=== PATIENT | female | born 1940 | race Two or more races ===

== ENCOUNTER 2017-01-27 20:11 | Inpatient (IN) | payer MEDICARE, MEDICAID ==
[~2017-01-27] VITALS: Ht 165.1 cm; Wt 66.7 kg
[2017-01-27 22:20] VITALS: BP 101/59
[2017-01-28] VITALS (15 sets, daily range): BP systolic 92–148; BP diastolic 41–82
[2017-01-28 05:59] LABS: APPEARANCE,URINE CLEAR; KETONES,URINE NEGATIVE (NEGATIVE); LEUKOCYTE ESTERASE ,URINE 3+ (NEGATIVE); NITRITE,URINE NEGATIVE (NEGATIVE); PH,URINE 5 (4.5-8.0); PROTEIN,URINE 2+ (NEGATIVE); UROBILINOGEN,URINE NORMAL MG/DL (0.0-1.0)
[2017-01-28] MEDS: NovoLOG Insulin Flexpen SUBQ SCH ×4 (06:05→21:48)
[2017-01-28 06:10] LABS: BACTERIA,URINE FEW /HPF; RBC,URINE 15-20 /HPF (0 - 2); SQUAMOUS EPITHELIAL CELL,UR FEW /LPF (NONE/OCC); WBC,URINE 60-80 /HPF (0 - 2)
[2017-01-28 06:11] LABS: HYALINE CASTS, URINE 0-2 /LPF
[2017-01-28 07:09] LABS: PROTHROMBIN TIME 10.5 SEC (9.30-11.50)
[2017-01-28 07:16] LABS: BASOPHILS % (AUTO) 0.7 % (0.0-2.0); EOSINOPHILS % (AUTO) 3.5 % (0.0-3.0); LYMPHOCYTES % (AUTO) 12.9 % (20.0-45.0); MEAN CORPUSCULAR HEMOGLOBIN 24.6 PG (27.0-31.0); MEAN CORPUSCULAR HGB CONC 31.3 G/DL (32.0-36.0); MEAN CORPUSCULAR VOLUME 79 FL (80-99); MONOCYTES % (AUTO) 7.9 % (1.0-10.0); PLATELET COUNT 277 K/UL (150-450); RED BLOOD COUNT 3.68 M/UL (4.20-5.40); RED CELL DISTRIBUTION WIDTH 15.9 % (11.6-14.8); WHITE BLOOD COUNT 11.8 K/UL (4.8-10.8)
[2017-01-28 07:21] LABS: ALANINE AMINOTRANSFERASE 8 U/L (3-33); ALBUMIN/GLOBULIN RATIO 0.9 (1.0-2.7); ANION GAP 13 (5-15); ASPARTATE AMINO TRANSFERASE 13 U/L (5-40); CALCIUM 8.9 mg/dL (8.6-10.2); CARBON DIOXIDE 24 mEQ/L (20-30); CHLORIDE 98 mEQ/L (98-107); CREATININE 1.3 mg/dL (0.5-0.9); HEMOLYSIS 0; MAGNESIUM 1.6 mg/dL (1.7-2.5); PHOSPHORUS 2.3 mg/dL (2.5-4.8); POTASSIUM 4.1 mEQ/L (3.4-4.9); SODIUM 135 mEQ/L (135-145); TOTAL PROTEIN 7.4 g/dL (6.6-8.7)
[2017-01-28 07:42] LABS: TROPONIN I < 0.30 ng/mL (<=0.30)
[2017-01-28] MEDS: Morphine Sulfate 4mg/ml Inj IVP PRN (07:55)
[2017-01-28] MEDS: Heparin 5000 units/ml inj SUBQ SCH ×2 (09:00→21:00)
--- NOTE | 2017-01-28 11:04 | Cardiology Report ---
APPROVED REPORT EXAM: Two-dimensional and M-mode echocardiogram with Doppler and color Doppler. INDICATION Dementia M-Mode DIMENSIONS Left Atrium (MM)4.4 (1.6-4.0cm) Aortic Root2.9 (2.0-3.7cm) Aortic Cusp Exc.1.6 (1.5-2.0cm) Other Information Technically limited study due to poor acoustic windows M-mode measurements of left ventricle not obtainable due to cardiac position (angle) Technically difficult study due to poor acoustical windows. Normal left ventricular chamber size. Hyperdynamic LV function. Left ventricular ejection fraction estimated to be 65-70 %. No evidence of left ventricular hypertrophy. Anterior Echo-free space, may be due to pericardial fat or effusion. All other cardiac chamber sizes are within normal limits. Mild focal aortic valve sclerosis with adequate cusp excursion. Mildly thickened mitral valve leaflets with normal excursion. Mild mitral annulus and aortic root calcification. Pulmonic valve not well visualized. Normal tricuspid valve structure. IVC at normal size with physiological collapse. A color flow and spectral doppler study was performed and revealed: No aortic insufficiency. Peak pressure gradient for LVOT is slightly elevated due to hyperdynamic systolic function. Trace mitral regurgitation. Mitral diastolic velocities suggest reduced left ventricular relaxation c/w impaired relaxation grade one diastolic dysfunction. Mild tricuspid regurgitation. Tricuspid systolic velocities suggests peak right ventricular systolic pressure of 60 mmHg, consistent with severe pulmonary hypertension. No pulmonic regurgitation present.
[2017-01-28] MEDS: Norco 5mg/325mg tab ORAL PRN (12:07)
--- NOTE | 2017-01-28 14:28 | Cardiac Electrophysiology PN ---
Subjective Subjective [id number]. OK to proceed with Hip surgery. NL EF, NL ECG. No history of CAD or CHF Objective Last 24 Hour Vital Signs Date Time Temp Pulse Resp B/P (MAP) Pulse Ox O2 Delivery O2 Flow Rate FiO2 01/28/17 11:28 97.0 111 20 148/79 93 Room Air 01/28/17 08:47 98.2 109 19 135/82 Room Air 01/28/17 04:00 98.2 110 20 138/73 94 Room Air 01/27/17 22:20 97.7 98 18 101/59 96 Room Air Intake and Output 01/28/17 01/29/17 19:00 07:00 Intake Total 75 ml Balance 75 ml Intake IV Total 75 ml Laboratory Tests Test 01/28/17 04:10 01/28/17 06:30 Urine Color Pale yellow Urine Appearance Clear Urine pH 5 (4.5-8.0) Urine Specific [place] 1.015 (1.005-1.035) Urine Protein 2+ (NEGATIVE) H Urine Glucose (UA) 3+ (NEGATIVE) H Urine Ketones Negative (NEGATIVE) Urine Occult Blood 3+ (NEGATIVE) H Urine Nitrite Negative (NEGATIVE) Urine Bilirubin Negative (NEGATIVE) Urine Urobilinogen Normal MG/DL (0.0-1.0) Urine Leukocyte Esterase 3+ (NEGATIVE) H Urine RBC 15-20 /HPF (0 - 2) H Urine WBC 60-80 /HPF (0 - 2) H Urine Squamous Epithelial Cells Few /LPF (NONE/OCC) Urine Bacteria Few /HPF (NONE) Urine Hyaline Casts 0-2 /LPF (NONE) H White Blood Count 11.8 K/UL (4.8-10.8) H Red Blood Count 3.68 M/UL (4.20-5.40) L Hemoglobin 9.1 G/DL (12.0-16.0) L Hematocrit 28.9 % (37.0-47.0) L Mean Corpuscular Volume 79 FL (80-99) L Mean Corpuscular Hemoglobin 24.6 PG (27.0-31.0) L Mean Corpuscular Hemoglobin Concent 31.3 G/DL (32.0-36.0) L Red Cell Distribution Width 15.9 % (11.6-14.8) H Platelet Count 277 K/UL (150-450) Mean Platelet Volume 7.0 FL (6.5-10.1) Neutrophils (%) (Auto) 75.0 % (45.0-75.0) Lymphocytes (%) (Auto) 12.9 % (20.0-45.0) L Monocytes (%) (Auto) 7.9 % (1.0-10.0) Eosinophils (%) (Auto) 3.5 % (0.0-3.0) H Basophils (%) (Auto) 0.7 % (0.0-2.0) Prothrombin Time 10.5 SEC (9.30-11.50) Prothromb Time International Ratio 1.0 (0.9-1.1) Sodium Level 135 mEQ/L (135-145) Potassium Level 4.1 mEQ/L (3.4-4.9) Chloride Level 98 mEQ/L (98-107) Carbon Dioxide Level 24 mEQ/L (20-30) Anion Gap 13 (5-15) Blood Urea Nitrogen 17 mg/dL (7-23) Creatinine 1.3 mg/dL (0.5-0.9) H Estimat Glomerular Filtration Rate mL/min (>60) Glucose Level 223 mg/dL (74-106) H Calcium Level 8.9 mg/dL (8.6-10.2) Phosphorus Level 2.3 mg/dL (2.5-4.8) L Magnesium Level 1.6 mg/dL (1.7-2.5) L Total Bilirubin 0.4 mg/dL (0.0-1.2) Aspartate Amino Transf (AST/SGOT) 13 U/L (5-40) Alanine Aminotransferase (ALT/SGPT) 8 U/L (3-33) Alkaline Phosphatase 104 U/L (35-104) Troponin I < 0.30 ng/mL (<=0.30) Total Protein 7.4 g/dL (6.6-8.7) Albumin 3.6 g/dL (3.5-5.2) Globulin 3.8 g/dL Albumin/Globulin Ratio 0.9 (1.0-2.7) DEV COOK Jan 28, 2017 14:28
--- NOTE | 2017-01-28 14:34 | Consultation ---
History of Present Illness General Date patient seen: Jan 28, 2017 Time patient seen: 13:30 Chief Complaint: s/p fall Referring physician: dr Griffin Reason for Consultation: inpatient management Present Illness HPI 77 y/old female initially was brought to [facility] for evaluation after she sustained mechanical fall while trying to get out of the bed denied blackout, loss of consciousness, head injury Workup in [place] confirmed fracture Left humerus and Left femur X ray L hip revealed left femoral mildly impacted fracture X ray L shoulder revealed displaced comminuted fracture Left humerus CT head revealed no acute intracranial pathology patient was transferred for further management to [facility] significant for multiple CVA, dementia, DM daughter at the bedside patient denies chest pain, SOB, dizziness, palpitations patient reports intermittent pain Allergies: Coded Allergies: No Known Allergies (Unverified , 01/27/17) Patient History Healthcare decision maker Harman Membreno(spouse, [phone]) Resuscitation status Full Code Advanced Directive on File Past Medical/Surgical History Past Medical/Surgical History: (1) Diabetes (2) History of CVA (cerebrovascular accident) (3) Dementia Review of Systems Constitutional: Reports: weakness Eye: Reports: no symptoms ENT: Reports: no symptoms Respiratory: Reports: no symptoms Cardiovascular: Reports: no symptoms Gastrointestinal: Reports: constipation Musculoskeletal: Reports: see HPI Skin: Reports: no symptoms Psychiatric: Reports: other - demenetia Neurological: Reports: other - hx of multiple CVA Endocrine: Reports: other - diabetes Hematologic/Lymphatic: Reports: no symptoms Physical Exam General Appearance: no apparent distress, alert - bedridden, Lines, tubes and drains: peripheral HEENT: normocephalic, atraumatic, anicteric, mucous membranes moist Respiratory/Chest: chest wall non-tender, lungs clear - with moderate air exchange , no respiratory distress, no accessory muscle use Cardiovascular/Chest: normal rate, regular rhythm, no JVD Abdomen: normal bowel sounds, non tender, soft Extremities: no edema Skin Exam: warm/dry Neurologic: alert, responsive Musculoskeletal: atrophy - BLE, other - Left shoudler + 2 edema, TTT, Left hip TTT, in external rotation Last 24 Hour Vital Signs Date Time Temp Pulse Resp B/P (MAP) Pulse Ox O2 Delivery O2 Flow Rate FiO2 01/28/17 11:28 97.0 111 20 148/79 93 Room Air 01/28/17 08:47 98.2 109 19 135/82 Room Air 01/28/17 04:00 98.2 110 20 138/73 94 Room Air 01/27/17 22:20 97.7 98 18 101/59 96 Room Air Intake and Output 01/28/17 01/29/17 19:00 07:00 Intake Total 75 ml Balance 75 ml Intake IV Total 75 ml Laboratory Tests Test 01/28/17 04:10 01/28/17 06:30 Urine Color Pale yellow Urine Appearance Clear Urine pH 5 (4.5-8.0) Urine Specific [place] 1.015 (1.005-1.035) Urine Protein 2+ (NEGATIVE) H Urine Glucose (UA) 3+ (NEGATIVE) H Urine Ketones Negative (NEGATIVE) Urine Occult Blood 3+ (NEGATIVE) H Urine Nitrite Negative (NEGATIVE) Urine Bilirubin Negative (NEGATIVE) Urine Urobilinogen Normal MG/DL (0.0-1.0) Urine Leukocyte Esterase 3+ (NEGATIVE) H Urine RBC 15-20 /HPF (0 - 2) H Urine WBC 60-80 /HPF (0 - 2) H Urine Squamous Epithelial Cells Few /LPF (NONE/OCC) Urine Bacteria Few /HPF (NONE) Urine Hyaline Casts 0-2 /LPF (NONE) H White Blood Count 11.8 K/UL (4.8-10.8) H Red Blood Count 3.68 M/UL (4.20-5.40) L Hemoglobin 9.1 G/DL (12.0-16.0) L Hematocrit 28.9 % (37.0-47.0) L Mean Corpuscular Volume 79 FL (80-99) L Mean Corpuscular Hemoglobin 24.6 PG (27.0-31.0) L Mean Corpuscular Hemoglobin Concent 31.3 G/DL (32.0-36.0) L Red Cell Distribution Width 15.9 % (11.6-14.8) H Platelet Count 277 K/UL (150-450) Mean Platelet Volume 7.0 FL (6.5-10.1) Neutrophils (%) (Auto) 75.0 % (45.0-75.0) Lymphocytes (%) (Auto) 12.9 % (20.0-45.0) L Monocytes (%) (Auto) 7.9 % (1.0-10.0) Eosinophils (%) (Auto) 3.5 % (0.0-3.0) H Basophils (%) (Auto) 0.7 % (0.0-2.0) Prothrombin Time 10.5 SEC (9.30-11.50) Prothromb Time International Ratio 1.0 (0.9-1.1) Sodium Level 135 mEQ/L (135-145) Potassium Level 4.1 mEQ/L (3.4-4.9) Chloride Level 98 mEQ/L (98-107) Carbon Dioxide Level 24 mEQ/L (20-30) Anion Gap 13 (5-15) Blood Urea Nitrogen 17 mg/dL (7-23) Creatinine 1.3 mg/dL (0.5-0.9) H Estimat Glomerular Filtration Rate mL/min (>60) Glucose Level 223 mg/dL (74-106) H Calcium Level 8.9 mg/dL (8.6-10.2) Phosphorus Level 2.3 mg/dL (2.5-4.8) L Magnesium Level 1.6 mg/dL (1.7-2.5) L Total Bilirubin 0.4 mg/dL (0.0-1.2) Aspartate Amino Transf (AST/SGOT) 13 U/L (5-40) Alanine Aminotransferase (ALT/SGPT) 8 U/L (3-33) Alkaline Phosphatase 104 U/L (35-104) Troponin I < 0.30 ng/mL (<=0.30) Total Protein 7.4 g/dL (6.6-8.7) Albumin 3.6 g/dL (3.5-5.2) Globulin 3.8 g/dL Albumin/Globulin Ratio 0.9 (1.0-2.7) L Height (Feet): 5 Height (Inches): 5.00 Weight (Pounds): 147 Medications Current Medications Medications (Trade) Dose Ordered Sig/Jayme Route PRN Reason Start Time Stop Time Status Last Admin Dose Admin Acetaminophen (Tylenol) 650 mg Q6H PRN ORAL Mild Pain/Temp > 100.5 01/28/17 00:45 02/27/17 00:44 Acetaminophen/ Hydrocodone Bitart ([place] 5/325) 1 tab Q6H PRN ORAL For Pain 01/28/17 00:45 02/04/17 00:44 01/28/17 12:07 Dextrose (Dextrose 50%) STAT PRN IV Hypoglycemia 01/28/17 00:45 02/27/17 00:44 Heparin Sodium (Porcine) (Heparin 5000 units/ml) 5,000 units EVERY 12 HOURS SUBQ 01/28/17 09:00 02/27/17 08:59 Insulin Aspart (NovoLOG) BEFORE MEALS AND HS SUBQ 01/28/17 06:30 02/27/17 06:29 01/28/17 06:05 Morphine Sulfate (Morphine Sulfate) 4 mg Q4H PRN IVP Severe Pain (Pain Scale 7-10) 01/28/17 00:45 02/04/17 00:44 01/28/17 07:55 Ondansetron HCl (Zofran) 4 mg Q4H PRN IVP Nausea & Vomiting 01/28/17 00:45 02/27/17 00:44 Sodium Chloride 1,000 ml @ 75 mls/hr [id number] IV 01/28/17 02:00 02/27/17 01:59 01/28/17 02:08 Assessment/Plan Assessment/Plan ASSESSMENT s/p mechanical fall L femoral neck mildly impacted fracture displaced comminuted fracture Left humerus pain L hip pain L shoulder dementia hx of CVA Diabetes hypo Mg moderate pulmonary HTN PLAN OF CARE MS floor pain management IVF ortho eval cardio clearance prior to surgery ECHO with EF 70-75% and RVSP of 60 c/w moderate pulmonary HTN replace Mg BS management with SS f insulin surgery pending DVT prophylaxis and resume after surgery when ok with surgeon will likely need extensive rehab given 2 fractures and prior hx of multiple CVA case discussed and evaluated by supervising physician Michael Vergaralisa)Fernanda NP Jan 28, 2017 14:34
--- NOTE | 2017-01-28 15:43 | History & Physical ---
History and Physical History & Physicial job # [id number] Abdirahman Griffin MD Jan 28, 2017 15:43
--- NOTE | 2017-01-28 16:20 | Pre-Procedure Note/Attestation ---
Pre-Procedure Note/Attestation Complete Prior to Procedure Planned Procedure: left Procedure Narrative: hip hemiarthroplasty Indications for Procedure Pre-Operative Diagnosis: left femoral neck fracture Attestation I attest that I discussed the nature of the procedure; its benefits; risks and complications; and alternatives (and the risks and benefits of such alternatives ), prior to the procedure, with the patient (or the patient's legal customer retention representative). I attest that, if there was a reasonable possibility of needing a blood transfusion, the patient (or the patient's legal customer retention representative) was given the [facility] standardized written summary, pursuant to the Florentin Carter Blood Safety Act ([place] Health and Safety Code # 1645, as amended). I attest that I re-evaluated the patient just prior to the surgery and that there has been no change in the patient's H&P, except as documented below: SWATHI TARIQ Jan 28, 2017 16:20
--- NOTE | 2017-01-28 16:20 | Operative Note - PDOC ---
Operative Note Operative Note Pre-op Diagnosis: left femoral neck fracture Procedure: left hip hemiarthroplasty Post-op Diagnosis: same as pre-op Operative Findings: consistent w/pre-op dx studies Anesthesia: regional Specimen: none Complications: none Condition: stable Estimated Blood Loss: none Implant(s) used?: Yes SWATHI TARIQ Jan 28, 2017 16:20
[2017-01-28] MEDS: cefTRIAXone 1 GM in D5W 55 ML IVPB SCH (16:58)
[2017-01-28] MEDS: D5 1/2NS w/KCl 20mEq 1,000 ML IV SCH ×2 (17:30→23:09)
[2017-01-28] MEDS ORDERED: Ketorolac 30mg Inj ONE (17:42)
[2017-01-28] MEDS ORDERED: Morphine Sulfate PF 10 ML ONE (17:42)
[2017-01-28] MEDS ORDERED: Bacitracin 50000 Units Vial ONE (17:42)
[2017-01-28] MEDS ORDERED: Bupivacaine w/Epi 0.5% 30ml Vial INJ ONE (17:42)
[2017-01-28] MEDS ORDERED: NeoSporin Gu Irrig 1ml Amp IRRIG ONE (17:42)
[2017-01-28] MEDS ORDERED: cloNIDine 1000mcg/10ml inj ONE (17:44)
[2017-01-28] MEDS ORDERED: Bupivacaine 0.5% Inj 30 ml vial INJ ONE (17:45)
[2017-01-28] MEDS ORDERED: Midazolam 2mg/2ml Inj ONE (18:00)
[2017-01-28] MEDS ORDERED: NS Irrig 2000ml IRRIG ONE (18:00)
[2017-01-28] MEDS ORDERED: Lidocaine 1% MPF 10mg/ml 5ml ONE (18:00)
[2017-01-28] MEDS ORDERED: LR 1000ml ONE (18:00)
[2017-01-28] MEDS ORDERED: Alfentanil 2ml Inj ONE (18:00)
[2017-01-28] MEDS ORDERED: NS Irrig 1000ml ONE (18:00)
[2017-01-28] MEDS ORDERED: Kenalog-40 1ml Vial ONE (18:08)
[2017-01-28] MEDS ORDERED: LR 1000ml 1,000 ML IVLG SCH (18:41)
[2017-01-28] MEDS ORDERED: LORazepam Inj 2mg/ml 1ml IV PRN (18:45)
[2017-01-28] MEDS ORDERED: Hydromorphone 0.5mg/0.5ml inj IVP PRN (18:45)
[2017-01-28] MEDS ORDERED: DiphenhydrAMINE 50mg/ml Inj IVP PRN (18:45)
[2017-01-28] MEDS ORDERED: Tranexamic Acid 1,000 MG in NS 65 ML IV ONE (18:45)
[2017-01-28] MEDS ORDERED: Meperidine 25mg/0.5ml Inj (FOR RIGORS ONLY) IV PRN (18:45)
[2017-01-28] MEDS ORDERED: oxyCODONE HCL/Acetaminophen 5/325mg ORAL PRN (18:45)
[2017-01-28] MEDS ORDERED: Metoclopramide 10mg/2ml Inj IVP PRN (18:45)
[2017-01-28] MEDS ORDERED: fentaNYL 100 mcg/2 mL IV PRN (18:45)
[2017-01-28] MEDS ORDERED: Norco 5mg/325mg tab ORAL PRN (18:45)
[2017-01-28] MEDS ORDERED: Midazolam 2mg/2ml Inj IVP PRN (18:45)
[2017-01-28] MEDS ORDERED: Atropine Inj 1mg/10ml Syr IV PRN (18:45)
[2017-01-28] MEDS ORDERED: Norco 7.5mg/325mg tab ORAL PRN (18:45)
--- NOTE | 2017-01-28 19:00 | Anethesia Preoperative Eval ---
Anesthesia Pre-op PMH/ROS General Date of Evaluation: Jan 28, 2017 Time of Evaluation: 18:01 Anesthesiologist: Theresa ASA Score: ASA 4 - Emergency Mallampati Score Class I : Soft palate, uvula, fauces, pillars visible Class II: Soft palate, uvula, fauces visible Class III: Soft palate, base of uvula visible Class IV: Only hard plate visible Mallampati Classification: Class III Surgeon: Michael Diagnosis: L Hip Fx Surgical Procedure: L Hip Hemiarthroplasty Anesthesia History: none Family History: no anesthesia problems Allergies: Coded Allergies: No Known Allergies (Unverified , 01/27/17) Medications: see eMAR Past Medical History Cardiovascular: Reports: HTN Neurologic/Psychiatric: Reports: dementia, CVA Endocrine: Reports: DM Musculoskeletal/Integumentary: Reports: other - L Shoulder FX Other: obesity - BMI 33 Anesthesia Pre-op Phys. Exam Physician Exam Last Vital Signs Date Time Temp Pulse Resp B/P (MAP) Pulse Ox O2 Delivery O2 Flow Rate FiO2 01/28/17 16:00 98.1 107 19 130/74 89 Room Air Constitutional: NAD Neurologic: CN 2-12 intact Cardiovascular: RRR Respiratory: CTA Gastrointestinal: S/NT/ND Airway Exam Mallampati Score: Class III MO: limited ROM: limited Teeth: missing, intact Anesthesia Pre-op A/P Labs Hematology Test 01/28/17 06:30 White Blood Count 11.8 K/UL (4.8-10.8) H Red Blood Count 3.68 M/UL (4.20-5.40) L Hemoglobin 9.1 G/DL (12.0-16.0) L Hematocrit 28.9 % (37.0-47.0) L Mean Corpuscular Volume 79 FL (80-99) L Mean Corpuscular Hemoglobin 24.6 PG (27.0-31.0) L Mean Corpuscular Hemoglobin Concent 31.3 G/DL (32.0-36.0) L Red Cell Distribution Width 15.9 % (11.6-14.8) H Platelet Count 277 K/UL (150-450) Mean Platelet Volume 7.0 FL (6.5-10.1) Neutrophils (%) (Auto) 75.0 % (45.0-75.0) Lymphocytes (%) (Auto) 12.9 % (20.0-45.0) L Monocytes (%) (Auto) 7.9 % (1.0-10.0) Eosinophils (%) (Auto) 3.5 % (0.0-3.0) H Basophils (%) (Auto) 0.7 % (0.0-2.0) Coagulation Test 01/28/17 06:30 Prothrombin Time 10.5 SEC (9.30-11.50) Prothromb Time International Ratio 1.0 (0.9-1.1) Chemistry Test 01/28/17 06:30 Sodium Level 135 mEQ/L (135-145) Potassium Level 4.1 mEQ/L (3.4-4.9) Chloride Level 98 mEQ/L (98-107) Carbon Dioxide Level 24 mEQ/L (20-30) Anion Gap 13 (5-15) Blood Urea Nitrogen 17 mg/dL (7-23) Creatinine 1.3 mg/dL (0.5-0.9) H Estimat Glomerular Filtration Rate mL/min (>60) Glucose Level 223 mg/dL (74-106) H Calcium Level 8.9 mg/dL (8.6-10.2) Phosphorus Level 2.3 mg/dL (2.5-4.8) L Magnesium Level 1.6 mg/dL (1.7-2.5) L Total Bilirubin 0.4 mg/dL (0.0-1.2) Aspartate Amino Transf (AST/SGOT) 13 U/L (5-40) Alanine Aminotransferase (ALT/SGPT) 8 U/L (3-33) Alkaline Phosphatase 104 U/L (35-104) Troponin I < 0.30 ng/mL (<=0.30) Total Protein 7.4 g/dL (6.6-8.7) Albumin 3.6 g/dL (3.5-5.2) Globulin 3.8 g/dL Albumin/Globulin Ratio 0.9 (1.0-2.7) L Risk Assessment & Plan Assessment: ASA 4E Plan: GA, Spinal, BIS Status Change Before Surgery: No Pre-Antibiotics Drug: Ceftriaxone 1 Gram IV Given Within 1 Hr of Incision: Yes Time Given: 18:01 Luis Cardenas MD Jan 28, 2017 19:00
--- NOTE | 2017-01-28 19:01 | Immediate Post-Op Evaluation ---
Immediate Post-Op Evalulation Immediate Post-Op Evalulation Procedure: L Hip Hemiarthroplasty Date of Evaluation: Jan 28, 2017 Time of Evaluation: 19:49 IV Fluids: 300 NS Blood Products: 0 Estimated Blood Loss: 50 Urinary Output: 100 Blood Pressure Systolic: 110 Blood Pressure Diastolic: 57 Pulse Rate: 104 Respiratory Rate: 16 O2 Sat by Pulse Oximetry: 96 Temperature (Fahrenheit): 97.6 Pain Score (1-10): 1 Nausea: No Vomiting: No Complications 0 Patient Status: awake, reacts, patent, none Hydration Status: adequate Dru Gram Ceftriaxone IV Given Within 1 Hr of Incision: Yes Time Given: 18:01 Luis Cardenas MD Jan 28, 2017 19:01
--- NOTE | 2017-01-28 19:02 | 48 Hour Post Anesthesia Eval ---
Post Anesthesia Evaluation Procedure: L Hip Hemiarthroplasty Date of Evaluation: Jan 28, 2017 Time of Evaluation: 21:56 Blood Pressure Systolic: 107 0: 61 Pulse Rate: 102 Respiratory Rate: 16 Temperature (Fahrenheit): 98.9 O2 Sat by Pulse Oximetry: 99 Airway: patent Nausea: No Vomiting: No Pain Intensity: 1 Hydration Status: adequate Cardiopulmonary Status: Stable Mental Status/LOC: patient returned to baseline Follow-up Care/Observations: 0 Post-Anesthesia Complications: 0 Follow-up care needed: N/A Luis Cardenas MD Jan 28, 2017 19:02
[2017-01-28] MEDS ORDERED: Duramorph PF 10mg/10ml amp EPIDUR ONE (19:09)
[2017-01-29] MEDS ORDERED: DONEPEZIL HCL5 M2 ORAL
[2017-01-29 00:04] VITALS: BP 102/59
[2017-01-29] MEDS ORDERED: ASPIRIN-LOW81 MG ORAL (00:06)
[2017-01-29] MEDS ORDERED: OMEPRAZOLE40 M1 ORAL (00:07)
[2017-01-29] MEDS ORDERED: GLIPIZIDE10 MG PO (00:08)
[2017-01-29] MEDS ORDERED: SERTRALINE HCL50 MG ORAL (00:09)
[2017-01-29 04:05] VITALS: BP 126/65
[2017-01-29] MEDS: NovoLOG Insulin Flexpen SUBQ SCH ×4 (06:09→20:30)
[2017-01-29] MEDS: GlipiZIDE 5mg tab ORAL SCH ×2 (06:30→16:47)
[2017-01-29 07:21] LABS: MEAN CORPUSCULAR HGB CONC 31.1 G/DL (32.0-36.0); MEAN CORPUSCULAR VOLUME 80 FL (80-99); MEAN PLATELET VOLUME 7.9 FL (6.5-10.1); PLATELET COUNT 254 K/UL (150-450); RED BLOOD COUNT 3.41 M/UL (4.20-5.40); RED CELL DISTRIBUTION WIDTH 16.6 % (11.6-14.8); WHITE BLOOD COUNT 15.9 K/UL (4.8-10.8)
[2017-01-29 07:32] LABS: ALANINE AMINOTRANSFERASE 10 U/L (3-33); ANION GAP 13 (5-15); ASPARTATE AMINO TRANSFERASE 20 U/L (5-40); CALCIUM 8.3 mg/dL (8.6-10.2); CARBON DIOXIDE 22 mEQ/L (20-30); CHLORIDE 98 mEQ/L (98-107); CREATININE 1.1 mg/dL (0.5-0.9); HEMOLYSIS 0; MAGNESIUM 1.9 mg/dL (1.7-2.5); PHOSPHORUS 2.9 mg/dL (2.5-4.8); POTASSIUM 5.2 mEQ/L (3.4-4.9); SODIUM 133 mEQ/L (135-145)
[2017-01-29 08:00] VITALS: BP 130/72
[2017-01-29 09:06] LABS: BAND NEUTROPHILS % (MANUAL) 4 % (0-8); LYMPHOCYTES % (MANUAL) 6 % (20-45); NEUTROPHILS % (MANUAL) 86 % (45-75); PLATELET MORPHOLOGY NORMAL; TOTAL CELLS COUNTED 100
[2017-01-29 09:07] LABS: ANISOCYTOSIS 1+; BASOPHILS % (MANUAL) 0 % (0-2); EOSINOPHILS % (MANUAL) 0 % (0-3); HYPOCHROMASIA 1+; PLATELET ESTIMATE ADEQUATE
[2017-01-29] MEDS: Sertraline 50mg tab ORAL SCH (09:23)
[2017-01-29] MEDS: Donepezil 5mg Tab ORAL SCH (09:23)
[2017-01-29] MEDS: Norco 5mg/325mg tab ORAL PRN (09:23)
[2017-01-29] MEDS: Heparin 5000 units/ml inj SUBQ SCH ×2 (09:24→20:29)
--- NOTE | 2017-01-29 09:45 | Diagnostic Imaging Report ---
Indication: Pelvic pain Technique: XRAY PELVIS 1 VIEW Comparison: None Findings: There is a left hip hemiarthroplasty with satisfactory alignment. No acute fracture is identified. There is mild degenerative spurring of the right acetabulum. Atherosclerotic changes are noted. There is osteopenia. Impression: Status post left hip hemiarthroplasty.
[2017-01-29] MEDS ORDERED: Tubing IV Secondary IV ONE (10:39)
--- NOTE | 2017-01-29 10:54 | Pulmonology Progress Note ---
Assessment/Plan Assessment/Plan ASSESSMENT s/p mechanical fall L femoral neck mildly impacted fracture 01/28 s/p left hip hemiarthroplasty displaced comminuted fracture Left humerus possible UTI leukocytosis ( 1 st postop day vs due to UTi) pain L hip pain L shoulder dementia hx of CVA Diabetes hypo Mg moderate pulmonary HTN anemia PLAN OF CARE MS floor pain management IVF cardio cleared for surgery ECHO with EF 70-75% and RVSP of 60 c/w moderate pulmonary HTN s/p surgery 01/28 ortho follows empiric abx urine cx GNR, colony count only 60-70 but will continue due to leucocytosis, however leukocytosis may likely be after surgery encourage IS at the bedside CXR today PT/OT DVT prophylaxis BS management with SS of insulin check HgA1c monitor HH, transfuse prn will likely need extensive rehab given 2 fractures and prior hx of multiple CVA case discussed and evaluated by supervising physician Subjective Allergies: Coded Allergies: No Known Allergies (Unverified , 01/27/17) Subjective s/p surgery 01/28 leukocytosis today, afebrile pain intermittently controlled nauseous Objective Last 24 Hour Vital Signs Date Time Temp Pulse Resp B/P (MAP) Pulse Ox O2 Delivery O2 Flow Rate FiO2 01/29/17 08:00 97.5 107 15 130/72 97 Room Air 01/29/17 04:05 97.7 107 18 126/65 93 Nasal Cannula 3.0 01/29/17 00:04 97.3 111 18 102/59 96 Nasal Cannula 3.0 01/28/17 21:00 96.8 107 20 104/59 96 Nasal Cannula 2.0 01/28/17 20:52 98.1 107 15 112/56 98 Nasal Cannula 3.0 01/28/17 20:45 107 14 102/60 100 Nasal Cannula 3.0 01/28/17 20:40 106 15 106/53 99 Nasal Cannula 3.0 01/28/17 20:30 104 13 95/55 99 Nasal Cannula 3.0 01/28/17 20:20 105 12 97/41 100 Nasal Cannula 3.0 01/28/17 20:15 103 14 95/47 100 Nasal Cannula 3.0 01/28/17 20:00 103 13 92/46 100 Simple Mask 6.0 01/28/17 19:50 102 15 116/58 100 Simple Mask 6.0 01/28/17 19:45 102 17 93/45 100 Simple Mask 6.0 01/28/17 19:39 102 16 99 01/28/17 19:38 98.7 103 13 110/52 100 Simple Mask 6.0 01/28/17 19:37 104 16 96 01/28/17 16:00 98.1 107 19 130/74 89 Room Air 01/28/17 11:28 97.0 111 20 148/79 93 Room Air Intake and Output 01/29/17 01/30/17 19:00 07:00 Intake Total 75 ml Balance 75 ml Intake IV Total 75 ml Objective General Appearance: no apparent distress, alert , responsive, bedridden, Lines, tubes and drains: peripheral HEENT: normocephalic, atraumatic, anicteric, mucous membranes moist Respiratory/Chest: chest wall non-tender, lungs clear - with moderate air exchange , no respiratory distress, no accessory muscle use Cardiovascular/Chest: normal rate, regular rhythm, no JVD Abdomen: normal bowel sounds, non tender, soft Extremities: left shoulder sling , NV intact Skin Exam: warm/dry Neurologic: alert, responsive Musculoskeletal: atrophy BLE, L shoulder with sling, + 1 edema, TTT, Left hip with dressing C/D/I Microbiology Date/Time Source Procedure Growth Status 01/28/17 04:10 Urine,Clean Catch Urine Culture - Preliminary Gram Negative Carlos Resulted Laboratory Tests 01/29/17 05:55: White Blood Count 15.9H, Red Blood Count 3.41L, Hemoglobin 8.5L, Hematocrit 27.4L, Mean Corpuscular Volume 80, Mean Corpuscular Hemoglobin 25.0L, Mean Corpuscular Hemoglobin Concent 31.1L, Red Cell Distribution Width 16.6H, Platelet Count 254, Mean Platelet Volume 7.9, Neutrophils (%) (Auto) , Lymphocytes (%) (Auto) , Monocytes (%) (Auto) , Eosinophils (%) (Auto) , Basophils (%) (Auto) , Differential Total Cells Counted 100, Neutrophils % ( Manual) 86H, Lymphocytes % (Manual) 6L, Monocytes % (Manual) 4, Eosinophils % ( Manual) 0, Basophils % (Manual) 0, Band Neutrophils 4, Platelet Estimate Adequate, Platelet Morphology Normal, Hypochromasia 1+, Anisocytosis 1+, Tear Drop Cells , Sodium Level 133L, Potassium Level 5.2H, Chloride Level 98, Carbon Dioxide Level 22, Anion Gap 13, Blood Urea Nitrogen 20, Creatinine 1.1H, Estimat Glomerular Filtration Rate , Glucose Level 428#H, Calcium Level 8.3L, Phosphorus Level 2.9, Magnesium Level 1.9, Total Bilirubin 0.4, Aspartate Amino Transf (AST/SGOT) 20, Alanine Aminotransferase (ALT/SGPT) 10, Alkaline Phosphatase 100, Total Protein 7.0, Albumin 3.5, Globulin 3.5, Albumin/Globulin Ratio 1.0 Current Medications Medications (Trade) Dose Ordered Sig/Jayme Route PRN Reason Start Time Stop Time Status Last Admin Dose Admin Acetaminophen (Tylenol) 650 mg Q6H PRN ORAL Mild Pain/Temp > 100.5 01/28/17 00:45 02/27/17 00:44 Acetaminophen/ Hydrocodone Bitart ([place] 5/325) 1 tab Q6H PRN ORAL For Pain 01/28/17 00:45 02/04/17 00:44 01/29/17 09:23 Artificial Tears ([place]-Tears) 2 drop Q2H PRN BOTH EYES Dry Eyes 01/29/17 10:30 02/28/17 10:29 UNV Ceftriaxone Sodium 1 gm/ Dextrose 55 ml @ 110 mls/hr Q24H IVPB 01/28/17 17:00 02/04/17 16:59 01/28/17 16:58 Dextrose (Dextrose 50%) STAT PRN IV Hypoglycemia 01/28/17 00:45 02/27/17 00:44 Donepezil HCl (Aricept) 5 mg DAILY ORAL 01/29/17 09:00 02/28/17 08:59 01/29/17 09:23 Glipizide (Glucotrol) 5 mg BIAC ORAL 01/29/17 06:30 02/28/17 06:29 Heparin Sodium (Porcine) (Heparin 5000 units/ml) 5,000 units EVERY 12 HOURS SUBQ 01/28/17 09:00 02/27/17 08:59 01/29/17 09:24 Insulin Aspart (NovoLOG) BEFORE MEALS AND HS SUBQ 01/28/17 06:30 02/27/17 06:29 01/29/17 06:09 Morphine Sulfate (Morphine Sulfate) 4 mg Q4H PRN IVP Severe Pain (Pain Scale 7-10) 01/28/17 00:45 02/04/17 00:44 01/28/17 07:55 Ondansetron HCl (Zofran) 4 mg Q4H PRN IVP Nausea & Vomiting 01/28/17 00:45 02/27/17 00:44 01/29/17 07:35 Pantoprazole (Protonix) 40 mg ACBREAKFAST ORAL 01/29/17 09:00 02/28/17 08:59 01/29/17 09:23 Sertraline HCl (Zoloft) 50 mg DAILY ORAL 01/29/17 09:00 02/28/17 08:59 01/29/17 09:23 Sodium Chloride 1,000 ml @ 75 mls/hr [id number] IV 01/28/17 02:00 02/27/17 01:59 01/28/17 02:08 [facility]Fernanda NP Jan 29, 2017 10:54
[2017-01-29] MEDS ORDERED: Artificial Tears 1.4% Op Soln BOTH EYES PRN (11:30)
[2017-01-29 12:00] VITALS: BP 121/64
--- NOTE | 2017-01-29 13:37 | Cardiac Electrophysiology PN ---
Assessment/Plan Assessment/Plan 1.L femoral neck mildly impacted fracture. s/p left hip hemiarthroplasty 01/28. . Tolerated well. No chest pain or SOB 2. Displaced comminuted fracture Left humerus 3 . NIDDM On Glipizide. Subjective Subjective Tolerated Hip surgery well. No chest pain or SOB.. NL EF, NL ECG. No history of CAD or CHF Objective Last 24 Hour Vital Signs Date Time Temp Pulse Resp B/P (MAP) Pulse Ox O2 Delivery O2 Flow Rate FiO2 01/29/17 08:00 97.5 107 15 130/72 97 Room Air 01/29/17 04:05 97.7 107 18 126/65 93 Nasal Cannula 3.0 01/29/17 00:04 97.3 111 18 102/59 96 Nasal Cannula 3.0 01/28/17 21:00 96.8 107 20 104/59 96 Nasal Cannula 2.0 01/28/17 20:52 98.1 107 15 112/56 98 Nasal Cannula 3.0 01/28/17 20:45 107 14 102/60 100 Nasal Cannula 3.0 01/28/17 20:40 106 15 106/53 99 Nasal Cannula 3.0 01/28/17 20:30 104 13 95/55 99 Nasal Cannula 3.0 01/28/17 20:20 105 12 97/41 100 Nasal Cannula 3.0 01/28/17 20:15 103 14 95/47 100 Nasal Cannula 3.0 01/28/17 20:00 103 13 92/46 100 Simple Mask 6.0 01/28/17 19:50 102 15 116/58 100 Simple Mask 6.0 01/28/17 19:45 102 17 93/45 100 Simple Mask 6.0 01/28/17 19:39 102 16 99 01/28/17 19:38 98.7 103 13 110/52 100 Simple Mask 6.0 01/28/17 19:37 104 16 96 01/28/17 16:00 98.1 107 19 130/74 89 Room Air Intake and Output 01/29/17 01/30/17 19:00 07:00 Intake Total 75 ml Balance 75 ml Intake IV Total 75 ml Laboratory Tests Test 01/29/17 05:55 White Blood Count 15.9 K/UL (4.8-10.8) H Red Blood Count 3.41 M/UL (4.20-5.40) L Hemoglobin 8.5 G/DL (12.0-16.0) L Hematocrit 27.4 % (37.0-47.0) L Mean Corpuscular Volume 80 FL (80-99) Mean Corpuscular Hemoglobin 25.0 PG (27.0-31.0) L Mean Corpuscular Hemoglobin Concent 31.1 G/DL (32.0-36.0) L Red Cell Distribution Width 16.6 % (11.6-14.8) H Platelet Count 254 K/UL (150-450) Mean Platelet Volume 7.9 FL (6.5-10.1) Neutrophils (%) (Auto) % (45.0-75.0) Lymphocytes (%) (Auto) % (20.0-45.0) Monocytes (%) (Auto) % (1.0-10.0) Eosinophils (%) (Auto) % (0.0-3.0) Basophils (%) (Auto) % (0.0-2.0) Differential Total Cells Counted 100 Neutrophils % (Manual) 86 % (45-75) H Lymphocytes % (Manual) 6 % (20-45) L Monocytes % (Manual) 4 % (1-10) Eosinophils % (Manual) 0 % (0-3) Basophils % (Manual) 0 % (0-2) Band Neutrophils 4 % (0-8) Platelet Estimate Adequate Platelet Morphology Normal Hypochromasia 1+ Anisocytosis 1+ Tear Drop Cells Sodium Level 133 mEQ/L (135-145) L Potassium Level 5.2 mEQ/L (3.4-4.9) H Chloride Level 98 mEQ/L (98-107) Carbon Dioxide Level 22 mEQ/L (20-30) Anion Gap 13 (5-15) Blood Urea Nitrogen 20 mg/dL (7-23) Creatinine 1.1 mg/dL (0.5-0.9) H Estimat Glomerular Filtration Rate mL/min (>60) Glucose Level 428 mg/dL (74-106) #H Calcium Level 8.3 mg/dL (8.6-10.2) L Phosphorus Level 2.9 mg/dL (2.5-4.8) Magnesium Level 1.9 mg/dL (1.7-2.5) Total Bilirubin 0.4 mg/dL (0.0-1.2) Aspartate Amino Transf (AST/SGOT) 20 U/L (5-40) Alanine Aminotransferase (ALT/SGPT) 10 U/L (3-33) Alkaline Phosphatase 100 U/L (35-104) Total Protein 7.0 g/dL (6.6-8.7) Albumin 3.5 g/dL (3.5-5.2) Globulin 3.5 g/dL Albumin/Globulin Ratio 1.0 (1.0-2.7) Microbiology Date/Time Source Procedure Growth Status 01/28/17 04:10 Urine,Clean Catch Urine Culture - Preliminary Gram Negative Carlos Resulted Objective HEENT: No JVD LUNGS: CLEAR CVS: RRR NO G/R/M ABDOMEN: SOFT EXT: S/P DEV QUEVEDO Jan 29, 2017 13:37
--- NOTE | 2017-01-29 15:16 | Internal Med Progress Note ---
Subjective Date of Service: Jan 29, 2017 Physician Name Albino Chaudhry Attending Physician Abdirahman Griffin MD Current Medications Medications (Trade) Dose Ordered Sig/Jayme Route PRN Reason Start Time Stop Time Status Last Admin Dose Admin Acetaminophen (Tylenol) 650 mg Q6H PRN ORAL Mild Pain/Temp > 100.5 01/28/17 00:45 02/27/17 00:44 Acetaminophen/ Hydrocodone Bitart ([place] 5/325) 1 tab Q6H PRN ORAL For Pain 01/28/17 00:45 02/04/17 00:44 01/29/17 09:23 Artificial Tears (Akwa-Tears) 2 drop Q2H PRN BOTH EYES Dry Eyes 01/29/17 11:30 02/28/17 11:29 Ceftriaxone Sodium 1 gm/ Dextrose 55 ml @ 110 mls/hr Q24H IVPB 01/28/17 17:00 02/04/17 16:59 01/28/17 16:58 Dextrose (Dextrose 50%) STAT PRN IV Hypoglycemia 01/28/17 00:45 02/27/17 00:44 Donepezil HCl (Aricept) 5 mg DAILY ORAL 01/29/17 09:00 02/28/17 08:59 01/29/17 09:23 Glipizide (Glucotrol) 5 mg BIAC ORAL 01/29/17 06:30 02/28/17 06:29 Heparin Sodium (Porcine) (Heparin 5000 units/ml) 5,000 units EVERY 12 HOURS SUBQ 01/28/17 09:00 02/27/17 08:59 01/29/17 09:24 Insulin Aspart (NovoLOG) BEFORE MEALS AND HS SUBQ 01/28/17 06:30 02/27/17 06:29 01/29/17 11:51 Morphine Sulfate (Morphine Sulfate) 4 mg Q4H PRN IVP Severe Pain (Pain Scale 7-10) 01/28/17 00:45 02/04/17 00:44 01/28/17 07:55 Ondansetron HCl (Zofran) 4 mg Q4H PRN IVP Nausea & Vomiting 01/28/17 00:45 02/27/17 00:44 01/29/17 07:35 Pantoprazole (Protonix) 40 mg ACBREAKFAST ORAL 01/29/17 09:00 02/28/17 08:59 01/29/17 09:23 Sertraline HCl (Zoloft) 50 mg DAILY ORAL 01/29/17 09:00 02/28/17 08:59 01/29/17 09:23 Sodium Chloride 1,000 ml @ 60 mls/hr [id number] IV 01/29/17 12:00 02/28/17 11:59 01/29/17 11:50 Allergies: Coded Allergies: No Known Allergies (Unverified , 01/27/17) ROS Limited/Unobtainable: No Constitutional: Reports: no symptoms HEENT: Reports: no symptoms Cardiovascular: Reports: no symptoms Respiratory: Reports: no symptoms Gastrointestinal/Abdominal: Reports: no symptoms Genitourinary: Reports: no symptoms Neurologic/Psychiatric: Reports: no symptoms Subjective 77 YO F admitted with left hip pain. Now fracture of Left femoral neck and Left humerus fracture. Cover for Int Román-Dr Griffin. S/P left hemiarthroplasty on 01/28/17. Objective Last Vital Signs Date Time Temp Pulse Resp B/P (MAP) Pulse Ox O2 Delivery O2 Flow Rate FiO2 01/29/17 12:00 96.1 110 15 121/64 89 Room Air 01/29/17 04:05 3.0 General Appearance: WD/WN, no apparent distress, alert, mild distress EENT: PERRL/EOMI, normal ENT inspection, TMs normal Neck: non-tender, normal alignment, supple, normal inspection Cardiovascular: normal peripheral pulses, normal rate, regular rhythm, no gallop/murmur, no JVD Respiratory/Chest: chest wall non-tender, lungs clear, normal breath sounds, no respiratory distress, no accessory muscle use Abdomen: normal bowel sounds, non tender, soft, no organomegaly, no mass Extremities: other - Left hip dressing clean and dry 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, no motor/sensory deficits Skin: normal pigmentation, warm/dry Laboratory Tests Test 01/29/17 05:55 White Blood Count 15.9 K/UL (4.8-10.8) H Red Blood Count 3.41 M/UL (4.20-5.40) L Hemoglobin 8.5 G/DL (12.0-16.0) L Hematocrit 27.4 % (37.0-47.0) L Mean Corpuscular Volume 80 FL (80-99) Mean Corpuscular Hemoglobin 25.0 PG (27.0-31.0) L Mean Corpuscular Hemoglobin Concent 31.1 G/DL (32.0-36.0) L Red Cell Distribution Width 16.6 % (11.6-14.8) H Platelet Count 254 K/UL (150-450) Mean Platelet Volume 7.9 FL (6.5-10.1) Neutrophils (%) (Auto) % (45.0-75.0) Lymphocytes (%) (Auto) % (20.0-45.0) Monocytes (%) (Auto) % (1.0-10.0) Eosinophils (%) (Auto) % (0.0-3.0) Basophils (%) (Auto) % (0.0-2.0) Differential Total Cells Counted 100 Neutrophils % (Manual) 86 % (45-75) H Lymphocytes % (Manual) 6 % (20-45) L Monocytes % (Manual) 4 % (1-10) Eosinophils % (Manual) 0 % (0-3) Basophils % (Manual) 0 % (0-2) Band Neutrophils 4 % (0-8) Platelet Estimate Adequate Platelet Morphology Normal Hypochromasia 1+ Anisocytosis 1+ Tear Drop Cells Sodium Level 133 mEQ/L (135-145) L Potassium Level 5.2 mEQ/L (3.4-4.9) H Chloride Level 98 mEQ/L (98-107) Carbon Dioxide Level 22 mEQ/L (20-30) Anion Gap 13 (5-15) Blood Urea Nitrogen 20 mg/dL (7-23) Creatinine 1.1 mg/dL (0.5-0.9) H Estimat Glomerular Filtration Rate mL/min (>60) Glucose Level 428 mg/dL (74-106) #H Calcium Level 8.3 mg/dL (8.6-10.2) L Phosphorus Level 2.9 mg/dL (2.5-4.8) Magnesium Level 1.9 mg/dL (1.7-2.5) Total Bilirubin 0.4 mg/dL (0.0-1.2) Aspartate Amino Transf (AST/SGOT) 20 U/L (5-40) Alanine Aminotransferase (ALT/SGPT) 10 U/L (3-33) Alkaline Phosphatase 100 U/L (35-104) Total Protein 7.0 g/dL (6.6-8.7) Albumin 3.5 g/dL (3.5-5.2) Globulin 3.5 g/dL Albumin/Globulin Ratio 1.0 (1.0-2.7) Microbiology Date/Time Source Procedure Growth Status 01/28/17 04:10 Urine,Clean Catch Urine Culture - Preliminary Gram Negative Carlos Resulted Intake and Output 01/29/17 01/30/17 19:00 07:00 Intake Total 75 ml Balance 75 ml Intake IV Total 75 ml Assessment/Plan Problem List: (1) Left hip pain (2) Fracture of femoral neck, left Assessment & Plan: S/P left hip hemiarthroplasty on 01/28/17. See Ortho note. (3) Fracture of humerus, left, closed Assessment & Plan: see ortho note. non surgical (4) Diabetes mellitus, type II Assessment & Plan: Continue novolog sliding scale. (5) Cerebral vascular disease (6) Alzheimer's dementia Status: not improved ALBINO CHAUDHRY Jan 29, 2017 15:16
[2017-01-29 16:00] VITALS: BP 117/61
[2017-01-29] MEDS: Excedrin Migraine tab ORAL PRN (16:02)
[2017-01-29] MEDS: cefTRIAXone 1 GM in D5W 55 ML IVPB SCH (16:47)
[2017-01-29 20:00] VITALS: BP 120/62
[2017-01-30] VITALS: BP 125/67
[2017-01-30] MEDS: Morphine Sulfate 4mg/ml Inj IVP PRN (01:24)
[2017-01-30 04:00] VITALS: BP 124/59
[2017-01-30] MEDS: Norco 5mg/325mg tab ORAL PRN ×3 (05:36→15:28)
[2017-01-30] MEDS: GlipiZIDE 5mg tab ORAL SCH ×2 (06:08→17:08)
[2017-01-30] MEDS: NovoLOG Insulin Flexpen SUBQ SCH ×4 (06:10→20:32)
[2017-01-30 06:52] LABS: MEAN CORPUSCULAR HEMOGLOBIN 25.1 PG (27.0-31.0); MEAN CORPUSCULAR HGB CONC 31.6 G/DL (32.0-36.0); MEAN CORPUSCULAR VOLUME 79 FL (80-99); MEAN PLATELET VOLUME 7.5 FL (6.5-10.1); PLATELET COUNT 222 K/UL (150-450); RED BLOOD COUNT 2.87 M/UL (4.20-5.40); RED CELL DISTRIBUTION WIDTH 16.6 % (11.6-14.8); WHITE BLOOD COUNT 12.2 K/UL (4.8-10.8)
[2017-01-30 07:04] LABS: ANION GAP 13 (5-15); CALCIUM 8.1 mg/dL (8.6-10.2); CARBON DIOXIDE 21 mEQ/L (20-30); CHLORIDE 99 mEQ/L (98-107); CREATININE 1.1 mg/dL (0.5-0.9); HEMOLYSIS 0; SODIUM 133 mEQ/L (135-145)
[2017-01-30 08:00] VITALS: BP 125/54
[2017-01-30] MEDS: Sertraline 50mg tab ORAL SCH (08:27)
[2017-01-30] MEDS: Donepezil 5mg Tab ORAL SCH (08:28)
[2017-01-30] MEDS: Heparin 5000 units/ml inj SUBQ SCH (08:29)
[2017-01-30 08:34] LABS: ANISOCYTOSIS 1+; BAND NEUTROPHILS % (MANUAL) 0 % (0-8); BASOPHILS % (MANUAL) 0 % (0-2); EOSINOPHILS % (MANUAL) 0 % (0-3); HYPOCHROMASIA 1+; LYMPHOCYTES % (MANUAL) 8 % (20-45); MICROCYTES 1+; NEUTROPHILS % (MANUAL) 86 % (45-75); PLATELET ESTIMATE ADEQUATE; PLATELET MORPHOLOGY NORMAL; TOTAL CELLS COUNTED 100
[2017-01-30] MEDS: Cephalexin 500mg cap ORAL SCH ×3 (09:07→17:13)
--- NOTE | 2017-01-30 09:20 | Diagnostic Imaging Report ---
Indication: Chest pain Technique: XRAY CHEST 1 V Comparison: None Findings: There is poor inspiration with bronchovascular crowding. Cardiomediastinal silhouette is grossly within normal limits. Atherosclerotic changes are seen. There is interstitial prominence. There is mild atelectasis of the left mid and bilateral lower lung de guzman. Degenerative changes of the spine are seen. Impression: Poor inspiration with bronchovascular crowding. Mild interstitial prominence and mild edema cannot be excluded. Atelectasis of the left mid and bilateral lower lung de guzman. Followup recommended.
[2017-01-30] MEDS ORDERED: Tubing IV Secondary IV ONE (09:40)
[2017-01-30] MEDS: Excedrin Migraine tab ORAL PRN (10:04)
[2017-01-30 12:00] VITALS: BP 127/64
--- NOTE | 2017-01-30 13:05 | Pulmonology Progress Note ---
Assessment/Plan Assessment/Plan ASSESSMENT s/p mechanical fall L femoral neck mildly impacted fracture 01/28 s/p left hip hemiarthroplasty displaced comminuted fracture Left humerus possible UTI leukocytosis pain L hip pain L shoulder dementia hx of CVA Diabetes hypo Mg moderate pulmonary HTN anemia PLAN OF CARE MS floor pain management IVF cardio cleared for surgery ECHO with EF 70-75% and RVSP of 60 c/w moderate pulmonary HTN s/p surgery 01/28 ortho follows empiric abx urine cx E coli , colony count only 60-70 abx continue due to leucocytosis, trending down encourage IS at the bedside CXR on 01/29 Poor inspiration with bronchovascular crowding. Mild interstitial prominence and mild edema cannot be excluded. Atelectasis of the left mid and bilateral lower lung de guzman fup with CXR in am PT/OT DVT prophylaxis BS management with SS of insulin check HgA1c HH with trend down, family declined insertion of IV line anemia w/up, stool OB, check CBC in am hold Heparin and ASA with caffeine for now will likely need extensive rehab given 2 fractures and prior hx of multiple CVA case discussed and evaluated by supervising physician Subjective Allergies: Coded Allergies: No Known Allergies (Unverified , 01/27/17) Subjective s/p surgery 01/28 leukocytosis trending won, , afebrile pain intermittently controlled HH down to 7.2/22.8 Objective Last 24 Hour Vital Signs Date Time Temp Pulse Resp B/P (MAP) Pulse Ox O2 Delivery O2 Flow Rate FiO2 01/30/17 12:08 97.9 01/30/17 11:03 97.9 01/30/17 08:00 97.9 105 15 125/54 92 Room Air 01/30/17 04:00 99.3 88 21 124/59 94 Room Air 01/30/17 00:00 98.2 88 19 125/67 96 Room Air 01/29/17 20:00 98.4 97 19 120/62 95 Room Air 01/29/17 16:00 98.1 100 16 117/61 100 Room Air Objective General Appearance: no apparent distress, alert , responsive, bedridden, Lines, tubes and drains: peripheral HEENT: normocephalic, atraumatic, anicteric, mucous membranes moist Respiratory/Chest: chest wall non-tender, lungs clear - with moderate air exchange , no respiratory distress, no accessory muscle use Cardiovascular/Chest: normal rate, regular rhythm, no JVD Abdomen: normal bowel sounds, non tender, soft Extremities: left shoulder sling , NV intact Skin Exam: warm/dry Neurologic: alert, responsive Musculoskeletal: atrophy BLE, L shoulder with sling, + 1 edema, TTT, Left hip with dressing C/D/I Microbiology Date/Time Source Procedure Growth Status 01/28/17 04:10 Urine,Clean Catch Urine Culture - Final Escherichia Coli Complete Laboratory Tests 01/30/17 04:35: White Blood Count 12.2H, Red Blood Count 2.87L, Hemoglobin 7.2L, Hematocrit 22.8L, Mean Corpuscular Volume 79L, Mean Corpuscular Hemoglobin 25.1L, Mean Corpuscular Hemoglobin Concent 31.6L, Red Cell Distribution Width 16.6H, Platelet Count 222, Mean Platelet Volume 7.5, Neutrophils (%) (Auto) , Lymphocytes (%) (Auto) , Monocytes (%) (Auto) , Eosinophils (%) (Auto) , Basophils (%) (Auto) , Differential Total Cells Counted 100, Neutrophils % ( Manual) 86H, Lymphocytes % (Manual) 8L, Monocytes % (Manual) 6, Eosinophils % ( Manual) 0, Basophils % (Manual) 0, Band Neutrophils 0, Platelet Estimate Adequate, Platelet Morphology Normal, Hypochromasia 1+, Anisocytosis 1+, Microcytosis 1+, Sodium Level 133L, Potassium Level 5.0H, Chloride Level 99, Carbon Dioxide Level 21, Anion Gap 13, Blood Urea Nitrogen 25H, Creatinine 1.1H , Estimat Glomerular Filtration Rate , Glucose Level 360H, Calcium Level 8.1L Current Medications Medications (Trade) Dose Ordered Sig/Jayme Route PRN Reason Start Time Stop Time Status Last Admin Dose Admin Acetaminophen (Tylenol) 650 mg Q6H PRN ORAL Mild Pain/Temp > 100.5 01/28/17 00:45 02/27/17 00:44 Acetaminophen/ Aspirin/Caffeine (Excedrin Migraine) 1 ea Q6H PRN ORAL headache 01/29/17 15:30 02/28/17 15:29 01/30/17 10:04 Acetaminophen/ Hydrocodone Bitart ([place] 10/325) 1 ea Q4H PRN ORAL Severe Pain (Pain Scale 7-10) 01/30/17 08:45 02/06/17 08:44 Acetaminophen/ Hydrocodone Bitart ([place] 5/325) 1 tab Q6H PRN ORAL For Pain 01/28/17 00:45 02/04/17 00:44 01/30/17 11:09 Artificial Tears (Akwa-Tears) 2 drop Q2H PRN BOTH EYES Dry Eyes 01/29/17 11:30 02/28/17 11:29 Cephalexin (Keflex) 500 mg TID ORAL 01/30/17 09:00 02/03/17 19:00 01/30/17 12:39 Dextrose (Dextrose 50%) STAT PRN IV Hypoglycemia 01/28/17 00:45 02/27/17 00:44 Diphenhydramine HCl (Benadryl) 25 mg Q4H PRN ORAL Itching 01/29/17 16:00 02/28/17 15:59 Donepezil HCl (Aricept) 5 mg DAILY ORAL 01/29/17 09:00 02/28/17 08:59 01/30/17 08:28 Glipizide (Glucotrol) 5 mg BIAC ORAL 01/29/17 06:30 02/28/17 06:29 01/30/17 06:08 Heparin Sodium (Porcine) (Heparin 5000 units/ml) 5,000 units EVERY 12 HOURS SUBQ 01/28/17 09:00 02/27/17 08:59 01/30/17 08:29 Insulin Aspart (NovoLOG) BEFORE MEALS AND HS SUBQ 01/28/17 06:30 02/27/17 06:29 01/30/17 12:05 Metformin HCl (Glucophage) 1,000 mg BIAC ORAL 01/30/17 16:30 03/01/17 16:29 Ondansetron HCl (Zofran) 4 mg Q4H PRN IVP Nausea & Vomiting 01/28/17 00:45 02/27/17 00:44 01/29/17 07:35 Pantoprazole (Protonix) 40 mg ACBREAKFAST ORAL 01/29/17 09:00 02/28/17 08:59 01/30/17 06:08 Sertraline HCl (Zoloft) 50 mg DAILY ORAL 01/29/17 09:00 02/28/17 08:59 01/30/17 08:27 Sodium Chloride 1,000 ml @ 60 mls/hr [id number] IV 01/29/17 12:00 02/28/17 11:59 01/30/17 05:32 Michael ([facility])Fernanda NP Jan 30, 2017 13:05
--- NOTE | 2017-01-30 14:43 | Cardiology Report ---
APPROVED REPORT EKG Measurement Heart [id number] Sinus tachycardia Otherwise normal ECG
--- NOTE | 2017-01-30 15:02 | Internal Med Progress Note ---
Subjective Date of Service: Jan 30, 2017 Physician Name Albino More Attending Physician Abdirahman Griffin MD Current Medications Medications (Trade) Dose Ordered Sig/Jayme Route PRN Reason Start Time Stop Time Status Last Admin Dose Admin Acetaminophen (Tylenol) 650 mg Q6H PRN ORAL Mild Pain/Temp > 100.5 01/28/17 00:45 02/27/17 00:44 Acetaminophen/ Hydrocodone Bitart ([place] 10/325) 1 ea Q4H PRN ORAL Severe Pain (Pain Scale 7-10) 01/30/17 08:45 02/06/17 08:44 Acetaminophen/ Hydrocodone Bitart ([place] 5/325) 1 tab Q6H PRN ORAL For Pain 01/28/17 00:45 02/04/17 00:44 01/30/17 11:09 Artificial Tears (Akwa-Tears) 2 drop Q2H PRN BOTH EYES Dry Eyes 01/29/17 11:30 02/28/17 11:29 Cephalexin (Keflex) 500 mg TID ORAL 01/30/17 09:00 02/03/17 19:00 01/30/17 12:39 Dextrose (Dextrose 50%) STAT PRN IV Hypoglycemia 01/28/17 00:45 02/27/17 00:44 Diphenhydramine HCl (Benadryl) 25 mg Q4H PRN ORAL Itching 01/29/17 16:00 02/28/17 15:59 Donepezil HCl (Aricept) 5 mg DAILY ORAL 01/29/17 09:00 02/28/17 08:59 01/30/17 08:28 Glipizide (Glucotrol) 5 mg BIAC ORAL 01/29/17 06:30 02/28/17 06:29 01/30/17 06:08 Insulin Aspart (NovoLOG) BEFORE MEALS AND HS SUBQ 01/28/17 06:30 02/27/17 06:29 01/30/17 12:05 Metformin HCl (Glucophage) 1,000 mg BIAC ORAL 01/30/17 16:30 03/01/17 16:29 Ondansetron HCl (Zofran) 4 mg Q4H PRN IVP Nausea & Vomiting 01/28/17 00:45 02/27/17 00:44 01/29/17 07:35 Pantoprazole (Protonix) 40 mg ACBREAKFAST ORAL 01/29/17 09:00 02/28/17 08:59 01/30/17 06:08 Sertraline HCl (Zoloft) 50 mg DAILY ORAL 01/29/17 09:00 02/28/17 08:59 01/30/17 08:27 Sodium Chloride 1,000 ml @ 60 mls/hr [id number] IV 01/29/17 12:00 02/28/17 11:59 01/30/17 05:32 Allergies: Coded Allergies: No Known Allergies (Unverified , 01/27/17) ROS Limited/Unobtainable: No Constitutional: Reports: no symptoms HEENT: Reports: no symptoms Cardiovascular: Reports: no symptoms Respiratory: Reports: no symptoms Gastrointestinal/Abdominal: Reports: no symptoms Genitourinary: Reports: no symptoms Neurologic/Psychiatric: Reports: no symptoms Subjective 77 YO F admitted with left hip pain. Now fracture of Left femoral neck and Left humerus fracture. Cover for Int Med-Dr Griffin. S/P left hemiarthroplasty on 01/28/17. Objective Last Vital Signs Date Time Temp Pulse Resp B/P (MAP) Pulse Ox O2 Delivery O2 Flow Rate FiO2 01/30/17 12:08 97.9 01/30/17 08:00 105 15 125/54 92 Room Air 01/29/17 04:05 3.0 Laboratory Tests Test 01/30/17 04:35 White Blood Count 12.2 K/UL (4.8-10.8) H Red Blood Count 2.87 M/UL (4.20-5.40) L Hemoglobin 7.2 G/DL (12.0-16.0) L Hematocrit 22.8 % (37.0-47.0) L Mean Corpuscular Volume 79 FL (80-99) L Mean Corpuscular Hemoglobin 25.1 PG (27.0-31.0) L Mean Corpuscular Hemoglobin Concent 31.6 G/DL (32.0-36.0) L Red Cell Distribution Width 16.6 % (11.6-14.8) H Platelet Count 222 K/UL (150-450) Mean Platelet Volume 7.5 FL (6.5-10.1) Neutrophils (%) (Auto) % (45.0-75.0) Lymphocytes (%) (Auto) % (20.0-45.0) Monocytes (%) (Auto) % (1.0-10.0) Eosinophils (%) (Auto) % (0.0-3.0) Basophils (%) (Auto) % (0.0-2.0) Differential Total Cells Counted 100 Neutrophils % (Manual) 86 % (45-75) H Lymphocytes % (Manual) 8 % (20-45) L Monocytes % (Manual) 6 % (1-10) Eosinophils % (Manual) 0 % (0-3) Basophils % (Manual) 0 % (0-2) Band Neutrophils 0 % (0-8) Platelet Estimate Adequate Platelet Morphology Normal Hypochromasia 1+ Anisocytosis 1+ Microcytosis 1+ Sodium Level 133 mEQ/L (135-145) L Potassium Level 5.0 mEQ/L (3.4-4.9) H Chloride Level 99 mEQ/L (98-107) Carbon Dioxide Level 21 mEQ/L (20-30) Anion Gap 13 (5-15) Blood Urea Nitrogen 25 mg/dL (7-23) H Creatinine 1.1 mg/dL (0.5-0.9) H Estimat Glomerular Filtration Rate mL/min (>60) Glucose Level 360 mg/dL (74-106) H Calcium Level 8.1 mg/dL (8.6-10.2) L Microbiology Date/Time Source Procedure Growth Status 01/28/17 04:10 Urine,Clean Catch Urine Culture - Final Escherichia Coli Complete Objective General Appearance: WD/WN, no apparent distress, alert, mild distress EENT: PERRL/EOMI, normal ENT inspection, TMs normal Neck: non-tender, normal alignment, supple, normal inspection Cardiovascular: normal peripheral pulses, normal rate, regular rhythm, no gallop/murmur, no JVD Respiratory/Chest: chest wall non-tender, lungs clear, normal breath sounds, no respiratory distress, no accessory muscle use Abdomen: normal bowel sounds, non tender, soft, no organomegaly, no mass Extremities: other - Left hip dressing clean and dry 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 See Ortho note. (3) Fracture of humerus, left, closed Assessment & Plan: see ortho note. non surgical (4) Diabetes mellitus, type II Assessment & Plan: Continue novolog sliding scale. (5) Cerebral vascular disease (6) Alzheimer's dementia Assessment/Plan Discharge planning: [facility] [place] ALBINO MORE Jan 30, 2017 15:02
[2017-01-30 16:00] VITALS: BP 134/66
[2017-01-30] MEDS: metFORMIN 500mg tab ORAL SCH (17:08)
[2017-01-30 20:00] VITALS: BP 142/74
[2017-01-31] VITALS (7 sets, daily range): BP systolic 123–152; BP diastolic 53–78
[2017-01-31] MEDS: Norco 5mg/325mg tab ORAL PRN ×2 (06:11→11:32)
[2017-01-31] MEDS: GlipiZIDE 5mg tab ORAL SCH ×2 (06:12→15:57)
[2017-01-31] MEDS: metFORMIN 500mg tab ORAL SCH ×2 (06:12→15:58)
[2017-01-31] MEDS: NovoLOG Insulin Flexpen SUBQ SCH ×4 (06:15→20:42)
[2017-01-31 07:38] LABS: MEAN CORPUSCULAR HEMOGLOBIN 24.5 PG (27.0-31.0); MEAN CORPUSCULAR HGB CONC 30.3 G/DL (32.0-36.0); MEAN CORPUSCULAR VOLUME 81 FL (80-99); MEAN PLATELET VOLUME 7.4 FL (6.5-10.1); PLATELET COUNT 290 K/UL (150-450); RED CELL DISTRIBUTION WIDTH 17.3 % (11.6-14.8); WHITE BLOOD COUNT 11.3 K/UL (4.8-10.8)
[2017-01-31 07:48] LABS: ANION GAP 12 (5-15); CALCIUM 8.4 mg/dL (8.6-10.2); CARBON DIOXIDE 22 mEQ/L (20-30); CHLORIDE 98 mEQ/L (98-107); CREATININE 1.1 mg/dL (0.5-0.9); POTASSIUM 4.9 mEQ/L (3.4-4.9); SODIUM 132 mEQ/L (135-145)
[2017-01-31 07:58] LABS: FERRITIN 39 ng/mL (13-150)
[2017-01-31 08:04] LABS: HEMOLYSIS 0; IRON 22 ug/dL (37-145); TOTAL IRON BINDING CAPACITY 290 ug/dL (250-400)
[2017-01-31 08:22] LABS: BAND NEUTROPHILS % (MANUAL) 0 % (0-8); BASOPHILS % (MANUAL) 0 % (0-2); EOSINOPHILS % (MANUAL) 0 % (0-3); HYPOCHROMASIA 2+; LYMPHOCYTES % (MANUAL) 12 % (20-45); NEUTROPHILS % (MANUAL) 83 % (45-75); PLATELET ESTIMATE ADEQUATE; PLATELET MORPHOLOGY NORMAL; TOTAL CELLS COUNTED 100
[2017-01-31 08:23] LABS: ANISOCYTOSIS 2+
--- NOTE | 2017-01-31 09:45 | Consultation ---
DATE OF CONSULTATION: 01/27/2017 CONSULTING PHYSICIAN: Juvencio Rodriguez M.D. CHIEF COMPLAINT: Left shoulder and left hip pain. History Of Present Illness: The patient is a 77-year-old female with a ground-level mechanical fall. She was seen at [facility] where she was diagnosed with a left humerus fracture and left hip fracture. She was subsequently transferred here. An orthopedic consultation was obtained for further care and recommendation. PAST MEDICAL HISTORY: Reviewed from the intake chart. PAST SURGICAL HISTORY: Reviewed from the intake chart. MEDICATIONS: Reviewed from the intake chart PHYSICAL EXAMINATION: General: The patient is alert and oriented. She is resting comfortably in exam bed. VITAL SIGNS: She is afebrile. Stable vital signs. shoulder examination shows pain with motion. left shoulder and ecchymosis, left arm. Radial and ulnar pulses +2. Left hip examination shows pain to internal and external rotation. Neurovascular exam is normal. Dorsalis pedis +2. Diagnostic Data: Imaging studies show a left 2-part proximal humerus fracture. Two views left hip showed a displaced femoral neck fracture. Discussion: At this point, what I recommend is to proceed with left hip hemiarthroplasty. Risks, limitations, expectations, and complications of the procedure were discussed in detail with her daughter. In terms of her left shoulder, if she is able to maintain nonweightbearing that is being an issue, then we can treat her conservatively. If not, then she may have to convert the surgery in a staged fashion of her shoulder on Tuesday. The patient will be made NPO in anticipation of surgery tomorrow pending medical clearance. Juvencio Rodriguez M.D. DR: Jessie JOB#: [id number] CC: [id number]
--- NOTE | 2017-01-31 09:45 | Consultation ---
DATE OF CONSULTATION: 01/28/2017 CARDIOLOGY CONSULTATION CONSULTING PHYSICIAN: Luis Laguna M.D. REFERRING PHYSICIAN: Abdirahman Griffin M.D. Reason For Consultation: Preoperative clearance prior to hip surgery. History Of Present Illness: The patient is a 77-year-old lady, who reportedly had a fall resulted in left hip fracture. The patient was taken to [facility] and then subsequently was transferred to [facility]. She was evaluated by Dr. Pankaj Rodriguez and scheduled for left open hip arthroplasty. Cardiology consultation was obtained for further evaluation and management. At the time of my evaluation, the patient denies any chest pain, palpitation, or shortness of breath PAST MEDICAL HISTORY: 1. Degenerative joint disease. 2. Obesity. MEDICATIONS: Per reconciliation. SOCIAL HISTORY: She lives at home. Does not smoke or drink alcohol. FAMILY HISTORY: Noncontributory. Review Of Systems: Review of systems was performed through a power lineman and was negative other than what was mentioned in the history of present illness. PHYSICAL EXAMINATION: Vital Signs: Blood pressure of 135/82, pulse 100, respirations 18, and she is afebrile. HEAD AND NECK: No JVD. LUNGS: Clear. CARDIOVASCULAR: Regular S1 and S2 with no gallop or murmur. ABDOMEN: Soft. EXTREMITIES: No pitting edema, though the left hip has tenderness. Diagnostic Data: Echocardiogram showed ejection fraction of 70% to 75%. EKG showed sinus tachycardia, otherwise, normal echocardiogram. Laboratory Data: Labs show white count 11.8, hemoglobin 9.1, hematocrit 28.9, and platelet count is 277,000. Sodium 135, potassium 4.1, BUN of 17, creatinine 1.2, and glucose is 230. Troponin is negative. ASSESSMENT AND PLAN: 1. Left hip fracture. The patient will have left hip hemiarthroplasty. The patient does not have any history of hypertension or coronary artery disease or prior myocardial infarction or coronary artery disease. Her ejection fraction is normal by echocardiogram. Her EKG also is normal except for mild sinus tachycardia, which 02:17 due to the pain. The patient does not need any further cardiac evaluation and it is okay to proceed with left hip arthroplasty. I will be glad to follow the patient perioperatively. 2. Anemia with hemoglobin 9.1, could be due to hip fracture and bleeding at the site. Thank you very much, Dr. Griffin, for allowing me to participate in the care of this patient. Please do not hesitate to contact me for any questions regarding my evaluation. The case was discussed with the patient's nurse at the bedside. Luis Iyer M.D. DR: ABDIEL JOB#: [id number] CC:
--- NOTE | 2017-01-31 09:45 | History and Physical Report ---
DATE OF ADMISSION: 01/27/2017 CHIEF COMPLAINT: Mechanical fall with left-sided injury. History Of Present Illness: This is a 77-year-old very delightful female with past medical history significant for diabetes type 2 and history of dementia, who was presented to the hospital initially to [facility] after sustained a mechanical fall and attempt to get out of the bed stated having left arm and left shoulder pain, 5/10 in intensity with limited range of motion of the left arm and left hip. The patient was brought to the emergency room. Shortly after initial evaluation in the emergency room was confirmed that she has fracture of the shoulder as well as the hip and subsequently the patient was transferred to the [facility] for possible surgical intervention. Past Medical and Past Surgical History: As above, history of diabetes type 2 and dementia. History of . Medications: It is not clear the medication at home because the patient's family has not brought inpatient and not known exactly what medications she takes at home. ALLERGIES: No known drug allergies. SOCIAL HISTORY: No smoking, alcohol, or drugs. FAMILY HISTORY: Noncontributory. Review Of Systems: Mostly as above. Denies any dysuria, frequency, hematuria, or hematochezia. Denies any hemoptysis or hematochezia. Denies any suicidal or homicidal ideation. Complained about the fall. Denies any loss of consciousness. Denies any bowel or urinary incontinence. PHYSICAL EXAMINATION: Vital Signs: Upon arrival to [place], temperature 97.7, pulse of 98, respirations 18, and blood pressure 101/59, repeat was 138/73. GENERAL: The patient is awake, responsive, in no acute distress. Head And Neck: Pupils are equal and reactive to light. Extraocular movements are intact. Neck was supple. No JVD. Lungs: Good air entry. No wheezes or rales. Decreased air in the bases. HEART: S1 and S2. Distant heart sounds. No murmurs or gallops. ABDOMEN: Soft, nondistended, nontender. Morbidly obese. Extremities: No cyanosis, clubbing, or edema. Left lower extremity has a shortened and right one external rotated and the left upper extremity is tender to touch with limited range of motion. Ecchymosis over the shoulder area was compressed. RECTAL: Refused and deferred. GENITOURINARY: Refused and deferred. Laboratory And Diagnostic Data: On admission, WBC of 11.8, hemoglobin 9.1, hematocrit 28, and platelet is 277,000. Sodium 135, potassium 4.1, chloride 98, bicarbonate 24, BUN 17, creatinine 1.3, and glucose is 223. Phosphorus is 2.3. Magnesium is 1.6. First troponin is less than 0.30. PT of 10. INR 1.0. UA, +2 protein, +3 glucose, negative ketones, +3 occult blood, +3 leukocytes, 15 to 20 RBCs, and 60 to 80 WBCs. The patient had x-ray of the left shoulder indicated that there is a mildly displaced comminuted fractures through the left humerus neck and the left glenohumeral joint is preserved and degenerative changes are noted in the 03:54 joint and glenohumeral joint. CT of the head without contrast at the [facility], hypodensity in the right harris radiata, right basal ganglia, and the right subinsular cortex consistent with age-indeterminate infarction, likely chronic. X-ray of the pelvic was done, left hip showed that mild to moderate degenerative changes are noted, bilateral hip joint the alignment otherwise unremarkable. There is a mildly impacted fracture of the left humerus neck. The left femoral head remain well seated within the acetabulum. ASSESSMENT: 1. Status post mechanical fall with left hip as well as left shoulder fracture. 2. Anemia. 3. Diabetes type 2. 4. Hypomagnesemia. 5. Acute renal failure with prerenal azotemia with dehydration. 6. Possible urinary tract infection. Plan: Admit the patient to Med/Surg. We will follow up with Dr. Iyer recommendation from Cardiology for cardiac clearance. Echocardiogram was ordered and preliminary result showed ejection fraction of 70% to 75% and no evidence of the left ventricular hypertrophy. EKG showed sinus tachycardia with ventricular rate of 107, no ST elevation was identified. At this time, the patient is medically cleared for the procedure. Dr. Rodriguez will be consulted for the orthopedic who is seeing the patient as well as family members. Daughter at bedside, scheduled for the ORIF tonight. Code Status, Full Code. DVT prophylaxis. Heparin subcutaneously. Abdirahman Griffin M.D. DR: MECHE JOB#: [id number] CC:
[2017-01-31] MEDS: Donepezil 5mg Tab ORAL SCH (10:06)
[2017-01-31] MEDS: Cephalexin 500mg cap ORAL SCH ×3 (10:06→18:20)
[2017-01-31] MEDS: Sertraline 50mg tab ORAL SCH (10:06)
--- NOTE | 2017-01-31 10:15 | Operative Note - Dictated ---
DATE OF OPERATION: 01/27/2017 PREOPERATIVE DIAGNOSIS: Left femoral neck fracture. POSTOPERATIVE DIAGNOSIS: Left femoral neck fracture. PROCEDURES: Left hip hemiarthroplasty. SURGEON: Juvencio Rodriguez M.D. ANESTHESIA: Spinal. Indication for procedure: The patient is a pleasant 77-year-old female who sustained a mechanical fall. She was diagnosed with left femoral neck fractures indicative of operative fixation with left hip hemiarthroplasty. Risks, limitations, expectations, and complications of the procedure were discussed in detail. All questions were addressed. Of note, she also had a proximal humerus fracture. We discussed that we would see how the shoulder limits her ability to ambulate postoperatively. If it is a significant issue, then we will consider operative intervention. However, she is to be nonweightbearing on the left arm. Description Of Procedure: An informed consent was obtained. The patient was brought to the operating room and placed under spinal anesthesia. The patient was then carefully placed in the beach-chair position. Left hip was prepped and draped in a sterile manner. Time-out was performed. The posterolateral skin incision was then made. Fascia artis was incised. The piriformis, short external rotators were teed. Capsule was teed and tagged with #2 FiberWire suture. Neck cut below the fracture site was made. Femoral head was removed and measured 42 mm. Sequential broaching up to size 9 was performed. A 9-0 head neck combo was selected with a size 10 stem in 0 combination. Hip was reduced. It seemed like the leg was long by about 1 cm. Therefore, the 10 was removed. The #9 broach was seated a little bit further. Calcar planer was used to further plane the calcar and a -5 neck was selected. Hip was again reduced, taken through range of motion, stable at 110 degrees flexion, 90 degrees flexion, internal rotation 60, and external rotation stable. The leg lengths appeared to be clinically equal. At this point, the final implants were packed into place. The capsule was reapproximated through the greater trochanter. The skin was closed with #1 Vicryl suture, 2-0 Vicryl suture, 3-0 Monocryl suture, and Dermabond. The patient was awoken and taken to recovery room with stable vital signs. ESTIMATED BLOOD LOSS: 50 mL. COMPLICATIONS: None. SPECIMENS: Femoral head. Implants: Consensus size #9 femoral stem with a -5 head and neck combo with a 42 bipolar head. Juvencio Rodriguez M.D. DR: FREDERICK JOB#: [id number] CC: RAMEZ
--- NOTE | 2017-01-31 10:50 | Diagnostic Imaging Report ---
Indication: SOB Technique: One view of the chest Comparison: 01/30/2017 Findings: Allowing for technical differences, probably unchanged mild interstitial prominence. Inspiration remains suboptimal. Heart size is normal. Pleural spaces are clear. No focal airspace consolidation. Equivocal irregularity to the left humeral head neck junction, humeral fracture not excludable Impression: Mild interstitial prominence, acuity indeterminate, unchanged over one day Left femoral neck fracture. Discussion with patient nurse indicates that referring physician is aware of this
--- NOTE | 2017-01-31 11:17 | Internal Med Progress Note ---
Subjective Date of Service: Jan 31, 2017 Physician Name ArgenisAlbino Attending Physician Abdirahman Griffin MD Current Medications Medications (Trade) Dose Ordered Sig/Jayme Route PRN Reason Start Time Stop Time Status Last Admin Dose Admin Acetaminophen (Tylenol) 650 mg Q6H PRN ORAL Mild Pain/Temp > 100.5 01/28/17 00:45 02/27/17 00:44 Acetaminophen/ Hydrocodone Bitart ([place] 10/325) 1 ea Q4H PRN ORAL Severe Pain (Pain Scale 7-10) 01/30/17 08:45 02/06/17 08:44 Acetaminophen/ Hydrocodone Bitart ([place] 5/325) 1 tab Q4H PRN ORAL Moderate Pain (Pain Scale 4-6) 01/30/17 15:30 02/06/17 15:29 01/31/17 06:11 Artificial Tears (Akwa-Tears) 2 drop Q2H PRN BOTH EYES Dry Eyes 01/29/17 11:30 02/28/17 11:29 Cephalexin (Keflex) 500 mg TID ORAL 01/30/17 09:00 02/03/17 19:00 01/31/17 10:06 Dextrose (Dextrose 50%) STAT PRN IV Hypoglycemia 01/28/17 00:45 02/27/17 00:44 Diphenhydramine HCl (Benadryl) 25 mg Q4H PRN ORAL Itching 01/29/17 16:00 02/28/17 15:59 01/30/17 17:08 Donepezil HCl (Aricept) 5 mg DAILY ORAL 01/29/17 09:00 02/28/17 08:59 01/31/17 10:06 Glipizide (Glucotrol) 5 mg BIAC ORAL 01/29/17 06:30 02/28/17 06:29 01/31/17 06:12 Insulin Aspart (NovoLOG) BEFORE MEALS AND HS SUBQ 01/28/17 06:30 02/27/17 06:29 01/31/17 06:15 Metformin HCl (Glucophage) 1,000 mg BIAC ORAL 01/30/17 16:30 03/01/17 16:29 01/31/17 06:12 Ondansetron HCl (Zofran) 4 mg Q4H PRN IVP Nausea & Vomiting 01/28/17 00:45 02/27/17 00:44 01/29/17 07:35 Pantoprazole (Protonix) 40 mg ACBREAKFAST ORAL 01/29/17 09:00 02/28/17 08:59 01/31/17 06:12 Risperidone (RisperDAL) 0.25 mg Q6H PRN ORAL Agitation 01/30/17 21:30 03/01/17 21:29 01/30/17 21:39 Sertraline HCl (Zoloft) 50 mg DAILY ORAL 01/29/17 09:00 02/28/17 08:59 01/31/17 10:06 Allergies: Coded Allergies: No Known Allergies (Unverified , 01/27/17) ROS Limited/Unobtainable: No Constitutional: Reports: no symptoms HEENT: Reports: no symptoms Cardiovascular: Reports: no symptoms Respiratory: Reports: no symptoms Gastrointestinal/Abdominal: Reports: no symptoms Genitourinary: Reports: no symptoms Neurologic/Psychiatric: Reports: no symptoms Subjective 77 YO F admitted with left hip pain. Now fracture of Left femoral neck and Left humerus fracture. Cover for Int Med-Dr Griffin. S/P left hemiarthroplasty on 01/28/17. C/O left hip pain. Headache improved. Objective Last Vital Signs Date Time Temp Pulse Resp B/P (MAP) Pulse Ox O2 Delivery O2 Flow Rate FiO2 01/31/17 08:23 97.5 96 21 128/59 95 Room Air 01/29/17 04:05 3.0 Laboratory Tests Test 01/31/17 06:57 White Blood Count 11.3 K/UL (4.8-10.8) H Red Blood Count 3.10 M/UL (4.20-5.40) L Hemoglobin 7.6 G/DL (12.0-16.0) L Hematocrit 25.1 % (37.0-47.0) L Mean Corpuscular Volume 81 FL (80-99) Mean Corpuscular Hemoglobin 24.5 PG (27.0-31.0) L Mean Corpuscular Hemoglobin Concent 30.3 G/DL (32.0-36.0) L Red Cell Distribution Width 17.3 % (11.6-14.8) H Platelet Count 290 K/UL (150-450) Mean Platelet Volume 7.4 FL (6.5-10.1) Neutrophils (%) (Auto) % (45.0-75.0) Lymphocytes (%) (Auto) % (20.0-45.0) Monocytes (%) (Auto) % (1.0-10.0) Eosinophils (%) (Auto) % (0.0-3.0) Basophils (%) (Auto) % (0.0-2.0) Differential Total Cells Counted 100 Neutrophils % (Manual) 83 % (45-75) H Lymphocytes % (Manual) 12 % (20-45) L Monocytes % (Manual) 5 % (1-10) Eosinophils % (Manual) 0 % (0-3) Basophils % (Manual) 0 % (0-2) Band Neutrophils 0 % (0-8) Platelet Estimate Adequate Platelet Morphology Normal Hypochromasia 2+ Anisocytosis 2+ Sodium Level 132 mEQ/L (135-145) L Potassium Level 4.9 mEQ/L (3.4-4.9) Chloride Level 98 mEQ/L (98-107) Carbon Dioxide Level 22 mEQ/L (20-30) Anion Gap 12 (5-15) Blood Urea Nitrogen 28 mg/dL (7-23) H Creatinine 1.1 mg/dL (0.5-0.9) H Estimat Glomerular Filtration Rate mL/min (>60) Glucose Level 330 mg/dL (74-106) H Hemoglobin A1c 9.7 % (< 6.0) H Calcium Level 8.4 mg/dL (8.6-10.2) L Iron Level 22 ug/dL (37-145) L Total Iron Binding Capacity 290 ug/dL (250-400) Percent Iron Saturation 8 % (15-50) L Unsaturated Iron Binding 268 ug/dL (112-346) Ferritin 39 ng/mL (13-150) Carcinoembryonic Antigen 6.1 ng/mL H Objective General Appearance: WD/WN, no apparent distress, alert, mild distress EENT: PERRL/EOMI, normal ENT inspection, TMs normal Neck: non-tender, normal alignment, supple, normal inspection Cardiovascular: normal peripheral pulses, normal rate, regular rhythm, no gallop/murmur, no JVD Respiratory/Chest: chest wall non-tender, lungs clear, normal breath sounds, no respiratory distress, no accessory muscle use Abdomen: normal bowel sounds, non tender, soft, no organomegaly, no mass Extremities: other - Left hip dressing clean and dry Neurologic: endless 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 See Ortho note. (3) Fracture of humerus, left, closed Assessment & Plan: see ortho note. non surgical (4) Diabetes mellitus, type II Assessment & Plan: Continue novolog sliding scale. (5) Cerebral vascular disease (6) Alzheimer's dementia Assessment/Plan Discharge planning: Acute rehab-[facility] [place] or SNF ALBINO CHAUDHRY Jan 31, 2017 11:17
--- NOTE | 2017-01-31 14:51 | Cardiac Electrophysiology PN ---
Assessment/Plan Assessment/Plan 1.L femoral neck mildly impacted fracture. s/p left hip hemiarthroplasty 01/28. Tolerated well. No chest pain or SOB 2. Displaced comminuted fracture Left humerus 3 . NIDDM On Glipizide. 4. Anemia, getting PRBC DW RN Subjective Subjective No chest pain or SOB.Getting blood transfusion. NL EF, NL ECG. No history of CAD or CHF Objective Last 24 Hour Vital Signs Date Time Temp Pulse Resp B/P (MAP) Pulse Ox O2 Delivery O2 Flow Rate FiO2 01/31/17 14:00 97.7 85 20 132/58 96 Room Air 01/31/17 12:31 97.6 01/31/17 11:35 97.6 85 20 152/78 95 Room Air 01/31/17 08:23 97.5 96 21 128/59 95 Room Air 01/31/17 04:00 98.5 71 19 141/67 96 Room Air 01/31/17 00:00 98.2 82 20 131/64 96 Room Air 01/30/17 20:00 98.3 86 20 142/74 95 Room Air 01/30/17 16:00 98.1 88 14 134/66 95 Room Air Laboratory Tests Test 01/31/17 06:57 White Blood Count 11.3 K/UL (4.8-10.8) H Red Blood Count 3.10 M/UL (4.20-5.40) L Hemoglobin 7.6 G/DL (12.0-16.0) L Hematocrit 25.1 % (37.0-47.0) L Mean Corpuscular Volume 81 FL (80-99) Mean Corpuscular Hemoglobin 24.5 PG (27.0-31.0) L Mean Corpuscular Hemoglobin Concent 30.3 G/DL (32.0-36.0) L Red Cell Distribution Width 17.3 % (11.6-14.8) H Platelet Count 290 K/UL (150-450) Mean Platelet Volume 7.4 FL (6.5-10.1) Neutrophils (%) (Auto) % (45.0-75.0) Lymphocytes (%) (Auto) % (20.0-45.0) Monocytes (%) (Auto) % (1.0-10.0) Eosinophils (%) (Auto) % (0.0-3.0) Basophils (%) (Auto) % (0.0-2.0) Differential Total Cells Counted 100 Neutrophils % (Manual) 83 % (45-75) H Lymphocytes % (Manual) 12 % (20-45) L Monocytes % (Manual) 5 % (1-10) Eosinophils % (Manual) 0 % (0-3) Basophils % (Manual) 0 % (0-2) Band Neutrophils 0 % (0-8) Platelet Estimate Adequate Platelet Morphology Normal Hypochromasia 2+ Anisocytosis 2+ Sodium Level 132 mEQ/L (135-145) L Potassium Level 4.9 mEQ/L (3.4-4.9) Chloride Level 98 mEQ/L (98-107) Carbon Dioxide Level 22 mEQ/L (20-30) Anion Gap 12 (5-15) Blood Urea Nitrogen 28 mg/dL (7-23) H Creatinine 1.1 mg/dL (0.5-0.9) H Estimat Glomerular Filtration Rate mL/min (>60) Glucose Level 330 mg/dL (74-106) H Hemoglobin A1c 9.7 % (< 6.0) H Calcium Level 8.4 mg/dL (8.6-10.2) L Iron Level 22 ug/dL (37-145) L Total Iron Binding Capacity 290 ug/dL (250-400) Percent Iron Saturation 8 % (15-50) L Unsaturated Iron Binding 268 ug/dL (112-346) Ferritin 39 ng/mL (13-150) Carcinoembryonic Antigen 6.1 ng/mL H Objective HEENT: No JVD LUNGS: CLEAR CVS: RRR NO G/R/M ABDOMEN: SOFT EXT: S/P DEV QUEVEDO Jan 31, 2017 14:51
--- NOTE | 2017-01-31 15:27 | Pulmonology Progress Note ---
Assessment/Plan Problems: (1) Fracture of femoral neck, left (2) Severe anemia (3) Diabetes mellitus, type II (4) Alzheimer's dementia Assessment/Plan anemia w/u check h/h prbc prn pain contorl pt/ot dc planning Subjective ROS Limited/Unobtainable: No Interval Events: tolerated surgery very well Constitutional: Reports: no symptoms Allergies: Coded Allergies: No Known Allergies (Unverified , 01/27/17) Objective Last 24 Hour Vital Signs Date Time Temp Pulse Resp B/P (MAP) Pulse Ox O2 Delivery O2 Flow Rate FiO2 01/31/17 14:00 97.7 85 20 132/58 96 Room Air 01/31/17 12:31 97.6 01/31/17 11:35 97.6 85 20 152/78 95 Room Air 01/31/17 08:23 97.5 96 21 128/59 95 Room Air 01/31/17 04:00 98.5 71 19 141/67 96 Room Air 01/31/17 00:00 98.2 82 20 131/64 96 Room Air 01/30/17 20:00 98.3 86 20 142/74 95 Room Air 01/30/17 16:00 98.1 88 14 134/66 95 Room Air General Appearance: WD/WN HEENT: normocephalic, atraumatic Respiratory/Chest: no respiratory distress Breasts: no masses Cardiovascular: normal peripheral pulses Abdomen: normal bowel sounds, soft, non tender Extremities: no cyanosis Neurologic/Psychiatric: hide curer II-XII grossly normal, abnormal gait Lymphatic: no groin adenopathy Musculoskeletal: normal muscle bulk Laboratory Tests 01/31/17 06:57: White Blood Count 11.3H, Red Blood Count 3.10L, Hemoglobin 7.6L, Hematocrit 25.1L, Mean Corpuscular Volume 81, Mean Corpuscular Hemoglobin 24.5L, Mean Corpuscular Hemoglobin Concent 30.3L, Red Cell Distribution Width 17.3H, Platelet Count 290, Mean Platelet Volume 7.4, Neutrophils (%) (Auto) , Lymphocytes (%) (Auto) , Monocytes (%) (Auto) , Eosinophils (%) (Auto) , Basophils (%) (Auto) , Differential Total Cells Counted 100, Neutrophils % ( Manual) 83H, Lymphocytes % (Manual) 12L, Monocytes % (Manual) 5, Eosinophils % ( Manual) 0, Basophils % (Manual) 0, Band Neutrophils 0, Platelet Estimate Adequate, Platelet Morphology Normal, Hypochromasia 2+, Anisocytosis 2+, Sodium Level 132L, Potassium Level 4.9, Chloride Level 98, Carbon Dioxide Level 22, Anion Gap 12, Blood Urea Nitrogen 28H, Creatinine 1.1H, Estimat Glomerular Filtration Rate , Glucose Level 330H, Hemoglobin A1c 9.7H, Calcium Level 8.4L, Iron Level 22L, Total Iron Binding Capacity 290, Percent Iron Saturation 8L, Unsaturated Iron Binding 268, Ferritin 39, Carcinoembryonic Antigen 6.1H Current Medications Medications (Trade) Dose Ordered Sig/Jayme Route PRN Reason Start Time Stop Time Status Last Admin Dose Admin Acetaminophen (Tylenol) 650 mg Q6H PRN ORAL Mild Pain/Temp > 100.5 01/28/17 00:45 02/27/17 00:44 Acetaminophen/ Hydrocodone Bitart ([place] 10/325) 1 ea Q4H PRN ORAL Severe Pain (Pain Scale 7-10) 01/30/17 08:45 02/06/17 08:44 Acetaminophen/ Hydrocodone Bitart ([place] 5/325) 1 tab Q4H PRN ORAL Moderate Pain (Pain Scale 4-6) 01/30/17 15:30 02/06/17 15:29 01/31/17 11:32 Artificial Tears ([place]wa-Tears) 2 drop Q2H PRN BOTH EYES Dry Eyes 01/29/17 11:30 02/28/17 11:29 Cephalexin (Keflex) 500 mg TID ORAL 01/30/17 09:00 02/03/17 19:00 01/31/17 13:03 Dextrose (Dextrose 50%) STAT PRN IV Hypoglycemia 01/28/17 00:45 02/27/17 00:44 Diphenhydramine HCl (Benadryl) 25 mg Q4H PRN ORAL Itching 01/29/17 16:00 02/28/17 15:59 01/30/17 17:08 Donepezil HCl (Aricept) 5 mg DAILY ORAL 01/29/17 09:00 02/28/17 08:59 01/31/17 10:06 Glipizide (Glucotrol) 5 mg BIAC ORAL 01/29/17 06:30 02/28/17 06:29 01/31/17 06:12 Insulin Aspart (NovoLOG) BEFORE MEALS AND HS SUBQ 01/28/17 06:30 02/27/17 06:29 01/31/17 12:08 Metformin HCl (Glucophage) 1,000 mg BIAC ORAL 01/30/17 16:30 03/01/17 16:29 01/31/17 06:12 Ondansetron HCl (Zofran) 4 mg Q4H PRN IVP Nausea & Vomiting 01/28/17 00:45 02/27/17 00:44 01/29/17 07:35 Pantoprazole (Protonix) 40 mg ACBREAKFAST ORAL 01/29/17 09:00 02/28/17 08:59 01/31/17 06:12 Risperidone (RisperDAL) 0.25 mg Q6H PRN ORAL Agitation 01/30/17 21:30 03/01/17 21:29 01/30/17 21:39 Sertraline HCl (Zoloft) 50 mg DAILY ORAL 01/29/17 09:00 02/28/17 08:59 01/31/17 10:06 LUCERO ASHBY Jan 31, 2017 15:27
[2017-01-31] MEDS: Norco 10mg/325mg tab ORAL PRN (15:58)
[2017-02-01] VITALS: BP 127/61
--- NOTE | 2017-02-01 01:00 | Progress Note ---
DATE: 01/31/2017 Subjective: Postop day #2, status post left hip hemiarthroplasty. She is doing relatively well. She had some episodes of confusion last night. Physical Examination: Examination shows swelling in the left arm and ecchymosis. Left hip examination is clean, dry, and intact. Posterior calf is soft. Dorsalis pedis +2. Imaging studies showed implant in good position. ASSESSMENT: 1. Status post left hip hemiarthroplasty. 2. Left proximal humerus fracture. Discussion: At this point, in terms of hip, she can begin weightbearing as tolerated. We will get her up to a chair yesterday. She had somewhat of unsteady gait before the fracture, therefore, she needs to be up with assistance only. In terms of left shoulder, we are going to treat it nonoperatively with the sling immobilization. As healing of the fracture, she will again begin active range of motion, weightbearing in about three to six weeks. We are going to work on discharging her to SNF given that she lives only with her , I do not think she can be cared for just by him. Juvencio Rodriguez M.D. DR: RICKY JOB#: [id number] CC: RAMEZ
[2017-02-01 04:02] VITALS: BP 145/88
[2017-02-01] MEDS: GlipiZIDE 5mg tab ORAL SCH ×2 (06:50→16:44)
[2017-02-01] MEDS: metFORMIN 500mg tab ORAL SCH ×2 (06:50→16:44)
[2017-02-01] MEDS: NovoLOG Insulin Flexpen SUBQ SCH ×3 (06:53→16:45)
[2017-02-01 06:56] LABS: BASOPHILS % (AUTO) 2.6 % (0.0-2.0); EOSINOPHILS % (AUTO) 0.5 % (0.0-3.0); MEAN CORPUSCULAR HEMOGLOBIN 25.4 PG (27.0-31.0); MEAN CORPUSCULAR VOLUME 82 FL (80-99); MONOCYTES % (AUTO) 7.6 % (1.0-10.0); NEUTROPHILS % (AUTO) 70.3 % (45.0-75.0); PLATELET COUNT 273 K/UL (150-450); RED BLOOD COUNT 3.53 M/UL (4.20-5.40); RED CELL DISTRIBUTION WIDTH 17.7 % (11.6-14.8)
[2017-02-01 07:01] LABS: ANION GAP 11 (5-15); CALCIUM 8.6 mg/dL (8.6-10.2); CARBON DIOXIDE 25 mEQ/L (20-30); CHLORIDE 102 mEQ/L (98-107); HEMOLYSIS 0; POTASSIUM 5.2 mEQ/L (3.4-4.9); SODIUM 138 mEQ/L (135-145)
[2017-02-01 07:07] LABS: INR 0.9 (0.9-1.1); PROTHROMBIN TIME 9.6 SEC (9.30-11.50)
[2017-02-01 07:12] LABS: LACTATE DEHYDROGENASE 210 U/L (135-230)
[2017-02-01 07:45] LABS: HEMOLYSIS 1; IRON 30 ug/dL (37-145); TOTAL IRON BINDING CAPACITY 277 ug/dL (250-400)
[2017-02-01 08:15] VITALS: BP 141/70
[2017-02-01 08:35] LABS: ERYTHROCYTE SEDIMENTATION RATE 66 MM/HR (0-30)
[2017-02-01] MEDS: Sertraline 50mg tab ORAL SCH (09:21)
[2017-02-01] MEDS: Donepezil 5mg Tab ORAL SCH (09:21)
[2017-02-01] MEDS: Norco 10mg/325mg tab ORAL PRN ×2 (09:21→14:37)
[2017-02-01] MEDS: Cephalexin 500mg cap ORAL SCH ×3 (09:22→17:28)
[2017-02-01 09:56] LABS: RETICULOCYTE COUNT 2.4 % (0.0-2.0)
[2017-02-01 10:24] LABS: BAND NEUTROPHILS % (MANUAL) 1 % (0-8); BASOPHILS % (MANUAL) 1 % (0-2); EOSINOPHILS % (MANUAL) 1 % (0-3); LYMPHOCYTES % (MANUAL) 19 % (20-45); NEUTROPHILS % (MANUAL) 66 % (45-75); PLATELET ESTIMATE ADEQUATE; PLATELET MORPHOLOGY NORMAL; TOTAL CELLS COUNTED 100
[2017-02-01 10:25] LABS: ANISOCYTOSIS 1+; HYPOCHROMASIA 1+
[2017-02-01 10:39] LABS: PATH BLOOD SMEAR/OMC SENT TO PATHOLOGIST
[2017-02-01] MEDS ORDERED: Sodium Polystyrene Sulfonate 15gm Powder ORAL ONE (11:00)
[2017-02-01 12:15] VITALS: BP 128/77
[2017-02-01] MEDS ORDERED: ACETAMINOPHEN325 M1 ORAL (15:56)
[2017-02-01] MEDS ORDERED: CEPHALEXIN500 MG ORAL (15:59)
[2017-02-01] MEDS ORDERED: ARTIFICIAL TEAR15 ML BOTH EYES (15:59)
[2017-02-01] MEDS ORDERED: ARICEPT5 MG ORAL (15:59)
[2017-02-01] MEDS ORDERED: BENADRYL25 MG ORAL (15:59)
[2017-02-01 16:00] VITALS: BP 144/71
[2017-02-01] MEDS ORDERED: NORCO 5-325 TA1 EACH ORAL (16:00)
[2017-02-01] MEDS ORDERED: NORCO 10-325 T1 EACH ORAL (16:00)
[2017-02-01] MEDS ORDERED: NOVOLOG100 UNIT/4 SQ (16:00)
[2017-02-01] MEDS ORDERED: GLIPIZIDE5 MG ORAL (16:00)
[2017-02-01] MEDS ORDERED: ZOFRAN 4 MG4 MG/2 ML IV (16:01)
[2017-02-01] MEDS ORDERED: RISPERDAL0.25 MG ORAL (16:02)
[2017-02-01] MEDS ORDERED: PROTONIX40 MG ORAL (16:02)
[2017-02-01] MEDS ORDERED: METFORMIN HCL500 M1 ORAL (16:02)
--- NOTE | 2017-02-01 16:24 | Internal Med Progress Note ---
Subjective Date of Service: Feb 01, 2017 Physician Name ArgenisAlbino Attending Physician Abdirahman Griffin MD Current Medications Medications (Trade) Dose Ordered Sig/Jayme Route PRN Reason Start Time Stop Time Status Last Admin Dose Admin Acetaminophen (Tylenol) 650 mg Q6H PRN ORAL Mild Pain/Temp > 100.5 01/28/17 00:45 02/27/17 00:44 02/01/17 07:01 Acetaminophen/ Hydrocodone Bitart ([place] 10/325) 1 ea Q4H PRN ORAL Severe Pain (Pain Scale 7-10) 01/30/17 08:45 02/06/17 08:44 02/01/17 14:37 Acetaminophen/ Hydrocodone Bitart ([place] 5/325) 1 tab Q4H PRN ORAL Moderate Pain (Pain Scale 4-6) 01/30/17 15:30 02/06/17 15:29 01/31/17 11:32 Artificial Tears ([place]-Tears) 2 drop Q2H PRN BOTH EYES Dry Eyes 01/29/17 11:30 02/28/17 11:29 Cephalexin (Keflex) 500 mg TID ORAL 01/30/17 09:00 02/03/17 19:00 02/01/17 12:07 Dextrose (Dextrose 50%) STAT PRN IV Hypoglycemia 01/28/17 00:45 02/27/17 00:44 Diphenhydramine HCl (Benadryl) 25 mg Q4H PRN ORAL Itching 01/29/17 16:00 02/28/17 15:59 01/30/17 17:08 Donepezil HCl (Aricept) 5 mg DAILY ORAL 01/29/17 09:00 02/28/17 08:59 02/01/17 09:21 Glipizide (Glucotrol) 5 mg BIAC ORAL 01/29/17 06:30 02/28/17 06:29 02/01/17 06:50 Insulin Aspart (NovoLOG) BEFORE MEALS AND HS SUBQ 01/28/17 06:30 02/27/17 06:29 02/01/17 12:06 Metformin HCl (Glucophage) 1,000 mg BIAC ORAL 01/30/17 16:30 03/01/17 16:29 02/01/17 06:50 Ondansetron HCl (Zofran) 4 mg Q4H PRN IVP Nausea & Vomiting 01/28/17 00:45 02/27/17 00:44 01/29/17 07:35 Pantoprazole (Protonix) 40 mg ACBREAKFAST ORAL 01/29/17 09:00 02/28/17 08:59 02/01/17 06:50 Risperidone (RisperDAL) 0.25 mg Q6H PRN ORAL Agitation 01/30/17 21:30 03/01/17 21:29 01/31/17 22:01 Sertraline HCl (Zoloft) 50 mg DAILY ORAL 01/29/17 09:00 02/28/17 08:59 02/01/17 09:21 Allergies: Coded Allergies: No Known Allergies (Unverified , 01/27/17) ROS Limited/Unobtainable: No Constitutional: Reports: no symptoms HEENT: Reports: no symptoms Cardiovascular: Reports: no symptoms Respiratory: Reports: no symptoms Gastrointestinal/Abdominal: Reports: no symptoms Genitourinary: Reports: no symptoms Neurologic/Psychiatric: Reports: no symptoms Subjective 77 YO F admitted with left hip pain. Now fracture of Left femoral neck and Left humerus fracture. Cover for Int Med-Dr Griffin. S/P left hemiarthroplasty on 01/28/17. Await transfer to [facility]hab [facility] today Objective Last Vital Signs Date Time Temp Pulse Resp B/P (MAP) Pulse Ox O2 Delivery O2 Flow Rate FiO2 02/01/17 16:00 98.1 86 20 144/71 94 Room Air 01/29/17 04:05 3.0 Laboratory Tests Test 02/01/17 06:05 White Blood Count 12.0 K/UL (4.8-10.8) H Red Blood Count 3.53 M/UL (4.20-5.40) L Hemoglobin 9.0 G/DL (12.0-16.0) L Hematocrit 29.0 % (37.0-47.0) L Mean Corpuscular Volume 82 FL (80-99) Mean Corpuscular Hemoglobin 25.4 PG (27.0-31.0) L Mean Corpuscular Hemoglobin Concent 31.0 G/DL (32.0-36.0) L Red Cell Distribution Width 17.7 % (11.6-14.8) H Platelet Count 273 K/UL (150-450) Mean Platelet Volume 7.0 FL (6.5-10.1) Neutrophils (%) (Auto) 70.3 % (45.0-75.0) Lymphocytes (%) (Auto) 19.0 % (20.0-45.0) L Monocytes (%) (Auto) 7.6 % (1.0-10.0) Eosinophils (%) (Auto) 0.5 % (0.0-3.0) Basophils (%) (Auto) 2.6 % (0.0-2.0) H Differential Total Cells Counted 100 Neutrophils % (Manual) 66 % (45-75) Lymphocytes % (Manual) 19 % (20-45) L Monocytes % (Manual) 12 % (1-10) H Eosinophils % (Manual) 1 % (0-3) Basophils % (Manual) 1 % (0-2) Band Neutrophils 1 % (0-8) Platelet Estimate Adequate Platelet Morphology Normal Hypochromasia 1+ Anisocytosis 1+ Erythrocyte Sedimentation Rate 66 MM/HR (0-30) H Reticulocyte Count 2.4 % (0.0-2.0) H Prothrombin Time 9.6 SEC (9.30-11.50) Prothromb Time International Ratio 0.9 (0.9-1.1) Activated Partial Thromboplast Time 20 SEC (23-33) L Sodium Level 138 mEQ/L (135-145) Potassium Level 5.2 mEQ/L (3.4-4.9) H Chloride Level 102 mEQ/L (98-107) Carbon Dioxide Level 25 mEQ/L (20-30) Anion Gap 11 (5-15) Blood Urea Nitrogen 25 mg/dL (7-23) H Creatinine 1.0 mg/dL (0.5-0.9) H Estimat Glomerular Filtration Rate mL/min (>60) Glucose Level 225 mg/dL (74-106) #H Calcium Level 8.6 mg/dL (8.6-10.2) Iron Level 30 ug/dL (37-145) L Total Iron Binding Capacity 277 ug/dL (250-400) Percent Iron Saturation 11 % (15-50) L Unsaturated Iron Binding 247 ug/dL (112-346) Lactate Dehydrogenase 210 U/L (135-230) Carcinoembryonic Antigen 6.3 ng/mL H Vitamin B12 Level 683 pg/mL (211-946) Folate Pending Intake and Output 02/01/17 02/02/17 19:00 07:00 Intake Total 240 ml Balance 240 ml Intake Oral 240 ml Objective General Appearance: WD/WN, no apparent distress, alert, mild distress EENT: PERRL/EOMI, normal ENT inspection, TMs normal Neck: non-tender, normal alignment, supple, normal inspection Cardiovascular: normal peripheral pulses, normal rate, regular rhythm, no gallop/murmur, no JVD Respiratory/Chest: chest wall non-tender, lungs clear, normal breath sounds, no respiratory distress, no accessory muscle use Abdomen: normal bowel sounds, non tender, soft, no organomegaly, no mass Extremities: other - Left hip dressing clean and dry Neurologic: director of strategic alliances II-XII grossly normal, no motor/sensory deficits Skin: normal pigmentation, warm/dry Assessment/Plan Problem List: (1) Left hip pain (2) Fracture of femoral neck, left Assessment & Plan: S/P left hip hemiarthroplasty on 01/28/17. See Ortho note. (3) Fracture of humerus, left, closed Assessment & Plan: see ortho note. non surgical (4) Diabetes mellitus, type II Assessment & Plan: Continue novolog sliding scale. (5) Cerebral vascular disease (6) Alzheimer's dementia Assessment/Plan Discharge today to Rehab of [facility] ALBINO CHAUDHRY Feb 01, 2017 16:24
--- NOTE | 2017-02-01 16:41 | Cardiac Electrophysiology PN ---
Assessment/Plan Assessment/Plan 1. L femoral neck mildly impacted fracture. s/p left hip hemiarthroplasty 01/28. Tolerated well. No chest pain or SOB Going to Rehab today 2. Displaced comminuted fracture Left humerus 3 . NIDDM On Glipizide. 4. Anemia, S/P PRBC DW RN Subjective [facility] No chest pain or SOB. Objective Last 24 Hour Vital Signs Date Time Temp Pulse Resp B/P (MAP) Pulse Ox O2 Delivery O2 Flow Rate FiO2 02/01/17 16:00 98.1 86 20 144/71 94 Room Air 02/01/17 12:15 97.6 83 21 128/77 97 Room Air 02/01/17 08:15 97.7 90 21 141/70 96 Room Air 02/01/17 04:02 98.1 81 19 145/88 98 Room Air 02/01/17 00:00 98.1 76 19 127/61 95 Room Air 01/31/17 20:00 98.1 85 19 123/69 95 Room Air 01/31/17 16:57 97.5 Intake and Output 02/01/17 02/02/17 19:00 07:00 Intake Total 240 ml Balance 240 ml Intake Oral 240 ml Laboratory Tests Test 02/01/17 06:05 White Blood Count 12.0 K/UL (4.8-10.8) H Red Blood Count 3.53 M/UL (4.20-5.40) L Hemoglobin 9.0 G/DL (12.0-16.0) L Hematocrit 29.0 % (37.0-47.0) L Mean Corpuscular Volume 82 FL (80-99) Mean Corpuscular Hemoglobin 25.4 PG (27.0-31.0) L Mean Corpuscular Hemoglobin Concent 31.0 G/DL (32.0-36.0) L Red Cell Distribution Width 17.7 % (11.6-14.8) H Platelet Count 273 K/UL (150-450) Mean Platelet Volume 7.0 FL (6.5-10.1) Neutrophils (%) (Auto) 70.3 % (45.0-75.0) Lymphocytes (%) (Auto) 19.0 % (20.0-45.0) L Monocytes (%) (Auto) 7.6 % (1.0-10.0) Eosinophils (%) (Auto) 0.5 % (0.0-3.0) Basophils (%) (Auto) 2.6 % (0.0-2.0) H Differential Total Cells Counted 100 Neutrophils % (Manual) 66 % (45-75) Lymphocytes % (Manual) 19 % (20-45) L Monocytes % (Manual) 12 % (1-10) H Eosinophils % (Manual) 1 % (0-3) Basophils % (Manual) 1 % (0-2) Band Neutrophils 1 % (0-8) Platelet Estimate Adequate Platelet Morphology Normal Hypochromasia 1+ Anisocytosis 1+ Erythrocyte Sedimentation Rate 66 MM/HR (0-30) H Reticulocyte Count 2.4 % (0.0-2.0) H Prothrombin Time 9.6 SEC (9.30-11.50) Prothromb Time International Ratio 0.9 (0.9-1.1) Activated Partial Thromboplast Time 20 SEC (23-33) L Sodium Level 138 mEQ/L (135-145) Potassium Level 5.2 mEQ/L (3.4-4.9) H Chloride Level 102 mEQ/L (98-107) Carbon Dioxide Level 25 mEQ/L (20-30) Anion Gap 11 (5-15) Blood Urea Nitrogen 25 mg/dL (7-23) H Creatinine 1.0 mg/dL (0.5-0.9) H Estimat Glomerular Filtration Rate mL/min (>60) Glucose Level 225 mg/dL (74-106) #H Calcium Level 8.6 mg/dL (8.6-10.2) Iron Level 30 ug/dL (37-145) L Total Iron Binding Capacity 277 ug/dL (250-400) Percent Iron Saturation 11 % (15-50) L Unsaturated Iron Binding 247 ug/dL (112-346) Lactate Dehydrogenase 210 U/L (135-230) Carcinoembryonic Antigen 6.3 ng/mL H Vitamin B12 Level 683 pg/mL (211-946) Folate Pending Objective HEENT: No JVD LUNGS: CLEAR CVS: RRR NO G/R/M ABDOMEN: SOFT EXT: S/P Left hip ORIF. Legs have mild edema. Left shoulder in immobilizer DEV HANEY Feb 01, 2017 16:41
[2017-02-01] MEDS: Norco 5mg/325mg tab ORAL PRN (17:28)
[2017-02-01] MEDS ORDERED: Tubing Blood Filter IV ONE (18:24)
[2017-02-01] MEDS ORDERED: NS 275ml ONE (18:24)
--- NOTE | 2017-02-03 11:00 | Discharge Summary ---
Discharge Summary Hospital Course Date of Admission Jan 27, 2017 at 22:05 Date of Discharge Feb 01, 2017 at 18:25 Admitting Diagnosis HPI Mery Membreno is a 77 year old female who was admitted on Jan 27, 2017 at 22 :05 for Hip Injury Hospital Course [id number] Discharge Discharge Disposition Patient was discharged to SNF/Subacute Facility(03) Discharge Diagnoses: Aurora Ortiz NP Feb 03, 2017 11:00
--- NOTE | 2017-02-04 01:45 | Discharge Summary 2 SIG ---
DATE OF ADMISSION: 01/27/2017 DATE OF DISCHARGE: 02/01/2017 CONSULTANTS: 1. Juvencio Rodriguez M.D. 2. Luis Iyer M.D. 3. Genesis Hayes M.D. Brief Hospital Course: The patient is a 77-year-old female with medical history of diabetes type 2 and dementia, initially presented to [facility] after a sustained mechanical fall and attempt to get out of bed. She complained of pain on the left arm and left hip and on evaluation at [facility] was diagnosed to have fracture of the shoulder as well as the hip. She was subsequently transferred to [facility] for surgical intervention. Cardiac clearance was obtained. Echocardiogram showed ejection fraction of 65% to 70% with normal left ventricular size, hyperdynamic LV function, grade 1 diastolic dysfunction, and severe pulmonary hypertension. EKG showed no ST elevation. She underwent left hip hemiarthroplasty on 01/28/[address] Rodriguez. Postoperatively, she was given pain management. Left shoulder fracture was treated non-operatively with sling immobilization. Once the fracture heals, she would be able to begin active range of motion with weightbearing in approximately three to six weeks. Urinalysis also showed possible infection with urine culture showing gram-negative rods, however, with low colony count. She was given initially ceftriaxone. After surgery, there was a drop in hemoglobin and hematocrit. She received one unit packed RBC blood transfusion. She received physical therapy and occupational therapy. She was eventually discharged to SNF. FINAL DIAGNOSES: 1. Fracture of left femoral neck, status post left hip arthroplasty on 01/28/2017. 2. Fracture of humerus, left, closed. 3. Diabetes mellitus type 2. 4. Cerebrovascular disease. 5. Alzheimer's dementia. 6. Postop anemia status post blood transfusion. 7. Possible urinary tract infection. 8. Moderate pulmonary hypertension. 9. Hypomagnesemia. Disposition: The patient was discharged to [facility]. DISCHARGE MEDICATIONS: Refer to medication list. Activity: The patient to weightbearing as tolerated. Left shoulder, continue with sling immobilization. When fracture heals in approximately three to six weeks, she will begin active range of motion and weightbearing on the left shoulder. Continue therapy at [facility]. Abdirahman Griffin M.D. I have been assigned to dictate discharge summary on this account and I was not involved in the patient's management. Aurora Ortiz N.P. DR: FRANK JOB#: [id number] CC: RAMEZ
== END 2017-02-01 18:25 | DRG 470 ==
LOC: 4E 22:05
PROC: 0SRS0JA Replacement of Left Hip Joint, Femoral Surface with Synthetic Substitute, Uncemented, Open Approach (ICD-10-PCS; principal; 2017-01-27)
PROC: 30233N1 Transfusion of Nonautologous Red Blood Cells into Peripheral Vein, Percutaneous Approach (ICD-10-PCS; 2017-01-31)
DX: S72.002A Fracture of unspecified part of neck of left femur, initial encounter for closed fracture (principal); N17.9 Acute kidney failure, unspecified; I27.2 Other secondary pulmonary hypertension; N39.0 Urinary tract infection, site not specified; E83.42 Hypomagnesemia; S42.202A Unspecified fracture of upper end of left humerus, initial encounter for closed fracture; W06.XXXA Fall from bed, initial encounter; Z86.73 Personal history of transient ischemic attack (TIA), and cerebral infarction without residual deficits; E11.9 Type 2 diabetes mellitus without complications; G30.9 Alzheimer's disease, unspecified; F02.80 Dementia in other diseases classified elsewhere, unspecified severity, without behavioral disturbance, psychotic disturbance, mood disturbance, and anxiety; I67.9 Cerebrovascular disease, unspecified; D64.89 Other specified anemias
CPT/HCPCS: 36415; 71010; 72170; 80048; 80053; 81001; 82378; 82607; 82728; 82746; 82962; 83036; 83540; 83550; 83615; 83735; 84100; 84484; 85007; 85025; 85044; 85060; 85610; 85651; 85730; 86850; 86900; 86901; 86920; 87086; 87181; 93005; 93306; 94003; 94150; J1815; J2250; J2405; J3490

== ENCOUNTER 2017-03-16 16:19 | Inpatient (IN) | payer MEDICARE, MEDICAID ==
[~2017-03-16] VITALS: Ht 162.6 cm; Wt 75.9 kg
[~2017-03-16 16:19] MED LIST: ACETAMINOPHEN325 M1 ORAL; ARICEPT5 MG ORAL; ARTIFICIAL TEAR15 ML BOTH EYES; ASPIRIN-LOW81 MG ORAL; BENADRYL25 MG ORAL; CEPHALEXIN500 MG ORAL; DONEPEZIL HCL5 M2 ORAL; GLIPIZIDE10 MG PO; GLIPIZIDE5 MG ORAL; METFORMIN HCL500 M1 ORAL; NORCO 10-325 T1 EACH ORAL; NORCO 5-325 TA1 EACH ORAL; NOVOLOG100 UNIT/4 SQ; OMEPRAZOLE40 M1 ORAL; PROTONIX40 MG ORAL; RISPERDAL0.25 MG ORAL; SERTRALINE HCL50 MG ORAL; ZOFRAN 4 MG4 MG/2 ML IV
[2017-03-16 17:27] LABS: BASOPHILS % (AUTO) 1.4 % (0.0-2.0); EOSINOPHILS % (AUTO) 2.3 % (0.0-3.0); LYMPHOCYTES % (AUTO) 20.3 % (20.0-45.0); MEAN CORPUSCULAR HEMOGLOBIN 25.9 PG (27.0-31.0); MEAN CORPUSCULAR VOLUME 86 FL (80-99); MEAN PLATELET VOLUME 7.3 FL (6.5-10.1); MONOCYTES % (AUTO) 9.3 % (1.0-10.0); NEUTROPHILS % (AUTO) 66.7 % (45.0-75.0); PLATELET COUNT 202 K/UL (150-450); RED CELL DISTRIBUTION WIDTH 16.9 % (11.6-14.8); WHITE BLOOD COUNT 12.6 K/UL (4.8-10.8)
[2017-03-16 17:36] LABS: ALANINE AMINOTRANSFERASE 15 U/L (12-78); ALBUMIN/GLOBULIN RATIO 0.6 (1.0-2.7); ANION GAP 11 mmol/L (5-15); ASPARTATE AMINO TRANSFERASE 21 U/L (15-37); CALCIUM 9.1 MG/DL (8.5-10.1); CARBON DIOXIDE 24 MMOL/L (21-32); CHLORIDE 97 MMOL/L (98-107); CREATININE 1.4 MG/DL (0.55-1.30); POTASSIUM 4.2 MMOL/L (3.5-5.1); SODIUM 132 MMOL/L (136-145)
[2017-03-16] MEDS ORDERED: Enoxaparin 80mg Inj SUBQ ONE (18:15)
[2017-03-16] MEDS ORDERED: Heparin 5000 units/ml inj IV ONE (18:15)
[2017-03-16] MEDS ORDERED: Heparin 25,000u/D5W 500ml 500 ML IV SCH ×2 (18:15→21:00)
[2017-03-16 18:31] LABS: ERYTHROCYTE SEDIMENTATION RATE 58 MM/HR (0-30)
[2017-03-16 19:05] VITALS: BP 112/55
[2017-03-16] MEDS ORDERED: ZOFRAN4 M3 ORAL (19:39)
[2017-03-16] MEDS ORDERED: LANTUS5 UNITS SUBQ (20:00)
[2017-03-16] MEDS ORDERED: HEPARIN SO5000 UNIT2 SUBQ (20:00)
[2017-03-16] MEDS ORDERED: Heparin 2000 units/Ns 1000ml IV ONE (20:00)
[2017-03-16] MEDS ORDERED: CALMOSEPTINE OI71 GM TP (20:00)
[2017-03-16] MEDS ORDERED: ASPIRIN EC81 MG ORAL (20:00)
--- NOTE | 2017-03-16 20:00 | Emergency Room Report ---
History of Present Illness General Chief Complaint: Lower Extremity Injury Source: Patient, Family Member, EMS Present Illness HPI Patient is a 77-year-old female brought in by EMS after increased left-sided leg swelling. Patient recent repair of a fracture to her left hip. The patient was noted to have increased discomfort and swelling to the left lower extremity. The patient not been vomiting. She denied any current chest pain or shortness of breath. Allergies: Coded Allergies: No Known Allergies (Unverified , 01/27/17) Patient History Last Menstrual Period: na Reviewed Nursing Documentation: PMH: Agreed, PSxH: Agreed Nursing Documentation-PMH Past Medical History: No History, Except For Hx Cardiac Problems: No Hx Diabetes: Yes Hx Cancer: No Hx Gastrointestinal Problems: No - recent hip surgery Hx Neurological Problems: Yes Hx Dementia: Yes Review of Systems All Other Systems: negative except mentioned in HPI Physical Exam Vital Signs Date Time Temp Pulse Resp B/P (MAP) Pulse Ox O2 Delivery O2 Flow Rate FiO2 03/16/17 16:17 98.4 96 18 92/58 98 Room Air Sp02 EP Interpretation: reviewed, normal General Appearance: normal inspection, well appearing, no apparent distress, alert Head: atraumatic ENT: normal ENT inspection, hearing grossly normal, normal voice Neck: normal inspection, full range of motion, supple, no bony tend Respiratory: normal inspection, lungs clear, normal breath sounds, no respiratory distress, no retraction, no wheezing Cardiovascular #1: regular rate, rhythm, no edema Gastrointestinal: normal inspection, normal bowel sounds, non tender, soft, no guarding, no hernia Genitourinary: no CVA tenderness Musculoskeletal: normal inspection, back normal, normal range of motion Neurologic: normal inspection, alert, oriented x3, responsive, machine set up technician III-XII nml as tested, speech normal Psychiatric: normal inspection, judgement/insight normal, mood/affect normal Skin: normal inspection, normal color, other - generalized excoriated rash Medical Decision Making Diagnostic Impression: Primary Impression: DVT (deep venous thrombosis) ER Course Patient presented for left leg swelling. Differential diagnosis included but was not limited to DVT, abscess, cellulitis among others. Because of complexity of patient's case laboratory testing and imaging studies were ordered.A duplex ultrasound of the left lower extremity showed a deep venous thrombosis of the common femoral vein. Patient was started on IV Heparin. Dr. Abdirahman Griffin was contacted for inpatient management EKG Diagnostic Results Rate: normal Rhythm: NSR ST Segments: no acute changes Last Vital Signs Date Time Temp Pulse Resp B/P (MAP) Pulse Ox O2 Delivery O2 Flow Rate FiO2 03/16/17 16:17 98.4 96 18 92/58 98 Room Air Status: unchanged Disposition: ADMITTED INPATIENT Condition: Serious Referrals: NON PHYSICIAN (PCP) Otto Ramirez Mar 16, 2017 20:00
[2017-03-16] MEDS ORDERED: DESITIN57 G1 TP (20:01)
[2017-03-16 20:15] VITALS: BP 119/59
[2017-03-16] MEDS ORDERED: Norco 5mg/325mg tab ORAL PRN (22:45)
[2017-03-16] MEDS ORDERED: Norco 10mg/325mg tab ORAL PRN (22:45)
[2017-03-17] VITALS (7 sets, daily range): BP systolic 108–130; BP diastolic 60–81
[2017-03-17] MEDS ORDERED: Heparin 25,000u/D5W 500ml 500 ML IV SCH (03:00)
[2017-03-17] MEDS: NovoLOG Insulin Flexpen SUBQ SCH ×4 (06:31→21:04)
[2017-03-17] MEDS: Donepezil 5mg Tab ORAL SCH (08:06)
[2017-03-17] MEDS: Sertraline 50mg tab ORAL SCH (08:06)
[2017-03-17] MEDS: Levemir Flexpen SUBQ SCH ×2 (08:09→17:03)
[2017-03-17 08:37] LABS: BASOPHILS % (AUTO) 1.6 % (0.0-2.0); EOSINOPHILS % (AUTO) 4.6 % (0.0-3.0); LYMPHOCYTES % (AUTO) 21.3 % (20.0-45.0); MEAN CORPUSCULAR HEMOGLOBIN 25.5 PG (27.0-31.0); MEAN CORPUSCULAR HGB CONC 28.9 G/DL (32.0-36.0); MEAN CORPUSCULAR VOLUME 88 FL (80-99); MEAN PLATELET VOLUME 7.7 FL (6.5-10.1); MONOCYTES % (AUTO) 9.4 % (1.0-10.0); PLATELET COUNT 193 K/UL (150-450); RED BLOOD COUNT 4.21 M/UL (4.20-5.40); RED CELL DISTRIBUTION WIDTH 17.2 % (11.6-14.8); WHITE BLOOD COUNT 11.5 K/UL (4.8-10.8)
[2017-03-17] MEDS ORDERED: GlipiZIDE 10mg tab ORAL SCH (09:00)
[2017-03-17 10:02] LABS: HEMOGLOBIN A1C 11.5 % (4.3-6.0)
[2017-03-17] MEDS: Heparin 25,000u/D5W 500ml 500 ML IV SCH ×2 (10:12→17:04)
--- NOTE | 2017-03-17 10:35 | Wound Care Consultation ---
Wound Assessment Wound Assessment #1: Wound Number: 1 Wound Present on Admission: Yes New Wound: No Status Change of Wound: No Wound Location Body Site Modif: left Wound Location Body Site: buttocks Wound Type: pressure ulcer Dayna Test: Does not Dayna Pressure Ulcer Stage: II Wound Thickness: Partial Thickness Wound Length: 1.5 Wound Width: 1.5 Wound Depth: 0.1 Percent of Wound [place]/Red: 100 Wound Drainage Description: Serosanguineous Wound Drainage Amount: Moderate Wound Drainage Odor: None/Absent Tissue Surrounding Wound: Macerated Wound General Appearance: Reddened, Draining Wound Assessment #2: Wound Number: 2 Wound Present on Admission: Yes New Wound: No Status Change of Wound: No Wound Location Body Site Modif: mid Wound Location Body Site: other - sacrococcygeal Wound Type: pressure ulcer Dayna Test: Does not Dayna Pressure Ulcer Stage: Deep Tissue Injury Wound Thickness: Full Thickness Wound Length: 3.5 Wound Width: 2.0 Wound Depth: utd Percent of Wound Purple/Maroon: 100 Wound Drainage Amount: None Wound Drainage Odor: None/Absent Tissue Surrounding Wound: Erythemic Wound General Appearance: Reddened - purple Wound Assessment #3: Wound Number: 3 Wound Present on Admission: Yes New Wound: No Status Change of Wound: No Wound Location Body Site: perineal area Wound Type: chemical burn Dayna Test: Does not Dayna Percent of Wound [place]/Red: 100 Wound Drainage Amount: None Wound Drainage Odor: None/Absent Tissue Surrounding Wound: Erythemic Wound General Appearance: Reddened Wound Assessment #4: Wound Number: 4 Wound Present on Admission: Yes New Wound: No Status Change of Wound: No Wound Location Body Site Modif: left Wound Type: rash Dayna Test: Does not Dayna Wound Length: 6.5 Wound Width: 5.5 Percent of Wound [place]/Red: 100 Wound Drainage Amount: None Wound Drainage Odor: None/Absent Tissue Surrounding Wound: Erythemic Wound General Appearance: Reddened Wound Assessment #5: Wound Number: 5 Wound Present on Admission: Yes New Wound: No Status Change of Wound: No Wound Location Body Site Modif: left, right Wound Location Body Site: breast fold Wound Type: rash Dayna Test: Does not Dayna Percent of Wound [place]/Red: 100 Wound Drainage Amount: None Wound Drainage Odor: None/Absent Tissue Surrounding Wound: Erythemic Wound General Appearance: Reddened Wound Assessment #6: Percent of Wound [place]/Red: 100 Wound Comment #1 Left buttock stage II pressure ulcer #2 Sacrococcygeal DTI pressure ulcer #3 Chemical burn on perineal area #4 Rash on Left arm #5 Rashes on left and right breast folds #6 Surgical incision on Left trochanter area Recommendation -Local wound care per protocol -Turn and reposition -Keep clean and dry -Optimize nutrition -Low air loss SPR mattress -Offload both heels -Heel protector on both heels -Assess and f/u accordingly for any changes ANTONIETA AMAYA RN Mar 17, 2017 10:35
[2017-03-17 10:50] LABS: ANION GAP 12 mmol/L (5-15); CALCIUM 8.6 MG/DL (8.5-10.1); CARBON DIOXIDE 24 MMOL/L (21-32); CHLORIDE 99 MMOL/L (98-107); CREATININE 1.2 MG/DL (0.55-1.30); MAGNESIUM 1.9 MG/DL (1.8-2.4); PHOSPHORUS 3.7 MG/DL (2.5-4.9); POTASSIUM 3.8 MMOL/L (3.5-5.1); SODIUM 135 MMOL/L (136-145)
--- NOTE | 2017-03-17 15:24 | Consultation ---
History of Present Illness General Date patient seen: Mar 17, 2017 Chief Complaint: Lower Extremity Injury Reason for Consultation: inpatient management Present Illness HPI 77-year-old female with recent hx of hip fracture, s/p a few weeks of rehab, was just discharged home brought in by EMS after increased left-sided leg swelling with increased discomfort and swelling to the left lower extremity. she was diagnosed to have acute DVT and admitted to telemetry for further treatment. Allergies: Coded Allergies: No Known Allergies (Unverified , 01/27/17) Medication History Scheduled Donepezil Hcl* (Aricept*), 5 MG ORAL DAILY, (Reported) Glipizide (Glipizide), 10 MG PO BID, (Reported) Heparin Sod (Porcine) (Heparin Sodium*), 5,000 UNITS SUBQ EVERY 8 HOURS, ( Reported) Insulin Aspart (Novolog), 0 SQ AC+HS, (Reported) Insulin Glargine (Lantus), 20 UNITS SUBQ BID, (Reported) Pantoprazole* (Protonix*), 40 MG ORAL AC, (Reported) Sertraline Hcl* (Zoloft*), 50 MG ORAL DAILY, (Reported) Scheduled PRN Acetaminophen* (Acetaminophen 325MG Tablet*), 325 MG ORAL Q4H PRN for Fever/ Headache/Mild Pain, (Reported) Dextran 70/Hypromellose (Artificial Tears Eye Drops*), 2 DROP BOTH EYES Q2 PRN for EYE DRYNESS, (Reported) Hydrocodone Bit/Acetaminophen 10-325* ([place] 10-325*), 1 TAB ORAL Q4H PRN for For Pain, (Reported) Hydrocodone Bit/Acetaminophen 5-325* ([place] 5-325*), 1 TAB ORAL Q4H PRN for For Pain, (Reported) Ondansetron* (Zofran*), 4 MG ORAL Q4HR PRN for Nausea & Vomiting, (Reported) Miscellaneous Medications Menthol/Zinc Oxide (Calmoseptine Ointment), 71 GM TP, (Reported) Zinc Oxide (Desitin), 57 GM TP, (Reported) Discontinued Medications Cephalexin* (Keflex*), 500 MG ORAL TID, (Reported) Discontinued Reason: Pt stopped taking med Diphenhydramine Hcl* (Benadryl*), 25 MG ORAL Q4HR PRN for Itching, (Reported) Discontinued Reason: Pt stopped taking med Metformin Hcl* (Metformin Hcl*), 500 MG ORAL BIDAC, (Reported) Discontinued Reason: Pt stopped taking med Ondansetron* (Zofran*), 4 MG IV Q4HR PRN for Nausea & Vomiting, (Reported) Discontinued Reason: Prescription changed Risperidone* (Risperdal*), 0.25 MG ORAL Q6HR PRN for For Anxiety, (Reported) Discontinued Reason: Pt stopped taking med Patient History Healthcare decision maker Resuscitation status Full Code Advanced Directive on File Past Medical/Surgical History Past Medical/Surgical History: (1) Alzheimer's dementia (2) Fracture of femoral neck, left (3) Diabetes mellitus, type II Review of Systems Constitutional: Reports: no symptoms Respiratory: Reports: no symptoms Gastrointestinal: Reports: no symptoms Physical Exam General Appearance: WD/WN, no apparent distress Lines, tubes and drains: peripheral HEENT: normocephalic Neck: non-tender, normal alignment, muscle spasm Respiratory/Chest: chest wall non-tender, lungs clear, accessory muscle use Cardiovascular/Chest: normal peripheral pulses, normal rate Abdomen: non tender Genitourinary/Rectal: normal genital exam Extremities: non-tender Skin Exam: normal pigmentation Last 24 Hour Vital Signs Date Time Temp Pulse Resp B/P (MAP) Pulse Ox O2 Delivery O2 Flow Rate FiO2 03/17/17 12:00 83 03/17/17 08:52 96.5 96 19 108/60 Room Air 03/17/17 08:00 90 03/17/17 04:44 97.7 90 18 130/72 96 Room Air 03/17/17 04:00 92 03/17/17 00:34 98.2 88 18 127/81 100 Room Air 03/17/17 00:00 95 03/16/17 20:30 99.5 97 22 119/59 98 Room Air 03/16/17 20:15 97 22 119/59 98 Room Air 03/16/17 19:05 99.5 100 12 112/55 97 Room Air 03/16/17 16:17 98.4 96 18 92/58 98 Room Air Intake and Output 03/17/17 03/18/17 19:00 07:00 Intake Total 20.32 ml Balance 20.32 ml IV Total 20.32 ml Laboratory Tests Test 03/16/17 16:50 03/17/17 00:50 03/17/17 07:35 03/17/17 08:45 White Blood Count 12.6 K/UL (4.8-10.8) H 11.5 K/UL (4.8-10.8) H Red Blood Count 4.50 M/UL (4.20-5.40) 4.21 M/UL (4.20-5.40) Hemoglobin 11.6 G/DL (12.0-16.0) L 10.7 G/DL (12.0-16.0) L Hematocrit 38.9 % (37.0-47.0) 37.1 % (37.0-47.0) Mean Corpuscular Volume 86 FL (80-99) 88 FL (80-99) Mean Corpuscular Hemoglobin 25.9 PG (27.0-31.0) L 25.5 PG (27.0-31.0) L Mean Corpuscular Hemoglobin Concent 30.0 G/DL (32.0-36.0) L 28.9 G/DL (32.0-36.0) L Red Cell Distribution Width 16.9 % (11.6-14.8) H 17.2 % (11.6-14.8) H Platelet Count 202 K/UL (150-450) 193 K/UL (150-450) Mean Platelet Volume 7.3 FL (6.5-10.1) 7.7 FL (6.5-10.1) Neutrophils (%) (Auto) 66.7 % (45.0-75.0) 63.0 % (45.0-75.0) Lymphocytes (%) (Auto) 20.3 % (20.0-45.0) 21.3 % (20.0-45.0) Monocytes (%) (Auto) 9.3 % (1.0-10.0) 9.4 % (1.0-10.0) Eosinophils (%) (Auto) 2.3 % (0.0-3.0) 4.6 % (0.0-3.0) H Basophils (%) (Auto) 1.4 % (0.0-2.0) 1.6 % (0.0-2.0) Erythrocyte Sedimentation Rate 58 MM/HR (0-30) H Prothrombin Time 10.0 SEC (9.30-11.50) Prothromb Time International Ratio 1.0 (0.9-1.1) Activated Partial Thromboplast Time 28 SEC (23-33) 170 SEC (23-33) *H 102 SEC (23-33) H Sodium Level 132 MMOL/L (136-145) L 135 MMOL/L (136-145) L Potassium Level 4.2 MMOL/L (3.5-5.1) 3.8 MMOL/L (3.5-5.1) Chloride Level 97 MMOL/L (98-107) L 99 MMOL/L (98-107) Carbon Dioxide Level 24 MMOL/L (21-32) 24 MMOL/L (21-32) Anion Gap 11 mmol/L (5-15) 12 mmol/L (5-15) Blood Urea Nitrogen 18 mg/dL (7-18) 19 mg/dL (7-18) H Creatinine 1.4 MG/DL (0.55-1.30) H 1.2 MG/DL (0.55-1.30) Estimat Glomerular Filtration Rate mL/min (>60) mL/min (>60) Glucose Level 216 MG/DL (74-106) H 263 MG/DL (74-106) H Calcium Level 9.1 MG/DL (8.5-10.1) 8.6 MG/DL (8.5-10.1) Total Bilirubin 0.3 MG/DL (0.2-1.0) Aspartate Amino Transf (AST/SGOT) 21 U/L (15-37) Alanine Aminotransferase (ALT/SGPT) 15 U/L (12-78) Alkaline Phosphatase 146 U/L (46-116) H Troponin I 0.018 ng/mL (0.000-0.056) 0.011 ng/mL (0.000-0.056) Pro-B-Type Natriuretic Peptide 238 pg/mL (0-125) H Total Protein 8.0 G/DL (6.4-8.2) Albumin 3.1 G/DL (3.4-5.0) L Globulin 4.9 g/dL Albumin/Globulin Ratio 0.6 (1.0-2.7) L Hemoglobin A1c 11.5 % (4.3-6.0) H Phosphorus Level 3.7 MG/DL (2.5-4.9) Magnesium Level 1.9 MG/DL (1.8-2.4) Height (Feet): 5 Height (Inches): 4.00 Weight (Pounds): 156 Medications Current Medications Medications (Trade) Dose Ordered Sig/Jayme Route PRN Reason Start Time Stop Time Status Last Admin Dose Admin Acetaminophen (Tylenol) 325 mg Q4H PRN ORAL Fever/Headache/Mild Pain 03/16/17 22:45 04/15/17 22:44 03/17/17 13:34 Acetaminophen/ Hydrocodone Bitart ([place] 10/325) 1 ea Q4H PRN ORAL Severe Pain (Pain Scale 7-10) 03/16/17 22:45 03/23/17 22:44 Acetaminophen/ Hydrocodone Bitart ([place] 5/325) 1 tab Q4H PRN ORAL Moderate Pain (Pain Scale 4-6) 03/16/17 22:45 03/23/17 22:44 Clotrimazole (Lotrimin) 1 applic EVERY 12 HOURS TOPIC 03/17/17 21:00 04/16/17 20:59 Dextrose (Dextrose 50%) STAT PRN IV Hypoglycemia 03/16/17 22:45 04/15/17 22:44 Donepezil HCl (Aricept) 5 mg DAILY ORAL 03/17/17 09:00 04/16/17 08:59 03/17/17 08:06 Glipizide (Glucotrol) 10 mg BID ORAL 03/17/17 09:00 04/16/17 08:59 03/17/17 08:06 Heparin Sodium/ Dextrose 500 ml @ 17.418 mls/ hr adjust per protocol IV 03/17/17 10:00 04/16/17 09:59 03/17/17 10:12 Insulin Aspart (NovoLOG) BEFORE MEALS AND HS SUBQ 03/17/17 06:30 04/16/17 06:29 03/17/17 11:51 Insulin Detemir (Levemir) 20 units BID SUBQ 03/17/17 09:00 04/16/17 08:59 03/17/17 08:09 Ondansetron HCl (Zofran) 4 mg Q4HR PRN ORAL Nausea & Vomiting 03/16/17 22:45 12/8/17 22:44 Pantoprazole (Protonix) 40 mg BEFORE BREAKFAST ORAL 03/17/17 06:30 04/16/17 06:29 03/17/17 06:30 Sertraline HCl (Zoloft) 50 mg DAILY ORAL 03/17/17 09:00 04/16/17 08:59 03/17/17 08:06 Assessment/Plan Problem List: (1) DVT (deep venous thrombosis) ICD Codes: I82.409 - Acute embolism and thrombosis of unspecified deep veins of unspecified lower extremity SNOMED: 864423814 (2) Diabetes mellitus, type II ICD Codes: E11.9 - Type 2 diabetes mellitus without complications SNOMED: 53336600 (3) History of CVA (cerebrovascular accident) ICD Codes: Z86.73 - Personal history of transient ischemic attack (TIA), and cerebral infarction without residual deficits SNOMED: 267082296 (4) Alzheimer's dementia ICD Codes: G30.9 - Alzheimer's disease, unspecified SNOMED: 01775141 Assessment/Plan IV heparin check h/h sliding scale diabetic diet keep in teli symptomatic treatment.; LUCERO ASHBY Mar 17, 2017 15:24
[2017-03-17] MEDS ORDERED: Heparin 5000 units/ml inj IV ONE (16:45)
--- NOTE | 2017-03-17 18:57 | History & Physical ---
History and Physical History & Physicial Dictated for Int Med-Dr Griffin no. [id number]. ALBINO CHAUDHRY Mar 17, 2017 18:57
--- NOTE | 2017-03-17 23:30 | History and Physical Report ---
DATE OF ADMISSION: 03/16/2017 CHIEF COMPLAINT: The patient is a 77-year-old female, who presents with chief complaint of left leg pain and swelling. HISTORY OF PRESENT ILLNESS: Most of the history and physical is obtained from the patient's chart. The patient herself is unclear on the history of present illness. The patient presented to [facility] emergency room complaining of a three-day history of left leg pain and swelling. An initial venous duplex Doppler in emergency room revealed acute deep venous thrombosis. The patient admitted for left lower extremity pain and swelling and acute deep venous thrombosis. PAST MEDICAL HISTORY: Significant for: 1. Type 2 diabetes. 2. History of fall injury in January 2017 for which the patient was admitted to [facility]. PAST SURGICAL HISTORY: Significant for section. CURRENT MEDICATIONS: 1. Tylenol 650 mg one tablet p.o. q.4 h. p.r.n.. 2. Aricept 5 mg one tablet p.o. daily. 3. Glipizide 10 mg one tablet p.o. twice daily. 4. [place] 10/325 mg p.o. q.4 h. p.r.n. 5. Protonix 40 mg one tablet p.o. daily. 6. Zoloft 50 mg one tablet p.o. daily. ALLERGIES: No known drug allergies. SOCIAL HISTORY: The patient is and lives with her . The patient denies tobacco or alcohol use. REVIEW OF SYSTEMS: CONSTITUTIONAL: The patient denies weight loss or weight gain. The patient denies fevers or chills. HEENT: The patient denies ear or throat pain. The patient denies headache. CARDIOVASCULAR: The patient denies palpitations or chest pain. CHEST: The patient denies wheeze or shortness of breath. ABDOMINAL: The patient denies nausea, vomiting, diarrhea, or constipation. GENITOURINARY: The patient denies dysuria or increased frequency of urination. NEUROMUSCULAR: The patient denies seizures or generalized weakness. The patient complains of left lower extremity swelling as above. PHYSICAL EXAMINATION: VITAL SIGNS: Temperature 97.7, respirations 18, pulse 90, blood pressure 130/72. GENERAL: The patient is a well-developed and well-nourished female, in no apparent distress. HEENT: Eyes, pupils equal and responsive to light and accommodation. Extraocular movements are intact. NECK: Supple without lymphadenopathy. CHEST: Lungs are clear to auscultation bilaterally without wheezes or rales. CARDIOVASCULAR: Regular rate. S1 and S2 are normal without murmurs, rubs, or gallops. ABDOMEN: Soft, nontender, nondistended. Positive bowel sounds. No evidence of hepatosplenomegaly. Currently, no rebound or guarding noted. RECTAL: Refused. GENITAL: Refused. EXTREMITIES: Left leg is swollen compared to the right. There is 2+ edema in the ankle. Otherwise, extremities without clubbing, cyanosis, or edema. NEUROLOGIC: Cranial nerves II to XII are grossly intact without focal deficits. Motor strength is 5/5 bilaterally intact. Deep tendon reflexes are 2+ plantar. LABORATORY STUDIES: WBC 12.6, hemoglobin 11.6, hematocrit 38.9, and platelets 202,000. Sodium 132, potassium 4.2, chloride 97, CO2 24, BUN 18, creatinine 1.4, and glucose 216. Venous duplex Doppler of the left lower extremity revealed acute deep venous thrombosis extending from the common femoral vein to the popliteal vein. ASSESSMENT: This is a 77-year-old female with: 1. Left leg pain. 2. Left leg swelling. 3. Acute deep venous thrombosis of left leg. 4. Diabetes type 2. 5. Alzheimer's dementia. TREATMENT: 1. Left leg pain/swelling/acute deep venous thrombosis. The patient has been started empirically on heparin drip. The patient switched to Xarelto or Coumadin when the patient has stabilized. 2. Diabetes type 2. The patient has been placed on a NovoLog sliding scale. The patient has also been placed on Levemir twice daily. 3. Alzheimer's dementia. Continue Aricept as above. Magan More M.D. DR: Sandee JOB#: [id number] CC:
[2017-03-18] VITALS: BP 120/72
[2017-03-18 04:00] VITALS: BP 106/66
[2017-03-18] MEDS: NovoLOG Insulin Flexpen SUBQ SCH ×4 (06:36→21:24)
[2017-03-18 08:00] VITALS: BP 123/65
[2017-03-18 08:39] LABS: BASOPHILS % (AUTO) 1.3 % (0.0-2.0); LYMPHOCYTES % (AUTO) 23.3 % (20.0-45.0); MEAN CORPUSCULAR HEMOGLOBIN 25.5 PG (27.0-31.0); MEAN CORPUSCULAR HGB CONC 29.1 G/DL (32.0-36.0); MEAN CORPUSCULAR VOLUME 87 FL (80-99); MEAN PLATELET VOLUME 7.6 FL (6.5-10.1); MONOCYTES % (AUTO) 8.9 % (1.0-10.0); NEUTROPHILS % (AUTO) 62.4 % (45.0-75.0); PLATELET COUNT 203 K/UL (150-450); RED BLOOD COUNT 3.88 M/UL (4.20-5.40); WHITE BLOOD COUNT 12.1 K/UL (4.8-10.8)
[2017-03-18 08:48] LABS: ALANINE AMINOTRANSFERASE 10 U/L (12-78); ALBUMIN/GLOBULIN RATIO 0.6 (1.0-2.7); ANION GAP 8 mmol/L (5-15); ASPARTATE AMINO TRANSFERASE 9 U/L (15-37); CALCIUM 8.8 MG/DL (8.5-10.1); CARBON DIOXIDE 26 MMOL/L (21-32); CHLORIDE 100 MMOL/L (98-107); CREATININE 1.2 MG/DL (0.55-1.30); MAGNESIUM 1.7 MG/DL (1.8-2.4); PHOSPHORUS 3.3 MG/DL (2.5-4.9); POTASSIUM 3.9 MMOL/L (3.5-5.1); SODIUM 134 MMOL/L (136-145); TOTAL PROTEIN 6.9 G/DL (6.4-8.2)
[2017-03-18] MEDS: Sertraline 50mg tab ORAL SCH (09:15)
[2017-03-18] MEDS: Donepezil 5mg Tab ORAL SCH (09:15)
[2017-03-18] MEDS: Levemir Flexpen SUBQ SCH ×2 (09:16→18:03)
[2017-03-18] MEDS ORDERED: Heparin 5000 units/ml inj IV ONE (10:46)
[2017-03-18] MEDS ORDERED: Heparin 25,000u/D5W 500ml 500 ML IV SCH (11:00)
[2017-03-18 12:00] VITALS: BP 126/62
--- NOTE | 2017-03-18 14:00 | Pulmonology Progress Note ---
Assessment/Plan Problems: (1) DVT (deep venous thrombosis) (2) Diabetes mellitus, type II (3) History of CVA (cerebrovascular accident) (4) Alzheimer's dementia Assessment/Plan no new complains BS remains high, change diet to diabetic start Coumadin symptomatic treatment Subjective ROS Limited/Unobtainable: No Constitutional: Reports: no symptoms HEENT: Repors: no symptoms Respiratory: Reports: no symptoms Allergies: Coded Allergies: No Known Allergies (Unverified , 01/27/17) Objective Last 24 Hour Vital Signs Date Time Temp Pulse Resp B/P (MAP) Pulse Ox O2 Delivery O2 Flow Rate FiO2 03/18/17 08:00 77 03/18/17 08:00 97.1 92 123/65 95 Room Air 03/18/17 04:00 100 03/18/17 04:00 97.3 72 20 106/66 96 Room Air 03/18/17 00:00 81 03/18/17 00:00 98.1 80 20 120/72 98 Room Air 03/17/17 20:00 91 03/17/17 20:00 97.7 78 20 112/64 95 Room Air 03/17/17 16:00 97.5 75 18 115/68 03/17/17 16:00 82 Intake and Output 03/18/17 03/19/17 19:00 07:00 Intake Total 303.443 ml Balance 303.443 ml Intake Oral 200 ml IV Total 103.443 ml General Appearance: WD/WN HEENT: normocephalic, atraumatic Respiratory/Chest: chest wall non-tender, lungs clear, normal breath sounds Cardiovascular: normal peripheral pulses, normal rate Abdomen: normal bowel sounds, soft, non tender Genitourinary: normal external genitalia Extremities: no clubbing Skin: no rash Laboratory Tests 03/17/17 15:55: Activated Partial Thromboplast Time 55H 03/17/17 23:00: Activated Partial Thromboplast Time 78H 03/18/17 07:20: Activated Partial Thromboplast Time 44H, White Blood Count 12.1H, Red Blood Count 3.88L, Hemoglobin 9.9L, Hematocrit 33.9L, Mean Corpuscular Volume 87, Mean Corpuscular Hemoglobin 25.5L, Mean Corpuscular Hemoglobin Concent 29.1L, Red Cell Distribution Width 17.0H, Platelet Count 203, Mean Platelet Volume 7.6 , Neutrophils (%) (Auto) 62.4, Lymphocytes (%) (Auto) 23.3, Monocytes (%) (Auto ) 8.9, Eosinophils (%) (Auto) 4.0H, Basophils (%) (Auto) 1.3, Prothrombin Time 10.0, Prothromb Time International Ratio 1.0, Sodium Level 134L, Potassium Level 3.9, Chloride Level 100, Carbon Dioxide Level 26, Anion Gap 8, Blood Urea Nitrogen 18, Creatinine 1.2, Estimat Glomerular Filtration Rate , Glucose Level 205H, Calcium Level 8.8, Phosphorus Level 3.3, Magnesium Level 1.7L, Total Bilirubin 0.3, Aspartate Amino Transf (AST/SGOT) 9L, Alanine Aminotransferase ( ALT/SGPT) 10L, Alkaline Phosphatase 130H, Total Protein 6.9, Albumin 2.6L, Globulin 4.3, Albumin/Globulin Ratio 0.6L Current Medications Medications (Trade) Dose Ordered Sig/Jayme Route PRN Reason Start Time Stop Time Status Last Admin Dose Admin Acetaminophen (Tylenol) 325 mg Q4H PRN ORAL Fever/Headache/Mild Pain 03/16/17 22:45 04/15/17 22:44 03/17/17 13:34 Acetaminophen/ Hydrocodone Bitart ([place] 10/325) 1 ea Q4H PRN ORAL Severe Pain (Pain Scale 7-10) 03/16/17 22:45 03/23/17 22:44 Acetaminophen/ Hydrocodone Bitart ([place] 5/325) 1 tab Q4H PRN ORAL Moderate Pain (Pain Scale 4-6) 03/16/17 22:45 03/23/17 22:44 Clotrimazole (Lotrimin) 1 applic EVERY 12 HOURS TOPIC 03/17/17 21:00 04/16/17 20:59 03/18/17 09:15 Dextrose (Dextrose 50%) STAT PRN IV Hypoglycemia 03/18/17 14:00 04/17/17 13:59 UNV Dextrose (Dextrose 50%) STAT PRN IV Hypoglycemia 03/16/17 22:45 04/15/17 22:44 Donepezil HCl (Aricept) 5 mg DAILY ORAL 03/17/17 09:00 04/16/17 08:59 03/18/17 09:15 Heparin Sodium/ Dextrose 500 ml @ 26.127 mls/ hr adjust per protocol IV 03/18/17 11:00 04/17/17 10:59 03/18/17 10:59 Insulin Aspart (NovoLOG) BEFORE MEALS AND HS SUBQ 03/18/17 16:30 04/17/17 16:29 UNV Insulin Aspart (NovoLOG) BEFORE MEALS AND HS SUBQ 03/17/17 06:30 04/16/17 06:29 03/18/17 11:06 Insulin Detemir (Levemir) 20 units BID SUBQ 03/17/17 09:00 04/16/17 08:59 03/18/17 09:16 Ondansetron HCl (Zofran) 4 mg Q4HR PRN ORAL Nausea & Vomiting 03/16/17 22:45 04/15/17 22:44 Pantoprazole (Protonix) 40 mg BEFORE BREAKFAST ORAL 03/17/17 06:30 04/16/17 06:29 03/18/17 06:34 Sertraline HCl (Zoloft) 50 mg DAILY ORAL 03/17/17 09:00 04/16/17 08:59 03/18/17 09:15 LUCERO ASHBY Mar 18, 2017 14:00
--- NOTE | 2017-03-18 14:10 | Diagnostic Imaging Report ---
APPROVED REPORT CPT Code: 48260 Present Symptoms Lower Extremity Pain: Left Lower Extremity Edema: Left Comments: Recent left hip replacement. LEFT LEG: Venous imaging reveals acute thrombus in the common superficial femoral, popliteal, proximal calf and mid calf veins. The greater saphenous vein is also thrombosed to the level of the mid-thigh. Dr. Ramirez was informed of abnormal results at 18:02 hrs.
--- NOTE | 2017-03-18 15:06 | Internal Med Progress Note ---
Subjective Physician Name Abdirahman Griffin Attending Physician Abdirahman Griffin MD Current Medications Medications (Trade) Dose Ordered Sig/Jayme Route PRN Reason Start Time Stop Time Status Last Admin Dose Admin Acetaminophen (Tylenol) 325 mg Q4H PRN ORAL Fever/Headache/Mild Pain 03/16/17 22:45 04/15/17 22:44 03/17/17 13:34 Acetaminophen/ Hydrocodone Bitart ([place] 10/325) 1 ea Q4H PRN ORAL Severe Pain (Pain Scale 7-10) 03/16/17 22:45 03/23/17 22:44 Acetaminophen/ Hydrocodone Bitart ([place] 5/325) 1 tab Q4H PRN ORAL Moderate Pain (Pain Scale 4-6) 03/16/17 22:45 03/23/17 22:44 Clotrimazole (Lotrimin) 1 applic EVERY 12 HOURS TOPIC 03/17/17 21:00 04/16/17 20:59 03/18/17 09:15 Dextrose (Dextrose 50%) STAT PRN IV Hypoglycemia 03/16/17 22:45 04/15/17 22:44 Donepezil HCl (Aricept) 5 mg DAILY ORAL 03/17/17 09:00 04/16/17 08:59 03/18/17 09:15 Heparin Sodium/ Dextrose 500 ml @ 26.127 mls/ hr adjust per protocol IV 03/18/17 11:00 04/17/17 10:59 03/18/17 10:59 Insulin Aspart (NovoLOG) BEFORE MEALS AND HS SUBQ 03/17/17 06:30 04/16/17 06:29 03/18/17 11:06 Insulin Detemir (Levemir) 20 units BID SUBQ 03/17/17 09:00 04/16/17 08:59 03/18/17 09:16 Ondansetron HCl (Zofran) 4 mg Q4HR PRN ORAL Nausea & Vomiting 03/16/17 22:45 04/15/17 22:44 Pantoprazole (Protonix) 40 mg BEFORE BREAKFAST ORAL 03/17/17 06:30 04/16/17 06:29 03/18/17 06:34 Sertraline HCl (Zoloft) 50 mg DAILY ORAL 03/17/17 09:00 04/16/17 08:59 03/18/17 09:15 Warfarin Sodium (Coumadin per pharmacy) 1 ea DAILY PRN MISC Per rx protocol 03/18/17 14:00 04/17/17 13:59 Warfarin Sodium (Coumadin) 5 mg ONCE ONCE ORAL 03/18/17 17:00 03/18/17 17:01 Allergies: Coded Allergies: No Known Allergies (Unverified , 01/27/17) Subjective awake, responsive, NAD, No CP or SOB, Grand daughter at bedside, Hgb 9.9, WBC 12.1 Objective Last Vital Signs Date Time Temp Pulse Resp B/P (MAP) Pulse Ox O2 Delivery O2 Flow Rate FiO2 03/18/17 08:00 77 03/18/17 08:00 97.1 123/65 95 Room Air 03/18/17 04:00 20 Laboratory Tests Test 03/17/17 15:55 03/17/17 23:00 03/18/17 07:20 Activated Partial Thromboplast Time 55 SEC (23-33) H 78 SEC (23-33) H 44 SEC (23-33) H White Blood Count 12.1 K/UL (4.8-10.8) H Red Blood Count 3.88 M/UL (4.20-5.40) L Hemoglobin 9.9 G/DL (12.0-16.0) L Hematocrit 33.9 % (37.0-47.0) L Mean Corpuscular Volume 87 FL (80-99) Mean Corpuscular Hemoglobin 25.5 PG (27.0-31.0) L Mean Corpuscular Hemoglobin Concent 29.1 G/DL (32.0-36.0) L Red Cell Distribution Width 17.0 % (11.6-14.8) H Platelet Count 203 K/UL (150-450) Mean Platelet Volume 7.6 FL (6.5-10.1) Neutrophils (%) (Auto) 62.4 % (45.0-75.0) Lymphocytes (%) (Auto) 23.3 % (20.0-45.0) Monocytes (%) (Auto) 8.9 % (1.0-10.0) Eosinophils (%) (Auto) 4.0 % (0.0-3.0) H Basophils (%) (Auto) 1.3 % (0.0-2.0) Prothrombin Time 10.0 SEC (9.30-11.50) Prothromb Time International Ratio 1.0 (0.9-1.1) Sodium Level 134 MMOL/L (136-145) L Potassium Level 3.9 MMOL/L (3.5-5.1) Chloride Level 100 MMOL/L (98-107) Carbon Dioxide Level 26 MMOL/L (21-32) Anion Gap 8 mmol/L (5-15) Blood Urea Nitrogen 18 mg/dL (7-18) Creatinine 1.2 MG/DL (0.55-1.30) Estimat Glomerular Filtration Rate mL/min (>60) Glucose Level 205 MG/DL (74-106) H Calcium Level 8.8 MG/DL (8.5-10.1) Phosphorus Level 3.3 MG/DL (2.5-4.9) Magnesium Level 1.7 MG/DL (1.8-2.4) L Total Bilirubin 0.3 MG/DL (0.2-1.0) Aspartate Amino Transf (AST/SGOT) 9 U/L (15-37) L Alanine Aminotransferase (ALT/SGPT) 10 U/L (12-78) L Alkaline Phosphatase 130 U/L (46-116) H Total Protein 6.9 G/DL (6.4-8.2) Albumin 2.6 G/DL (3.4-5.0) L Globulin 4.3 g/dL Albumin/Globulin Ratio 0.6 (1.0-2.7) L Intake and Output 03/18/17 03/19/17 19:00 07:00 Intake Total 303.443 ml Balance 303.443 ml Intake Oral 200 ml IV Total 103.443 ml Objective General: No acute distress, awake and alert HEENT: NCAT, sclera anicteric, PERRL, EOMI. Neck: Supple, no significant jugular venous distention, Lungs: fair inspiratory effort, clear to auscultation bilaterally, no Wheeze or Rales. Heart: Regular rate and rhythm, normal S1/S2, no murmur Abdomen: soft, nontender, nondistended. Normoactive bowel sounds. obesity Extremities: No Cyanosis , clubbing, +2 Left LE edema. Neuro: A&O x 3, Able to move all extremities Skin: warm, no rashes or lesions Assessment/Plan Assessment/Plan 1. Acute deep venous thrombosis of left leg. 2. Anemia 3. bedbound 4. Diabetes type 2. 5. Alzheimer's dementia. Plan: discuss with grad daughter with regard DC planning, wants to go home with HH. Refused SNF. switch Heparin Drip to Xarelto PO Monitor Labs PT Mobility DC planning in 1 or 2 days Abdirahman Griffin MD Mar 18, 2017 15:06
[2017-03-18 16:00] VITALS: BP 120/71
[2017-03-18] MEDS ORDERED: NovoLOG Insulin Flexpen SUBQ SCH (16:30)
[2017-03-18] MEDS: Xarelto 10mg tab ORAL SCH (16:48)
[2017-03-18] MEDS ORDERED: Warfarin Sodium 5mg ORAL ONE (17:00)
[2017-03-18 20:00] VITALS: BP 116/59
[2017-03-19] VITALS: BP 121/62
[2017-03-19 04:00] VITALS: BP 110/61
[2017-03-19] MEDS: NovoLOG Insulin Flexpen SUBQ SCH ×4 (06:30→21:30)
[2017-03-19 08:00] VITALS: BP 116/59
--- NOTE | 2017-03-19 08:01 | Pulmonology Progress Note ---
Assessment/Plan Problems: (1) DVT (deep venous thrombosis) (2) Diabetes mellitus, type II (3) History of CVA (cerebrovascular accident) (4) Alzheimer's dementia Assessment/Plan no new complains BS remains high, change diet to diabetic ON Xarelto symptomatic treatment Sliding scale med/surg Subjective ROS Limited/Unobtainable: No Constitutional: Reports: no symptoms HEENT: Repors: no symptoms Allergies: Coded Allergies: No Known Allergies (Unverified , 01/27/17) Objective Last 24 Hour Vital Signs Date Time Temp Pulse Resp B/P (MAP) Pulse Ox O2 Delivery O2 Flow Rate FiO2 03/19/17 04:00 98.0 73 18 110/61 96 Room Air 03/19/17 00:00 75 03/19/17 00:00 98.0 74 20 121/62 96 Room Air 03/18/17 20:00 97.0 78 20 116/59 97 Room Air 03/18/17 20:00 80 03/18/17 16:00 98.1 72 120/71 97 Room Air 03/18/17 16:00 75 03/18/17 12:00 80 03/18/17 12:00 97.7 90 126/62 95 Room Air 03/18/17 08:00 77 03/18/17 08:00 97.1 92 123/65 95 Room Air General Appearance: WD/WN HEENT: normocephalic, atraumatic Respiratory/Chest: lungs clear Breasts: no masses Cardiovascular: normal peripheral pulses, normal rate Abdomen: normal bowel sounds, soft, non tender Genitourinary: normal external genitalia Extremities: no cyanosis Microbiology Date/Time Source Procedure Growth Status 03/17/17 07:35 Blood Blood Culture - Preliminary NO GROWTH AFTER 24 HOURS Resulted 03/17/17 07:20 Blood Blood Culture - Preliminary NO GROWTH AFTER 24 HOURS Resulted 03/17/17 02:00 Nasal Nares Left MRSA Culture - Final NO METHICILLIN RESISTANT STAPH AUREUS... Complete 03/17/17 02:00 Rectum VRE Culture - Final Enterococcus Faecium - Vre Complete Current Medications Medications (Trade) Dose Ordered Sig/Jayme Route PRN Reason Start Time Stop Time Status Last Admin Dose Admin Acetaminophen (Tylenol) 325 mg Q4H PRN ORAL Fever/Headache/Mild Pain 03/16/17 22:45 04/15/17 22:44 03/17/17 13:34 Acetaminophen/ Hydrocodone Bitart ([place] 10/325) 1 ea Q4H PRN ORAL Severe Pain (Pain Scale 7-10) 03/16/17 22:45 03/23/17 22:44 Acetaminophen/ Hydrocodone Bitart ([place] 5/325) 1 tab Q4H PRN ORAL Moderate Pain (Pain Scale 4-6) 03/16/17 22:45 03/23/17 22:44 Clotrimazole (Lotrimin) 1 applic EVERY 12 HOURS TOPIC 03/17/17 21:00 04/16/17 20:59 03/18/17 21:22 Dextrose (Dextrose 50%) STAT PRN IV Hypoglycemia 03/16/17 22:45 04/15/17 22:44 Donepezil HCl (Aricept) 5 mg DAILY ORAL 03/17/17 09:00 04/16/17 08:59 03/18/17 09:15 Insulin Aspart (NovoLOG) BEFORE MEALS AND HS SUBQ 03/17/17 06:30 04/16/17 06:29 03/18/17 21:24 Insulin Detemir (Levemir) 20 units BID SUBQ 03/17/17 09:00 04/16/17 08:59 03/18/17 18:03 Ondansetron HCl (Zofran) 4 mg Q4HR PRN ORAL Nausea & Vomiting 03/16/17 22:45 04/15/17 22:44 Pantoprazole (Protonix) 40 mg BEFORE BREAKFAST ORAL 03/17/17 06:30 04/16/17 06:29 03/19/17 06:53 Rivaroxaban (Xarelto) 15 mg BID ORAL 03/18/17 16:30 04/08/17 23:59 03/18/17 16:48 Rivaroxaban (Xarelto) 20 mg DAILY ORAL 04/09/17 09:00 09/14/17 08:59 Sertraline HCl (Zoloft) 50 mg DAILY ORAL 03/17/17 09:00 04/16/17 08:59 03/18/17 09:15 LUCERO ASHBY Mar 19, 2017 08:01
[2017-03-19] MEDS: Sertraline 50mg tab ORAL SCH (08:34)
[2017-03-19] MEDS: Xarelto 10mg tab ORAL SCH (08:34)
[2017-03-19] MEDS: Donepezil 5mg Tab ORAL SCH (08:35)
[2017-03-19] MEDS: Levemir Flexpen SUBQ SCH ×2 (08:37→18:42)
--- NOTE | 2017-03-19 10:34 | Consultation ---
History of Present Illness General Date patient seen: Mar 19, 2017 Time patient seen: 10:52 Chief Complaint: Lower Extremity Injury Reason for Consultation: inpatient management Present Illness HPI 77 y/o F with hx of DM2, GERD, recent hip surgery (repair of fracture after fall injury 01/2017), dementia presents to ED on 03/16 with 3 day onset of left leg pain and swelling. Found to have acute DVT of L leg Denies SOB,CP, n/v/d, f/c. ID is consulted because of mild leukocytosios ~11-12. Patient has been afebrile. Noted in her admission in jan WBC was never normal; flucuated 11-15. BCx NTD, off abx. Allergies: Coded Allergies: No Known Allergies (Unverified , 01/27/17) Medication History Scheduled Donepezil Hcl* (Aricept*), 5 MG ORAL DAILY, (Reported) Glipizide (Glipizide), 10 MG PO BID, (Reported) Heparin Sod (Porcine) (Heparin Sodium*), 5,000 UNITS SUBQ EVERY 8 HOURS, ( Reported) Insulin Aspart (Novolog), 0 SQ AC+HS, (Reported) Insulin Glargine (Lantus), 20 UNITS SUBQ BID, (Reported) Pantoprazole* (Protonix*), 40 MG ORAL AC, (Reported) Sertraline Hcl* (Zoloft*), 50 MG ORAL DAILY, (Reported) Scheduled PRN Acetaminophen* (Acetaminophen 325MG Tablet*), 325 MG ORAL Q4H PRN for Fever/ Headache/Mild Pain, (Reported) Dextran 70/Hypromellose (Artificial Tears Eye Drops*), 2 DROP BOTH EYES Q2 PRN for EYE DRYNESS, (Reported) Hydrocodone Bit/Acetaminophen 10-325* ([place] 10-325*), 1 TAB ORAL Q4H PRN for For Pain, (Reported) Hydrocodone Bit/Acetaminophen 5-325* ([place] 5-325*), 1 TAB ORAL Q4H PRN for For Pain, (Reported) Ondansetron* (Zofran*), 4 MG ORAL Q4HR PRN for Nausea & Vomiting, (Reported) Miscellaneous Medications Menthol/Zinc Oxide (Calmoseptine Ointment), 71 GM TP, (Reported) Zinc Oxide (Desitin), 57 GM TP, (Reported) Discontinued Medications Cephalexin* (Keflex*), 500 MG ORAL TID, (Reported) Discontinued Reason: Pt stopped taking med Diphenhydramine Hcl* (Benadryl*), 25 MG ORAL Q4HR PRN for Itching, (Reported) Discontinued Reason: Pt stopped taking med Metformin Hcl* (Metformin Hcl*), 500 MG ORAL BIDAC, (Reported) Discontinued Reason: Pt stopped taking med Ondansetron* (Zofran*), 4 MG IV Q4HR PRN for Nausea & Vomiting, (Reported) Discontinued Reason: Prescription changed Risperidone* (Risperdal*), 0.25 MG ORAL Q6HR PRN for For Anxiety, (Reported) Discontinued Reason: Pt stopped taking med Patient History Healthcare decision maker Resuscitation status Full Code Advanced Directive on File Patient History Narrative PMhx: as above Shx: The patient is and lives with her . The patient denies tobacco or alcohol use. Fhx non contributory Review of Systems ROS Narrative as per HPI, otherwise negative Physical Exam Physical Exam Narrative PHYSICAL EXAMINATION: GENERAL: The patient is a well-developed and well-nourished female, in no apparent distress. HEENT: Eyes, pupils equal and responsive to light and accommodation. Extraocular movements are intact. NECK: Supple without lymphadenopathy. CHEST: Lungs are clear to auscultation bilaterally without wheezes or rales. CARDIOVASCULAR: Regular rate. S1 and S2 are normal without murmurs, rubs, or gallops. ABDOMEN: Soft, nontender, nondistended. Positive bowel sounds. No evidence of hepatosplenomegaly. Currently, no rebound or guarding noted. EXTREMITIES: Left leg is swollen compared to the right. There is 2+ edema in the ankle. Otherwise, extremities without clubbing, cyanosis, or edema. Last 24 Hour Vital Signs Date Time Temp Pulse Resp B/P (MAP) Pulse Ox O2 Delivery O2 Flow Rate FiO2 03/19/17 08:00 97.9 70 18 116/59 98 Room Air 03/19/17 04:00 98.0 73 18 110/61 96 Room Air 03/19/17 00:00 75 03/19/17 00:00 98.0 74 20 121/62 96 Room Air 03/18/17 20:00 97.0 78 20 116/59 97 Room Air 03/18/17 20:00 80 03/18/17 16:00 98.1 72 120/71 97 Room Air 03/18/17 16:00 75 03/18/17 12:00 80 03/18/17 12:00 97.7 90 126/62 95 Room Air Intake and Output 03/19/17 03/20/17 19:00 07:00 Intake Total 240 ml Balance 240 ml Intake Oral 240 ml # Voids 1 Height (Feet): 5 Height (Inches): 4.00 Weight (Pounds): 162 Medications Current Medications Medications (Trade) Dose Ordered Sig/Jayme Route PRN Reason Start Time Stop Time Status Last Admin Dose Admin Acetaminophen (Tylenol) 325 mg Q4H PRN ORAL Fever/Headache/Mild Pain 03/16/17 22:45 04/15/17 22:44 03/17/17 13:34 Acetaminophen/ Hydrocodone Bitart ([place] 10/325) 1 ea Q4H PRN ORAL Severe Pain (Pain Scale 7-10) 03/16/17 22:45 03/23/17 22:44 Acetaminophen/ Hydrocodone Bitart ([place] 5/325) 1 tab Q4H PRN ORAL Moderate Pain (Pain Scale 4-6) 03/16/17 22:45 03/23/17 22:44 Clotrimazole (Lotrimin) 1 applic EVERY 12 HOURS TOPIC 03/17/17 21:00 04/16/17 20:59 03/19/17 08:33 Dextrose (Dextrose 50%) STAT PRN IV Hypoglycemia 03/16/17 22:45 04/15/17 22:44 Donepezil HCl (Aricept) 5 mg DAILY ORAL 03/17/17 09:00 04/16/17 08:59 03/19/17 08:35 Insulin Aspart (NovoLOG) BEFORE MEALS AND HS SUBQ 03/17/17 06:30 04/16/17 06:29 03/18/17 21:24 Insulin Detemir (Levemir) 20 units BID SUBQ 03/17/17 09:00 04/16/17 08:59 03/19/17 08:37 Ondansetron HCl (Zofran) 4 mg Q4HR PRN ORAL Nausea & Vomiting 03/16/17 22:45 04/15/17 22:44 Pantoprazole (Protonix) 40 mg BEFORE BREAKFAST ORAL 03/17/17 06:30 04/16/17 06:29 03/19/17 06:53 Rivaroxaban (Xarelto) 15 mg BID ORAL 03/18/17 16:30 04/08/17 23:59 03/19/17 08:34 Rivaroxaban (Xarelto) 20 mg DAILY ORAL 04/09/17 09:00 09/14/17 08:59 Sertraline HCl (Zoloft) 50 mg DAILY ORAL 03/17/17 09:00 04/16/17 08:59 03/19/17 08:34 Assessment/Plan Assessment/Plan Abx: None Assesment: Leukocyotis, mild, persistent- ?chronic as back in 01/2017 WBC flucatute 11-15 vs 2ry to extensive DVT. R/o PNA , SSI -bcx NTD Afebrile Extensive acute L leg DVT V.duplex: Venous imaging reveals acute thrombus in the common superficial femoral, popliteal, proximal calf and mid calf veins. The greater saphenous vein is also thrombosed to the level of the mid-thigh. Left femoral neck fx s/p L hip hemiarthroplasty 01/27/17 DM2 GERD dementia Plan: -Continue to monitor off abx unless febrile, HD unstable -Obtain CXR, xray L hip -f/u cx -Monitor CBC/BMP, temperatures Thank you for this consultation. Will continue to follow along with you. Discussed with Princess Harris M.D. Mar 19, 2017 10:34
--- NOTE | 2017-03-19 12:25 | Internal Med Progress Note ---
Subjective Date of Service: Mar 19, 2017 Physician Name Chaudhry,Albino Attending Physician Abdirahman Griffin MD Current Medications Medications (Trade) Dose Ordered Sig/Jayme Route PRN Reason Start Time Stop Time Status Last Admin Dose Admin Acetaminophen (Tylenol) 325 mg Q4H PRN ORAL Fever/Headache/Mild Pain 03/16/17 22:45 04/15/17 22:44 03/19/17 10:46 Acetaminophen/ Hydrocodone Bitart ([place] 10/325) 1 ea Q4H PRN ORAL Severe Pain (Pain Scale 7-10) 03/16/17 22:45 03/23/17 22:44 Acetaminophen/ Hydrocodone Bitart ([place] 5/325) 1 tab Q4H PRN ORAL Moderate Pain (Pain Scale 4-6) 03/16/17 22:45 03/23/17 22:44 Clotrimazole (Lotrimin) 1 applic EVERY 12 HOURS TOPIC 03/17/17 21:00 04/16/17 20:59 03/19/17 08:33 Dextrose (Dextrose 50%) STAT PRN IV Hypoglycemia 03/16/17 22:45 04/15/17 22:44 Donepezil HCl (Aricept) 5 mg DAILY ORAL 03/17/17 09:00 04/16/17 08:59 03/19/17 08:35 Insulin Aspart (NovoLOG) BEFORE MEALS AND HS SUBQ 03/17/17 06:30 04/16/17 06:29 03/19/17 11:42 Insulin Detemir (Levemir) 20 units BID SUBQ 03/17/17 09:00 04/16/17 08:59 03/19/17 08:37 Ondansetron HCl (Zofran) 4 mg Q4HR PRN ORAL Nausea & Vomiting 03/16/17 22:45 04/15/17 22:44 Pantoprazole (Protonix) 40 mg BEFORE BREAKFAST ORAL 03/17/17 06:30 04/16/17 06:29 03/19/17 06:53 Rivaroxaban (Xarelto) 15 mg BID ORAL 03/18/17 16:30 04/08/17 23:59 03/19/17 08:34 Rivaroxaban (Xarelto) 20 mg DAILY ORAL 04/09/17 09:00 09/14/17 08:59 Sertraline HCl (Zoloft) 50 mg DAILY ORAL 03/17/17 09:00 04/16/17 08:59 03/19/17 08:34 Allergies: Coded Allergies: No Known Allergies (Unverified , 01/27/17) ROS Limited/Unobtainable: No Constitutional: Reports: no symptoms HEENT: Reports: no symptoms Cardiovascular: Reports: no symptoms Respiratory: Reports: no symptoms Gastrointestinal/Abdominal: Reports: no symptoms Genitourinary: Reports: no symptoms Neurologic/Psychiatric: Reports: no symptoms Subjective 77 YO F admitted with left leg pain/swelling. Now deep venous thrombosis left leg. Cover for Int Med-Dr Griffin Objective Last Vital Signs Date Time Temp Pulse Resp B/P (MAP) Pulse Ox O2 Delivery O2 Flow Rate FiO2 03/19/17 11:45 97.9 03/19/17 08:00 70 18 116/59 98 Room Air Microbiology Date/Time Source Procedure Growth Status 03/17/17 07:35 Blood Blood Culture - Preliminary NO GROWTH AFTER 24 HOURS Resulted 03/17/17 07:20 Blood Blood Culture - Preliminary NO GROWTH AFTER 24 HOURS Resulted 03/17/17 02:00 Nasal Nares Left MRSA Culture - Final NO METHICILLIN RESISTANT STAPH AUREUS... Complete 03/17/17 02:00 Rectum VRE Culture - Final Enterococcus Faecium - Vre Complete Intake and Output 03/19/17 03/20/17 19:00 07:00 Intake Total 240 ml Balance 240 ml Intake Oral 240 ml # Voids 1 Objective Objective General: No acute distress, awake and alert HEENT: NCAT, sclera anicteric, PERRL, EOMI. Neck: Supple, no significant jugular venous distention, Lungs: fair inspiratory effort, clear to auscultation bilaterally, no Wheeze or Rales. Heart: Regular rate and rhythm, normal S1/S2, no murmur Abdomen: soft, nontender, nondistended. Normoactive bowel sounds. obesity Extremities: No Cyanosis , clubbing, +2 Left LE edema. Neuro: A&O x 3, Able to move all extremities Skin: warm, no rashes or lesions Assessment/Plan Problem List: (1) Leg pain, left Assessment & Plan: Due to DVT (2) Left leg swelling Assessment & Plan: Due to DVT (3) DVT (deep venous thrombosis) Assessment & Plan: Left leg. D/C heparin; continue xarelto (4) Alzheimer's dementia (5) Diabetes mellitus, type II Assessment & Plan: Continue levemir and novolog sliding scale insulin Status: progressing ALBINO CHAUDHRY Mar 19, 2017 12:25
[2017-03-19 15:56] VITALS: BP 124/61
[2017-03-19] MEDS ORDERED: Xarelto 15mg tab ORAL SCH (18:00)
[2017-03-19] MEDS ORDERED: Norco 5mg/325mg tab ORAL PRN (18:00)
[2017-03-19] MEDS ORDERED: Norco 10mg/325mg tab ORAL PRN (18:00)
[2017-03-19] MEDS: Xarelto 15mg tab ORAL SCH (18:41)
[2017-03-19 20:00] VITALS: BP 110/56
[2017-03-20] VITALS: BP 112/68
[2017-03-20 04:00] VITALS: BP 121/66
[2017-03-20] MEDS: NovoLOG Insulin Flexpen SUBQ SCH ×4 (06:07→21:14)
[2017-03-20 07:44] VITALS: BP 119/69
[2017-03-20 08:06] LABS: BASOPHILS % (AUTO) 1.2 % (0.0-2.0); EOSINOPHILS % (AUTO) 4.7 % (0.0-3.0); LYMPHOCYTES % (AUTO) 23.7 % (20.0-45.0); MEAN CORPUSCULAR HEMOGLOBIN 26.8 PG (27.0-31.0); MEAN CORPUSCULAR HGB CONC 30.9 G/DL (32.0-36.0); MEAN CORPUSCULAR VOLUME 87 FL (80-99); MEAN PLATELET VOLUME 7.5 FL (6.5-10.1); MONOCYTES % (AUTO) 8.8 % (1.0-10.0); NEUTROPHILS % (AUTO) 61.6 % (45.0-75.0); PLATELET COUNT 279 K/UL (150-450); RED BLOOD COUNT 3.86 M/UL (4.20-5.40); RED CELL DISTRIBUTION WIDTH 16.7 % (11.6-14.8); WHITE BLOOD COUNT 9.2 K/UL (4.8-10.8)
[2017-03-20] MEDS: Xarelto 15mg tab ORAL SCH ×2 (08:13→17:55)
[2017-03-20] MEDS: Donepezil 5mg Tab ORAL SCH (08:13)
[2017-03-20] MEDS: Sertraline 50mg tab ORAL SCH (08:14)
[2017-03-20] MEDS: Levemir Flexpen SUBQ SCH ×2 (08:15→17:56)
[2017-03-20 08:24] LABS: INR 1.1 (0.9-1.1); PROTHROMBIN TIME 11.4 SEC (9.30-11.50)
[2017-03-20 08:41] LABS: ALANINE AMINOTRANSFERASE 9 U/L (12-78); ALBUMIN/GLOBULIN RATIO 0.6 (1.0-2.7); ANION GAP 7 mmol/L (5-15); ASPARTATE AMINO TRANSFERASE 12 U/L (15-37); CALCIUM 9.1 MG/DL (8.5-10.1); CARBON DIOXIDE 28 MMOL/L (21-32); CHLORIDE 102 MMOL/L (98-107); MAGNESIUM 1.8 MG/DL (1.8-2.4); PHOSPHORUS 4.1 MG/DL (2.5-4.9); POTASSIUM 4.4 MMOL/L (3.5-5.1); SODIUM 137 MMOL/L (136-145); TOTAL PROTEIN 7.1 G/DL (6.4-8.2)
--- NOTE | 2017-03-20 10:26 | Diagnostic Imaging Report ---
Indication: Cough, chest pain Comparison: 01/31/2017 Findings Single view the chest is obtained. Exam is suboptimal secondary to decreased inspiration. Cardiac size is normal. Again noted is bilateral diffuse interstitial prominence which is unchanged from the prior examination pleural spaces are clear. No focal airspace consolidation. Again noted is irregularity of the left humeral head and neck junction for which fracture cannot be excluded. Impression: No significant change from prior exam 01/31/2013. Mild bilateral interstitial prominence, unchanged from prior exam. This may be acute or chronic. Correlate clinically. Stable irregularity to proximal left humerus. Fracture cannot be excluded.
--- NOTE | 2017-03-20 10:27 | Diagnostic Imaging Report ---
Indication: Pain Comparison: 01/28/2017 pelvis one view Findings: 2 views of the left hip are obtained. A left hip prosthesis is noted. No hardware loosening or dislocation is seen. Alignment appears intact. Bony mineralization is decreased. No bony destructive lesion seen. No fracture. Impression: Patient with left hip prosthesis as described above. No fracture or dislocation seen.
[2017-03-20 11:43] VITALS: BP 122/67
--- NOTE | 2017-03-20 14:07 | Internal Med Progress Note ---
Subjective Date of Service: Mar 20, 2017 Physician Name ArgenisAlbino Attending Physician Abdirahman Griffin MD Current Medications Medications (Trade) Dose Ordered Sig/Jayme Route PRN Reason Start Time Stop Time Status Last Admin Dose Admin Acetaminophen (Tylenol) 325 mg Q4H PRN ORAL Fever/Headache/Mild Pain 03/19/17 18:00 04/15/17 17:59 Acetaminophen/ Hydrocodone Bitart ([place] 10/325) 1 ea Q4H PRN ORAL Severe Pain (Pain Scale 7-10) 03/19/17 18:00 03/23/17 17:59 Acetaminophen/ Hydrocodone Bitart ([place] 5/325) 1 tab Q4H PRN ORAL Moderate Pain (Pain Scale 4-6) 03/19/17 18:00 03/23/17 17:59 Clotrimazole (Lotrimin) 1 applic EVERY 12 HOURS TOPIC 03/19/17 21:00 04/16/17 20:59 03/20/17 09:00 Dextrose (Dextrose 50%) STAT PRN IV Hypoglycemia 03/19/17 18:00 04/15/17 17:59 Donepezil HCl (Aricept) 5 mg DAILY ORAL 03/20/17 09:00 04/16/17 08:59 03/20/17 08:13 Insulin Aspart (NovoLOG) BEFORE MEALS AND HS SUBQ 03/19/17 21:00 04/16/17 06:29 03/20/17 11:41 Insulin Detemir (Levemir) 20 units BID SUBQ 03/19/17 18:00 04/16/17 08:59 03/20/17 08:15 Ondansetron HCl (Zofran) 4 mg Q4H PRN ORAL Nausea & Vomiting 03/19/17 18:00 04/18/17 17:59 Pantoprazole (Protonix) 40 mg BEFORE BREAKFAST ORAL 03/20/17 06:30 04/16/17 06:29 03/20/17 06:19 Rivaroxaban (Xarelto) 15 mg BID ORAL 03/19/17 18:00 04/08/17 23:59 03/20/17 08:13 Rivaroxaban (Xarelto) 20 mg QPM ORAL 04/09/17 16:30 05/09/17 16:29 Sertraline HCl (Zoloft) 50 mg DAILY ORAL 03/20/17 09:00 04/16/17 08:59 03/20/17 08:14 Allergies: Coded Allergies: No Known Allergies (Unverified , 01/27/17) ROS Limited/Unobtainable: No Constitutional: Reports: no symptoms HEENT: Reports: no symptoms Cardiovascular: Reports: no symptoms Respiratory: Reports: no symptoms Gastrointestinal/Abdominal: Reports: no symptoms Genitourinary: Reports: no symptoms Neurologic/Psychiatric: Reports: no symptoms Subjective 77 YO F admitted with left leg pain/swelling. Now deep venous thrombosis left leg. Cover for Int Román-Dr Griffin Objective Last Vital Signs Date Time Temp Pulse Resp B/P (MAP) Pulse Ox O2 Delivery O2 Flow Rate FiO2 03/20/17 11:43 98.7 71 18 122/67 95 Room Air Laboratory Tests Test 03/20/17 07:16 White Blood Count 9.2 K/UL (4.8-10.8) Red Blood Count 3.86 M/UL (4.20-5.40) L Hemoglobin 10.3 G/DL (12.0-16.0) L Hematocrit 33.4 % (37.0-47.0) L Mean Corpuscular Volume 87 FL (80-99) Mean Corpuscular Hemoglobin 26.8 PG (27.0-31.0) L Mean Corpuscular Hemoglobin Concent 30.9 G/DL (32.0-36.0) L Red Cell Distribution Width 16.7 % (11.6-14.8) H Platelet Count 279 K/UL (150-450) Mean Platelet Volume 7.5 FL (6.5-10.1) Neutrophils (%) (Auto) 61.6 % (45.0-75.0) Lymphocytes (%) (Auto) 23.7 % (20.0-45.0) Monocytes (%) (Auto) 8.8 % (1.0-10.0) Eosinophils (%) (Auto) 4.7 % (0.0-3.0) H Basophils (%) (Auto) 1.2 % (0.0-2.0) Prothrombin Time 11.4 SEC (9.30-11.50) Prothromb Time International Ratio 1.1 (0.9-1.1) Activated Partial Thromboplast Time 34 SEC (23-33) H Sodium Level 137 MMOL/L (136-145) Potassium Level 4.4 MMOL/L (3.5-5.1) Chloride Level 102 MMOL/L (98-107) Carbon Dioxide Level 28 MMOL/L (21-32) Anion Gap 7 mmol/L (5-15) Blood Urea Nitrogen 11 mg/dL (7-18) Creatinine 1.0 MG/DL (0.55-1.30) Estimat Glomerular Filtration Rate mL/min (>60) Glucose Level 126 MG/DL (74-106) H Calcium Level 9.1 MG/DL (8.5-10.1) Phosphorus Level 4.1 MG/DL (2.5-4.9) Magnesium Level 1.8 MG/DL (1.8-2.4) Total Bilirubin 0.2 MG/DL (0.2-1.0) Aspartate Amino Transf (AST/SGOT) 12 U/L (15-37) L Alanine Aminotransferase (ALT/SGPT) 9 U/L (12-78) L Alkaline Phosphatase 118 U/L (46-116) H Total Protein 7.1 G/DL (6.4-8.2) Albumin 2.6 G/DL (3.4-5.0) L Globulin 4.5 g/dL Albumin/Globulin Ratio 0.6 (1.0-2.7) L Intake and Output 03/20/17 03/21/17 18:59 06:59 Intake Total 240 ml Balance 240 ml Intake Oral 240 ml # Voids 2 Objective Objective General: No acute distress, awake and alert HEENT: NCAT, sclera anicteric, PERRL, EOMI. Neck: Supple, no significant jugular venous distention, Lungs: fair inspiratory effort, clear to auscultation bilaterally, no Wheeze or Rales. Heart: Regular rate and rhythm, normal S1/S2, no murmur Abdomen: soft, nontender, nondistended. Normoactive bowel sounds. obesity Extremities: No Cyanosis , clubbing, +2 Left LE edema. Neuro: A&O x 3, Able to move all extremities Skin: warm, no rashes or lesions Assessment/Plan Problem List: (1) Leg pain, left Assessment & Plan: Due to DVT (2) Left leg swelling Assessment & Plan: Due to DVT (3) DVT (deep venous thrombosis) Assessment & Plan: Left leg. D/C heparin; continue xarelto (4) Alzheimer's dementia (5) Diabetes mellitus, type II Assessment & Plan: Continue levemir and novolog sliding scale insulin Status: progressing ALBINO CHAUDHRY Mar 20, 2017 14:07
--- NOTE | 2017-03-20 14:49 | Infectious Diseases Prog Note ---
Assessment/Plan Assessment/Plan A: Leukocytosis resolved DVT of left leg Alzheimer dementia DM type 2 P; Observe off antibiotic Subjective ROS Limited/Unobtainable: Yes Constitutional: Reports: no symptoms Neurologic: Reports: other - more responsive today Allergies: Coded Allergies: No Known Allergies (Unverified , 01/27/17) Objective Vital Signs Last 24 Hour Vital Signs Date Time Temp Pulse Resp B/P (MAP) Pulse Ox O2 Delivery O2 Flow Rate FiO2 03/20/17 11:43 98.7 71 18 122/67 95 Room Air 03/20/17 07:44 97.9 60 18 119/69 98 Room Air 03/20/17 04:00 97.7 71 16 121/66 95 Room Air 03/20/17 00:00 97.7 63 20 112/68 98 Room Air 03/19/17 20:00 97.7 76 19 110/56 97 Room Air 03/19/17 15:56 98.4 72 20 124/61 97 Room Air Height (Feet): 5 Height (Inches): 4.00 Weight (Pounds): 161 General Appearance: no acute distress HEENT: mucous membranes moist Respiratory/Chest: lungs clear Cardiovascular: normal rate Abdomen: soft, non tender Extremities: other - edema of left leg Neurologic/Psychiatric: alert, responsive Laboratory Tests Test 03/20/17 07:16 White Blood Count 9.2 K/UL (4.8-10.8) Red Blood Count 3.86 M/UL (4.20-5.40) L Hemoglobin 10.3 G/DL (12.0-16.0) L Hematocrit 33.4 % (37.0-47.0) L Mean Corpuscular Volume 87 FL (80-99) Mean Corpuscular Hemoglobin 26.8 PG (27.0-31.0) L Mean Corpuscular Hemoglobin Concent 30.9 G/DL (32.0-36.0) L Red Cell Distribution Width 16.7 % (11.6-14.8) H Platelet Count 279 K/UL (150-450) Mean Platelet Volume 7.5 FL (6.5-10.1) Neutrophils (%) (Auto) 61.6 % (45.0-75.0) Lymphocytes (%) (Auto) 23.7 % (20.0-45.0) Monocytes (%) (Auto) 8.8 % (1.0-10.0) Eosinophils (%) (Auto) 4.7 % (0.0-3.0) H Basophils (%) (Auto) 1.2 % (0.0-2.0) Prothrombin Time 11.4 SEC (9.30-11.50) Prothromb Time International Ratio 1.1 (0.9-1.1) Activated Partial Thromboplast Time 34 SEC (23-33) H Sodium Level 137 MMOL/L (136-145) Potassium Level 4.4 MMOL/L (3.5-5.1) Chloride Level 102 MMOL/L (98-107) Carbon Dioxide Level 28 MMOL/L (21-32) Anion Gap 7 mmol/L (5-15) Blood Urea Nitrogen 11 mg/dL (7-18) Creatinine 1.0 MG/DL (0.55-1.30) Estimat Glomerular Filtration Rate mL/min (>60) Glucose Level 126 MG/DL (74-106) H Calcium Level 9.1 MG/DL (8.5-10.1) Phosphorus Level 4.1 MG/DL (2.5-4.9) Magnesium Level 1.8 MG/DL (1.8-2.4) Total Bilirubin 0.2 MG/DL (0.2-1.0) Aspartate Amino Transf (AST/SGOT) 12 U/L (15-37) L Alanine Aminotransferase (ALT/SGPT) 9 U/L (12-78) L Alkaline Phosphatase 118 U/L (46-116) H Total Protein 7.1 G/DL (6.4-8.2) Albumin 2.6 G/DL (3.4-5.0) L Globulin 4.5 g/dL Albumin/Globulin Ratio 0.6 (1.0-2.7) L Current Medications Medications (Trade) Dose Ordered Sig/Jayme Route PRN Reason Start Time Stop Time Status Last Admin Dose Admin Acetaminophen (Tylenol) 325 mg Q4H PRN ORAL Fever/Headache/Mild Pain 03/19/17 18:00 04/15/17 17:59 Acetaminophen/ Hydrocodone Bitart ([place] 10/325) 1 ea Q4H PRN ORAL Severe Pain (Pain Scale 7-10) 03/19/17 18:00 03/23/17 17:59 Acetaminophen/ Hydrocodone Bitart ([place] 5/325) 1 tab Q4H PRN ORAL Moderate Pain (Pain Scale 4-6) 03/19/17 18:00 03/23/17 17:59 Clotrimazole (Lotrimin) 1 applic EVERY 12 HOURS TOPIC 03/19/17 21:00 04/16/17 20:59 03/20/17 09:00 Dextrose (Dextrose 50%) STAT PRN IV Hypoglycemia 03/19/17 18:00 04/15/17 17:59 Donepezil HCl (Aricept) 5 mg DAILY ORAL 03/20/17 09:00 04/16/17 08:59 03/20/17 08:13 Insulin Aspart (NovoLOG) BEFORE MEALS AND HS SUBQ 03/19/17 21:00 04/16/17 06:29 03/20/17 11:41 Insulin Detemir (Levemir) 20 units BID SUBQ 03/19/17 18:00 04/16/17 08:59 03/20/17 08:15 Ondansetron HCl (Zofran) 4 mg Q4H PRN ORAL Nausea & Vomiting 03/19/17 18:00 04/18/17 17:59 Pantoprazole (Protonix) 40 mg BEFORE BREAKFAST ORAL 03/20/17 06:30 04/16/17 06:29 03/20/17 06:19 Rivaroxaban (Xarelto) 15 mg BID ORAL 03/19/17 18:00 04/08/17 23:59 03/20/17 08:13 Rivaroxaban (Xarelto) 20 mg QPM ORAL 04/09/17 16:30 05/09/17 16:29 Sertraline HCl (Zoloft) 50 mg DAILY ORAL 03/20/17 09:00 04/16/17 08:59 03/20/17 08:14 MARY HILLMAN Mar 20, 2017 14:49
[2017-03-20 16:08] VITALS: BP 111/62
[2017-03-20 20:00] VITALS: BP 116/59
[2017-03-21] VITALS: BP 112/72
[2017-03-21 04:00] VITALS: BP 130/73
[2017-03-21] MEDS: NovoLOG Insulin Flexpen SUBQ SCH ×3 (05:50→16:43)
[2017-03-21 07:08] LABS: BASOPHILS % (AUTO) 1.2 % (0.0-2.0); LYMPHOCYTES % (AUTO) 30.3 % (20.0-45.0); MEAN CORPUSCULAR HEMOGLOBIN 26.8 PG (27.0-31.0); MEAN CORPUSCULAR HGB CONC 31.1 G/DL (32.0-36.0); MEAN CORPUSCULAR VOLUME 86 FL (80-99); MEAN PLATELET VOLUME 7.1 FL (6.5-10.1); MONOCYTES % (AUTO) 8.1 % (1.0-10.0); NEUTROPHILS % (AUTO) 55.4 % (45.0-75.0); PLATELET COUNT 329 K/UL (150-450); RED BLOOD COUNT 3.97 M/UL (4.20-5.40); RED CELL DISTRIBUTION WIDTH 17.1 % (11.6-14.8); WHITE BLOOD COUNT 10.2 K/UL (4.8-10.8)
[2017-03-21 07:31] LABS: ANION GAP 8 mmol/L (5-15); CALCIUM 9.1 MG/DL (8.5-10.1); CARBON DIOXIDE 27 MMOL/L (21-32); CHLORIDE 100 MMOL/L (98-107); CREATININE 1.1 MG/DL (0.55-1.30); POTASSIUM 4.3 MMOL/L (3.5-5.1); SODIUM 135 MMOL/L (136-145)
[2017-03-21 07:51] VITALS: BP 148/68
[2017-03-21] MEDS: Xarelto 15mg tab ORAL SCH ×2 (08:03→17:15)
[2017-03-21] MEDS: Sertraline 50mg tab ORAL SCH (08:04)
[2017-03-21] MEDS: Donepezil 5mg Tab ORAL SCH (08:04)
[2017-03-21] MEDS: Levemir Flexpen SUBQ SCH ×2 (08:05→17:14)
--- NOTE | 2017-03-21 10:50 | Infectious Diseases Prog Note ---
Assessment/Plan Assessment/Plan Assesment: Leukocyotis,, SP -bcx NTD Afebrile Extensive acute L leg DVT V.duplex: Venous imaging reveals acute thrombus in the common superficial femoral, popliteal, proximal calf and mid calf veins. The greater saphenous vein is also thrombosed to the level of the mid-thigh. VRE Colonizer Left femoral neck fx s/p L hip hemiarthroplasty 01/27/17 DM2 GERD Dementia Plan: -Continue to monitor off abx unless febrile, HD unstable - monitor CXR, xray L hip -f/u cx -Monitor CBC/BMP, temperatures Subjective Constitutional: Denies: no symptoms, fever, chills, fatigue, anorexia, drenching sweats, other Allergies: Coded Allergies: No Known Allergies (Unverified , 01/27/17) Objective Vital Signs Last 24 Hour Vital Signs Date Time Temp Pulse Resp B/P (MAP) Pulse Ox O2 Delivery O2 Flow Rate FiO2 03/21/17 07:51 97.7 78 18 148/68 98 Room Air 03/21/17 04:00 98.6 74 20 130/73 97 Room Air 03/21/17 00:00 97.9 92 18 112/72 95 Room Air 03/20/17 20:00 97.9 76 20 116/59 97 Room Air 03/20/17 16:08 97.5 72 19 111/62 96 Room Air 03/20/17 11:43 98.7 71 18 122/67 95 Room Air Height (Feet): 5 Height (Inches): 4.00 Weight (Pounds): 167 HEENT: atraumatic Respiratory/Chest: no respiratory distress Cardiovascular: no gallop/murmur Abdomen: no organomegaly Laboratory Tests Test 03/21/17 05:05 White Blood Count 10.2 K/UL (4.8-10.8) Red Blood Count 3.97 M/UL (4.20-5.40) L Hemoglobin 10.6 G/DL (12.0-16.0) L Hematocrit 34.2 % (37.0-47.0) L Mean Corpuscular Volume 86 FL (80-99) Mean Corpuscular Hemoglobin 26.8 PG (27.0-31.0) L Mean Corpuscular Hemoglobin Concent 31.1 G/DL (32.0-36.0) L Red Cell Distribution Width 17.1 % (11.6-14.8) H Platelet Count 329 K/UL (150-450) Mean Platelet Volume 7.1 FL (6.5-10.1) Neutrophils (%) (Auto) 55.4 % (45.0-75.0) Lymphocytes (%) (Auto) 30.3 % (20.0-45.0) Monocytes (%) (Auto) 8.1 % (1.0-10.0) Eosinophils (%) (Auto) 5.0 % (0.0-3.0) H Basophils (%) (Auto) 1.2 % (0.0-2.0) Sodium Level 135 MMOL/L (136-145) L Potassium Level 4.3 MMOL/L (3.5-5.1) Chloride Level 100 MMOL/L (98-107) Carbon Dioxide Level 27 MMOL/L (21-32) Anion Gap 8 mmol/L (5-15) Blood Urea Nitrogen 15 mg/dL (7-18) Creatinine 1.1 MG/DL (0.55-1.30) Estimat Glomerular Filtration Rate mL/min (>60) Glucose Level 145 MG/DL (74-106) H Calcium Level 9.1 MG/DL (8.5-10.1) Current Medications Medications (Trade) Dose Ordered Sig/Jayme Route PRN Reason Start Time Stop Time Status Last Admin Dose Admin Acetaminophen (Tylenol) 325 mg Q4H PRN ORAL Fever/Headache/Mild Pain 03/19/17 18:00 04/15/17 17:59 Acetaminophen/ Hydrocodone Bitart ([place] 10/325) 1 ea Q4H PRN ORAL Severe Pain (Pain Scale 7-10) 03/19/17 18:00 03/23/17 17:59 Acetaminophen/ Hydrocodone Bitart ([place] 5/325) 1 tab Q4H PRN ORAL Moderate Pain (Pain Scale 4-6) 03/19/17 18:00 03/23/17 17:59 Clotrimazole (Lotrimin) 1 applic EVERY 12 HOURS TOPIC 03/19/17 21:00 04/16/17 20:59 03/21/17 08:06 Dextrose (Dextrose 50%) STAT PRN IV Hypoglycemia 03/19/17 18:00 04/15/17 17:59 Diphenhydramine HCl (Benadryl) 25 mg Q8H PRN ORAL Itching 03/20/17 20:00 04/19/17 19:59 03/20/17 21:14 Donepezil HCl (Aricept) 5 mg DAILY ORAL 03/20/17 09:00 04/16/17 08:59 03/21/17 08:04 Insulin Aspart (NovoLOG) BEFORE MEALS AND HS SUBQ 03/19/17 21:00 04/16/17 06:29 03/21/17 05:50 Insulin Detemir (Levemir) 20 units BID SUBQ 03/19/17 18:00 04/16/17 08:59 03/21/17 08:05 Ondansetron HCl (Zofran) 4 mg Q4H PRN ORAL Nausea & Vomiting 03/19/17 18:00 04/18/17 17:59 Pantoprazole (Protonix) 40 mg BEFORE BREAKFAST ORAL 03/20/17 06:30 04/16/17 06:29 03/21/17 05:49 Promethazine HCl/ Codeine (Phenergan with Codeine) 5 ml Q8HR PRN ORAL For Cough 03/21/17 10:45 04/20/17 10:44 UNV Rivaroxaban (Xarelto) 15 mg BID ORAL 03/19/17 18:00 04/08/17 23:59 03/21/17 08:03 Rivaroxaban (Xarelto) 20 mg QPM ORAL 04/09/17 16:30 05/09/17 16:29 Sertraline HCl (Zoloft) 50 mg DAILY ORAL 03/20/17 09:00 04/16/17 08:59 03/21/17 08:04 LIO PENA M.D. Mar 21, 2017 10:50
[2017-03-21] MEDS: Promethazine/Codeine 5ml UD ORAL PRN ×2 (10:59→18:56)
--- NOTE | 2017-03-21 11:24 | Internal Med Progress Note ---
Subjective Date of Service: Mar 21, 2017 Physician Name ArgenisAlbino Attending Physician Abdirahman Griffin MD Current Medications Medications (Trade) Dose Ordered Sig/Jayme Route PRN Reason Start Time Stop Time Status Last Admin Dose Admin Acetaminophen (Tylenol) 325 mg Q4H PRN ORAL Fever/Headache/Mild Pain 03/19/17 18:00 04/15/17 17:59 03/21/17 10:59 Acetaminophen/ Hydrocodone Bitart ([place] 10/325) 1 ea Q4H PRN ORAL Severe Pain (Pain Scale 7-10) 03/19/17 18:00 03/23/17 17:59 Acetaminophen/ Hydrocodone Bitart ([place] 5/325) 1 tab Q4H PRN ORAL Moderate Pain (Pain Scale 4-6) 03/19/17 18:00 03/23/17 17:59 Clotrimazole (Lotrimin) 1 applic EVERY 12 HOURS TOPIC 03/19/17 21:00 04/16/17 20:59 03/21/17 08:06 Dextrose (Dextrose 50%) STAT PRN IV Hypoglycemia 03/19/17 18:00 04/15/17 17:59 Diphenhydramine HCl (Benadryl) 25 mg Q8H PRN ORAL Itching 03/20/17 20:00 04/19/17 19:59 03/20/17 21:14 Donepezil HCl (Aricept) 5 mg DAILY ORAL 03/20/17 09:00 04/16/17 08:59 03/21/17 08:04 Insulin Aspart (NovoLOG) BEFORE MEALS AND HS SUBQ 03/19/17 21:00 04/16/17 06:29 03/21/17 05:50 Insulin Detemir (Levemir) 20 units BID SUBQ 03/19/17 18:00 04/16/17 08:59 03/21/17 08:05 Ondansetron HCl (Zofran) 4 mg Q4H PRN ORAL Nausea & Vomiting 03/19/17 18:00 04/18/17 17:59 Pantoprazole (Protonix) 40 mg BEFORE BREAKFAST ORAL 03/20/17 06:30 04/16/17 06:29 03/21/17 05:49 Promethazine HCl/ Codeine (Phenergan with Codeine) 5 ml Q8H PRN ORAL For Cough 03/21/17 10:45 04/20/17 10:44 03/21/17 10:59 Rivaroxaban (Xarelto) 15 mg BID ORAL 03/19/17 18:00 04/08/17 23:59 03/21/17 08:03 Rivaroxaban (Xarelto) 20 mg QPM ORAL 04/09/17 16:30 05/09/17 16:29 Sertraline HCl (Zoloft) 50 mg DAILY ORAL 03/20/17 09:00 04/16/17 08:59 03/21/17 08:04 Allergies: Coded Allergies: No Known Allergies (Unverified , 01/27/17) ROS Limited/Unobtainable: No Constitutional: Reports: no symptoms HEENT: Reports: no symptoms Cardiovascular: Reports: no symptoms Respiratory: Reports: cough Gastrointestinal/Abdominal: Reports: no symptoms Genitourinary: Reports: no symptoms Neurologic/Psychiatric: Reports: no symptoms Subjective 77 YO F admitted with left leg pain/swelling. Now deep venous thrombosis left leg. C/O cough wants chest Xray and cough med. Cover for Int Med-Dr Griffin Objective Last Vital Signs Date Time Temp Pulse Resp B/P (MAP) Pulse Ox O2 Delivery O2 Flow Rate FiO2 03/21/17 07:51 97.7 78 18 148/68 98 Room Air Laboratory Tests Test 03/21/17 05:05 White Blood Count 10.2 K/UL (4.8-10.8) Red Blood Count 3.97 M/UL (4.20-5.40) L Hemoglobin 10.6 G/DL (12.0-16.0) L Hematocrit 34.2 % (37.0-47.0) L Mean Corpuscular Volume 86 FL (80-99) Mean Corpuscular Hemoglobin 26.8 PG (27.0-31.0) L Mean Corpuscular Hemoglobin Concent 31.1 G/DL (32.0-36.0) L Red Cell Distribution Width 17.1 % (11.6-14.8) H Platelet Count 329 K/UL (150-450) Mean Platelet Volume 7.1 FL (6.5-10.1) Neutrophils (%) (Auto) 55.4 % (45.0-75.0) Lymphocytes (%) (Auto) 30.3 % (20.0-45.0) Monocytes (%) (Auto) 8.1 % (1.0-10.0) Eosinophils (%) (Auto) 5.0 % (0.0-3.0) H Basophils (%) (Auto) 1.2 % (0.0-2.0) Sodium Level 135 MMOL/L (136-145) L Potassium Level 4.3 MMOL/L (3.5-5.1) Chloride Level 100 MMOL/L (98-107) Carbon Dioxide Level 27 MMOL/L (21-32) Anion Gap 8 mmol/L (5-15) Blood Urea Nitrogen 15 mg/dL (7-18) Creatinine 1.1 MG/DL (0.55-1.30) Estimat Glomerular Filtration Rate mL/min (>60) Glucose Level 145 MG/DL (74-106) H Calcium Level 9.1 MG/DL (8.5-10.1) Intake and Output 03/21/17 03/22/17 19:00 07:00 Intake Total 120 ml Balance 120 ml Intake Oral 120 ml # Voids 1 Objective Objective General: No acute distress, awake and alert HEENT: NCAT, sclera anicteric, PERRL, EOMI. Neck: Supple, no significant jugular venous distention, Lungs: fair inspiratory effort, clear to auscultation bilaterally, no Wheeze or Rales. Heart: Regular rate and rhythm, normal S1/S2, no murmur Abdomen: soft, nontender, nondistended. Normoactive bowel sounds. obesity Extremities: No Cyanosis , clubbing, +2 Left LE edema. Neuro: A&O x 3, Able to move all extremities Skin: warm, no rashes or lesions Assessment/Plan Problem List: (1) Leg pain, left Assessment & Plan: Due to DVT (2) Left leg swelling Assessment & Plan: Due to DVT (3) DVT (deep venous thrombosis) Assessment & Plan: Left leg. D/C heparin; continue xarelto (4) Alzheimer's dementia (5) Diabetes mellitus, type II Assessment & Plan: Continue levemir and novolog sliding scale insulin (6) Cough Assessment & Plan: Await CXR; promethazine with codeine prn. Status: progressing Assessment/Plan D/W patient daughter, Katia. Wants patient evaluated by ortho prior to discharge, due to H/O left hip surgery in Jan 2017. Wants chest x-ray to R/O pneumonia. ALBINO CHAUDHRY Mar 21, 2017 11:24
[2017-03-21] MEDS ORDERED: XARELTO15 MG ORAL (11:29)
[2017-03-21 12:03] VITALS: BP 124/72
--- NOTE | 2017-03-21 14:44 | Pulmonology Progress Note ---
Assessment/Plan Problems: (1) DVT (deep venous thrombosis) (2) Diabetes mellitus, type II (3) History of CVA (cerebrovascular accident) (4) Alzheimer's dementia Assessment/Plan all reviewed and noted no new complains BS remains high, change diet to diabetic ON Xarelto symptomatic treatment Sliding scale med/surg Subjective ROS Limited/Unobtainable: No Interval Events: late note 03/20 Constitutional: Reports: no symptoms HEENT: Repors: no symptoms Respiratory: Reports: no symptoms Allergies: Coded Allergies: No Known Allergies (Unverified , 01/27/17) Objective Last 24 Hour Vital Signs Date Time Temp Pulse Resp B/P (MAP) Pulse Ox O2 Delivery O2 Flow Rate FiO2 03/21/17 12:03 98.2 91 20 124/72 97 Room Air 03/21/17 11:58 98.2 03/21/17 07:51 97.7 78 18 148/68 98 Room Air 03/21/17 04:00 98.6 74 20 130/73 97 Room Air 03/21/17 00:00 97.9 92 18 112/72 95 Room Air 03/20/17 20:00 97.9 76 20 116/59 97 Room Air 03/20/17 16:08 97.5 72 19 111/62 96 Room Air Intake and Output 03/21/17 03/22/17 19:00 07:00 Intake Total 240 ml Balance 240 ml Intake Oral 240 ml # Voids 2 Objective General Appearance: WD/WN, no apparent distress Lines, tubes and drains: peripheral, HEENT: normocephalic, anicteric Neck: non-tender, normal alignment Respiratory/Chest: chest wall non-tender, lungs clear Cardiovascular/Chest: normal rate, regular rhythm Abdomen: non tender, soft Genitourinary/Rectal: normal genital exam, normal rectal exam Extremities: normal range of motion, non-pitting Laboratory Tests 03/21/17 05:05: White Blood Count 10.2, Red Blood Count 3.97L, Hemoglobin 10.6L, Hematocrit 34.2L, Mean Corpuscular Volume 86, Mean Corpuscular Hemoglobin 26.8L, Mean Corpuscular Hemoglobin Concent 31.1L, Red Cell Distribution Width 17.1H, Platelet Count 329, Mean Platelet Volume 7.1, Neutrophils (%) (Auto) 55.4, Lymphocytes (%) (Auto) 30.3, Monocytes (%) (Auto) 8.1, Eosinophils (%) (Auto) 5.0H, Basophils (%) (Auto) 1.2, Sodium Level 135L, Potassium Level 4.3, Chloride Level 100, Carbon Dioxide Level 27, Anion Gap 8, Blood Urea Nitrogen 15 , Creatinine 1.1, Estimat Glomerular Filtration Rate , Glucose Level 145H, Calcium Level 9.1 Current Medications Medications (Trade) Dose Ordered Sig/Jayme Route PRN Reason Start Time Stop Time Status Last Admin Dose Admin Acetaminophen (Tylenol) 325 mg Q4H PRN ORAL Fever/Headache/Mild Pain 03/19/17 18:00 04/15/17 17:59 03/21/17 10:59 Acetaminophen/ Hydrocodone Bitart ([place] 10/325) 1 ea Q4H PRN ORAL Severe Pain (Pain Scale 7-10) 03/19/17 18:00 03/23/17 17:59 Acetaminophen/ Hydrocodone Bitart ([place] 5/325) 1 tab Q4H PRN ORAL Moderate Pain (Pain Scale 4-6) 03/19/17 18:00 03/23/17 17:59 Clotrimazole (Lotrimin) 1 applic EVERY 12 HOURS TOPIC 03/19/17 21:00 04/16/17 20:59 03/21/17 08:06 Dextrose (Dextrose 50%) STAT PRN IV Hypoglycemia 03/19/17 18:00 04/15/17 17:59 Diphenhydramine HCl (Benadryl) 25 mg Q8H PRN ORAL Itching 03/20/17 20:00 04/19/17 19:59 03/20/17 21:14 Donepezil HCl (Aricept) 5 mg DAILY ORAL 03/20/17 09:00 04/16/17 08:59 03/21/17 08:04 Insulin Aspart (NovoLOG) BEFORE MEALS AND HS SUBQ 03/19/17 21:00 04/16/17 06:29 03/21/17 11:35 Insulin Detemir (Levemir) 20 units BID SUBQ 03/19/17 18:00 04/16/17 08:59 03/21/17 08:05 Ondansetron HCl (Zofran) 4 mg Q4H PRN ORAL Nausea & Vomiting 03/19/17 18:00 04/18/17 17:59 Pantoprazole (Protonix) 40 mg BEFORE BREAKFAST ORAL 03/20/17 06:30 04/16/17 06:29 03/21/17 05:49 Promethazine HCl/ Codeine (Phenergan with Codeine) 5 ml Q8H PRN ORAL For Cough 03/21/17 10:45 04/20/17 10:44 03/21/17 10:59 Rivaroxaban (Xarelto) 15 mg BID ORAL 03/19/17 18:00 04/08/17 23:59 03/21/17 08:03 Rivaroxaban (Xarelto) 20 mg QPM ORAL 04/09/17 16:30 05/09/17 16:29 Sertraline HCl (Zoloft) 50 mg DAILY ORAL 03/20/17 09:00 04/16/17 08:59 03/21/17 08:04 LUCERO ASHBY Mar 21, 2017 14:44
--- NOTE | 2017-03-21 14:46 | Pulmonology Progress Note ---
Assessment/Plan Problems: (1) DVT (deep venous thrombosis) (2) Diabetes mellitus, type II (3) History of CVA (cerebrovascular accident) (4) Alzheimer's dementia Assessment/Plan all reviewed and noted no new complains BS remains high, change diet to diabetic ON Xarelto symptomatic treatment Sliding scale med/surg Subjective ROS Limited/Unobtainable: Yes Allergies: Coded Allergies: No Known Allergies (Unverified , 01/27/17) Objective Last 24 Hour Vital Signs Date Time Temp Pulse Resp B/P (MAP) Pulse Ox O2 Delivery O2 Flow Rate FiO2 03/21/17 12:03 98.2 91 20 124/72 97 Room Air 03/21/17 11:58 98.2 03/21/17 07:51 97.7 78 18 148/68 98 Room Air 03/21/17 04:00 98.6 74 20 130/73 97 Room Air 03/21/17 00:00 97.9 92 18 112/72 95 Room Air 03/20/17 20:00 97.9 76 20 116/59 97 Room Air 03/20/17 16:08 97.5 72 19 111/62 96 Room Air Intake and Output 03/21/17 03/22/17 19:00 07:00 Intake Total 240 ml Balance 240 ml Intake Oral 240 ml # Voids 2 Objective General Appearance: WD/WN, no apparent distress Lines, tubes and drains: peripheral, HEENT: normocephalic, anicteric Neck: non-tender, normal alignment Respiratory/Chest: chest wall non-tender, lungs clear Cardiovascular/Chest: normal rate, regular rhythm Abdomen: non tender, soft Genitourinary/Rectal: normal genital exam, normal rectal exam Extremities: normal range of motion, non-pitting Laboratory Tests 03/21/17 05:05: White Blood Count 10.2, Red Blood Count 3.97L, Hemoglobin 10.6L, Hematocrit 34.2L, Mean Corpuscular Volume 86, Mean Corpuscular Hemoglobin 26.8L, Mean Corpuscular Hemoglobin Concent 31.1L, Red Cell Distribution Width 17.1H, Platelet Count 329, Mean Platelet Volume 7.1, Neutrophils (%) (Auto) 55.4, Lymphocytes (%) (Auto) 30.3, Monocytes (%) (Auto) 8.1, Eosinophils (%) (Auto) 5.0H, Basophils (%) (Auto) 1.2, Sodium Level 135L, Potassium Level 4.3, Chloride Level 100, Carbon Dioxide Level 27, Anion Gap 8, Blood Urea Nitrogen 15 , Creatinine 1.1, Estimat Glomerular Filtration Rate , Glucose Level 145H, Calcium Level 9.1 Current Medications Medications (Trade) Dose Ordered Sig/Jayme Route PRN Reason Start Time Stop Time Status Last Admin Dose Admin Acetaminophen (Tylenol) 325 mg Q4H PRN ORAL Fever/Headache/Mild Pain 03/19/17 18:00 04/15/17 17:59 03/21/17 10:59 Acetaminophen/ Hydrocodone Bitart ([place] 10/325) 1 ea Q4H PRN ORAL Severe Pain (Pain Scale 7-10) 03/19/17 18:00 03/23/17 17:59 Acetaminophen/ Hydrocodone Bitart ([place] 5/325) 1 tab Q4H PRN ORAL Moderate Pain (Pain Scale 4-6) 03/19/17 18:00 03/23/17 17:59 Clotrimazole (Lotrimin) 1 applic EVERY 12 HOURS TOPIC 03/19/17 21:00 04/16/17 20:59 03/21/17 08:06 Dextrose (Dextrose 50%) STAT PRN IV Hypoglycemia 03/19/17 18:00 04/15/17 17:59 Diphenhydramine HCl (Benadryl) 25 mg Q8H PRN ORAL Itching 03/20/17 20:00 04/19/17 19:59 03/20/17 21:14 Donepezil HCl (Aricept) 5 mg DAILY ORAL 03/20/17 09:00 04/16/17 08:59 03/21/17 08:04 Insulin Aspart (NovoLOG) BEFORE MEALS AND HS SUBQ 03/19/17 21:00 04/16/17 06:29 03/21/17 11:35 Insulin Detemir (Levemir) 20 units BID SUBQ 03/19/17 18:00 04/16/17 08:59 03/21/17 08:05 Ondansetron HCl (Zofran) 4 mg Q4H PRN ORAL Nausea & Vomiting 03/19/17 18:00 04/18/17 17:59 Pantoprazole (Protonix) 40 mg BEFORE BREAKFAST ORAL 03/20/17 06:30 12/9/17 06:29 03/21/17 05:49 Promethazine HCl/ Codeine (Phenergan with Codeine) 5 ml Q8H PRN ORAL For Cough 03/21/17 10:45 04/20/17 10:44 03/21/17 10:59 Rivaroxaban (Xarelto) 15 mg BID ORAL 03/19/17 18:00 04/08/17 23:59 03/21/17 08:03 Rivaroxaban (Xarelto) 20 mg QPM ORAL 04/09/17 16:30 05/09/17 16:29 Sertraline HCl (Zoloft) 50 mg DAILY ORAL 03/20/17 09:00 04/16/17 08:59 03/21/17 08:04 LUCERO ASHBY Mar 21, 2017 14:46
--- NOTE | 2017-03-21 15:09 | Diagnostic Imaging Report ---
Indication: COUGH Technique: One view of the chest Comparison: 03/19/2017 Findings: There is minimal generalized interstitial prominence which is stable. Lungs and pleural spaces are otherwise clear. The heart size is upper limits normal. The aorta is tortuous and calcified. There is no significant interim change. Impression: No definite acute process
[2017-03-21 15:58] VITALS: BP 112/57
[2017-03-21 20:00] VITALS: BP 129/69
--- NOTE | 2017-03-22 14:20 | Discharge Summary ---
Discharge Summary Hospital Course Date of Admission Mar 16, 2017 at 17:42 Date of Discharge Mar 21, 2017 at 20:15 Admitting Diagnosis left leg dvt HPI Mery Membreno is a 77 year old female who was admitted on Mar 16, 2017 at 17: 42 for Left Leg Deep Vein Thrombosis Hospital Course dc summary #[id number] Discharge Medications New Medications: Rivaroxaban (Xarelto) 15 Mg Tablet 15 MG ORAL BID for 18 Days, TAB Continued Medications: Acetaminophen* (Acetaminophen 325MG Tablet*) 325 Mg Tablet 325 MG ORAL Q4H PRN for Fever/Headache/Mild Pain, TAB Dextran 70/Hypromellose (Artificial Tears Eye Drops*) 15 Ml Drops 2 DROP BOTH EYES Q2 PRN for EYE DRYNESS, #15 ML 0 Refills Donepezil Hcl* (Aricept*) 5 Mg Tablet 5 MG ORAL DAILY, TAB Glipizide (Glipizide) 10 Mg Tablet 10 MG PO BID, TAB Hydrocodone Bit/Acetaminophen 10-325* ([place] 10-325*) 1 Each Tablet 1 TAB ORAL Q4H PRN for For Pain, TAB 0 Refills PRN PAIN Hydrocodone Bit/Acetaminophen 5-325* ([place] 5-325*) 1 Each Tablet 1 TAB ORAL Q4H PRN for For Pain, TAB 0 Refills Insulin Aspart (Novolog) 100 Unit/1 Ml Cartridge 0 SQ AC+HS Insulin Glargine (Lantus) 100 Unit/1 Ml Vial 20 UNITS SUBQ BID Menthol/Zinc Oxide (Calmoseptine Ointment) 71 Gm Oint...g. 71 GM TP Ondansetron* (Zofran*) 4 Mg Tablet 4 MG ORAL Q4HR PRN for Nausea & Vomiting, TAB Pantoprazole* (Protonix*) 40 Mg Tablet.dr 40 MG ORAL AC, TAB Sertraline Hcl* (Zoloft*) 50 Mg Tablet 50 MG ORAL DAILY, TAB Zinc Oxide (Desitin) 57 Gm Cream..g. 57 GM TP Discontinued Medications: Heparin Sod (Porcine) (Heparin Sodium*) 5 000/1 Ml Vial 5000 UNITS SUBQ EVERY 8 HOURS, VIAL Discharge Condition Upon Discharge: stable Discharge Disposition Patient was discharged to Homewith services Discharge Diagnoses: Discharge Instructions Discharge Instructions Special Instructions I have been assigned to complete a D/C Summary on this account. I was not involved in the patient management Fernanda Rodriguez (Vanchtein) [employer] Mar 22, 2017 14:20
--- NOTE | 2017-03-23 04:15 | Discharge Summary 2 SIG ---
DATE OF ADMISSION: 03/16/2017 DATE OF DISCHARGE: 03/21/2017 REASON FOR ADMISSION: The patient is a 77 years old female with recent history of left hip surgery, secondary to fracture, presented with left lower extremity swelling and increased discomfort. She denied chest pain or shortness of breath. No fever. No chills. Workup in the emergency room revealed mild leukocytosis, WBC 12.6. Troponin negative. EKG revealed normal sinus rhythm, no acute ischemic changes. Venous duplex revealed acute thrombus and common superficial femoral vein, popliteal vein, proximal calf and mid calf veins. The patient admitted for acute DVT, left lower extremity. The patient with history of diabetes and dementia. HOSPITAL STAY: The patient was admitted. The patient started on a heparin drip. Hemoglobin and hematocrit were closely monitored. Infectious Diseases consult was requested due to leukocytosis, however, blood culture were negative. Chest x-ray revealed no evidence of acute cardiopulmonary pathology. The patient was off antibiotics and closely followed by Infectious Disease doctor. Initial leukocytosis was likely reactive due to acute DVT and subsequently resolved. No fever. Pain management was provided. Blood sugar was managed with sliding scale of insulin and long-acting Levemir. Hemoglobin A1c- 11.5, not at goal. The patient will need further optimization of blood sugar as outpatient. Aricept was continued. Wound care provided for left buttock stage II decubitus ulcer, present on admission as per wound care nurse recommendation. Left hip x-ray revealed no fracture. No dislocation. The patient was switched to Xarelto to be continued at home. The patient was stable for discharge home with home health services. FINAL DIAGNOSES: 1. Acute deep venous thrombosis left lower extremity common superficial femoral vein, popliteal vein, proximal calf, and mid calf veins. 2. Left lower extremity pain, secondary to above. 3. Diabetes mellitus. 4. Alzheimer dementia. 5. Left buttock decubitus ulcer stage II, present on admission. DISCHARGE MEDICATIONS: See medication reconciliation list. DISCHARGE INSTRUCTIONS: The patient was discharged home with home health services. Follow up with primary medical doctor. Abdirahman Griffin M.D. I have been assigned to dictate discharge summary on this account and I was not involved in the patient's management. Fernanda Vergarahannah NJanicePJanice DR: Racquel JOB#: [id number] CC: RAMEZ
--- NOTE | 2017-03-27 16:26 | Cardiology Report ---
APPROVED REPORT EKG Measurement Heart [id number] Normal sinus rhythm Normal ECG
[2017-04-09] MEDS ORDERED: Xarelto 10mg tab ORAL SCH ×2 (09:00→16:30)
== END 2017-03-21 20:15 | disposition home health service (06) | DRG 301 ==
LOC: EDBD 16:19 → EMR 17:15 → 2E 17:42 → EDBEDREQ 18:59 → 2E 21:30 → 4E 03-19 12:15
DX: I82.4Z2 Acute embolism and thrombosis of unspecified deep veins of left distal lower extremity (principal); L89.322 Pressure ulcer of left buttock, stage 2; E11.9 Type 2 diabetes mellitus without complications; G30.9 Alzheimer's disease, unspecified; F02.80 Dementia in other diseases classified elsewhere, unspecified severity, without behavioral disturbance, psychotic disturbance, mood disturbance, and anxiety; Z86.73 Personal history of transient ischemic attack (TIA), and cerebral infarction without residual deficits; D64.9 Anemia, unspecified; I82.432 Acute embolism and thrombosis of left popliteal vein; I82.412 Acute embolism and thrombosis of left femoral vein; Z91.81 History of falling
CPT/HCPCS: 36415; 71010; 73502; 80048; 80053; 82962; 83036; 83735; 83880; 84100; 84484; 85025; 85610; 85651; 85730; 87040; 87081; 93005; 93971; 99285; J1815; S5561

== ENCOUNTER 2017-06-09 16:00 | Inpatient (IN) | payer MEDICARE, MEDICAID ==
[~2017-06-09] VITALS: Ht 162.6 cm; Wt 74.8 kg
[~2017-06-09 16:00] MED LIST changes: +ASPIRIN EC81 MG ORAL; +CALMOSEPTINE OI71 GM TP; +DESITIN57 G1 TP; +HEPARIN SO5000 UNIT2 SUBQ; +LANTUS5 UNITS SUBQ; +XARELTO15 MG ORAL; +ZOFRAN4 M3 ORAL
[2017-06-09] MEDS ORDERED: Pantoprazole 80 MG in NS 250 ML IV ONE (16:30)
[2017-06-09] MEDS ORDERED: Pantoprazole Inj IVP ONE (16:30)
[2017-06-09] MEDS ORDERED: Pantoprazole Inj ONE (17:38)
[2017-06-09] MEDS ORDERED: NS 275 ML ONE (17:38)
[2017-06-09 17:46] LABS: HEMATOCRIT 17.7 % (37.0-47.0); MEAN CORPUSCULAR VOLUME 70 FL (80-99); PLATELET COUNT 414 K/UL (150-450); RED BLOOD COUNT 2.52 M/UL (4.20-5.40); RED CELL DISTRIBUTION WIDTH 17.4 % (11.6-14.8); WHITE BLOOD COUNT 9.5 K/UL (4.8-10.8)
[2017-06-09 17:48] LABS: ANION GAP 7 mmol/L (5-15); BLOOD UREA NITROGEN 16 mg/dL (7-18); CALCIUM 8.6 MG/DL (8.5-10.1); CARBON DIOXIDE 29 MMOL/L (21-32); CHLORIDE 100 MMOL/L (98-107); CREATININE 1.1 MG/DL (0.55-1.30); SODIUM 136 MMOL/L (136-145)
[2017-06-09 17:56] LABS: HEMOGLOBIN 5.3 G/DL (12.0-16.0)
[2017-06-09 18:01] LABS: ALANINE AMINOTRANSFERASE 10 U/L (12-78); ALBUMIN 3.2 G/DL (3.4-5.0); ALBUMIN/GLOBULIN RATIO 0.7 (1.0-2.7); ALKALINE PHOSPHATASE 111 U/L (46-116); ASPARTATE AMINO TRANSFERASE 14 U/L (15-37); BILIRUBIN,TOTAL 0.1 MG/DL (0.2-1.0); CKMB 0.5 NG/ML (0.0-3.6); CREATINE KINASE 43 U/L (26-308)
[2017-06-09] MEDS ORDERED: ELIQUIS5 MG PO (18:24)
[2017-06-09] MEDS ORDERED: NEOSPORIN68 ML TP (18:26)
[2017-06-09] MEDS ORDERED: OMEPRAZOLE40 M1 ORAL (18:26)
[2017-06-09] MEDS ORDERED: NOVOLIN R100 UNIT/1 SUBQ (18:28)
[2017-06-09 19:10] VITALS: BP 122/59
[2017-06-09 19:26] VITALS: BP 112/47
[2017-06-09 19:35] LABS: APPEARANCE,URINE SLIGHTLY CLOUDY; BILIRUBIN, URINE NEGATIVE (NEGATIVE); COLOR,URINE PALE YELLOW; GLUCOSE, URINE (UA) 3+ (NEGATIVE); KETONES,URINE NEGATIVE (NEGATIVE); LEUKOCYTE ESTERASE ,URINE 3+ (NEGATIVE); NITRITE,URINE NEGATIVE (NEGATIVE); PH,URINE 6 (4.5-8.0); PROTEIN,URINE NEGATIVE (NEGATIVE); UROBILINOGEN,URINE NORMAL MG/DL (0.0-1.0)
[2017-06-09] MEDS ORDERED: Mylanta II UD 30ml ORAL PRN (20:15)
[2017-06-09] MEDS ORDERED: Nitroglycerin Subl 0.4mg tab SL PRN (20:15)
[2017-06-09] MEDS ORDERED: Miralax 17gm pkt ORAL PRN (20:15)
[2017-06-09] MEDS ORDERED: Morphine Sulfate 2mg/ml Inj IVP PRN (20:15)
[2017-06-09 20:35] VITALS: BP 115/50
[2017-06-09] MEDS ORDERED: Phytonadione 10 MG in D5W 55 ML IVPB ONE (20:45)
[2017-06-09 20:50] VITALS: BP 114/45
[2017-06-09] MEDS: D5NS 1,000 ML IV SCH (23:04)
--- NOTE | 2017-06-09 23:30 | Emergency Room Report ---
History of Present Illness General Chief Complaint: Abnormal Labs Source: Patient, Family Member, Medical Record Present Illness HPI This patient presents accompanied by her family. She presents for abnormal labs. Apparently she had a hip fracture last year. She has been here at [facility] for 3 months. She left before she was supposed to leave because her wanted her and home. She did go to a rehabilitation facility. However, for the past few weeks he has been weaker than usual and been poorly. She did see her primary care physician yesterday and underwent basic lab work. She was called by her primary care physician to come to the emergency department because of low hemoglobin. When I inquired into the color of her stool her states that it is black in color. She denies pain. She denies shortness of breath. She denies lightheadedness. She denies fever or chills. She has no other complaints. 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 Hx Dementia: Yes Hx Alzheimer's Disease: Yes Review of Systems All Other Systems: negative except mentioned in HPI Physical Exam Vital Signs Date Time Temp Pulse Resp B/P (MAP) Pulse Ox O2 Delivery O2 Flow Rate FiO2 06/09/17 16:17 98.8 85 16 110/47 97 Room Air Sp02 EP Interpretation: reviewed, normal General Appearance: no apparent distress, alert, GCS 15, non-toxic Head: normocephalic, atraumatic Eyes: bilateral eye normal inspection, bilateral eye PERRL ENT: hearing grossly normal, normal pharynx, no angioedema, normal voice Neck: full range of motion, supple/symm/no masses Respiratory: chest non-tender, lungs clear, normal breath sounds, speaking full sentences Cardiovascular #1: regular rate, rhythm, no edema Gastrointestinal: normal bowel sounds, non tender, soft, non-distended, no guarding, no rebound Rectal: deferred Musculoskeletal: back normal, normal range of motion, non-tender Neurologic: alert, responsive, speech normal, other - At baseline Psychiatric: mood/affect normal, no suicidal/homicidal ideation Skin: normal color, no rash, warm/dry, well hydrated Medical Decision Making Diagnostic Impression: Primary Impression: UGI bleed Additional Impression: Anemia ER Course This patient presents with profound anemia. I suspect that it is chronic no given her normal vital signs. She likely has an upper GI bleed. She is on salt on aspirin and this is likely a contributing factor. She was given a Protonix IV and given 2 units of packed red blood cells and admitted for further evaluation and treatment. This patient is critically ill. This patient required complex medical decision- making, aggressive intervention, extensive laboratory workup and monitoring. Critical care time: 40 minutes. Laboratory Tests Test 06/09/17 17:15 06/09/17 19:17 White Blood Count 9.5 K/UL (4.8-10.8) Red Blood Count 2.52 M/UL (4.20-5.40) L Hemoglobin 5.3 G/DL (12.0-16.0) *L Hematocrit 17.7 % (37.0-47.0) L Mean Corpuscular Volume 70 FL (80-99) L Mean Corpuscular Hemoglobin 20.9 PG (27.0-31.0) L Mean Corpuscular Hemoglobin Concent 29.7 G/DL (32.0-36.0) L Red Cell Distribution Width 17.4 % (11.6-14.8) H Platelet Count 414 K/UL (150-450) Mean Platelet Volume 6.0 FL (6.5-10.1) L Neutrophils (%) (Auto) % (45.0-75.0) Lymphocytes (%) (Auto) % (20.0-45.0) Monocytes (%) (Auto) % (1.0-10.0) Eosinophils (%) (Auto) % (0.0-3.0) Basophils (%) (Auto) % (0.0-2.0) Differential Total Cells Counted 100 Neutrophils % (Manual) 66 % (45-75) Lymphocytes % (Manual) 14 % (20-45) L Monocytes % (Manual) 12 % (1-10) H Eosinophils % (Manual) 5 % (0-3) H Basophils % (Manual) 3 % (0-2) H Band Neutrophils 0 % (0-8) Nucleated Red Blood Cells 1 /100 WBC Platelet Estimate Adequate Platelet Morphology Normal Polychromasia 1+ Hypochromasia 3+ Anisocytosis 1+ Microcytosis 3+ Prothrombin Time 10.2 SEC (9.30-11.50) Prothrombin Time INR 1.0 (0.9-1.1) PTT 25 SEC (23-33) Sodium Level 136 MMOL/L (136-145) Potassium Level 5.0 MMOL/L (3.5-5.1) Chloride Level 100 MMOL/L (98-107) Carbon Dioxide Level 29 MMOL/L (21-32) Anion Gap 7 mmol/L (5-15) Blood Urea Nitrogen 16 mg/dL (7-18) Creatinine 1.1 MG/DL (0.55-1.30) Estimate Glomerular Filtration Rate mL/min (>60) Glucose Level 220 MG/DL (74-106) H Lactic Acid Level 1.30 mmol/L (0.66-2.22) Calcium Level 8.6 MG/DL (8.5-10.1) Total Bilirubin 0.1 MG/DL (0.2-1.0) L Aspartate Amino Transferase (AST) 14 U/L (15-37) L Alanine Aminotransferase (ALT) 10 U/L (12-78) L Alkaline Phosphatase 111 U/L (46-116) Total Creatine Kinase 43 U/L (26-308) Creatine Kinase MB 0.5 NG/ML (0.0-3.6) Creatine Kinase MB Relative Index 1.1 Troponin I 0.057 ng/mL (0.000-0.056) Total Protein 7.6 G/DL (6.4-8.2) Albumin 3.2 G/DL (3.4-5.0) L Globulin 4.4 g/dL Albumin/Globulin Ratio 0.7 (1.0-2.7) L Urine Color Pale yellow Urine Appearance Slightly cloudy Urine pH 6 (4.5-8.0) Urine Specific Axis 1.010 (1.005-1.035) Urine Protein Negative (NEGATIVE) Urine Glucose (UA) 3+ (NEGATIVE) H Urine Ketones Negative (NEGATIVE) Urine Occult Blood Negative (NEGATIVE) Urine Nitrite Negative (NEGATIVE) Urine Bilirubin Negative (NEGATIVE) Urine Urobilinogen Normal MG/DL (0.0-1.0) Urine Leukocyte Esterase 3+ (NEGATIVE) H Urine RBC 0-2 /HPF (0 - 2) Urine WBC 30-40 /HPF (0 - 2) H Urine Squamous Epithelial Cells Few /LPF (NONE/OCC) Urine Bacteria Few /HPF (NONE) EKG Diagnostic Results Rate: normal Rhythm: NSR ST Segments: no acute changes Rhythm Strip Diag. Results EP Interpretation: yes Rate: 80's Rhythm: NSR, no PVC's, no ectopy Last Vital Signs Date Time Temp Pulse Resp B/P (MAP) Pulse Ox O2 Delivery O2 Flow Rate FiO2 06/09/17 20:50 98.9 80 16 114/45 100 Room Air Status: improved Disposition: ADMITTED INPATIENT Condition: Critical Referrals: NON PHYSICIAN (PCP) AMANDO RASCON D.O. Jun 09, 2017 23:30
[2017-06-09 23:35] VITALS: BP 124/62
[2017-06-10] VITALS (11 sets, daily range): BP systolic 115–162; BP diastolic 51–78
[2017-06-10] MEDS: D5NS 1,000 ML IV SCH ×2 (05:00→15:47)
[2017-06-10 06:15] LABS: EOSINOPHILS % (AUTO) 3.7 % (0.0-3.0); HEMOGLOBIN 8.7 G/DL (12.0-16.0); LYMPHOCYTES % (AUTO) 22.2 % (20.0-45.0); MEAN CORPUSCULAR VOLUME 77 FL (80-99); PLATELET COUNT 353 K/UL (150-450); RED BLOOD COUNT 3.51 M/UL (4.20-5.40); WHITE BLOOD COUNT 9.1 K/UL (4.8-10.8)
[2017-06-10 06:23] LABS: ALANINE AMINOTRANSFERASE 8 U/L (12-78); ALBUMIN/GLOBULIN RATIO 0.7 (1.0-2.7); ALKALINE PHOSPHATASE 103 U/L (46-116); AMYLASE 36 U/L (25-115); ANION GAP 9 mmol/L (5-15); ASPARTATE AMINO TRANSFERASE 12 U/L (15-37); BILIRUBIN,TOTAL 0.5 MG/DL (0.2-1.0); BLOOD UREA NITROGEN 14 mg/dL (7-18); CALCIUM 8.6 MG/DL (8.5-10.1); CARBON DIOXIDE 25 MMOL/L (21-32); CHLORIDE 102 MMOL/L (98-107); CREATININE 0.9 MG/DL (0.55-1.30); SODIUM 136 MMOL/L (136-145)
--- NOTE | 2017-06-10 09:52 | GI Initial Consult Note ---
Pamela Villelaoi N.P. 06/10/17 0952: History of Present Illness General Date patient seen: Jun 10, 2017 Time patient seen: 09:47 Reason for Hospitalization: Abnormal Labs Referring physician: DEWAYNE ROWAN Reason for Consultation: UGIB Present Illness HPI This patient presents accompanied by her family. She presents for abnormal labs. Apparently she had a hip fracture last year. She has been here at [facility] for 3 months. She left before she was supposed to leave because her wanted her and home. She did go to a rehabilitation facility. However, for the past few weeks he has been weaker than usual and been poorly. She did see her primary care physician yesterday and underwent basic lab work. She was called by her primary care physician to come to the emergency department because of low hemoglobin. When I inquired into the color of her stool her states that it is black in color. She denies pain. She denies shortness of breath. She denies lightheadedness. She denies fever or chills. She has no other complaints. GI consulted for melena. HPI noted above. Reports of melena from the . Pt seen on floor, awake A&Ox4 NAD with no active s/sx of N/V/D. No active hematemesis or coffee grounds noted at this time. Resting in bed. She presents today with generalized weakness, anemia with low Hgb requiring blood transfusion and mild troponin elevation. Unknown history of endoscopies / colonoscopies. Home Meds Reported Medications Insulin Regular, Human* (NOVOLIN R*) 100 Unit/1 Ml Vial, 0 SUBQ SLIDING SCALE, UNITS 06/09/17 Benzalkonium Chloride (NEOSPORIN) 68 Ml Foam..ml., 68 ML TP, ML 06/09/17 Omeprazole (OMEPRAZOLE) 40 Mg Capsule.dr, 40 MG ORAL DAILY, CAP 06/09/17 Apixaban (ELIQUIS) 5 Mg Tablet, 5 MG PO BID, TAB 06/09/17 Insulin Glargine (Lantus) 100 Unit/1 Ml Vial, 20 UNITS SUBQ BID 03/16/17 Donepezil Hcl* (ARICEPT*) 5 Mg Tablet, 5 MG ORAL DAILY, TAB 02/01/17 Dextran 70/Hypromellose (ARTIFICIAL TEARS EYE DROPS*) 15 Ml Drops, 2 DROP BOTH EYES Q2 Y for EYE DRYNESS, #15 ML 0 Refills 02/01/17 Sertraline Hcl* (ZOLOFT*) 50 Mg Tablet, 50 MG ORAL DAILY, TAB 01/29/17 Glipizide (GLIPIZIDE) 10 Mg Tablet, 10 MG PO BID, TAB 01/29/17 Discontinued Reported Medications Zinc Oxide (DESITIN) 57 Gm Cream..g., 57 GM TP 03/16/17 Menthol/Zinc Oxide (CALMOSEPTINE OINTMENT) 71 Gm Oint...g., 71 GM TP 03/16/17 Ondansetron* (ZOFRAN*) 4 Mg Tablet, 4 MG ORAL Q4HR Y for Nausea & Vomiting, TAB 03/16/17 Pantoprazole* (PROTONIX*) 40 Mg Tablet.dr, 40 MG ORAL AC, TAB 02/01/17 Insulin Aspart (NOVOLOG) 100 Unit/1 Ml Cartridge, 0 SQ AC+HS 02/01/17 Hydrocodone Bit/Acetaminophen 5-325* (NORCO 5-325*) 1 Each Tablet, 1 TAB ORAL Q4H Y for For Pain, TAB 0 Refills 02/01/17 Hydrocodone Bit/Acetaminophen 10-325* (NORCO 10-325*) 1 Each Tablet, 1 TAB ORAL Q4H Y for For Pain, TAB 0 Refills PRN PAIN 02/01/17 Acetaminophen* (ACETAMINOPHEN 325MG TABLET*) 325 Mg Tablet, 325 MG ORAL Q4H Y for Fever/Headache/Mild Pain, TAB 02/01/17 Discontinued Scripts Rivaroxaban (XARELTO) 15 Mg Tablet, 15 MG ORAL BID for 18 Days, TAB Prov:ALBINO CHAUDHRY 03/21/17 Med list reviewed/reconciled: Yes Allergies: Coded Allergies: No Known Allergies (Unverified , 01/27/17) Patient History History Provided By: Patient, Medical Record PMH Narrative Past Medical History: see triage record, CVA/TIA, dementia Past Surgical History: other - Hip replacement Social History: Denies: smoking, alcohol use, drug use Reviewed Nursing Documentation: PMH: Agreed, PSxH: Agreed Nursing Documentation-PMH Past Medical History: No History, Except For Hx Hypertension: Yes Hx Diabetes: Yes Hx Cancer: No Hx Gastrointestinal Problems: No History Of Psychiatric Problem: Yes - Depression Hx Neurological Problems: Yes - dementia 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 Hx Dementia: Yes Hx Alzheimer's Disease: Yes Social History: Denies: smoking, alcohol use, drug use, other Review of Systems All Other Systems: negative except mentioned in HPI Physical Exam Vital Signs Date Time Temp Pulse Resp B/P (MAP) Pulse Ox O2 Delivery O2 Flow Rate FiO2 06/09/17 16:17 98.8 85 16 110/47 97 Room Air Sp02 EP Interpretation: reviewed, normal Labs Laboratory Tests Test 06/09/17 17:15 06/09/17 19:17 06/10/17 05:30 White Blood Count 9.5 K/UL (4.8-10.8) 9.1 K/UL (4.8-10.8) Red Blood Count 2.52 M/UL (4.20-5.40) L 3.51 M/UL (4.20-5.40) L Hemoglobin 5.3 G/DL (12.0-16.0) *L 8.7 G/DL (12.0-16.0) #L Hematocrit 17.7 % (37.0-47.0) L 27.0 % (37.0-47.0) #L Mean Corpuscular Volume 70 FL (80-99) L 77 FL (80-99) #L Mean Corpuscular Hemoglobin 20.9 PG (27.0-31.0) L 24.6 PG (27.0-31.0) L Mean Corpuscular Hemoglobin Concent 29.7 G/DL (32.0-36.0) L 32.1 G/DL (32.0-36.0) Red Cell Distribution Width 17.4 % (11.6-14.8) H 19.0 % (11.6-14.8) H Platelet Count 414 K/UL (150-450) 353 K/UL (150-450) Mean Platelet Volume 6.0 FL (6.5-10.1) L 6.3 FL (6.5-10.1) L Neutrophils (%) (Auto) % (45.0-75.0) 63.0 % (45.0-75.0) Lymphocytes (%) (Auto) % (20.0-45.0) 22.2 % (20.0-45.0) Monocytes (%) (Auto) % (1.0-10.0) 10.0 % (1.0-10.0) Eosinophils (%) (Auto) % (0.0-3.0) 3.7 % (0.0-3.0) H Basophils (%) (Auto) % (0.0-2.0) 1.0 % (0.0-2.0) Differential Total Cells Counted 100 Neutrophils % (Manual) 66 % (45-75) Lymphocytes % (Manual) 14 % (20-45) L Monocytes % (Manual) 12 % (1-10) H Eosinophils % (Manual) 5 % (0-3) H Basophils % (Manual) 3 % (0-2) H Band Neutrophils 0 % (0-8) Nucleated Red Blood Cells 1 /100 WBC Other Cell Type Pathologist comment Platelet Estimate Adequate Platelet Morphology Normal Polychromasia 1+ Hypochromasia 3+ Anisocytosis 1+ Microcytosis 3+ Prothrombin Time 10.2 SEC (9.30-11.50) 10.4 SEC (9.30-11.50) Prothromb Time International Ratio 1.0 (0.9-1.1) 1.0 (0.9-1.1) Activated Partial Thromboplast Time 25 SEC (23-33) 27 SEC (23-33) Sodium Level 136 MMOL/L (136-145) 136 MMOL/L (136-145) Potassium Level 5.0 MMOL/L (3.5-5.1) 4.0 MMOL/L (3.5-5.1) Chloride Level 100 MMOL/L (98-107) 102 MMOL/L (98-107) Carbon Dioxide Level 29 MMOL/L (21-32) 25 MMOL/L (21-32) Anion Gap 7 mmol/L (5-15) 9 mmol/L (5-15) Blood Urea Nitrogen 16 mg/dL (7-18) 14 mg/dL (7-18) Creatinine 1.1 MG/DL (0.55-1.30) 0.9 MG/DL (0.55-1.30) Estimat Glomerular Filtration Rate mL/min (>60) mL/min (>60) Glucose Level 220 MG/DL (74-106) H 96 MG/DL (74-106) # Lactic Acid Level 1.30 mmol/L (0.66-2.22) Calcium Level 8.6 MG/DL (8.5-10.1) 8.6 MG/DL (8.5-10.1) Total Bilirubin 0.1 MG/DL (0.2-1.0) L 0.5 MG/DL (0.2-1.0) Aspartate Amino Transf (AST/SGOT) 14 U/L (15-37) L 12 U/L (15-37) L Alanine Aminotransferase (ALT/SGPT) 10 U/L (12-78) L 8 U/L (12-78) L Alkaline Phosphatase 111 U/L (46-116) 103 U/L (46-116) Total Creatine Kinase 43 U/L (26-308) Creatine Kinase MB 0.5 NG/ML (0.0-3.6) Creatine Kinase MB Relative Index 1.1 Troponin I 0.057 ng/mL (0.000-0.056) Total Protein 7.6 G/DL (6.4-8.2) 7.1 G/DL (6.4-8.2) Albumin 3.2 G/DL (3.4-5.0) L 3.0 G/DL (3.4-5.0) L Globulin 4.4 g/dL 4.1 g/dL Albumin/Globulin Ratio 0.7 (1.0-2.7) L 0.7 (1.0-2.7) L Urine Color Pale yellow Urine Appearance Slightly cloudy Urine pH 6 (4.5-8.0) Urine Specific [place] 1.010 (1.005-1.035) Urine Protein Negative (NEGATIVE) Urine Glucose (UA) 3+ (NEGATIVE) H Urine Ketones Negative (NEGATIVE) Urine Occult Blood Negative (NEGATIVE) Urine Nitrite Negative (NEGATIVE) Urine Bilirubin Negative (NEGATIVE) Urine Urobilinogen Normal MG/DL (0.0-1.0) Urine Leukocyte Esterase 3+ (NEGATIVE) H Urine RBC 0-2 /HPF (0 - 2) Urine WBC 30-40 /HPF (0 - 2) H Urine Squamous Epithelial Cells Few /LPF (NONE/OCC) Urine Bacteria Few /HPF (NONE) Amylase Level 36 U/L (25-115) Lipase 74 U/L (73-393) General Appearance: well appearing, no apparent distress, alert Head: normocephalic EENT: PERRL/EOMI, normal ENT inspection Neck: supple Respiratory: normal breath sounds, no respiratory distress Cardiovascular: normal rate Gastrointestinal: normal inspection, non tender, soft, normal bowel sounds, non -distended Rectal: deferred Genitourinary: no CVA tenderness Musculoskeletal: normal inspection, back normal Neurologic: normal inspection, alert, oriented x3, responsive Psychiatric: normal inspection, judgement/insight normal, memory normal Skin: normal inspection, normal color, no rash, warm/dry, palpation normal, well hydrated Lymphatic: normal inspection, no adenopathy Current Medications Current Medications Medications (Trade) Dose Ordered Sig/Jayme Route PRN Reason Start Time Stop Time Status Last Admin Dose Admin Acetaminophen (Tylenol) 650 mg Q4H PRN ORAL fever (temp>100.5F) 06/09/17 20:15 07/09/17 20:14 Al Hydroxide/Mg Hydroxide (Mylanta II) 30 ml Q6H PRN ORAL dyspepsia 06/09/17 20:15 07/09/17 20:14 Dextrose (Dextrose 50%) STAT PRN IV Hypoglycemia 06/09/17 20:15 07/09/17 20:14 Dextrose/Sodium Chloride 1,000 ml @ 100 mls/hr Q10H IV 06/09/17 20:30 07/09/17 20:29 06/10/17 05:00 Diphenhydramine HCl (Benadryl) 25 mg Q6H PRN ORAL Itching/Pruritis 06/09/17 20:15 07/09/17 20:14 Morphine Sulfate (Morphine Sulfate) 2 mg Q4H PRN IVP severe Pain (Pain Scale 7-10) 06/09/17 20:15 06/16/17 20:14 Nitroglycerin (Ntg) 0.4 mg Q5M X 3 DOSES PRN SL Prn Chest Pain 06/09/17 20:15 07/09/17 20:14 Ondansetron HCl (Zofran) 4 mg Q6H PRN IVP Nausea & Vomiting 06/09/17 20:15 07/09/17 20:14 Polyethylene Glycol (Miralax) 17 gm HSPRN PRN ORAL Constipation 06/09/17 20:15 07/09/17 20:14 Temazepam (Restoril) 15 mg HSPRN PRN ORAL Insomnia 06/09/17 20:15 06/16/17 20:14 Vitamin A/Vitamin D (A & D Oint) 1 applic EVERY 12 HOURS TOPIC 06/10/17 09:00 07/10/17 08:59 GI: Plan Problems: (1) UGI bleed (2) Anemia (3) Alzheimer's dementia (4) Diabetes mellitus, type II Plan EGD to be scheduled for patient today. - consent pending - maintain NPO + IVFs PPI BID prn transfusions addition recommendations to follow. Discussed with Dr. Kumar. Thank you for this patient referral, we will follow. GABRIELLA KUMAR 06/10/17 1109: History of Present Illness General Reason for Hospitalization: Abnormal Labs Present Illness Home Meds Reported Medications Insulin Regular, Human* (NOVOLIN R*) 100 Unit/1 Ml Vial, 0 SUBQ SLIDING SCALE, UNITS 06/09/17 Benzalkonium Chloride (NEOSPORIN) 68 Ml Foam..ml., 68 ML TP, ML 06/09/17 Omeprazole (OMEPRAZOLE) 40 Mg Capsule.dr, 40 MG ORAL DAILY, CAP 06/09/17 Apixaban (ELIQUIS) 5 Mg Tablet, 5 MG PO BID, TAB 06/09/17 Insulin Glargine (Lantus) 100 Unit/1 Ml Vial, 20 UNITS SUBQ BID 03/16/17 Donepezil Hcl* (ARICEPT*) 5 Mg Tablet, 5 MG ORAL DAILY, TAB 02/01/17 Dextran 70/Hypromellose (ARTIFICIAL TEARS EYE DROPS*) 15 Ml Drops, 2 DROP BOTH EYES Q2 Y for EYE DRYNESS, #15 ML 0 Refills 02/01/17 Sertraline Hcl* (ZOLOFT*) 50 Mg Tablet, 50 MG ORAL DAILY, TAB 01/29/17 Glipizide (GLIPIZIDE) 10 Mg Tablet, 10 MG PO BID, TAB 01/29/17 Discontinued Reported Medications Zinc Oxide (DESITIN) 57 Gm Cream..g., 57 GM TP 03/16/17 Menthol/Zinc Oxide (CALMOSEPTINE OINTMENT) 71 Gm Oint...g., 71 GM TP 03/16/17 Ondansetron* (ZOFRAN*) 4 Mg Tablet, 4 MG ORAL Q4HR Y for Nausea & Vomiting, TAB 03/16/17 Pantoprazole* (PROTONIX*) 40 Mg Tablet.dr, 40 MG ORAL AC, TAB 02/01/17 Insulin Aspart (NOVOLOG) 100 Unit/1 Ml Cartridge, 0 SQ AC+HS 02/01/17 Hydrocodone Bit/Acetaminophen 5-325* (NORCO 5-325*) 1 Each Tablet, 1 TAB ORAL Q4H Y for For Pain, TAB 0 Refills 02/01/17 Hydrocodone Bit/Acetaminophen 10-325* (NORCO 10-325*) 1 Each Tablet, 1 TAB ORAL Q4H Y for For Pain, TAB 0 Refills PRN PAIN 02/01/17 Acetaminophen* (ACETAMINOPHEN 325MG TABLET*) 325 Mg Tablet, 325 MG ORAL Q4H Y for Fever/Headache/Mild Pain, TAB 02/01/17 Discontinued Scripts Rivaroxaban (XARELTO) 15 Mg Tablet, 15 MG ORAL BID for 18 Days, TAB Prov:ISIDOROALBINO 03/21/17 Allergies: Coded Allergies: No Known Allergies (Unverified , 01/27/17) GI: Plan Plan The patient was seen and examined at bedside and all new and available data was reviewed in the patients chart. I agree with the above findings, impression and plan. (Patient seen earlier today. Signature stamp does not reflect patient encounter time.). - MD Tika Gordon Anh Tristen NIsmael Jun 10, 2017 09:52 GABRIELLA KUMAR Jun 10, 2017 11:09
--- NOTE | 2017-06-10 10:12 | Pre-Procedure Note/Attestation ---
Pre-Procedure Note/Attestation Complete Prior to Procedure Planned Procedure: not applicable Procedure Narrative: egd Indications for Procedure Pre-Operative Diagnosis: gib Attestation I attest that I discussed the nature of the procedure; its benefits; risks and complications; and alternatives (and the risks and benefits of such alternatives ), prior to the procedure, with the patient (or the patient's legal treasury representative). I attest that, if there was a reasonable possibility of needing a blood transfusion, the patient (or the patient's legal treasury representative) was given the [facility] standardized written summary, pursuant to the [employer] Blood Safety Act ([place] Health and Safety Code # 1645, as amended). I attest that I re-evaluated the patient just prior to the surgery and that there has been no change in the patient's H&P, except as documented below: GABRIELLA KUMAR Jun 10, 2017 10:11
[2017-06-10] MEDS: Vitamin A&D Oint 2oz Tube TOPIC SCH ×2 (10:35→22:37)
[2017-06-10] MEDS ORDERED: Pantoprazole Inj ONE (10:39)
[2017-06-10] MEDS ORDERED: Pantoprazole Inj IVP SCH (10:45)
[2017-06-10] MEDS ORDERED: Lidocaine 1% MPF 10mg/ml 5ml ONE ×2 (13:30→14:00)
[2017-06-10] MEDS ORDERED: D5NS 1000ml IV ONE (13:30)
[2017-06-10] MEDS ORDERED: Propofol 200mg/20ml IV ONE ×2 (13:30→14:00)
--- NOTE | 2017-06-10 13:32 | Endoscopy Procedure Note ---
Endoscopy Procedure Note Indication for Procedure: gib Procedures Performed: EGD Operative Findings/Diagnosis: gastritis Specimen: yes Pt Tolerated Procedure Well: Yes Estimated Blood Loss: none Anesthesiologist: terrance Anesthesia: MAC Implant(s) used?: No 50 yrs or older w/o bx or poly: Not Applicable 10yrs. F/U not recommended: Not Applicable GABRIELLA KUMAR Jun 10, 2017 13:32
--- NOTE | 2017-06-10 13:39 | Consultation ---
History of Present Illness General Date patient seen: Jun 10, 2017 Chief Complaint: Abnormal Labs Referring physician: DEWAYNE ROWAN Reason for Consultation: UGIB Present Illness HPI 77 year old female with hx of dementia, CVA, DM, HTN presented to ER accompanied by her family. She did see her primary care physician yesterday She was called by her primary care physician to come to the emergency department because of low hemoglobin. Reportedly her stool has been black in color. She denies pain. She denies shortness of breath. She denies lightheadedness. Her Hemoglobin was 5 and she is scheduled to receive two units of prbc. She is a poor historian and doenst talk even in mohawk. Allergies: Coded Allergies: No Known Allergies (Unverified , 01/27/17) Medication History Scheduled Apixaban (Eliquis), 5 MG PO BID, (Reported) Donepezil Hcl* (Aricept*), 5 MG ORAL DAILY, (Reported) Glipizide (Glipizide), 10 MG PO BID, (Reported) Insulin Glargine (Lantus), 20 UNITS SUBQ BID, (Reported) Insulin Regular, Human* (Novolin R*), 0 SUBQ SLIDING SCALE, (Reported) Omeprazole (Omeprazole), 40 MG ORAL DAILY, (Reported) Sertraline Hcl* (Zoloft*), 50 MG ORAL DAILY, (Reported) Scheduled PRN Dextran 70/Hypromellose (Artificial Tears Eye Drops*), 2 DROP BOTH EYES Q2 PRN for EYE DRYNESS, (Reported) Miscellaneous Medications Benzalkonium Chloride (Neosporin), 68 ML TP, (Reported) Discontinued Medications Acetaminophen* (Acetaminophen 325MG Tablet*), 325 MG ORAL Q4H PRN for Fever/ Headache/Mild Pain, (Reported) Discontinued Reason: Pt stopped taking med Hydrocodone Bit/Acetaminophen 10-325* ([place]utz 10-325*), 1 TAB ORAL Q4H PRN for For Pain, (Reported) Discontinued Reason: Pt stopped taking med Hydrocodone Bit/Acetaminophen 5-325* ([place] 5-325*), 1 TAB ORAL Q4H PRN for For Pain, (Reported) Discontinued Reason: Pt stopped taking med Insulin Aspart (Novolog), 0 SQ AC+HS, (Reported) Discontinued Reason: Pt stopped taking med Menthol/Zinc Oxide (Calmoseptine Ointment), 71 GM TP, (Reported) Discontinued Reason: Pt stopped taking med Ondansetron* (Zofran*), 4 MG ORAL Q4HR PRN for Nausea & Vomiting, (Reported) Discontinued Reason: Pt stopped taking med Pantoprazole* (Protonix*), 40 MG ORAL AC, (Reported) Discontinued Reason: Pt stopped taking med Rivaroxaban (Xarelto), 15 MG ORAL BID Discontinued Reason: Pt stopped taking med Zinc Oxide (Desitin), 57 GM TP, (Reported) Discontinued Reason: Pt stopped taking med Patient History Healthcare decision maker Resuscitation status Full Code Advanced Directive on File No Past Medical/Surgical History Past Medical/Surgical History: (1) Alzheimer's dementia (2) History of CVA (cerebrovascular accident) (3) DVT (deep venous thrombosis) (4) Diabetes Review of Systems Constitutional: Reports: malaise, weakness All Other Systems: negative except mentioned in HPI Physical Exam General Appearance: WD/WN Lines, tubes and drains: peripheral HEENT: normocephalic, atraumatic Neck: non-tender, normal alignment Breasts: no masses Cardiovascular/Chest: normal peripheral pulses Abdomen: normal bowel sounds, non tender Genitourinary/Rectal: normal genital exam, normal rectal exam Extremities: normal range of motion, non-tender Last 24 Hour Vital Signs Date Time Temp Pulse Resp B/P (MAP) Pulse Ox O2 Delivery O2 Flow Rate FiO2 06/10/17 08:00 97.9 73 18 148/78 96 Room Air 06/10/17 07:48 85 06/10/17 04:00 74 06/10/17 02:35 98.8 76 18 145/58 97 Room Air 06/10/17 02:09 98.8 76 18 145/58 97 Room Air 06/10/17 00:20 98.8 70 18 115/51 98 Room Air 06/10/17 00:20 98.8 70 18 06/10/17 00:05 98.8 77 16 06/10/17 00:05 98.8 77 21 119/55 98 Room Air 06/09/17 23:35 98.8 76 16 06/09/17 23:35 98.8 76 16 124/62 98 Room Air 06/09/17 20:50 98.9 80 16 114/45 100 Room Air 06/09/17 20:50 98.9 80 19 06/09/17 20:35 98.9 81 19 06/09/17 20:35 98.9 81 19 115/50 98 Room Air 06/09/17 19:26 98.8 87 19 112/47 98 Room Air 06/09/17 19:10 92 18 122/59 98 Room Air 06/09/17 16:17 98.8 85 16 110/47 97 Room Air Intake and Output 06/09/17 06/10/17 19:00 07:00 Intake Total 1150 ml Balance 1150 ml Intake IV Total 400 ml Blood Product 750 ml # Voids 3 Laboratory Tests Test 06/09/17 17:15 06/09/17 18:23 06/09/17 19:17 06/10/17 05:30 White Blood Count 9.5 K/UL (4.8-10.8) 9.1 K/UL (4.8-10.8) Red Blood Count 2.52 M/UL (4.20-5.40) L 3.51 M/UL (4.20-5.40) L Hemoglobin 5.3 G/DL (12.0-16.0) *L 8.7 G/DL (12.0-16.0) #L Hematocrit 17.7 % (37.0-47.0) L 27.0 % (37.0-47.0) #L Mean Corpuscular Volume 70 FL (80-99) L 77 FL (80-99) #L Mean Corpuscular Hemoglobin 20.9 PG (27.0-31.0) L 24.6 PG (27.0-31.0) L Mean Corpuscular Hemoglobin Concent 29.7 G/DL (32.0-36.0) L 32.1 G/DL (32.0-36.0) Red Cell Distribution Width 17.4 % (11.6-14.8) H 19.0 % (11.6-14.8) H Platelet Count 414 K/UL (150-450) 353 K/UL (150-450) Mean Platelet Volume 6.0 FL (6.5-10.1) L 6.3 FL (6.5-10.1) L Neutrophils (%) (Auto) % (45.0-75.0) 63.0 % (45.0-75.0) Lymphocytes (%) (Auto) % (20.0-45.0) 22.2 % (20.0-45.0) Monocytes (%) (Auto) % (1.0-10.0) 10.0 % (1.0-10.0) Eosinophils (%) (Auto) % (0.0-3.0) 3.7 % (0.0-3.0) H Basophils (%) (Auto) % (0.0-2.0) 1.0 % (0.0-2.0) Differential Total Cells Counted 100 Neutrophils % (Manual) 66 % (45-75) Lymphocytes % (Manual) 14 % (20-45) L Monocytes % (Manual) 12 % (1-10) H Eosinophils % (Manual) 5 % (0-3) H Basophils % (Manual) 3 % (0-2) H Band Neutrophils 0 % (0-8) Nucleated Red Blood Cells 1 /100 WBC Other Cell Type Pathologist comment Platelet Estimate Adequate Platelet Morphology Normal Polychromasia 1+ Hypochromasia 3+ Anisocytosis 1+ Microcytosis 3+ Prothrombin Time 10.2 SEC (9.30-11.50) 10.4 SEC (9.30-11.50) Prothromb Time International Ratio 1.0 (0.9-1.1) 1.0 (0.9-1.1) Activated Partial Thromboplast Time 25 SEC (23-33) 27 SEC (23-33) Sodium Level 136 MMOL/L (136-145) 136 MMOL/L (136-145) Potassium Level 5.0 MMOL/L (3.5-5.1) 4.0 MMOL/L (3.5-5.1) Chloride Level 100 MMOL/L (98-107) 102 MMOL/L (98-107) Carbon Dioxide Level 29 MMOL/L (21-32) 25 MMOL/L (21-32) Anion Gap 7 mmol/L (5-15) 9 mmol/L (5-15) Blood Urea Nitrogen 16 mg/dL (7-18) 14 mg/dL (7-18) Creatinine 1.1 MG/DL (0.55-1.30) 0.9 MG/DL (0.55-1.30) Estimat Glomerular Filtration Rate mL/min (>60) mL/min (>60) Glucose Level 220 MG/DL (74-106) H 96 MG/DL (74-106) # Lactic Acid Level 1.30 mmol/L (0.66-2.22) Calcium Level 8.6 MG/DL (8.5-10.1) 8.6 MG/DL (8.5-10.1) Total Bilirubin 0.1 MG/DL (0.2-1.0) L 0.5 MG/DL (0.2-1.0) Aspartate Amino Transf (AST/SGOT) 14 U/L (15-37) L 12 U/L (15-37) L Alanine Aminotransferase (ALT/SGPT) 10 U/L (12-78) L 8 U/L (12-78) L Alkaline Phosphatase 111 U/L (46-116) 103 U/L (46-116) Total Creatine Kinase 43 U/L (26-308) Creatine Kinase MB 0.5 NG/ML (0.0-3.6) Creatine Kinase MB Relative Index 1.1 Troponin I 0.057 ng/mL (0.000-0.056) Total Protein 7.6 G/DL (6.4-8.2) 7.1 G/DL (6.4-8.2) Albumin 3.2 G/DL (3.4-5.0) L 3.0 G/DL (3.4-5.0) L Globulin 4.4 g/dL 4.1 g/dL Albumin/Globulin Ratio 0.7 (1.0-2.7) L 0.7 (1.0-2.7) L Lab Scanned Report Blood Bank/Transfusion Urine Color Pale yellow Urine Appearance Slightly cloudy Urine pH 6 (4.5-8.0) Urine Specific [place] 1.010 (1.005-1.035) Urine Protein Negative (NEGATIVE) Urine Glucose (UA) 3+ (NEGATIVE) H Urine Ketones Negative (NEGATIVE) Urine Occult Blood Negative (NEGATIVE) Urine Nitrite Negative (NEGATIVE) Urine Bilirubin Negative (NEGATIVE) Urine Urobilinogen Normal MG/DL (0.0-1.0) Urine Leukocyte Esterase 3+ (NEGATIVE) H Urine RBC 0-2 /HPF (0 - 2) Urine WBC 30-40 /HPF (0 - 2) H Urine Squamous Epithelial Cells Few /LPF (NONE/OCC) Urine Bacteria Few /HPF (NONE) Amylase Level 36 U/L (25-115) Lipase 74 U/L (73-393) Microbiology Date/Time Source Procedure Growth Status 06/09/17 19:17 Urine,Clean Catch Urine Culture - Preliminary Resulted Height (Feet): 5 Height (Inches): 4.00 Weight (Pounds): 165 Medications Current Medications Medications (Trade) Dose Ordered Sig/Jayme Route PRN Reason Start Time Stop Time Status Last Admin Dose Admin Acetaminophen (Tylenol) 650 mg Q4H PRN ORAL fever (temp>100.5F) 06/09/17 20:15 07/09/17 20:14 Al Hydroxide/Mg Hydroxide (Mylanta II) 30 ml Q6H PRN ORAL dyspepsia 06/09/17 20:15 07/09/17 20:14 Dextrose (Dextrose 50%) STAT PRN IV Hypoglycemia 06/09/17 20:15 07/09/17 20:14 Dextrose/Sodium Chloride 1,000 ml @ 100 mls/hr Q10H IV 06/09/17 20:30 07/09/17 20:29 06/10/17 05:00 Diphenhydramine HCl (Benadryl) 25 mg Q6H PRN ORAL Itching/Pruritis 06/09/17 20:15 07/09/17 20:14 Morphine Sulfate (Morphine Sulfate) 2 mg Q4H PRN IVP severe Pain (Pain Scale 7-10) 06/09/17 20:15 06/16/17 20:14 Nitroglycerin (Ntg) 0.4 mg Q5M X 3 DOSES PRN SL Prn Chest Pain 06/09/17 20:15 07/09/17 20:14 Ondansetron HCl (Zofran) 4 mg Q6H PRN IVP Nausea & Vomiting 06/09/17 20:15 07/09/17 20:14 Pantoprazole (Protonix) 40 mg EVERY 12 HOURS IVP 06/10/17 10:45 07/10/17 10:44 06/10/17 10:42 Polyethylene Glycol (Miralax) 17 gm HSPRN PRN ORAL Constipation 06/09/17 20:15 07/09/17 20:14 Temazepam (Restoril) 15 mg HSPRN PRN ORAL Insomnia 06/09/17 20:15 06/16/17 20:14 Vitamin A/Vitamin D (A & D Oint) 1 applic EVERY 12 HOURS TOPIC 06/10/17 09:00 07/10/17 08:59 06/10/17 10:35 Assessment/Plan Problem List: (1) History of CVA (cerebrovascular accident) ICD Codes: Z86.73 - Personal history of transient ischemic attack (TIA), and cerebral infarction without residual deficits SNOMED: 618342105 (2) DVT (deep venous thrombosis) ICD Codes: I82.409 - Acute embolism and thrombosis of unspecified deep veins of unspecified lower extremity SNOMED: 502953808 (3) Diabetes ICD Codes: E11.9 - Type 2 diabetes mellitus without complications SNOMED: 59175254 (4) Alzheimer's dementia ICD Codes: G30.9 - Alzheimer's disease, unspecified SNOMED: 92214183 (5) UGI bleed ICD Codes: K92.2 - Gastrointestinal hemorrhage, unspecified SNOMED: 52380057 (6) Anemia ICD Codes: D64.9 - Anemia, unspecified SNOMED: 254767448 Assessment/Plan npo GI evaluation iv fluids prbc prn venous doppler of legs check electrolytes LUCERO ASHBY Jun 10, 2017 13:39
[2017-06-10] MEDS ORDERED: NS 500ML IV ONE (13:40)
--- NOTE | 2017-06-10 14:04 | Anethesia Preoperative Eval ---
Anesthesia Pre-op PMH/ROS General Date of Evaluation: Jun 10, 2017 Time of Evaluation: 13:30 Anesthesiologist: silvia ASA Score: ASA 3 Mallampati Score Class I : Soft palate, uvula, fauces, pillars visible Class II: Soft palate, uvula, fauces visible Class III: Soft palate, base of uvula visible Class IV: Only hard plate visible Mallampati Classification: Class II Surgeon: sharon Diagnosis: ugib Surgical Procedure: egd Anesthesia History: none Family History: no anesthesia problems Allergies: Coded Allergies: No Known Allergies (Unverified , 01/27/17) Medications: see eMAR Past Medical History Neurologic/Psychiatric: Reports: dementia, CVA Endocrine: Reports: DM Hematology/Immune: Reports: anemia Other: obesity Anesthesia Pre-op Phys. Exam Physician Exam Last Vital Signs Date Time Temp Pulse Resp B/P (MAP) Pulse Ox O2 Delivery O2 Flow Rate FiO2 06/10/17 08:00 97.9 73 18 148/78 96 Room Air Constitutional: NAD Neurologic: CN 2-12 intact Cardiovascular: RRR Respiratory: CTA Gastrointestinal: S/NT/ND Airway Exam Mallampati Score: Class II MO: limited Neck: short TMD: 2fb ROM: limited Teeth: missing Anesthesia Pre-op A/P Labs Hematology Test 06/09/17 17:15 06/10/17 05:30 White Blood Count 9.5 K/UL (4.8-10.8) 9.1 K/UL (4.8-10.8) Red Blood Count 2.52 M/UL (4.20-5.40) L 3.51 M/UL (4.20-5.40) L Hemoglobin 5.3 G/DL (12.0-16.0) *L 8.7 G/DL (12.0-16.0) #L Hematocrit 17.7 % (37.0-47.0) L 27.0 % (37.0-47.0) #L Mean Corpuscular Volume 70 FL (80-99) L 77 FL (80-99) #L Mean Corpuscular Hemoglobin 20.9 PG (27.0-31.0) L 24.6 PG (27.0-31.0) L Mean Corpuscular Hemoglobin Concent 29.7 G/DL (32.0-36.0) L 32.1 G/DL (32.0-36.0) Red Cell Distribution Width 17.4 % (11.6-14.8) H 19.0 % (11.6-14.8) H Platelet Count 414 K/UL (150-450) 353 K/UL (150-450) Mean Platelet Volume 6.0 FL (6.5-10.1) L 6.3 FL (6.5-10.1) L Neutrophils (%) (Auto) % (45.0-75.0) 63.0 % (45.0-75.0) Lymphocytes (%) (Auto) % (20.0-45.0) 22.2 % (20.0-45.0) Monocytes (%) (Auto) % (1.0-10.0) 10.0 % (1.0-10.0) Eosinophils (%) (Auto) % (0.0-3.0) 3.7 % (0.0-3.0) H Basophils (%) (Auto) % (0.0-2.0) 1.0 % (0.0-2.0) Differential Total Cells Counted 100 Neutrophils % (Manual) 66 % (45-75) Lymphocytes % (Manual) 14 % (20-45) L Monocytes % (Manual) 12 % (1-10) H Eosinophils % (Manual) 5 % (0-3) H Basophils % (Manual) 3 % (0-2) H Band Neutrophils 0 % (0-8) Nucleated Red Blood Cells 1 /100 WBC Other Cell Type Pathologist comment Platelet Estimate Adequate Platelet Morphology Normal Polychromasia 1+ Hypochromasia 3+ Anisocytosis 1+ Microcytosis 3+ Coagulation Test 06/09/17 17:15 06/10/17 05:30 Prothrombin Time 10.2 SEC (9.30-11.50) 10.4 SEC (9.30-11.50) Prothromb Time International Ratio 1.0 (0.9-1.1) 1.0 (0.9-1.1) Activated Partial Thromboplast Time 25 SEC (23-33) 27 SEC (23-33) Chemistry Test 06/09/17 17:15 06/10/17 05:30 Sodium Level 136 MMOL/L (136-145) 136 MMOL/L (136-145) Potassium Level 5.0 MMOL/L (3.5-5.1) 4.0 MMOL/L (3.5-5.1) Chloride Level 100 MMOL/L (98-107) 102 MMOL/L (98-107) Carbon Dioxide Level 29 MMOL/L (21-32) 25 MMOL/L (21-32) Anion Gap 7 mmol/L (5-15) 9 mmol/L (5-15) Blood Urea Nitrogen 16 mg/dL (7-18) 14 mg/dL (7-18) Creatinine 1.1 MG/DL (0.55-1.30) 0.9 MG/DL (0.55-1.30) Estimat Glomerular Filtration Rate mL/min (>60) mL/min (>60) Glucose Level 220 MG/DL (74-106) H 96 MG/DL (74-106) # Lactic Acid Level 1.30 mmol/L (0.66-2.22) Calcium Level 8.6 MG/DL (8.5-10.1) 8.6 MG/DL (8.5-10.1) Total Bilirubin 0.1 MG/DL (0.2-1.0) L 0.5 MG/DL (0.2-1.0) Aspartate Amino Transf (AST/SGOT) 14 U/L (15-37) L 12 U/L (15-37) L Alanine Aminotransferase (ALT/SGPT) 10 U/L (12-78) L 8 U/L (12-78) L Alkaline Phosphatase 111 U/L (46-116) 103 U/L (46-116) Total Creatine Kinase 43 U/L (26-308) Creatine Kinase MB 0.5 NG/ML (0.0-3.6) Creatine Kinase MB Relative Index 1.1 Troponin I 0.057 ng/mL (0.000-0.056) Total Protein 7.6 G/DL (6.4-8.2) 7.1 G/DL (6.4-8.2) Albumin 3.2 G/DL (3.4-5.0) L 3.0 G/DL (3.4-5.0) L Globulin 4.4 g/dL 4.1 g/dL Albumin/Globulin Ratio 0.7 (1.0-2.7) L 0.7 (1.0-2.7) L Amylase Level 36 U/L (25-115) Lipase 74 U/L (73-393) Risk Assessment & Plan Assessment: asa3 Plan: mac Status Change Before Surgery: No Pre-Antibiotics Drug: NIDA De Oliveira Jun 10, 2017 14:04
--- NOTE | 2017-06-10 14:06 | Immediate Post-Op Evaluation ---
Immediate Post-Op Evalulation Immediate Post-Op Evalulation Procedure: egd Date of Evaluation: Jun 10, 2017 Time of Evaluation: 14:04 IV Fluids: d5/0.9ns 200ml Blood Products: none Estimated Blood Loss: negligible Blood Pressure Systolic: 162 Blood Pressure Diastolic: 66 Pulse Rate: 74 Respiratory Rate: 18 O2 Sat by Pulse Oximetry: 99 Temperature (Fahrenheit): 99.1 Pain Score (1-10): 0 Nausea: No Vomiting: No Complications none Patient Status: awake, reacts, patent Hydration Status: adequate Drug: NIDA De Oliveira Jun 10, 2017 14:06
--- NOTE | 2017-06-10 14:07 | 48 Hour Post Anesthesia Eval ---
Post Anesthesia Evaluation Procedure: egd Date of Evaluation: Jun 10, 2017 Time of Evaluation: 14:06 Blood Pressure Systolic: 148 0: 71 Pulse Rate: 72 Respiratory Rate: 18 Temperature (Fahrenheit): 99.1 O2 Sat by Pulse Oximetry: 99 Airway: patent Nausea: No Vomiting: No Pain Intensity: 0 Hydration Status: adequate Cardiopulmonary Status: stable Mental Status/LOC: patient returned to baseline Post-Anesthesia Complications: none Follow-up care needed: N/A NIDA ORTIZ Jun 10, 2017 14:07
[2017-06-10] MEDS ORDERED: fentaNYL 100 mcg/2 mL IV PRN (14:15)
[2017-06-10] MEDS ORDERED: DiphenhydrAMINE 50mg/ml Inj IVP PRN (14:15)
[2017-06-10] MEDS ORDERED: Atropine Inj 1mg/10ml Syr IV PRN (14:15)
[2017-06-10] MEDS ORDERED: Midazolam 2mg/2ml Inj IVP PRN (14:15)
--- NOTE | 2017-06-10 14:17 | Diagnostic Imaging Report ---
Indication: Dyspnea Comparison: 03/21/2017 A single view chest radiograph was obtained. Findings: Bones are osteopenic. Heart size is normal. Pulmonary vascularity is mildly prominent. No roman CHF demonstrated. IMPRESSION: Some interstitial prominence, probably chronic.
--- NOTE | 2017-06-10 18:22 | History & Physical ---
History and Physical History & Physicial Dictated for Int Med-Dr Griffin no. [id number] ALBINO CHAUDHRY Jun 10, 2017 18:22
--- NOTE | 2017-06-10 19:10 | Wound Care Consultation ---
Wound Assessment Wound Assessment #1: Wound Number: 1 Wound Present on Admission: Yes New Wound: No Status Change of Wound: No Wound Location Body Site Modif: left Wound Location Body Site: heel Wound Type: pressure ulcer Dayna Test: Does not Dayna Pressure Ulcer Stage: Deep Tissue Injury Wound Thickness: Full Thickness Wound Length: 4.0 Wound Width: 3.5 Wound Depth: utd Percent of Wound [place]/Red: 100 - deep Wound Drainage Amount: None Wound Drainage Odor: None/Absent Tissue Surrounding Wound: Erythemic Wound General Appearance: Reddened - deep Wound Assessment #2: Wound Number: 2 Wound Present on Admission: Yes New Wound: No Status Change of Wound: No Wound Location Body Site Modif: mid Wound Location Body Site: other - sacrococcygeal Wound Type: pressure ulcer Dayna Test: Does not Dayna Pressure Ulcer Stage: Deep Tissue Injury - SDTI Wound Thickness: Full Thickness Wound Length: 3.5 Wound Width: 3.0 Wound Depth: utd Percent of Wound Purple/Maroon: 100 Wound Drainage Amount: None Wound Drainage Odor: None/Absent Tissue Surrounding Wound: Intact Wound General Appearance: Reddened - purple Wound Assessment #3: Wound Number: 3 Wound Present on Admission: Yes New Wound: No Status Change of Wound: No Wound Location Body Site Modif: left, right Wound Location Body Site: leg Wound Type: scab Dayna Test: Does not Dayna Percent of Wound [place]/Red: 100 - dry Wound Drainage Amount: None Wound Drainage Odor: None/Absent Tissue Surrounding Wound: Intact Wound Comment #1 Left heel DTI pressure ulcer #2 Sacrococcygeal SDTI pressure ulcer #3 Left and right lower legs with scattered dry scabs Recommendation -Local wound care per protocol -Keep clean and dry -Optimize nutrition -Turn and reposition -Heel protector on both heels -Offload both heels -Low air loss mattress -Assess and f/u accordingly for any changes ANTONIETA AMAYA RN Jun 10, 2017 19:10
[2017-06-10] MEDS: NovoLOG Insulin Flexpen SUBQ SCH ×2 (19:33→22:38)
--- NOTE | 2017-06-10 22:00 | Consultation ---
DATE OF CONSULTATION: 06/10/2017 HISTORY OF PRESENT ILLNESS: This is a 77-year-old female with history of dementia, CVA, diabetes mellitus, hypertension who has been brought into the emergency room by her family for abnormal labs. The patient has been presenting with confusion, impairment in cognition, waxing and waning consciousness. The patient is not able to provide any history due to confusion and being disoriented, has waxing and waning consciousness. PAST PSYCHIATRIC HISTORY: The patient has a history of depression as well as dementia, has been treated with Zoloft and donepezil. PAST MEDICAL HISTORY: Significant for cerebrovascular accident, diabetes mellitus, hypertension, dementia. ALLERGIES: No known drug allergies. SUBSTANCE ABUSE HISTORY: No known history of illicit drug use or alcohol. MENTAL STATUS EXAMINATION: The patient is Beninese speaking, confused, disoriented. Mood is neutral. Affect is flat. Thought process is concrete. Thought content, no suicidal or homicidal ideation. ASSESSMENT: AXIS I: Dementia. Depression. AXIS II: Deferred AXIS III: As above AXIS IV: Low AXIS V: 20. PLAN: 1. The patient will be continued on Zoloft. 2. We will continue to follow and readjust the medications. Ilya Ramirez M.D. DR: Breanna JOB#: [id number] CC:
[2017-06-11] VITALS (8 sets, daily range): BP systolic 124–157; BP diastolic 66–90
--- NOTE | 2017-06-11 01:30 | History and Physical Report ---
DATE OF ADMISSION: 06/09/2017 CHIEF COMPLAINT: The patient is a 77-year-old female who presents with chief complaint of abnormal labs. HISTORY OF PRESENT ILLNESS: The patient was admitted to [facility] from 03/16/2017 to 03/23/2017. Please see history and physical and discharge summary dictated at that time. The patient presented to [place] emergency room on 06/09/2017. The patient apparently had seen her primary care physician and was called to return to the emergency room for low hemoglobin. Upon arrival at [place] emergency room, the patient admitted to having dark-colored stools. An initial hemoglobin was found to be 5.3. The patient was admitted for severe anemia to rule out gastrointestinal hemorrhage. REVIEW OF SYSTEMS: CONSTITUTIONAL: The patient denies weight loss or weight gain. The patient denies fevers or chills. HEENT: The patient denies ear or throat pain. The patient denies headache. CARDIOVASCULAR: The patient denies palpitations or chest pain. CHEST: The patient denies wheeze or shortness of breath. ABDOMINAL: The patient complains of dark colored stools as above. The patient denies nausea, vomiting, diarrhea, constipation. GENITOURINARY: The patient denies dysuria or increased frequency of urination. NEUROMUSCULAR: The patient denies seizures or generalized weakness. PAST MEDICAL HISTORY: Significant for: 1. Type 2 diabetes. 2. Left femoral neck fracture in January 2017. PAST SURGICAL HISTORY: Significant for: 1. One section. 2. Left hip hemiarthroplasty secondary to left femoral neck fracture in January 2017. CURRENT MEDICATIONS: 1. Eliquis 5 mg p.o. twice daily. 2. Aricept 5 mg p.o. daily. 3. Glipizide 10 mg p.o. twice daily. 4. Lantus insulin 20 units subcutaneously twice daily. 5. Regular insulin sliding scale. 6. Omeprazole 40 mg p.o. daily. 7. Zoloft 50 mg p.o. daily. ALLERGIES: No known drug allergies. SOCIAL HISTORY: The patient is and lives at home with her . The patient denies tobacco or alcohol use. PHYSICAL EXAMINATION: VITAL SIGNS: Temperature 97.8, respirations 18, pulse 72, blood pressure 139/77. GENERAL: The patient is well-developed and well-nourished female, in no apparent distress. HEENT: Eyes, pupils are equal responsive to light and accommodation. Extraocular movements are intact. NECK: Supple. No lymphadenopathy. CHEST: Lungs are clear to auscultation bilaterally without wheezes or rales. CARDIOVASCULAR: Regular rhythm and rate. S1 and S2 are normal without murmurs, rubs, or gallops. ABDOMEN: Soft, nontender, and nondistended. Positive bowel sounds. No evidence of hepatosplenomegaly. Currently, no rebound or guarding noted. EXTREMITIES: Negative for clubbing, cyanosis, or edema. RECTAL/GENITAL: Refused. NEUROLOGIC: Cranial nerves II to XII are grossly intact without focal deficits. Motor strength is 5/5 bilaterally. Deep tendon reflexes are 2+ plantar. LABORATORY STUDIES: WBC 9.5, hemoglobin 5.3, hematocrit 17.7, platelets 414,000. Sodium 136, potassium 5.0, chloride 100, CO2 29, BUN 16, creatinine 1.1, glucose 220. Troponin elevated at 0.057. ASSESSMENT: This is a 77-year-old female. 1. Gastrointestinal hemorrhage. 2. Anemia of blood loss. 3. Elevated troponin. 4. Diabetes type 2. 5. Alzheimer's dementia. TREATMENT: 1. Gastrointestinal hemorrhage/anemia. A Gastroenterology consultation obtained with Dr. Thony Zuluaga. We will follow recommendations of Gastroenterology. The patient is scheduled for endoscopy today 06/10/2017. The patient has been started empirically on intravenous Protonix. 2. Diabetes type 2. Regular insulin sliding scale has been instituted. 3. Alzheimer's dementia. Continue Aricept as above. 4. Elevated troponin. A Cardiology consultation is pending with Dr. Iyer. Magan More M.D. DR: Arley JOB#: [id number] CC:
[2017-06-11] MEDS: D5NS 1,000 ML IV SCH ×3 (02:25→18:26)
--- NOTE | 2017-06-11 04:00 | Procedure Note ---
DATE OF PROCEDURE: 06/10/2017 SURGEON: Thony Zuluaga M.D. PROCEDURE: Upper endoscopy with biopsy. ANESTHESIA: Per Dr. Sunshine. INSTRUMENT: Olympus adult flexible endoscope. INDICATION: Upper GI bleeding. REASON FOR PROCEDURE: The procedure, risks, benefits, and possible consequences, including hemorrhage, aspiration, perforation and infection, and alternative treatments, were explained to the patient/legal guardian by Dr. Thony Zuluaga and the patient/legal guardian understood and accepted these risks. DESCRIPTION OF PROCEDURE: After informed consent was obtained and the patient was adequately sedated, Olympus upper endoscope was advanced from mouth into second portion of the duodenum and retroflexion was performed in the stomach. The patient had evidence of atrophic gastritis. Random biopsy from body and antrum was obtained to rule out H. pylori infection. Under retroflexion, the patient had evidence of small hiatal hernia. No obvious evidence of any upper GI bleeding at this time. The patient tolerated the procedure well without any complication. SUMMARY OF FINDINGS: 1. Atrophic gastritis, status post biopsy. 2. Small hiatal hernia. RECOMMENDATIONS: 1. Follow biopsy results and treat accordingly. 2. Continue on PPI. We will change it to daily. 3. We will recommend colonoscopy on Tuesday. I want to thank, Dr. Abdirahman Griffin, for this kind referral. Thony Zuluaga M.D. DR: MARIELOS JOB#: [id number] CC: Abdirahman Griffin M.D.; Fax#: [phone]
[2017-06-11 05:39] LABS: BASOPHILS % (AUTO) 1.1 % (0.0-2.0); EOSINOPHILS % (AUTO) 4.7 % (0.0-3.0); HEMATOCRIT 28.6 % (37.0-47.0); HEMOGLOBIN 9.1 G/DL (12.0-16.0); LYMPHOCYTES % (AUTO) 21.7 % (20.0-45.0); MEAN CORPUSCULAR VOLUME 76 FL (80-99); MONOCYTES % (AUTO) 10.8 % (1.0-10.0); NEUTROPHILS % (AUTO) 61.8 % (45.0-75.0); PLATELET COUNT 367 K/UL (150-450); RED BLOOD COUNT 3.75 M/UL (4.20-5.40); RED CELL DISTRIBUTION WIDTH 19.3 % (11.6-14.8); WHITE BLOOD COUNT 9.5 K/UL (4.8-10.8)
[2017-06-11] MEDS: NovoLOG Insulin Flexpen SUBQ SCH ×4 (08:03→21:58)
[2017-06-11 08:17] LABS: PHOSPHORUS 3.7 MG/DL (2.5-4.9)
[2017-06-11 08:20] LABS: SODIUM 137 MMOL/L (136-145)
[2017-06-11 08:21] LABS: ALANINE AMINOTRANSFERASE 7 U/L (12-78); ALBUMIN 3.1 G/DL (3.4-5.0); ALBUMIN/GLOBULIN RATIO 0.7 (1.0-2.7); ALKALINE PHOSPHATASE 110 U/L (46-116); ANION GAP 7 mmol/L (5-15); ASPARTATE AMINO TRANSFERASE 11 U/L (15-37); BILIRUBIN,TOTAL 0.6 MG/DL (0.2-1.0); BLOOD UREA NITROGEN 13 mg/dL (7-18); CARBON DIOXIDE 26 MMOL/L (21-32); CHLORIDE 104 MMOL/L (98-107)
--- NOTE | 2017-06-11 09:34 | Pulmonology Progress Note ---
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 DTI PLAN OF CARE LIAT initially NPO and IVF Protonix gtt GI follows s/p EGD with findings of atrophic gastritis, no evidence of active bleeding started on diet as tolerated a/emetic prn PPI bid, no bleeding colonoscopy on Tuesday check stool OB Venous Duplex LE with chronic recanalized thrombus LLE BS management wt SSI, IkS2t-[id number], not at goal , add Levemir BP management wound care as per wound nurse recommendations urine cx + Strep, abx transfer to [place] case discussed and evaluated by supervising physician Subjective Allergies: Coded Allergies: No Known Allergies (Unverified , 01/27/17) Subjective HH stable after transfusion dentis abd pain , bleeding no CP, no SOB no leucocytosis, afebrile Objective Last 24 Hour Vital Signs Date Time Temp Pulse Resp B/P (MAP) Pulse Ox O2 Delivery O2 Flow Rate FiO2 06/11/17 08:00 98.5 76 20 157/90 97 Room Air 06/11/17 05:07 97.7 70 18 140/70 97 Room Air 06/11/17 04:00 97.7 70 18 140/70 97 Room Air 06/11/17 03:48 66 06/11/17 00:00 76 06/11/17 00:00 98.2 74 20 124/68 97 Room Air 06/10/17 20:00 78 06/10/17 20:00 98.6 78 22 133/63 97 Room Air 06/10/17 16:00 80 06/10/17 16:00 97.9 85 16 135/62 96 Room Air 06/10/17 14:13 74 20 158/72 100 Room Air 72 06/10/17 14:07 73 20 148/71 100 Room Air 72 06/10/17 14:07 72 18 99 06/10/17 14:06 74 18 99 06/10/17 14:02 75 20 162/66 100 Nasal Cannula 2.0 72 06/10/17 13:57 76 20 142/69 100 Nasal Cannula 2.0 72 2/2/18 12:00 77 06/10/17 12:00 97.9 72 18 139/77 97 Room Air Intake and Output 06/10/17 06/11/17 19:00 07:00 Intake Total 1620 ml 1250 ml Output Total 700 ml Balance 1620 ml 550 ml Intake Oral 320 ml 200 ml IV Total 1300 ml 1050 ml Output Urine Total 700 ml # Bowel Movements 1 1 General Appearance: no acute distress HEENT: normocephalic, atraumatic Respiratory/Chest: chest wall non-tender, no respiratory distress, no accessory muscle use Cardiovascular: normal rate, regularly irregular - SR on tele Abdomen: soft, non tender Extremities: no edema, pedal pulses normal Neurologic/Psychiatric: alert, responsive, other - DRESS DRAPER Microbiology Date/Time Source Procedure Growth Status 06/09/17 19:17 Urine,Clean Catch Urine Culture - Preliminary Resulted Laboratory Tests 06/11/17 05:00: White Blood Count 9.5, Red Blood Count 3.75L, Hemoglobin 9.1L, Hematocrit 28.6L , Mean Corpuscular Volume 76L, Mean Corpuscular Hemoglobin 24.3L, Mean Corpuscular Hemoglobin Concent 31.8L, Red Cell Distribution Width 19.3H, Platelet Count 367, Mean Platelet Volume 6.8, Neutrophils (%) (Auto) 61.8, Lymphocytes (%) (Auto) 21.7, Monocytes (%) (Auto) 10.8H, Eosinophils (%) (Auto) 4.7H, Basophils (%) (Auto) 1.1, Prothrombin Time 10.4, Prothromb Time International Ratio 1.0, Activated Partial Thromboplast Time 25, Sodium Level 137, Potassium Level 4.0, Chloride Level 104, Carbon Dioxide Level 26, Anion Gap 7, Blood Urea Nitrogen 13, Creatinine 1.0, Estimat Glomerular Filtration Rate , Glucose Level 104, Hemoglobin A1c 8.0H, Calcium Level 9.0, Phosphorus Level 3.7, Magnesium Level 2.0, Total Bilirubin 0.6, Aspartate Amino Transf (AST /SGOT) 11L, Alanine Aminotransferase (ALT/SGPT) 7L, Alkaline Phosphatase 110, Total Protein 7.4, Albumin 3.1L, Globulin 4.3, Albumin/Globulin Ratio 0.7L, Helicobacter pylori IgG Antibody [Pending] Current Medications Medications (Trade) Dose Ordered Sig/Jayme Route PRN Reason Start Time Stop Time Status Last Admin Dose Admin Acetaminophen (Tylenol) 650 mg Q4H PRN ORAL fever (temp>100.5F) 06/09/17 20:15 07/09/17 20:14 06/10/17 17:29 Acetaminophen (Tylenol) 650 mg Q4H PRN ORAL mild pain,headache 06/10/17 18:25 07/10/17 18:24 Al Hydroxide/Mg Hydroxide (Mylanta II) 30 ml Q6H PRN ORAL dyspepsia 06/09/17 20:15 07/09/17 20:14 Dextrose (Dextrose 50%) STAT PRN IV Hypoglycemia 06/09/17 20:15 07/09/17 20:14 Dextrose/Sodium Chloride 1,000 ml @ 100 mls/hr Q10H IV 06/09/17 20:30 07/09/17 20:29 06/11/17 02:25 Diphenhydramine HCl (Benadryl) 25 mg Q6H PRN ORAL Itching/Pruritis 06/09/17 20:15 07/09/17 20:14 Insulin Aspart (NovoLOG) BEFORE MEALS AND HS SUBQ 06/10/17 19:14 07/10/17 19:13 06/11/17 08:03 Morphine Sulfate (Morphine Sulfate) 2 mg Q4H PRN IVP severe Pain (Pain Scale 7-10) 06/09/17 20:15 06/16/17 20:14 Nitroglycerin (Ntg) 0.4 mg Q5M X 3 DOSES PRN SL Prn Chest Pain 06/09/17 20:15 07/09/17 20:14 Ondansetron HCl (Zofran) 4 mg Q6H PRN IVP Nausea & Vomiting 06/09/17 20:15 07/09/17 20:14 Polyethylene Glycol (Miralax) 17 gm HSPRN PRN ORAL Constipation 06/09/17 20:15 07/09/17 20:14 Temazepam (Restoril) 15 mg HSPRN PRN ORAL Insomnia 06/09/17 20:15 06/16/17 20:14 Vitamin A/Vitamin D (A & D Oint) 1 applic EVERY 12 HOURS TOPIC 06/10/17 09:00 07/10/17 08:59 06/10/17 22:37 Fernanda Rodriguez NP ([facility]) Jun 11, 2017 09:34
[2017-06-11] MEDS: Vitamin A&D Oint 2oz Tube TOPIC SCH ×2 (09:48→21:47)
--- NOTE | 2017-06-11 10:40 | General Progress Note ---
Assessment/Plan Problem List: (1) Anemia ICD Codes: D64.9 - Anemia, unspecified SNOMED: 954815550 (2) History of CVA (cerebrovascular accident) ICD Codes: Z86.73 - Personal history of transient ischemic attack (TIA), and cerebral infarction without residual deficits SNOMED: 824986616 (3) Diabetes ICD Codes: E11.9 - Type 2 diabetes mellitus without complications SNOMED: 51404967 (4) Alzheimer's dementia ICD Codes: G30.9 - Alzheimer's disease, unspecified SNOMED: 77853345 (5) Diabetes mellitus, type II ICD Codes: E11.9 - Type 2 diabetes mellitus without complications SNOMED: 61570091 Assessment/Plan s/p EGD no active upper GIB atrophic gastritis fu stool ob plan Colonoscopy on Tuesday Subjective ROS Limited/Unobtainable: Yes Allergies: Coded Allergies: No Known Allergies (Unverified , 01/27/17) Subjective no event Objective Last 24 Hour Vital Signs Date Time Temp Pulse Resp B/P (MAP) Pulse Ox O2 Delivery O2 Flow Rate FiO2 06/11/17 08:00 98.5 76 20 157/90 97 Room Air 06/11/17 08:00 68 06/11/17 05:07 97.7 70 18 140/70 97 Room Air 06/11/17 04:00 97.7 70 18 140/70 97 Room Air 06/11/17 03:48 66 06/11/17 00:00 76 06/11/17 00:00 98.2 74 20 124/68 97 Room Air 06/10/17 20:00 78 06/10/17 20:00 98.6 78 22 133/63 97 Room Air 06/10/17 16:00 80 06/10/17 16:00 97.9 85 16 135/62 96 Room Air 06/10/17 14:13 74 20 158/72 100 Room Air 72 06/10/17 14:07 73 20 148/71 100 Room Air 72 06/10/17 14:07 72 18 99 06/10/17 14:06 74 18 99 06/10/17 14:02 75 20 162/66 100 Nasal Cannula 2.0 72 06/10/17 13:57 76 20 142/69 100 Nasal Cannula 2.0 72 06/10/17 12:00 77 06/10/17 12:00 97.9 72 18 139/77 97 Room Air Intake and Output 06/10/17 06/11/17 19:00 07:00 Intake Total 1620 ml 1250 ml Output Total 700 ml Balance 1620 ml 550 ml Intake Oral 320 ml 200 ml IV Total 1300 ml 1050 ml Output Urine Total 700 ml # Bowel Movements 1 1 Laboratory Tests 06/11/17 05:00: White Blood Count 9.5, Red Blood Count 3.75L, Hemoglobin 9.1L, Hematocrit 28.6L , Mean Corpuscular Volume 76L, Mean Corpuscular Hemoglobin 24.3L, Mean Corpuscular Hemoglobin Concent 31.8L, Red Cell Distribution Width 19.3H, Platelet Count 367, Mean Platelet Volume 6.8, Neutrophils (%) (Auto) 61.8, Lymphocytes (%) (Auto) 21.7, Monocytes (%) (Auto) 10.8H, Eosinophils (%) (Auto) 4.7H, Basophils (%) (Auto) 1.1, Prothrombin Time 10.4, Prothromb Time International Ratio 1.0, Activated Partial Thromboplast Time 25, Sodium Level 137, Potassium Level 4.0, Chloride Level 104, Carbon Dioxide Level 26, Anion Gap 7, Blood Urea Nitrogen 13, Creatinine 1.0, Estimat Glomerular Filtration Rate , Glucose Level 104, Hemoglobin A1c 8.0H, Calcium Level 9.0, Phosphorus Level 3.7, Magnesium Level 2.0, Total Bilirubin 0.6, Aspartate Amino Transf (AST /SGOT) 11L, Alanine Aminotransferase (ALT/SGPT) 7L, Alkaline Phosphatase 110, Total Protein 7.4, Albumin 3.1L, Globulin 4.3, Albumin/Globulin Ratio 0.7L, Helicobacter pylori IgG Antibody [Pending] Height (Feet): 5 Height (Inches): 4.00 Weight (Pounds): 165 General Appearance: no apparent distress EENT: normal ENT inspection Neck: supple Cardiovascular: normal rate Respiratory/Chest: decreased breath sounds Abdomen: normal bowel sounds, non tender, soft Extremities: non-tender GABRIELLA KUMAR Jun 11, 2017 10:40
--- NOTE | 2017-06-11 13:56 | Internal Med Progress Note ---
Subjective Date of Service: Jun 11, 2017 Physician Name Albino More Attending Physician Abdirahman Griffin MD Current Medications Medications (Trade) Dose Ordered Sig/Jayme Route PRN Reason Start Time Stop Time Status Last Admin Dose Admin Acetaminophen (Tylenol) 650 mg Q4H PRN ORAL fever (temp>100.5F) 06/09/17 20:15 07/09/17 20:14 06/10/17 17:29 Acetaminophen (Tylenol) 650 mg Q4H PRN ORAL mild pain,headache 06/10/17 18:25 07/10/17 18:24 Al Hydroxide/Mg Hydroxide (Mylanta II) 30 ml Q6H PRN ORAL dyspepsia 06/09/17 20:15 07/09/17 20:14 Dextrose (Dextrose 50%) STAT PRN IV Hypoglycemia 06/09/17 20:15 07/09/17 20:14 Dextrose/Sodium Chloride 1,000 ml @ 100 mls/hr Q10H IV 06/09/17 20:30 07/09/17 20:29 06/11/17 12:15 Diphenhydramine HCl (Benadryl) 25 mg Q6H PRN ORAL Itching/Pruritis 06/09/17 20:15 07/09/17 20:14 Docusate Sodium (Colace) 100 mg TWICE A DAY ORAL 06/11/17 18:00 07/11/17 17:59 Insulin Aspart (NovoLOG) BEFORE MEALS AND HS SUBQ 06/10/17 19:14 07/10/17 19:13 06/11/17 11:30 Morphine Sulfate (Morphine Sulfate) 2 mg Q4H PRN IVP severe Pain (Pain Scale 7-10) 06/09/17 20:15 06/16/17 20:14 Nitroglycerin (Ntg) 0.4 mg Q5M X 3 DOSES PRN SL Prn Chest Pain 06/09/17 20:15 07/09/17 20:14 Ondansetron HCl (Zofran) 4 mg Q6H PRN IVP Nausea & Vomiting 06/09/17 20:15 07/09/17 20:14 Polyethylene Glycol (Miralax) 17 gm HSPRN PRN ORAL Constipation 06/09/17 20:15 07/09/17 20:14 Temazepam (Restoril) 15 mg HSPRN PRN ORAL Insomnia 06/09/17 20:15 06/16/17 20:14 Vitamin A/Vitamin D (A & D Oint) 1 applic EVERY 12 HOURS TOPIC 06/10/17 09:00 07/10/17 08:59 06/11/17 09:48 Allergies: Coded Allergies: No Known Allergies (Unverified , 01/27/17) ROS Limited/Unobtainable: No Constitutional: Reports: no symptoms HEENT: Reports: no symptoms Cardiovascular: Reports: no symptoms Respiratory: Reports: no symptoms Gastrointestinal/Abdominal: Reports: no symptoms Genitourinary: Reports: no symptoms Neurologic/Psychiatric: Reports: no symptoms Subjective 77 YO F admitted with GI Hemorrhage. S/P endoscopy 06/10/17. Cover for Int Med- Dr Griffin. LIAT Objective Last Vital Signs Date Time Temp Pulse Resp B/P (MAP) Pulse Ox O2 Delivery O2 Flow Rate FiO2 06/11/17 08:00 98.5 76 20 157/90 97 Room Air 06/10/17 14:02 2.0 General Appearance: WD/WN, no apparent distress, alert EENT: PERRL/EOMI, normal ENT inspection Neck: non-tender, normal alignment, supple, normal inspection Cardiovascular: normal peripheral pulses, normal rate, regular rhythm, no gallop/murmur, no JVD Respiratory/Chest: chest wall non-tender, lungs clear, normal breath sounds, no respiratory distress, no accessory muscle use Abdomen: normal bowel sounds, non tender, soft, no organomegaly, no mass Extremities: normal range of motion, non-tender Neurologic: cabin outfitter II-XII grossly normal, no motor/sensory deficits Skin: normal pigmentation, warm/dry Laboratory Tests Test 06/11/17 05:00 White Blood Count 9.5 K/UL (4.8-10.8) Red Blood Count 3.75 M/UL (4.20-5.40) L Hemoglobin 9.1 G/DL (12.0-16.0) L Hematocrit 28.6 % (37.0-47.0) L Mean Corpuscular Volume 76 FL (80-99) L Mean Corpuscular Hemoglobin 24.3 PG (27.0-31.0) L Mean Corpuscular Hemoglobin Concent 31.8 G/DL (32.0-36.0) L Red Cell Distribution Width 19.3 % (11.6-14.8) H Platelet Count 367 K/UL (150-450) Mean Platelet Volume 6.8 FL (6.5-10.1) Neutrophils (%) (Auto) 61.8 % (45.0-75.0) Lymphocytes (%) (Auto) 21.7 % (20.0-45.0) Monocytes (%) (Auto) 10.8 % (1.0-10.0) H Eosinophils (%) (Auto) 4.7 % (0.0-3.0) H Basophils (%) (Auto) 1.1 % (0.0-2.0) Prothrombin Time 10.4 SEC (9.30-11.50) Prothromb Time International Ratio 1.0 (0.9-1.1) Activated Partial Thromboplast Time 25 SEC (23-33) Sodium Level 137 MMOL/L (136-145) Potassium Level 4.0 MMOL/L (3.5-5.1) Chloride Level 104 MMOL/L (98-107) Carbon Dioxide Level 26 MMOL/L (21-32) Anion Gap 7 mmol/L (5-15) Blood Urea Nitrogen 13 mg/dL (7-18) Creatinine 1.0 MG/DL (0.55-1.30) Estimat Glomerular Filtration Rate mL/min (>60) Glucose Level 104 MG/DL (74-106) Hemoglobin A1c 8.0 % (4.3-6.0) H Calcium Level 9.0 MG/DL (8.5-10.1) Phosphorus Level 3.7 MG/DL (2.5-4.9) Magnesium Level 2.0 MG/DL (1.5-2.4) Total Bilirubin 0.6 MG/DL (0.2-1.0) Aspartate Amino Transf (AST/SGOT) 11 U/L (15-37) L Alanine Aminotransferase (ALT/SGPT) 7 U/L (12-78) L Alkaline Phosphatase 110 U/L (46-116) Total Protein 7.4 G/DL (6.4-8.2) Albumin 3.1 G/DL (3.4-5.0) L Globulin 4.3 g/dL Albumin/Globulin Ratio 0.7 (1.0-2.7) L Helicobacter pylori IgG Antibody Pending Microbiology Date/Time Source Procedure Growth Status 06/09/17 19:15 Blood Blood Culture - Preliminary NO GROWTH AFTER 24 HOURS Resulted 06/09/17 19:00 Blood Blood Culture - Preliminary NO GROWTH AFTER 24 HOURS Resulted 06/09/17 19:17 Urine,Clean Catch Urine Culture - Preliminary Staphylococcus Species Gram Negative Carlos Resulted Intake and Output 06/10/17 06/11/17 19:00 07:00 Intake Total 1620 ml 1250 ml Output Total 700 ml Balance 1620 ml 550 ml Intake Oral 320 ml 200 ml IV Total 1300 ml 1050 ml Output Urine Total 700 ml # Bowel Movements 1 1 Assessment/Plan Problem List: (1) GIH (gastrointestinal hemorrhage) Assessment & Plan: S/P endoscopy-see GI note (2) Gastritis Assessment & Plan: S/P endoscopy 06/10/17-see GI note (3) Elevated troponin (4) Diabetes mellitus, type II (5) Severe anemia Assessment & Plan: Blood loss. S/P transfusion 2 units PRBC (6) Alzheimer's dementia Status: progressing Assessment/Plan Transfer to [facility] Jun 11, 2017 13:56
[2017-06-11] MEDS ORDERED: Levemir Flexpen SUBQ SCH (16:00)
[2017-06-11] MEDS ORDERED: Nitroglycerin Subl 0.4mg tab SL PRN (16:45)
[2017-06-11] MEDS ORDERED: Miralax 17gm pkt ORAL PRN (17:24)
[2017-06-11] MEDS ORDERED: Morphine Sulfate 2mg/ml Inj IVP PRN (17:24)
[2017-06-11] MEDS ORDERED: Docusate 100mg cap ORAL SCH (18:00)
[2017-06-11] MEDS: Docusate 100mg cap ORAL SCH (18:25)
[2017-06-11] MEDS ORDERED: Mylanta II UD 30ml ORAL PRN (20:15)
[2017-06-11] MEDS ORDERED: Ciprofloxacin 500mg tab ORAL SCH (21:00)
[2017-06-11] MEDS: Ciprofloxacin 500mg tab ORAL SCH (21:47)
[2017-06-12] VITALS: BP 116/58
[2017-06-12] MEDS: D5NS 1,000 ML IV SCH ×3 (00:38→22:45)
[2017-06-12 04:00] VITALS: BP 136/74
[2017-06-12] MEDS: NovoLOG Insulin Flexpen SUBQ SCH ×4 (06:18→22:01)
[2017-06-12 08:00] VITALS: BP 149/75
[2017-06-12 08:11] LABS: BASOPHILS % (AUTO) 0.6 % (0.0-2.0); EOSINOPHILS % (AUTO) 4.6 % (0.0-3.0); HEMATOCRIT 25.9 % (37.0-47.0); HEMOGLOBIN 8.2 G/DL (12.0-16.0); LYMPHOCYTES % (AUTO) 20.3 % (20.0-45.0); MEAN CORPUSCULAR VOLUME 76 FL (80-99); MONOCYTES % (AUTO) 8.4 % (1.0-10.0); NEUTROPHILS % (AUTO) 66.2 % (45.0-75.0); PLATELET COUNT 337 K/UL (150-450); RED BLOOD COUNT 3.41 M/UL (4.20-5.40); RED CELL DISTRIBUTION WIDTH 19.9 % (11.6-14.8); WHITE BLOOD COUNT 9.2 K/UL (4.8-10.8)
--- NOTE | 2017-06-12 08:14 | General Progress Note ---
Assessment/Plan Problem List: (1) Anemia ICD Codes: D64.9 - Anemia, unspecified SNOMED: 994422818 (2) History of CVA (cerebrovascular accident) ICD Codes: Z86.73 - Personal history of transient ischemic attack (TIA), and cerebral infarction without residual deficits SNOMED: 896247482 (3) Diabetes ICD Codes: E11.9 - Type 2 diabetes mellitus without complications SNOMED: 99651850 (4) Alzheimer's dementia ICD Codes: G30.9 - Alzheimer's disease, unspecified SNOMED: 69529515 (5) Diabetes mellitus, type II ICD Codes: E11.9 - Type 2 diabetes mellitus without complications SNOMED: 54507335 Assessment/Plan s/p EGD no active upper GIB atrophic gastritis fu stool ob plan Colonoscopy on Tuesday Subjective ROS Limited/Unobtainable: Yes Allergies: Coded Allergies: No Known Allergies (Unverified , 01/27/17) Subjective no event Objective Last 24 Hour Vital Signs Date Time Temp Pulse Resp B/P (MAP) Pulse Ox O2 Delivery O2 Flow Rate FiO2 06/12/17 04:00 98.4 94 24 136/74 95 Room Air 06/12/17 00:00 98.1 91 18 116/58 94 Room Air 06/11/17 20:52 98.8 89 24 143/80 98 Room Air 06/11/17 18:34 98.2 82 20 136/66 99 06/11/17 16:00 98.6 82 23 152/78 96 Room Air 06/11/17 12:00 97.9 76 20 155/78 97 Room Air 06/11/17 12:00 77 Intake and Output 06/11/17 06/12/17 19:00 07:00 Intake Total 970 ml 1100 ml Output Total 900 ml 800 ml Balance 70 ml 300 ml Intake Oral 770 ml IV Total 200 ml 1100 ml Output Urine Total 900 ml 800 ml # Bowel Movements 1 1 Laboratory Tests 06/12/17 06:44: White Blood Count [Pending], Red Blood Count [Pending], Hemoglobin [Pending], Hematocrit [Pending], Mean Corpuscular Volume [Pending], Mean Corpuscular Hemoglobin [Pending], Mean Corpuscular Hemoglobin Concent [Pending], Red Cell Distribution Width [Pending], Platelet Count [Pending], Mean Platelet Volume [ Pending], Neutrophils (%) (Auto) [Pending], Lymphocytes (%) (Auto) [Pending], Monocytes (%) (Auto) [Pending], Eosinophils (%) (Auto) [Pending], Basophils (%) (Auto) [Pending], Sodium Level [Pending], Potassium Level [Pending], Chloride Level [Pending], Carbon Dioxide Level [Pending], Blood Urea Nitrogen [Pending], Creatinine [Pending], Estimat Glomerular Filtration Rate [Pending], Glucose Level [Pending], Calcium Level [Pending] Height (Feet): 5 Height (Inches): 4.00 Weight (Pounds): 165 General Appearance: no apparent distress EENT: normal ENT inspection Neck: supple Cardiovascular: normal rate Respiratory/Chest: decreased breath sounds Abdomen: normal bowel sounds, non tender, soft Extremities: non-tender GABRIELLA KUMAR Jun 12, 2017 08:14
[2017-06-12 08:20] LABS: ANION GAP 7 mmol/L (5-15); BLOOD UREA NITROGEN 13 mg/dL (7-18); CALCIUM 8.5 MG/DL (8.5-10.1); CARBON DIOXIDE 25 MMOL/L (21-32); CHLORIDE 103 MMOL/L (98-107); CREATININE 1.1 MG/DL (0.55-1.30); POTASSIUM 3.8 MMOL/L (3.5-5.1); SODIUM 135 MMOL/L (136-145)
[2017-06-12] MEDS ORDERED: Levemir Flexpen SUBQ SCH (09:00)
[2017-06-12] MEDS: Docusate 100mg cap ORAL SCH ×2 (09:02→17:30)
[2017-06-12] MEDS: Ciprofloxacin 500mg tab ORAL SCH ×2 (09:02→21:14)
[2017-06-12] MEDS: Vitamin A&D Oint 2oz Tube TOPIC SCH ×2 (09:04→21:14)
[2017-06-12 12:00] VITALS: BP 131/65
--- NOTE | 2017-06-12 12:44 | Pulmonology Progress Note ---
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 PLAN OF CARE [facility] floor initially NPO and IVF Protonix gtt GI follows s/p EGD with findings of atrophic gastritis, no evidence of active bleeding a/emetic prn PPI bid, no active bleeding colonoscopy on Tuesday check stool OB Venous Duplex LE with chronic recanalized thrombus LLE BS management wt SSI, [id number]-9.0, not at goal , increase Levemir BP management wound care as per wound nurse recommendations urine cx + Staph and GNR, abx case discussed and evaluated by supervising physician Subjective Allergies: Coded Allergies: No Known Allergies (Unverified , 01/27/17) Subjective HH trending down no acute bleeding no CP, no SOB no leucocytosis, afebrile BS uncontrolled still Objective Last 24 Hour Vital Signs Date Time Temp Pulse Resp B/P (MAP) Pulse Ox O2 Delivery O2 Flow Rate FiO2 06/12/17 12:00 97.9 76 20 131/65 96 06/12/17 08:00 98.1 88 20 149/75 96 06/12/17 04:00 98.4 94 24 136/74 95 Room Air 06/12/17 00:00 98.1 91 18 116/58 94 Room Air 06/11/17 20:52 98.8 89 24 143/80 98 Room Air 06/11/17 18:34 98.2 82 20 136/66 99 06/11/17 16:00 98.6 82 23 152/78 96 Room Air Intake and Output 06/11/17 06/12/17 19:00 07:00 Intake Total 970 ml 1100 ml Output Total 900 ml 800 ml Balance 70 ml 300 ml Intake Oral 770 ml IV Total 200 ml 1100 ml Output Urine Total 900 ml 800 ml # Bowel Movements 1 1 Objective General Appearance: no acute distress HEENT: normocephalic, atraumatic Respiratory/Chest: chest wall non-tender, no respiratory distress, no accessory muscle use Cardiovascular: normal rate Abdomen: soft, non tender, GT Extremities: no edema, pedal pulses normal Neurologic/Psychiatric: alert, BONBON DIPPER, responsive Microbiology Date/Time Source Procedure Growth Status 2/1/18 19:15 Blood Blood Culture - Preliminary NO GROWTH AFTER 48 HOURS Resulted 06/09/17 19:00 Blood Blood Culture - Preliminary NO GROWTH AFTER 48 HOURS Resulted 06/09/17 19:17 Urine,Clean Catch Urine Culture - Final Staphylococcus Aureus Gram Negative Carlos Complete Laboratory Tests 06/12/17 06:44: White Blood Count 9.2, Red Blood Count 3.41L, Hemoglobin 8.2L, Hematocrit 25.9L , Mean Corpuscular Volume 76L, Mean Corpuscular Hemoglobin 24.0L, Mean Corpuscular Hemoglobin Concent 31.6L, Red Cell Distribution Width 19.9H, Platelet Count 337, Mean Platelet Volume 6.3L, Neutrophils (%) (Auto) 66.2, Lymphocytes (%) (Auto) 20.3, Monocytes (%) (Auto) 8.4, Eosinophils (%) (Auto) 4.6H, Basophils (%) (Auto) 0.6, Sodium Level 135L, Potassium Level 3.8, Chloride Level 103, Carbon Dioxide Level 25, Anion Gap 7, Blood Urea Nitrogen 13 , Creatinine 1.1, Estimat Glomerular Filtration Rate , Glucose Level 287#H, Calcium Level 8.5 Current Medications Medications (Trade) Dose Ordered Sig/Jayme Route PRN Reason Start Time Stop Time Status Last Admin Dose Admin Acetaminophen (Tylenol) 650 mg Q4H PRN ORAL mild pain,headache 06/11/17 18:30 07/10/17 18:24 Acetaminophen (Tylenol) 650 mg Q4H PRN ORAL fever (temp>100.5F) 06/11/17 20:15 07/09/17 20:14 06/11/17 21:51 Al Hydroxide/Mg Hydroxide (Mylanta II) 30 ml Q6H PRN ORAL dyspepsia 06/11/17 20:15 07/09/17 20:14 Bisacodyl (Dulcolax) 10 mg ONCE ONCE ORAL 06/12/17 16:00 06/12/17 16:01 Ciprofloxacin (Cipro 500mg tab) 500 mg EVERY 12 HOURS ORAL 06/11/17 21:00 06/18/17 23:59 06/12/17 09:02 Dextrose (Dextrose 50%) STAT PRN IV Hypoglycemia 06/11/17 20:15 07/09/17 20:14 Dextrose/ Electrolytes 1,000 ml @ 75 mls/hr [id number] IV 06/12/17 16:00 07/12/17 15:59 Dextrose/Sodium Chloride 1,000 ml @ 100 mls/hr Q10H IV 06/11/17 16:45 07/09/17 20:29 06/12/17 11:55 Diphenhydramine HCl (Benadryl) 25 mg Q6H PRN ORAL Itching/Pruritis 06/11/17 17:22 07/09/17 17:21 Docusate Sodium (Colace) 100 mg TWICE A DAY ORAL 06/11/17 18:00 07/11/17 17:59 06/12/17 09:02 Insulin Aspart (NovoLOG) BEFORE MEALS AND HS SUBQ 06/11/17 21:00 07/10/17 19:13 06/12/17 11:55 Insulin Detemir (Levemir) 7 units DAILY SUBQ 06/12/17 09:00 07/11/17 15:59 06/12/17 09:03 Morphine Sulfate (Morphine Sulfate) 2 mg Q4H PRN IVP severe Pain (Pain Scale 7-10) 06/11/17 17:24 06/18/17 17:23 Nitroglycerin (Ntg) 0.4 mg Q5M X 3 DOSES PRN SL Prn Chest Pain 06/11/17 16:45 07/09/17 20:14 Ondansetron HCl (Zofran) 4 mg Q6H PRN IVP Nausea & Vomiting 06/11/17 17:24 07/09/17 17:23 Polyethylene Glycol (Miralax) 17 gm HSPRN PRN ORAL Constipation 06/11/17 17:24 07/09/17 17:23 Polyethylene Glycol/ Electrolytes (Nulytely) 4,000 ml ONCE ONCE ORAL 06/12/17 14:00 06/12/17 14:01 Temazepam (Restoril) 15 mg HSPRN PRN ORAL Insomnia 06/11/17 17:24 06/16/17 17:23 Vitamin A/Vitamin D (A & D Oint) 1 applic EVERY 12 HOURS TOPIC 06/11/17 21:00 07/10/17 08:59 06/12/17 09:04 [facility]Fernanda NP Jun 12, 2017 12:44
[2017-06-12] MEDS ORDERED: Nulytely 4L ORAL ONE (14:00)
--- NOTE | 2017-06-12 15:43 | Internal Med Progress Note ---
Subjective Date of Service: Jun 12, 2017 Physician Name Albino More Attending Physician Abdirahman Griffin MD Current Medications Medications (Trade) Dose Ordered Sig/Jayme Route PRN Reason Start Time Stop Time Status Last Admin Dose Admin Acetaminophen (Tylenol) 650 mg Q4H PRN ORAL mild pain,headache 06/11/17 18:30 07/10/17 18:24 Acetaminophen (Tylenol) 650 mg Q4H PRN ORAL fever (temp>100.5F) 06/11/17 20:15 07/09/17 20:14 06/12/17 14:47 Al Hydroxide/Mg Hydroxide (Mylanta II) 30 ml Q6H PRN ORAL dyspepsia 06/11/17 20:15 07/09/17 20:14 Bisacodyl (Dulcolax) 10 mg ONCE ONCE ORAL 06/12/17 16:00 06/12/17 16:01 Ciprofloxacin (Cipro 500mg tab) 500 mg EVERY 12 HOURS ORAL 06/11/17 21:00 06/18/17 23:59 06/12/17 09:02 Dextrose (Dextrose 50%) STAT PRN IV Hypoglycemia 06/11/17 20:15 07/09/17 20:14 Dextrose/ Electrolytes 1,000 ml @ 75 mls/hr [id number] IV 06/12/17 16:00 07/12/17 15:59 Dextrose/Sodium Chloride 1,000 ml @ 100 mls/hr Q10H IV 06/11/17 16:45 07/09/17 20:29 06/12/17 11:55 Diphenhydramine HCl (Benadryl) 25 mg Q6H PRN ORAL Itching/Pruritis 06/11/17 17:22 07/09/17 17:21 Docusate Sodium (Colace) 100 mg TWICE A DAY ORAL 06/11/17 18:00 07/11/17 17:59 06/12/17 09:02 Insulin Aspart (NovoLOG) BEFORE MEALS AND HS SUBQ 06/11/17 21:00 07/10/17 19:13 06/12/17 11:55 Insulin Detemir (Levemir) 7 units BID SUBQ 06/12/17 18:00 07/11/17 15:59 Morphine Sulfate (Morphine Sulfate) 2 mg Q4H PRN IVP severe Pain (Pain Scale 7-10) 06/11/17 17:24 06/18/17 17:23 Nitroglycerin (Ntg) 0.4 mg Q5M X 3 DOSES PRN SL Prn Chest Pain 06/11/17 16:45 07/09/17 20:14 Ondansetron HCl (Zofran) 4 mg Q6H PRN IVP Nausea & Vomiting 06/11/17 17:24 07/09/17 17:23 Polyethylene Glycol (Miralax) 17 gm HSPRN PRN ORAL Constipation 06/11/17 17:24 07/09/17 17:23 Temazepam (Restoril) 15 mg HSPRN PRN ORAL Insomnia 06/11/17 17:24 06/16/17 17:23 Vitamin A/Vitamin D (A & D Oint) 1 applic EVERY 12 HOURS TOPIC 06/11/17 21:00 07/10/17 08:59 06/12/17 09:04 Allergies: Coded Allergies: No Known Allergies (Unverified , 01/27/17) ROS Limited/Unobtainable: No Constitutional: Reports: no symptoms HEENT: Reports: no symptoms Cardiovascular: Reports: no symptoms Respiratory: Reports: no symptoms Gastrointestinal/Abdominal: Reports: no symptoms Genitourinary: Reports: no symptoms Neurologic/Psychiatric: Reports: no symptoms Subjective 77 YO F admitted with GI Hemorrhage. S/P endoscopy 06/10/17. Await colonoscopy 06/13/17. Cover for Int Med-Dr Griffin. LIAT Objective Last Vital Signs Date Time Temp Pulse Resp B/P (MAP) Pulse Ox O2 Delivery O2 Flow Rate FiO2 06/12/17 12:00 97.9 76 20 131/65 96 06/12/17 04:00 Room Air 06/10/17 14:02 2.0 Laboratory Tests Test 06/12/17 06:44 White Blood Count 9.2 K/UL (4.8-10.8) Red Blood Count 3.41 M/UL (4.20-5.40) L Hemoglobin 8.2 G/DL (12.0-16.0) L Hematocrit 25.9 % (37.0-47.0) L Mean Corpuscular Volume 76 FL (80-99) L Mean Corpuscular Hemoglobin 24.0 PG (27.0-31.0) L Mean Corpuscular Hemoglobin Concent 31.6 G/DL (32.0-36.0) L Red Cell Distribution Width 19.9 % (11.6-14.8) H Platelet Count 337 K/UL (150-450) Mean Platelet Volume 6.3 FL (6.5-10.1) L Neutrophils (%) (Auto) 66.2 % (45.0-75.0) Lymphocytes (%) (Auto) 20.3 % (20.0-45.0) Monocytes (%) (Auto) 8.4 % (1.0-10.0) Eosinophils (%) (Auto) 4.6 % (0.0-3.0) H Basophils (%) (Auto) 0.6 % (0.0-2.0) Sodium Level 135 MMOL/L (136-145) L Potassium Level 3.8 MMOL/L (3.5-5.1) Chloride Level 103 MMOL/L (98-107) Carbon Dioxide Level 25 MMOL/L (21-32) Anion Gap 7 mmol/L (5-15) Blood Urea Nitrogen 13 mg/dL (7-18) Creatinine 1.1 MG/DL (0.55-1.30) Estimat Glomerular Filtration Rate mL/min (>60) Glucose Level 287 MG/DL (74-106) #H Calcium Level 8.5 MG/DL (8.5-10.1) Microbiology Date/Time Source Procedure Growth Status 06/09/17 19:15 Blood Blood Culture - Preliminary NO GROWTH AFTER 48 HOURS Resulted 06/09/17 19:00 Blood Blood Culture - Preliminary NO GROWTH AFTER 48 HOURS Resulted 06/09/17 19:17 Urine,Clean Catch Urine Culture - Final Staphylococcus Aureus Gram Negative Carlos Complete Intake and Output 06/11/17 06/12/17 19:00 07:00 Intake Total 970 ml 1100 ml Output Total 900 ml 800 ml Balance 70 ml 300 ml Intake Oral 770 ml IV Total 200 ml 1100 ml Output Urine Total 900 ml 800 ml # Bowel Movements 1 1 Objective General Appearance: WD/WN, no apparent distress, alert EENT: PERRL/EOMI, normal ENT inspection Neck: non-tender, normal alignment, supple, normal inspection Cardiovascular: normal peripheral pulses, normal rate, regular rhythm, no gallop/murmur, no JVD Respiratory/Chest: chest wall non-tender, lungs clear, normal breath sounds, no respiratory distress, no accessory muscle use Abdomen: normal bowel sounds, non tender, soft, no organomegaly, no mass Extremities: normal range of motion, non-tender 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 Await colonoscopy Mon 06/13. (2) Gastritis Assessment & Plan: S/P endoscopy 06/10/17-see GI note (3) Elevated troponin (4) Diabetes mellitus, type II (5) Severe anemia Assessment & Plan: Blood loss. S/P transfusion 2 units PRBC (6) Alzheimer's dementia Status: not improved Assessment/Plan Transfer to [facility] My[facility] Jun 12, 2017 15:43
[2017-06-12] MEDS ORDERED: D5NS 1000ml IV ONE ×2 (15:47→18:24)
[2017-06-12 16:00] VITALS: BP 124/65
[2017-06-12] MEDS ORDERED: Bisacodyl EC 5mg tab ORAL ONE (16:00)
[2017-06-12] MEDS: D5 1/2NS w/KCl 20mEq 1,000 ML IV SCH (16:53)
--- NOTE | 2017-06-12 16:53 | Cardiology Report ---
APPROVED REPORT EKG Measurement Heart [id number] Normal sinus rhythm Low voltage QRS Borderline ECG
[2017-06-12] MEDS: Levemir Flexpen SUBQ SCH (17:34)
[2017-06-12 20:00] VITALS: BP 140/77
[2017-06-12] MEDS ORDERED: Magnesium Citrate Liq Btl ORAL ONE (21:00)
--- NOTE | 2017-06-12 23:05 | Progress Note ---
DATE: 06/11/2017 SUBJECTIVE: The patient was seen in [facility]. Family was at bedside. The patient is more alert, calmer, was able to sleep last night, has poor insight and judgment into her mental condition. She is with cognitive impairment and confused. Unable to provide any history. Family provided the history. The patient has . MENTAL STATUS EXAMINATION: The patient is alert, confused. Mood is neutral. Affect is flat. Thought process, there is a paucity of thought content. Thought content, no suicidal or homicidal ideation. Cognition is impaired. ASSESSMENT: 1. Encephalopathy. 2. Agitation. PLAN: We will continue the current medication. Provide the patient with reality orientation. Ilya Ramirez M.D. DR: NINA JOB#: [id number] CC:
[2017-06-13] VITALS (10 sets, daily range): BP systolic 121–152; BP diastolic 42–76
[2017-06-13] MEDS: D5 1/2NS w/KCl 20mEq 1,000 ML IV SCH ×2 (05:20→18:40)
[2017-06-13] MEDS: NovoLOG Insulin Flexpen SUBQ SCH ×3 (06:56→17:10)
[2017-06-13] MEDS: D5NS 1,000 ML IV SCH ×2 (07:52→18:45)
[2017-06-13] MEDS: Levemir Flexpen SUBQ SCH ×2 (08:00→17:11)
[2017-06-13 08:01] LABS: BASOPHILS % (AUTO) 0.8 % (0.0-2.0); EOSINOPHILS % (AUTO) 5.3 % (0.0-3.0); HEMATOCRIT 27.1 % (37.0-47.0); HEMOGLOBIN 8.8 G/DL (12.0-16.0); LYMPHOCYTES % (AUTO) 23.7 % (20.0-45.0); MEAN CORPUSCULAR VOLUME 76 FL (80-99); MONOCYTES % (AUTO) 10.8 % (1.0-10.0); NEUTROPHILS % (AUTO) 59.4 % (45.0-75.0); PLATELET COUNT 353 K/UL (150-450); RED BLOOD COUNT 3.55 M/UL (4.20-5.40); RED CELL DISTRIBUTION WIDTH 20.7 % (11.6-14.8); WHITE BLOOD COUNT 9.4 K/UL (4.8-10.8)
[2017-06-13] MEDS: Ciprofloxacin 500mg tab ORAL SCH (08:01)
[2017-06-13 08:05] LABS: ANION GAP 7 mmol/L (5-15); BLOOD UREA NITROGEN 11 mg/dL (7-18); CARBON DIOXIDE 27 MMOL/L (21-32); CHLORIDE 103 MMOL/L (98-107); SODIUM 137 MMOL/L (136-145)
[2017-06-13] MEDS: Docusate 100mg cap ORAL SCH ×2 (08:06→17:09)
[2017-06-13] MEDS: Vitamin A&D Oint 2oz Tube TOPIC SCH (08:08)
--- NOTE | 2017-06-13 10:25 | Pre-Procedure Note/Attestation ---
Pre-Procedure Note/Attestation Complete Prior to Procedure Planned Procedure: not applicable Procedure Narrative: colonoscopy Indications for Procedure Pre-Operative Diagnosis: gib Attestation I attest that I discussed the nature of the procedure; its benefits; risks and complications; and alternatives (and the risks and benefits of such alternatives ), prior to the procedure, with the patient (or the patient's legal patient intake representative). I attest that, if there was a reasonable possibility of needing a blood transfusion, the patient (or the patient's legal patient intake representative) was given the [facility] standardized written summary, pursuant to the Florentin Carter Blood Safety Act ([place] Health and Safety Code # 1645, as amended). I attest that I re-evaluated the patient just prior to the surgery and that there has been no change in the patient's H&P, except as documented below: GABRIELLA KUMAR Jun 13, 2017 10:25
[2017-06-13] MEDS ORDERED: Lidocaine 1% MPF 10mg/ml 5ml ONE (10:30)
[2017-06-13] MEDS ORDERED: NS 500ML IV ONE (10:30)
[2017-06-13] MEDS ORDERED: Propofol 200mg/20ml IV ONE (10:30)
--- NOTE | 2017-06-13 10:59 | Anethesia Preoperative Eval ---
Anesthesia Pre-op PMH/ROS General Date of Evaluation: Jun 13, 2017 Time of Evaluation: 10:30 Anesthesiologist: silvia ASA Score: ASA 3 Mallampati Score Class I : Soft palate, uvula, fauces, pillars visible Class II: Soft palate, uvula, fauces visible Class III: Soft palate, base of uvula visible Class IV: Only hard plate visible Mallampati Classification: Class II Surgeon: sharon Diagnosis: gi bleed Surgical Procedure: colonoscopy Anesthesia History: none Social History: smoking - nonsmoker Family History: no anesthesia problems Allergies: Coded Allergies: No Known Allergies (Unverified , 01/27/17) Medications: see eMAR Past Medical History Cardiovascular: Reports: HTN Neurologic/Psychiatric: Reports: dementia, CVA Endocrine: Reports: DM Hematology/Immune: Reports: anemia Anesthesia Pre-op Phys. Exam Physician Exam Last Vital Signs Date Time Temp Pulse Resp B/P (MAP) Pulse Ox O2 Delivery O2 Flow Rate FiO2 06/13/17 08:00 99.5 78 18 148/68 100 Room Air 06/10/17 14:02 2.0 Constitutional: NAD Neurologic: CN 2-12 intact Cardiovascular: RRR Respiratory: CTA Gastrointestinal: S/NT/ND Airway Exam Mallampati Score: Class II MO: limited Neck: short TMD: 2fb ROM: limited Teeth: missing Anesthesia Pre-op A/P Labs Hematology Test 06/13/17 06:20 White Blood Count 9.4 K/UL (4.8-10.8) Red Blood Count 3.55 M/UL (4.20-5.40) L Hemoglobin 8.8 G/DL (12.0-16.0) L Hematocrit 27.1 % (37.0-47.0) L Mean Corpuscular Volume 76 FL (80-99) L Mean Corpuscular Hemoglobin 24.7 PG (27.0-31.0) L Mean Corpuscular Hemoglobin Concent 32.3 G/DL (32.0-36.0) Red Cell Distribution Width 20.7 % (11.6-14.8) H Platelet Count 353 K/UL (150-450) Mean Platelet Volume 6.5 FL (6.5-10.1) Neutrophils (%) (Auto) 59.4 % (45.0-75.0) Lymphocytes (%) (Auto) 23.7 % (20.0-45.0) Monocytes (%) (Auto) 10.8 % (1.0-10.0) H Eosinophils (%) (Auto) 5.3 % (0.0-3.0) H Basophils (%) (Auto) 0.8 % (0.0-2.0) Chemistry Test 06/13/17 06:20 Sodium Level 137 MMOL/L (136-145) Potassium Level 4.0 MMOL/L (3.5-5.1) Chloride Level 103 MMOL/L (98-107) Carbon Dioxide Level 27 MMOL/L (21-32) Anion Gap 7 mmol/L (5-15) Blood Urea Nitrogen 11 mg/dL (7-18) Creatinine 1.0 MG/DL (0.55-1.30) Estimat Glomerular Filtration Rate mL/min (>60) Glucose Level 174 MG/DL (74-106) #H Calcium Level 9.0 MG/DL (8.5-10.1) Risk Assessment & Plan Assessment: asa3 Plan: mac Status Change Before Surgery: No Pre-Antibiotics Drug: NIDA De Oliveira Jun 13, 2017 10:59
[2017-06-13] MEDS ORDERED: Midazolam 2mg/2ml Inj IVP PRN (11:00)
[2017-06-13] MEDS ORDERED: DiphenhydrAMINE 50mg/ml Inj IVP PRN (11:00)
[2017-06-13] MEDS ORDERED: Atropine Inj 1mg/10ml Syr IV PRN (11:00)
[2017-06-13] MEDS ORDERED: fentaNYL 100 mcg/2 mL IV PRN (11:00)
--- NOTE | 2017-06-13 11:05 | Endoscopy Procedure Note ---
Endoscopy Procedure Note Indication for Procedure: anemia Procedures Performed: colonoscopy Operative Findings/Diagnosis: large colon polyp Specimen: yes Pt Tolerated Procedure Well: Yes Estimated Blood Loss: none Anesthesiologist: terrance Anesthesia: MAC Implant(s) used?: No 50 yrs or older w/o bx or poly: Not Applicable 10yrs. F/U not recommended: Not Applicable GABRIELLA KUMAR Jun 13, 2017 11:05
--- NOTE | 2017-06-13 11:30 | Internal Med Progress Note ---
Subjective Date of Service: Jun 13, 2017 Physician Name Albino More Attending Physician Abdirahman Griffin MD Current Medications Medications (Trade) Dose Ordered Sig/Jayme Route PRN Reason Start Time Stop Time Status Last Admin Dose Admin Acetaminophen (Tylenol) 650 mg Q4H PRN ORAL mild pain,headache 06/11/17 18:30 07/10/17 18:24 Acetaminophen (Tylenol) 650 mg Q4H PRN ORAL fever (temp>100.5F) 06/11/17 20:15 07/09/17 20:14 06/13/17 08:05 Al Hydroxide/Mg Hydroxide (Mylanta II) 30 ml Q6H PRN ORAL dyspepsia 06/11/17 20:15 07/09/17 20:14 Al Hydroxide/Mg Hydroxide (Mylanta) 15 ml Q1H PRN ORAL gi upset 06/13/17 11:00 06/13/17 17:00 Atropine Sulfate (Atropine) 0.5 mg Q5M PRN IV bpm less than 45 06/13/17 11:00 06/13/17 17:00 Ciprofloxacin (Cipro 500mg tab) 500 mg EVERY 12 HOURS ORAL 06/11/17 21:00 06/18/17 23:59 06/13/17 08:01 Dextrose (Dextrose 50%) STAT PRN IV Hypoglycemia 06/11/17 20:15 07/09/17 20:14 Dextrose/ Electrolytes 1,000 ml @ 75 mls/hr [id number] IV 06/12/17 16:00 07/12/17 15:59 06/12/17 16:53 Dextrose/Sodium Chloride 1,000 ml @ 100 mls/hr Q10H IV 06/11/17 16:45 07/09/17 20:29 06/12/17 11:55 Diphenhydramine HCl (Benadryl) 25 mg Q15M PRN IVP Itching 06/13/17 11:00 06/13/17 17:00 Diphenhydramine HCl (Benadryl) 25 mg Q6H PRN ORAL Itching/Pruritis 06/11/17 17:22 07/09/17 17:21 Docusate Sodium (Colace) 100 mg TWICE A DAY ORAL 06/11/17 18:00 07/11/17 17:59 06/12/17 17:30 Fentanyl Citrate (Sublimaze 100 mcg/2 mL) 25 mcg Q10M PRN IV Moderate Pain (Pain Scale 4-6) 06/13/17 11:00 06/13/17 17:00 Hydralazine HCl (Apresoline) 5 mg Q30M PRN IV SBP>160/DBP>90 06/13/17 11:00 06/13/17 17:00 Insulin Aspart (NovoLOG) BEFORE MEALS AND HS SUBQ 06/11/17 21:00 07/10/17 19:13 06/13/17 06:56 Insulin Detemir (Levemir) 7 units BID SUBQ 06/12/17 18:00 07/11/17 15:59 06/12/17 17:34 Midazolam HCl (Versed 2mg/2ml vial) 1 mg Q15M PRN IVP For Anxiety 06/13/17 11:00 06/13/17 17:00 Morphine Sulfate (Morphine Sulfate) 2 mg Q4H PRN IVP severe Pain (Pain Scale 7-10) 06/11/17 17:24 06/18/17 17:23 Nitroglycerin (Ntg) 0.4 mg Q5M X 3 DOSES PRN SL Prn Chest Pain 06/11/17 16:45 07/09/17 20:14 Ondansetron HCl (Zofran) 4 mg Q1H PRN IVP Nausea & Vomiting 06/13/17 11:00 06/13/17 17:00 Ondansetron HCl (Zofran) 4 mg Q6H PRN IVP Nausea & Vomiting 06/11/17 17:24 07/09/17 17:23 Polyethylene Glycol (Miralax) 17 gm HSPRN PRN ORAL Constipation 06/11/17 17:24 07/09/17 17:23 Sodium Chloride 1,000 ml @ 10 mls/hr Q24H IVLG 06/13/17 10:59 06/13/17 12:58 Temazepam (Restoril) 15 mg HSPRN PRN ORAL Insomnia 06/11/17 17:24 06/16/17 17:23 Vitamin A/Vitamin D (A & D Oint) 1 applic EVERY 12 HOURS TOPIC 06/11/17 21:00 07/10/17 08:59 06/13/17 08:08 Allergies: Coded Allergies: No Known Allergies (Unverified , 9/21/17) ROS Limited/Unobtainable: No Constitutional: Reports: no symptoms HEENT: Reports: no symptoms Cardiovascular: Reports: no symptoms Respiratory: Reports: no symptoms Gastrointestinal/Abdominal: Reports: no symptoms Genitourinary: Reports: no symptoms Neurologic/Psychiatric: Reports: no symptoms Subjective 77 YO F admitted with GI Hemorrhage. S/P endoscopy 06/10/17. Await colonoscopy today 06/13/17. Cover for Int Med-Dr Griffin. LIAT Objective Last Vital Signs Date Time Temp Pulse Resp B/P (MAP) Pulse Ox O2 Delivery O2 Flow Rate FiO2 06/13/17 11:24 76 16 133/46 100 Room Air 06/13/17 11:14 99.0 06/10/17 14:02 2.0 Laboratory Tests Test 06/13/17 06:20 White Blood Count 9.4 K/UL (4.8-10.8) Red Blood Count 3.55 M/UL (4.20-5.40) L Hemoglobin 8.8 G/DL (12.0-16.0) L Hematocrit 27.1 % (37.0-47.0) L Mean Corpuscular Volume 76 FL (80-99) L Mean Corpuscular Hemoglobin 24.7 PG (27.0-31.0) L Mean Corpuscular Hemoglobin Concent 32.3 G/DL (32.0-36.0) Red Cell Distribution Width 20.7 % (11.6-14.8) H Platelet Count 353 K/UL (150-450) Mean Platelet Volume 6.5 FL (6.5-10.1) Neutrophils (%) (Auto) 59.4 % (45.0-75.0) Lymphocytes (%) (Auto) 23.7 % (20.0-45.0) Monocytes (%) (Auto) 10.8 % (1.0-10.0) H Eosinophils (%) (Auto) 5.3 % (0.0-3.0) H Basophils (%) (Auto) 0.8 % (0.0-2.0) Sodium Level 137 MMOL/L (136-145) Potassium Level 4.0 MMOL/L (3.5-5.1) Chloride Level 103 MMOL/L (98-107) Carbon Dioxide Level 27 MMOL/L (21-32) Anion Gap 7 mmol/L (5-15) Blood Urea Nitrogen 11 mg/dL (7-18) Creatinine 1.0 MG/DL (0.55-1.30) Estimat Glomerular Filtration Rate mL/min (>60) Glucose Level 174 MG/DL (74-106) #H Calcium Level 9.0 MG/DL (8.5-10.1) Intake and Output 06/12/17 06/13/17 19:00 07:00 Intake Total 730 ml 75 ml Balance 730 ml 75 ml Intake Oral 330 ml IV Total 400 ml 75 ml # Bowel Movements 1 6 Objective General Appearance: WD/WN, no apparent distress, alert EENT: PERRL/EOMI, normal ENT inspection Neck: non-tender, normal alignment, supple, normal inspection Cardiovascular: normal peripheral pulses, normal rate, regular rhythm, no gallop/murmur, no JVD Respiratory/Chest: chest wall non-tender, lungs clear, normal breath sounds, no respiratory distress, no accessory muscle use Abdomen: normal bowel sounds, non tender, soft, no organomegaly, no mass Extremities: normal range of motion, non-tender 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 Await colonoscopy today . (2) Gastritis Assessment & Plan: S/P endoscopy 06/10/17-see GI note (3) Elevated troponin (4) Diabetes mellitus, type II (5) Severe anemia Assessment & Plan: Blood loss. S/P transfusion 2 units PRBC (6) Alzheimer's dementia Status: not improved Assessment/Plan Transfer to [facility] Jun 13, 2017 11:30
--- NOTE | 2017-06-13 15:19 | General Progress Note ---
Assessment/Plan Status: stable Assessment/Plan encephalopathy' agitation -cont current meds Subjective Date patient seen: Jun 13, 2017 Neurologic/Psychiatric: Reports: anxiety, depressed, emotional problems Allergies: Coded Allergies: No Known Allergies (Unverified , 01/27/17) Objective Last 24 Hour Vital Signs Date Time Temp Pulse Resp B/P (MAP) Pulse Ox O2 Delivery O2 Flow Rate FiO2 06/13/17 12:11 97.3 70 18 136/68 96 Room Air 06/13/17 11:30 98.0 75 20 130/56 96 Room Air 06/13/17 11:24 76 16 133/46 100 Room Air 06/13/17 11:19 79 14 121/42 100 Room Air 06/13/17 11:14 99.0 76 14 121/76 100 Room Air 06/13/17 08:00 99.5 78 18 148/68 100 Room Air 06/13/17 04:00 97.7 82 18 140/73 92 06/13/17 00:00 98.1 79 19 148/74 94 06/12/17 20:00 98.2 77 18 140/77 94 06/12/17 16:00 98.1 76 20 124/65 96 Intake and Output 06/12/17 06/13/17 19:00 07:00 Intake Total 730 ml 75 ml Balance 730 ml 75 ml Intake Oral 330 ml IV Total 400 ml 75 ml # Bowel Movements 1 6 Laboratory Tests 06/13/17 06:20: White Blood Count 9.4, Red Blood Count 3.55L, Hemoglobin 8.8L, Hematocrit 27.1L , Mean Corpuscular Volume 76L, Mean Corpuscular Hemoglobin 24.7L, Mean Corpuscular Hemoglobin Concent 32.3, Red Cell Distribution Width 20.7H, Platelet Count 353, Mean Platelet Volume 6.5, Neutrophils (%) (Auto) 59.4, Lymphocytes (%) (Auto) 23.7, Monocytes (%) (Auto) 10.8H, Eosinophils (%) (Auto) 5.3H, Basophils (%) (Auto) 0.8, Sodium Level 137, Potassium Level 4.0, Chloride Level 103, Carbon Dioxide Level 27, Anion Gap 7, Blood Urea Nitrogen 11, Creatinine 1.0, Estimat Glomerular Filtration Rate , Glucose Level 174#H, Calcium Level 9.0 Height (Feet): 5 Height (Inches): 4.00 Weight (Pounds): 165 General Appearance: no apparent distress, alert, confused Ilya Ramirez M.D. Jun 13, 2017 15:19
--- NOTE | 2017-06-13 15:20 | Geriatric Progress Note ---
Subjective Interval Events 06/12/17 Mood/Memory: Reports: prior hx, anxiety Geriatric Geriatric Last 24 Hour Vital Signs Date Time Temp Pulse Resp B/P (MAP) Pulse Ox O2 Delivery O2 Flow Rate FiO2 06/13/17 12:11 97.3 70 18 136/68 96 Room Air 06/13/17 11:30 98.0 75 20 130/56 96 Room Air 06/13/17 11:24 76 16 133/46 100 Room Air 06/13/17 11:19 79 14 121/42 100 Room Air 06/13/17 11:14 99.0 76 14 121/76 100 Room Air 06/13/17 08:00 99.5 78 18 148/68 100 Room Air 06/13/17 04:00 97.7 82 18 140/73 92 06/13/17 00:00 98.1 79 19 148/74 94 06/12/17 20:00 98.2 77 18 140/77 94 06/12/17 16:00 98.1 76 20 124/65 96 Intake and Output 06/12/17 06/13/17 19:00 07:00 Intake Total 730 ml 75 ml Balance 730 ml 75 ml Intake Oral 330 ml IV Total 400 ml 75 ml # Bowel Movements 1 6 Laboratory Tests Test 06/13/17 06:20 White Blood Count 9.4 K/UL (4.8-10.8) Red Blood Count 3.55 M/UL (4.20-5.40) L Hemoglobin 8.8 G/DL (12.0-16.0) L Hematocrit 27.1 % (37.0-47.0) L Mean Corpuscular Volume 76 FL (80-99) L Mean Corpuscular Hemoglobin 24.7 PG (27.0-31.0) L Mean Corpuscular Hemoglobin Concent 32.3 G/DL (32.0-36.0) Red Cell Distribution Width 20.7 % (11.6-14.8) H Platelet Count 353 K/UL (150-450) Mean Platelet Volume 6.5 FL (6.5-10.1) Neutrophils (%) (Auto) 59.4 % (45.0-75.0) Lymphocytes (%) (Auto) 23.7 % (20.0-45.0) Monocytes (%) (Auto) 10.8 % (1.0-10.0) H Eosinophils (%) (Auto) 5.3 % (0.0-3.0) H Basophils (%) (Auto) 0.8 % (0.0-2.0) Sodium Level 137 MMOL/L (136-145) Potassium Level 4.0 MMOL/L (3.5-5.1) Chloride Level 103 MMOL/L (98-107) Carbon Dioxide Level 27 MMOL/L (21-32) Anion Gap 7 mmol/L (5-15) Blood Urea Nitrogen 11 mg/dL (7-18) Creatinine 1.0 MG/DL (0.55-1.30) Estimat Glomerular Filtration Rate mL/min (>60) Glucose Level 174 MG/DL (74-106) #H Calcium Level 9.0 MG/DL (8.5-10.1) Current Medications Medications (Trade) Dose Ordered Sig/Jayme Route PRN Reason Start Time Stop Time Status Last Admin Dose Admin Acetaminophen (Tylenol) 650 mg Q4H PRN ORAL mild pain,headache 06/11/17 18:30 07/10/17 18:24 Acetaminophen (Tylenol) 650 mg Q4H PRN ORAL fever (temp>100.5F) 06/11/17 20:15 07/09/17 20:14 06/13/17 08:05 Al Hydroxide/Mg Hydroxide (Mylanta II) 30 ml Q6H PRN ORAL dyspepsia 06/11/17 20:15 07/09/17 20:14 Al Hydroxide/Mg Hydroxide (Mylanta) 15 ml Q1H PRN ORAL gi upset 06/13/17 11:00 06/13/17 17:00 Atropine Sulfate (Atropine) 0.5 mg Q5M PRN IV bpm less than 45 06/13/17 11:00 06/13/17 17:00 Ciprofloxacin (Cipro 500mg tab) 500 mg EVERY 12 HOURS ORAL 06/11/17 21:00 06/18/17 23:59 06/13/17 08:01 Dextrose (Dextrose 50%) STAT PRN IV Hypoglycemia 06/11/17 20:15 07/09/17 20:14 Dextrose/ Electrolytes 1,000 ml @ 75 mls/hr [id number] IV 06/12/17 16:00 07/12/17 15:59 06/12/17 16:53 Dextrose/Sodium Chloride 1,000 ml @ 100 mls/hr Q10H IV 06/11/17 16:45 07/09/17 20:29 06/12/17 11:55 Diphenhydramine HCl (Benadryl) 25 mg Q15M PRN IVP Itching 06/13/17 11:00 06/13/17 17:00 Diphenhydramine HCl (Benadryl) 25 mg Q6H PRN ORAL Itching/Pruritis 06/11/17 17:22 07/09/17 17:21 Docusate Sodium (Colace) 100 mg TWICE A DAY ORAL 06/11/17 18:00 07/11/17 17:59 06/12/17 17:30 Fentanyl Citrate (Sublimaze 100 mcg/2 mL) 25 mcg Q10M PRN IV Moderate Pain (Pain Scale 4-6) 06/13/17 11:00 06/13/17 17:00 Hydralazine HCl (Apresoline) 5 mg Q30M PRN IV SBP>160/DBP>90 06/13/17 11:00 06/13/17 17:00 Insulin Aspart (NovoLOG) BEFORE MEALS AND HS SUBQ 06/11/17 21:00 07/10/17 19:13 06/13/17 12:00 Insulin Detemir (Levemir) 7 units BID SUBQ 06/12/17 18:00 07/11/17 15:59 06/12/17 17:34 Midazolam HCl (Versed 2mg/2ml vial) 1 mg Q15M PRN IVP For Anxiety 06/13/17 11:00 06/13/17 17:00 Morphine Sulfate (Morphine Sulfate) 2 mg Q4H PRN IVP severe Pain (Pain Scale 7-10) 06/11/17 17:24 06/18/17 17:23 Nitroglycerin (Ntg) 0.4 mg Q5M X 3 DOSES PRN SL Prn Chest Pain 06/11/17 16:45 07/09/17 20:14 Ondansetron HCl (Zofran) 4 mg Q1H PRN IVP Nausea & Vomiting 06/13/17 11:00 06/13/17 17:00 Ondansetron HCl (Zofran) 4 mg Q6H PRN IVP Nausea & Vomiting 06/11/17 17:24 3/3/18 17:23 Polyethylene Glycol (Miralax) 17 gm HSPRN PRN ORAL Constipation 06/11/17 17:24 07/09/17 17:23 Temazepam (Restoril) 15 mg HSPRN PRN ORAL Insomnia 06/11/17 17:24 06/16/17 17:23 Vitamin A/Vitamin D (A & D Oint) 1 applic EVERY 12 HOURS TOPIC 06/11/17 21:00 07/10/17 08:59 06/13/17 08:08 Height (Feet): 5 Height (Inches): 4.00 Weight (Pounds): 165 General Appearance: alert, good eye contact, appears stated age Neurologic: alert Psychiatric Language/Speech: slow Orientation: disoriented Affect: flat Ilya Ramirez M.D. Jun 13, 2017 15:20
--- NOTE | 2017-06-13 17:14 | Immediate Post-Op Evaluation ---
Immediate Post-Op Evalulation Immediate Post-Op Evalulation Procedure: egd Date of Evaluation: Jun 13, 2017 Time of Evaluation: 11:26 IV Fluids: 200ml 0.9ns Blood Products: none Estimated Blood Loss: negligible Blood Pressure Systolic: 121 Blood Pressure Diastolic: 42 Pulse Rate: 77 Respiratory Rate: 18 O2 Sat by Pulse Oximetry: 100 Temperature (Fahrenheit): 99.0 Pain Score (1-10): 0 Nausea: No Vomiting: No Complications none Patient Status: awake, reacts, patent Hydration Status: adequate Drug: NIDA De Oliveira Jun 13, 2017 17:14
--- NOTE | 2017-06-13 17:16 | 48 Hour Post Anesthesia Eval ---
Post Anesthesia Evaluation Procedure: egd Date of Evaluation: Jun 13, 2017 Time of Evaluation: 11:28 Blood Pressure Systolic: 133 0: 46 Pulse Rate: 76 Respiratory Rate: 16 Temperature (Fahrenheit): 99.0 O2 Sat by Pulse Oximetry: 100 Airway: patent Nausea: No Vomiting: No Pain Intensity: 0 Hydration Status: adequate Cardiopulmonary Status: stable Mental Status/LOC: patient returned to baseline Post-Anesthesia Complications: none Follow-up care needed: N/A NIDA ORTIZ Jun 13, 2017 17:16
--- NOTE | 2017-06-13 17:30 | Procedure Note ---
DATE OF PROCEDURE: 06/13/2017 GASTROENTEROLOGY PROCEDURE NOTE SURGEON: Thony Zuluaga M.D. ANESTHESIOLOGIST: Ana Sunshine M.D. REFERRING PHYSICIAN: Abdirahman Griffin M.D. PROCEDURE: Colonoscopy with snare polypectomy and biopsy. INSTRUMENT: Olympus adult flexible colonoscope. INDICATIONS FOR PROCEDURE: Anemia. The procedure, risks, benefits, and possible consequences, including hemorrhage, aspiration, perforation, and infection, and alternative treatments, were explained to the patient/legal guardian by Dr. Thony Zuluaga and the patient/legal guardian understood and accepted these risks. DESCRIPTION OF PROCEDURE: After informed consent was obtained and the patient was adequately sedated, first rectal exam was performed, which was positive for external hemorrhoids. Then, the scope was advanced from the rectum into the cecum documented by the appendiceal orifice, ileocecal valve, and right upper quadrant palpation. Quality of prep was fair. The patient had a large polyp, 2 cm, sessile in the cecum. First, we injected the polyp with normal saline to lift it up and we used snare polypectomy technique successfully to remove the polyp and then we used a Hemoclips to close the sites to prevent future bleeding given large size of this polyp. Then at this time, we used Amin net to completely remove the polyp from the colon and polyp was retrieved, which was over 2 cm. Then the scope was reintroduced. There was another polyp in the cecum, this was only may be 3 mm which was removed with cold biopsy forceps technique. There was no further polyp seen in the rest of the colon although the prep as I mentioned was fair, so there were other smaller polyps that might have been missed with this prep. Retroflexion of rectum, we did not do because there was so much stool in the rectum, so we could not do that. The patient tolerated the procedure well without any complication. SUMMARY OF FINDINGS: 1. A large 2-cm cecum polyp, status post removal and hemostasis. 2. Another smaller polyp in the cecum, removed with the cold biopsy forceps technique. 3. Fair colonic prep. 4. External and internal hemorrhoids. RECOMMENDATIONS: Follow biopsy results. The patient would need repeat colonoscopy no later than three years. I want to thank Dr. Abdirahman Griffin for this kind referral. Thony Estuardo Zuluaga DR: Zeeshan JOB#: [id number] CC: Abdirahman Griffin M.D.; Fax#: [phone]
--- NOTE | 2017-06-13 18:08 | Pulmonology Progress Note ---
Assessment/Plan Problems: (1) History of CVA (cerebrovascular accident) (2) DVT (deep venous thrombosis) (3) Diabetes (4) Alzheimer's dementia (5) UGI bleed (6) Anemia Assessment/Plan pt wants to go home confused colonoscopy was not helpful, not clean enough H/H stable since admission dc home with f/u with primary Subjective ROS Limited/Unobtainable: No Constitutional: Reports: no symptoms HEENT: Repors: no symptoms Respiratory: Reports: no symptoms Allergies: Coded Allergies: No Known Allergies (Unverified , 01/27/17) Objective Last 24 Hour Vital Signs Date Time Temp Pulse Resp B/P (MAP) Pulse Ox O2 Delivery O2 Flow Rate FiO2 06/13/17 17:16 76 16 100 06/13/17 17:14 77 18 100 06/13/17 16:12 99.1 80 18 146/74 96 Room Air 06/13/17 12:11 97.3 70 18 136/68 96 Room Air 06/13/17 11:30 98.0 75 20 130/56 96 Room Air 06/13/17 11:24 76 16 133/46 100 Room Air 06/13/17 11:19 79 14 121/42 100 Room Air 06/13/17 11:14 99.0 76 14 121/76 100 Room Air 06/13/17 08:00 99.5 78 18 148/68 100 Room Air 06/13/17 04:00 97.7 82 18 140/73 92 06/13/17 00:00 98.1 79 19 148/74 94 06/12/17 20:00 98.2 77 18 140/77 94 Intake and Output 06/12/17 06/13/17 19:00 07:00 Intake Total 730 ml 75 ml Balance 730 ml 75 ml Intake Oral 330 ml IV Total 400 ml 75 ml # Bowel Movements 1 6 Objective General Appearance: WN Lines, tubes and drains: peripheral HEENT: normocephalic, atraumatic Neck: non-tender, normal alignment Respiratory/Chest: chest wall non-tender, lungs clear Cardiovascular/Chest: normal peripheral pulses, normal rate Abdomen: normal bowel sounds, non tender Genitourinary/Rectal: normal genital exam, normal rectal exam Skin Exam: normal pigmentation Laboratory Tests 06/13/17 06:20: White Blood Count 9.4, Red Blood Count 3.55L, Hemoglobin 8.8L, Hematocrit 27.1L , Mean Corpuscular Volume 76L, Mean Corpuscular Hemoglobin 24.7L, Mean Corpuscular Hemoglobin Concent 32.3, Red Cell Distribution Width 20.7H, Platelet Count 353, Mean Platelet Volume 6.5, Neutrophils (%) (Auto) 59.4, Lymphocytes (%) (Auto) 23.7, Monocytes (%) (Auto) 10.8H, Eosinophils (%) (Auto) 5.3H, Basophils (%) (Auto) 0.8, Sodium Level 137, Potassium Level 4.0, Chloride Level 103, Carbon Dioxide Level 27, Anion Gap 7, Blood Urea Nitrogen 11, Creatinine 1.0, Estimat Glomerular Filtration Rate , Glucose Level 174#H, Calcium Level 9.0 Current Medications Medications (Trade) Dose Ordered Sig/Jayme Route PRN Reason Start Time Stop Time Status Last Admin Dose Admin Acetaminophen (Tylenol) 650 mg Q4H PRN ORAL mild pain,headache 06/11/17 18:30 07/10/17 18:24 Acetaminophen (Tylenol) 650 mg Q4H PRN ORAL fever (temp>100.5F) 06/11/17 20:15 07/09/17 20:14 06/13/17 08:05 Al Hydroxide/Mg Hydroxide (Mylanta II) 30 ml Q6H PRN ORAL dyspepsia 06/11/17 20:15 07/09/17 20:14 Ciprofloxacin (Cipro 500mg tab) 500 mg EVERY 12 HOURS ORAL 06/11/17 21:00 06/18/17 23:59 06/13/17 08:01 Dextrose (Dextrose 50%) STAT PRN IV Hypoglycemia 06/11/17 20:15 07/09/17 20:14 Dextrose/ Electrolytes 1,000 ml @ 75 mls/hr [id number] IV 06/12/17 16:00 07/12/17 15:59 06/12/17 16:53 Dextrose/Sodium Chloride 1,000 ml @ 100 mls/hr Q10H IV 06/11/17 16:45 07/09/17 20:29 06/12/17 11:55 Diphenhydramine HCl (Benadryl) 25 mg Q6H PRN ORAL Itching/Pruritis 06/11/17 17:22 07/09/17 17:21 Docusate Sodium (Colace) 100 mg TWICE A DAY ORAL 06/11/17 18:00 07/11/17 17:59 06/13/17 17:09 Insulin Aspart (NovoLOG) BEFORE MEALS AND HS SUBQ 06/11/17 21:00 07/10/17 19:13 06/13/17 17:10 Insulin Detemir (Levemir) 7 units BID SUBQ 06/12/17 18:00 07/11/17 15:59 06/13/17 17:11 Morphine Sulfate (Morphine Sulfate) 2 mg Q4H PRN IVP severe Pain (Pain Scale 7-10) 06/11/17 17:24 06/18/17 17:23 Nitroglycerin (Ntg) 0.4 mg Q5M X 3 DOSES PRN SL Prn Chest Pain 06/11/17 16:45 07/09/17 20:14 Ondansetron HCl (Zofran) 4 mg Q6H PRN IVP Nausea & Vomiting 06/11/17 17:24 07/09/17 17:23 Polyethylene Glycol (Miralax) 17 gm HSPRN PRN ORAL Constipation 06/11/17 17:24 07/09/17 17:23 Temazepam (Restoril) 15 mg HSPRN PRN ORAL Insomnia 06/11/17 17:24 06/16/17 17:23 Vitamin A/Vitamin D (A & D Oint) 1 applic EVERY 12 HOURS TOPIC 06/11/17 21:00 07/10/17 08:59 06/13/17 08:08 LUCERO ASHBY Jun 13, 2017 18:08
[2017-06-15] MEDS ORDERED: CIPRO500 MG PO (14:40)
--- NOTE | 2017-06-15 14:42 | Discharge Summary ---
Discharge Summary Hospital Course Date of Admission Jun 09, 2017 at 18:23 Date of Discharge Jun 13, 2017 at 19:05 Admitting Diagnosis upper g.i.bleed HPI Mery Membreno is a 77 year old female who was admitted on Jun 09, 2017 at 18: 23 for Upper Gastrointestinal Bleed Hospital Course dc summary #[id number] Discharge Medications New Medications: Ciprofloxacin* (Cipro*) 500 Mg Tablet 500 MG PO BID, #14 TAB Continued Medications: Donepezil Hcl* (Aricept*) 5 Mg Tablet 5 MG ORAL DAILY, TAB Insulin Glargine (Lantus) 100 Unit/1 Ml Vial 20 UNITS SUBQ BID Discharge Condition Upon Discharge: stable Discharge Disposition Patient was discharged to home Discharge Diagnoses: Michael (Samantha)Fernanda NP Jun 15, 2017 14:42
--- NOTE | 2017-06-16 03:46 | Discharge Summary 2 SIG ---
DATE OF ADMISSION: 06/09/2017 DATE OF DISCHARGE: 06/13/2017 REASON FOR ADMISSION: 77 years old female with a history of CVA with left-sided weakness, dementia, hypertension, diabetes, depression, and anemia, presented to the emergency department accompanied by her family for abnormal laboratories. The patient came from home. For the last few weeks, she had been feeling weak. She underwent basic lab and was called by her primary care physician to go to the emergency department for evaluation due to the low hemoglobin. stated that the patient had black stools. She denied chest pain, shortness of breath, lightheadedness, fever, and chills. Vital signs were stable. No leukocytosis. Hemoglobin -5.3 , hematocrit -17.7, and MCV -70. INR within normal limits. Electrolytes were stable. BUN16, creatinine-1.1. Lactic acid- 1.3. Stable LFT. Albumin -3.2. Urinalysis with pyuria and few bacteria. EKG showed normal sinus rhythm, no acute ischemic changes. The patient was admitted with diagnoses of GI hemorrhage and anemia of blood loss. HOSPITAL COURSE: The patient admitted. Patient was started on Protonix drip, IV fluids, and kept NPO. Gastrointestinal specialist seen and evaluated the patient. The patient undergone on 06/11/2017 esophagogastroduodenoscopy with findings of atrophic gastritis and small hiatal hernia. Gastric antrum biopsy revealed [id number] chronic gastritis and reactive changes, but no Helicobacter infection. Antiemetic provided as needed. Protonix drip discontinued and Protonix changed to twice a day. No evidence of active bleeding. GI closely followed. The patient subsequently undergone colonoscopy on 06/13/2017 with polypectomy and hemostasis, biopsy results still pending. Hemoglobin and hematocrit remained on the baseline, hemoglobin- 8.3 and hematocrit -27.1. The patient undergone total of two units of packed red blood cells transfusion. Venous duplex of lower extremity shows chronic recanalized thrombus, left lower extremity. Blood sugar was managed with sliding scale of insulin. Hemoglobin A1c -8.0, not at goal. Levemir dose was increased. Blood pressure was closely monitored and managed to keep blood pressure under control. Urine culture showed Staph as well as Gram-negative rods( with small colony count). The patient was on IV antibiotics, converted to oral prior to discharge. Wound care provided as per wound nurse recommendation for left heel and sacrococcyx deep tissue injuries present on admission. Continue wound care at SNF. The patient will need further optimization of antiglycemic regimen as outpatient. The aptietn was stable for discharge FINAL DIAGNOSES: 1. Gastrointestinal hemorrhage, status post esophagogastroduodenoscopy. 2. Anemia of blood loss 3. Atrophic gastritis. 4. Diabetes mellitus, out of control. 5. Urinary tract infection with Staphylococcus aureus. 6. Hypertension. 7. Alzheimer dementia. 8. History of cerebrovascular accident with left-sided weakness 8. Chronic deep vein thrombosis of left lower extremity. 9. Left heel and sacrococcyx deep tissue injuries, present on admission. DISCHARGE MEDICATIONS: See medication reconciliation list. DISCHARGE INSTRUCTIONS: The patient discharged homr FOLLOWUP: Follow up with primary medical doctor Abdirahman Griffin M.D. I have been assigned to dictate discharge summary on this account and I was not involved in the patient's management. Fernanda aguilarNadia young DR: YONI JOB#: [id number] CC: RAMEZ
== END 2017-06-13 19:05 | disposition home or self-care (01) | DRG 378 ==
LOC: EMR 16:53 → EDBEDREQ 18:21 → 2W 18:23 → EDBEDREQ 18:28 → 2W 06-10 08:50 → 4W 06-11 17:11
PROC: 30233N1 Transfusion of Nonautologous Red Blood Cells into Peripheral Vein, Percutaneous Approach (ICD-10-PCS; principal; 2017-06-09)
PROC: 0DB78ZX Excision of Stomach, Pylorus, Via Natural or Artificial Opening Endoscopic, Diagnostic (ICD-10-PCS; 2017-06-10)
PROC: 0DB68ZX Excision of Stomach, Via Natural or Artificial Opening Endoscopic, Diagnostic (ICD-10-PCS; 2017-06-10)
PROC: 0DBH8ZZ Excision of Cecum, Via Natural or Artificial Opening Endoscopic (ICD-10-PCS; 2017-06-13)
DX: K92.2 Gastrointestinal hemorrhage, unspecified (principal); N39.0 Urinary tract infection, site not specified; L89.150 Pressure ulcer of sacral region, unstageable; I69.354 Hemiplegia and hemiparesis following cerebral infarction affecting left non-dominant side; E11.65 Type 2 diabetes mellitus with hyperglycemia; I82.502 Chronic embolism and thrombosis of unspecified deep veins of left lower extremity; B95.8 Unspecified staphylococcus as the cause of diseases classified elsewhere; I10 Essential (primary) hypertension; G30.9 Alzheimer's disease, unspecified; F02.80 Dementia in other diseases classified elsewhere, unspecified severity, without behavioral disturbance, psychotic disturbance, mood disturbance, and anxiety; K29.40 Chronic atrophic gastritis without bleeding; K44.9 Diaphragmatic hernia without obstruction or gangrene; B95.61 Methicillin susceptible Staphylococcus aureus infection as the cause of diseases classified elsewhere; D50.0 Iron deficiency anemia secondary to blood loss (chronic); F32.9 Major depressive disorder, single episode, unspecified; L89.620 Pressure ulcer of left heel, unstageable
CPT/HCPCS: 36415; 71045; 80048; 80053; 81003; 82150; 82550; 82553; 82962; 83036; 83605; 83690; 83735; 84100; 84484; 85007; 85025; 85610; 85730; 86677; 86850; 86900; 86901; 86920; 87040; 87086; 87181; 93005; 94003; 94150; J1815; S5561

== ENCOUNTER 2018-11-19 10:00 | Inpatient (IN) | payer MEDICARE, MEDICAID ==
[~2018-11-19] VITALS: Ht 152.4 cm; Wt 82.7 kg
[~2018-11-19 10:00] MED LIST changes: +CIPRO500 MG PO; +ELIQUIS5 MG PO; +NEOSPORIN68 ML TP; +NOVOLIN R100 UNIT/1 SUBQ
[2018-11-19 10:05] VITALS: BP 151/59
--- NOTE | 2018-11-19 10:07 | NUR ---
Note magdy in EDM - 11/19/18 at 1008 by [facility] ED Nurse Note: PT FROM HOME BROUGHT IN BY RA 67 DUE TO FLU LIKE SYMPTOMS STARTED LAST NIGHT WITH COUGHING, RUNNY NOSE. PER EMS, PT WOKE UP IRENE
--- NOTE | 2018-11-19 10:08 | NUR ---
ED Nurse Note: PT FROM HOME BROUGHT IN BY RA 67 DUE TO FLU LIKE SYMPTOMS STARTED LAST NIGHT WITH COUGHING, CONGESTION, RUNNY NOSE. PER EMS, PT WOKE UP THIS MORNING FEELING SICK. AAO X1 (WHERE SHE IS), NOT FOLLOWING COMMANDS, NO RESPIRATORY DISTRESS. VSS.
[2018-11-19 10:43] LABS: BASOPHILS % (AUTO) 2.1 % (0.0-2.0); EOSINOPHILS % (AUTO) 2.6 % (0.0-3.0); HEMATOCRIT 43.6 % (37.0-47.0); HEMOGLOBIN 13.3 G/DL (12.0-16.0); LYMPHOCYTES % (AUTO) 29.4 % (20.0-45.0); MEAN CORPUSCULAR VOLUME 90 FL (80-99); MONOCYTES % (AUTO) 6.4 % (1.0-10.0); NEUTROPHILS % (AUTO) 59.5 % (45.0-75.0); PLATELET COUNT 273 K/UL (150-450); RED BLOOD COUNT 4.85 M/UL (4.20-5.40); RED CELL DISTRIBUTION WIDTH 12.9 % (11.6-14.8); WHITE BLOOD COUNT 7.9 K/UL (4.8-10.8)
--- NOTE | 2018-11-19 10:50 | NUR ---
ED Nurse Note: COLLECTED BLOOD/URINE THEN SENT.
[2018-11-19 11:03] LABS: APPEARANCE,URINE CLEAR; BILIRUBIN, URINE NEGATIVE (NEGATIVE); COLOR,URINE PALE YELLOW; GLUCOSE, URINE (UA) NEGATIVE (NEGATIVE); KETONES,URINE NEGATIVE (NEGATIVE); LEUKOCYTE ESTERASE ,URINE 3+ (NEGATIVE); NITRITE,URINE NEGATIVE (NEGATIVE); PH,URINE 7 (4.5-8.0); PROTEIN,URINE NEGATIVE (NEGATIVE); UROBILINOGEN,URINE NORMAL MG/DL (0.0-1.0)
[2018-11-19 11:10] LABS: ANION GAP 8 mmol/L (5-15); BLOOD UREA NITROGEN 12 mg/dL (7-18); CALCIUM 9.4 MG/DL (8.5-10.1); CARBON DIOXIDE 28 MMOL/L (21-32); CHLORIDE 101 MMOL/L (98-107); CREATININE 1.1 MG/DL (0.55-1.30); POTASSIUM 4.8 MMOL/L (3.5-5.1); SODIUM 137 MMOL/L (136-145)
[2018-11-19 11:15] LABS: ALANINE AMINOTRANSFERASE 11 U/L (12-78); ALBUMIN 3.4 G/DL (3.4-5.0); ALBUMIN/GLOBULIN RATIO 0.7 (1.0-2.7); ALKALINE PHOSPHATASE 103 U/L (46-116); ASPARTATE AMINO TRANSFERASE 23 U/L (15-37); BILIRUBIN,TOTAL 0.3 MG/DL (0.2-1.0)
[2018-11-19] MEDS ORDERED: Zolpidem 5mg tab ORAL PRN (11:30)
[2018-11-19] MEDS ORDERED: LORazepam Inj 2mg/ml 1ml IV PRN (11:30)
[2018-11-19] MEDS ORDERED: Miralax 17gm pkt ORAL PRN (11:30)
--- NOTE | 2018-11-19 11:30 | NUR ---
ED Nurse Note: FAMILY MEMBERS AT THE BED SIDE AND IS AWARE OF PT'S ADMISSION.
--- NOTE | 2018-11-19 11:30 | Emergency Room Report ---
History of Present Illness General Chief Complaint: Flu Like Symptoms Source: Family Member, EMS Present Illness HPI 78-year-old female presents ED for evaluation. Brought in by EMS from home. Noted to have coughing and weakness for the last few days. Runny nose as well. Cough is productive with yellowish phlegm. Has had reduced appetite as well. Afebrile in triage. Patient has dementia and is nonverbal at baseline. Unable to provide any additional history at this time. No signs of distress upon arrival. No reported nausea or vomiting. No other aggravating relieving factors. Denies any other associated symptoms Allergies: Coded Allergies: No Known Allergies (Unverified , 01/27/17) Patient History Past Medical History: HTN, CVA/TIA, dementia Past Surgical History: none Pertinent Family History: none Social History: Denies: smoking, alcohol use, drug use Last Menstrual Period: menopause Now: No Reviewed Nursing Documentation: PMH: Agreed Nursing Documentation-PMH Hx Hypertension: Yes Hx Diabetes: Yes Hx Cancer: No Hx Gastrointestinal Problems: No Hx Neurological Problems: Yes - dementia 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 Hx Dementia: Yes Hx Alzheimer's Disease: Yes Review of Systems All Other Systems: limited Physical Exam Vital Signs Date Time Temp Pulse Resp B/P (MAP) Pulse Ox O2 Delivery O2 Flow Rate FiO2 11/19/18 09:59 97.5 81 14 138/68 (91) 98 Room Air Sp02 EP Interpretation: reviewed, normal General Appearance: no apparent distress, non-toxic, other - dementia Head: normocephalic, atraumatic Eyes: bilateral eye normal inspection, bilateral eye PERRL ENT: hearing grossly normal, normal pharynx, no angioedema, normal voice Neck: full range of motion, supple/symm/no masses Respiratory: chest non-tender, lungs clear, normal breath sounds, speaking full sentences Cardiovascular #1: regular rate, rhythm, no edema Cardiovascular #2: 2+ carotid (R), 2+ carotid (L), 2+ radial (R), 2+ radial (L) , 2+ dorsalis pedis (R), 2+ dorsalis pedis (L) Gastrointestinal: normal bowel sounds, non tender, soft, non-distended, no guarding, no rebound Rectal: deferred Genitourinary: normal inspection, no CVA tenderness Musculoskeletal: back normal, gait/station normal, normal range of motion, non- tender Neurologic: other - dementia Psychiatric: other - dementia Reflexes: 3+ bicep (R), 3+ bicep (L), 3+ tricep (R), 3+ tricep (L), 3+ knee (R) , 3+ knee (L) Skin: normal color Lymphatic: no adenopathy Medical Decision Making Diagnostic Impression: Primary Impression: Influenza-like symptoms Additional Impressions: Alzheimer's dementia Qualified Codes: G30.9 - Alzheimer's disease, unspecified; F02.80 - Dementia in other diseases classified elsewhere without behavioral disturbance Generalized weakness ER Course Hospital Course 78 yo F presents to ED with increased weakness, cough and congestion Differential diagnoses include: Pneumonia, CHF exacerbation, pneumothorax, fluid overload Clinical course Patient placed on stretcher. On felt carbonizer with stable vitals. After initial history and physical, I ordered labs, IV fluids, EKG, chest x-ray, blood cultures, UA. Labs -no leukocytosis, hb/hct stable, electrolytes ok lactate okay CXR - no definite consolidation. EKG - NSr, no acute ischemic changes interpreted by me family at bedside concerned about patient's well-being. Has reduced appetite as well. Antibiotics given. Case discussed with Dr. rGiffin and he agreed to the patient to his service for further care and support I feel this is a highly complex case requiring extensive working including EKG/ Rhythm strip, Xray/CT/US, Blood/urine lab work, repeat exams while in ED, and administration of strong opiates/narcotics for pain control, admission to hospital or close patient follow up. Diagnosis - influenza like symtpoms, dementia, generalized weakness Patient admitted to floor in serious condition Labs Test 11/19/18 10:29 11/19/18 11:00 White Blood Count 7.9 K/UL (4.8-10.8) Red Blood Count 4.85 M/UL (4.20-5.40) Hemoglobin 13.3 G/DL (12.0-16.0) Hematocrit 43.6 % (37.0-47.0) Mean Corpuscular Volume 90 FL (80-99) Mean Corpuscular Hemoglobin 27.4 PG (27.0-31.0) Mean Corpuscular Hemoglobin Concent 30.5 G/DL (32.0-36.0) Red Cell Distribution Width 12.9 % (11.6-14.8) Platelet Count 273 K/UL (150-450) Mean Platelet Volume 6.8 FL (6.5-10.1) Neutrophils (%) (Auto) 59.5 % (45.0-75.0) Lymphocytes (%) (Auto) 29.4 % (20.0-45.0) Monocytes (%) (Auto) 6.4 % (1.0-10.0) Eosinophils (%) (Auto) 2.6 % (0.0-3.0) Basophils (%) (Auto) 2.1 % (0.0-2.0) Sodium Level 137 MMOL/L (136-145) Potassium Level 4.8 MMOL/L (3.5-5.1) Chloride Level 101 MMOL/L (98-107) Carbon Dioxide Level 28 MMOL/L (21-32) Anion Gap 8 mmol/L (5-15) Blood Urea Nitrogen 12 mg/dL (7-18) Creatinine 1.1 MG/DL (0.55-1.30) Estimat Glomerular Filtration Rate mL/min (>60) Glucose Level 93 MG/DL (74-106) Lactic Acid Level 1.40 mmol/L (0.4-2.0) Calcium Level 9.4 MG/DL (8.5-10.1) Total Bilirubin 0.3 MG/DL (0.2-1.0) Aspartate Amino Transf (AST/SGOT) 23 U/L (15-37) Alanine Aminotransferase (ALT/SGPT) 11 U/L (12-78) Alkaline Phosphatase 103 U/L (46-116) Total Protein 8.1 G/DL (6.4-8.2) Albumin 3.4 G/DL (3.4-5.0) Globulin 4.7 g/dL Albumin/Globulin Ratio 0.7 (1.0-2.7) Urine Color Pale yellow Urine Appearance Clear Urine pH 7 (4.5-8.0) Urine Specific [place] 1.005 (1.005-1.035) Urine Protein Negative (NEGATIVE) Urine Glucose (UA) Negative (NEGATIVE) Urine Ketones Negative (NEGATIVE) Urine Blood Negative (NEGATIVE) Urine Nitrite Negative (NEGATIVE) Urine Bilirubin Negative (NEGATIVE) Urine Urobilinogen Normal MG/DL (0.0-1.0) Urine Leukocyte Esterase 3+ (NEGATIVE) Urine RBC 0-2 /HPF (0 - 2) Urine WBC 15-20 /HPF (0 - 2) Urine Squamous Epithelial Cells Few /LPF (NONE/OCC) Urine Bacteria Few /HPF (NONE) EKG Diagnostic Results Rate: normal Rhythm: NSR ST Segments: no acute changes ASA given to the pt in ED: No Rhythm Strip Diag. Results EP Interpretation: yes Rhythm: NSR, no PVC's, no ectopy Chest X-Ray Diagnostic Results Chest X-Ray Diagnostic Results : Chest X-Ray Ordered: Yes # of Views/Limited/Complete: 1 View Indication: Other EP Interpretation: Yes Interpretation: no consolidation, no effusion, no pneumothorax, no acute cardiopulmonary disease Impression: No acute disease Electronically Signed by: Electronically signed by Luis A Munoz MD Last Vital Signs Date Time Temp Pulse Resp B/P (MAP) Pulse Ox O2 Delivery O2 Flow Rate FiO2 11/19/18 10:05 97.5 80 13 151/59 94 Room Air Status: improved Disposition: ADMITTED INPATIENT Condition: Serious Referrals: NON PHYSICIAN (PCP) Luis A Munoz MD Nov 19, 2018 11:30
--- NOTE | 2018-11-19 11:42 | NUR ---
ED Nurse Note: WARM BLANKETS AND LUNCH PROVIDED.
--- NOTE | 2018-11-19 12:01 | NUR ---
ED Nurse Note: TRIED TO CALL FOR REPORT. JOSH MEIER UNAVAILABLE AT THIS TIME. WILL CALL AGAIN LATER.
[2018-11-19 12:29] VITALS: BP 154/62
--- NOTE | 2018-11-19 12:40 | NUR ---
ED Nurse Note: Report given to JOSH Caruso at ext [phone]. Pt transfered to room 421-2 on [facility] [place] per protocol.
--- NOTE | 2018-11-19 13:30 | NUR ---
NURSE NOTES: Received patient from ER by lawrence.Patient alert to name, respirations unlabored,IV fluids infusing ,NS at 100cc/hr.patient skin intact.Patient family daughter and spouse here.Patient daughter stated that her Mother was talking normal yesterday,but today only saying a few words. patient able to follow simple commands.Bilateral hand grasp noted with left hand grasp slightly weaker than the right. Left eye slightly closed,pupils react to light.In report patient has history of Stroke,with left sided weakness.Bed alarm is on,call light within reach.patient daughter will stay to answer questions.
--- NOTE | 2018-11-19 14:31 | Diagnostic Imaging Report ---
Indication: Cough Comparison: 06/09/2017 A single view chest radiograph was obtained. Findings: No definite infiltrate or pulmonary vascular congestion identified. The heart is normal in size. The aorta is mildly enlarged consistent with atherosclerotic vascular disease. The bones are osteopenic. Impression: No acute disease
[2018-11-19 16:00] VITALS: BP 119/60
[2018-11-19] MEDS: NovoLOG Insulin Flexpen SUBQ SCH ×2 (16:30→20:59)
--- NOTE | 2018-11-19 17:26 | NUR ---
NURSE NOTES: Patient family members at bedside ,patient family concern if patient could of have another stroke, per history patient has history of stroke with some left sided weakness family state that Patient has Dementia but was talking more yesterday compared to today,patient does answer simple questions correctly.Patient having difficulty swallowing liquids.Patient family requesting for patient to have a MRI.DR Hayes updated with family concern.Order received for swallow Evaluation,keep patient NPO.Family is discussing to possible take patient to [facility] if unable to get MRI today .
[2018-11-19] MEDS ORDERED: Eliquis 5mg tablet ORAL SCH (18:00)
--- NOTE | 2018-11-19 18:37 | NUR ---
NURSE NOTES: Patient family decided to keep patient here.DR Hayes aware of family wanting to have a MRI today.No order was given for MRI.Patient will remain NPO,patient will receive IV fluids due to patient being NPO.
--- NOTE | 2018-11-19 19:00 | NUR ---
NURSE NOTES: Patient hand grasp remains intact,no change,patient follows simple commands.
--- NOTE | 2018-11-19 19:52 | NUR ---
HAND-OFF: Report given to Sparkle MORENO.
[2018-11-19 20:00] VITALS: BP 119/73
--- NOTE | 2018-11-19 20:05 | NUR ---
NURSE NOTES: Received patient in bed, Nepalese speaking only, family at bedside, alert, oriented to her name, bed bound, on room air, incontinent of bowel and bladder, NPO, IV site clean dry and intact. Call light is within reach, bed is in low position, locked and alarm is on, will continue to monitor for comfort and safety.
--- NOTE | 2018-11-19 21:40 | History & Physical ---
History and Physical History & Physicial Abdirahman Griffin MD Nov 19, 2018 21:40
[2018-11-19] MEDS: Heparin 5000 units/ml inj SUBQ SCH (22:30)
[2018-11-19] MEDS: cefTRIAXone 1 GM in D5W 50 ML IVPB SCH (22:30)
[2018-11-20 00:35] VITALS: BP 119/65
--- NOTE | 2018-11-20 02:45 | History and Physical Report ---
DATE OF ADMISSION: 11/19/2018 CHIEF COMPLAINT: Flu-like symptoms. HISTORY OF PRESENT ILLNESS: This 78-year-old very unfortunate female with past medical history significant for history of DVT of the left lower extremity in 2017 after had a left hip surgery, prior history of CVA and stroke with left hemiparesis; Alzheimer dementia; diabetes, type 2; and GERD, who was presented to the emergency room accompanied with the family member after she was noted to have altered mental status as well as decreased oral intake. The patient last night woke up around 2 o'clock morning, coughing, and the gave her some warm water. Her status improved and fall asleep and then in the morning, she was noted to have a runny nose and productive cough with yellowish sputum and reduced appetite. No fever or chills was reported; however, the patient was felt abnormal. She has a history of dementia, but she is functional. She lives by herself. Lives with her . Nonverbal occasionally, but responds with single word. Shortly after initial evaluation in the emergency, the patient was admitted to the hospital with dehydration as well as upper respiratory infection, possible bronchitis versus pneumonia as well as acute encephalopathy possible due to the infection versus recurrent CVA. PAST MEDICAL HISTORY/PAST SURGICAL HISTORY: As above. History of borderline hypertension; diabetes, type 2; Alzheimer dementia; GERD; history of DVT of the left lower extremity in 2017; and left hip fracture, status post left hip hemiarthroplasty on 01/27/2017. MEDICATIONS AT HOME: Please refer to medication reconciliation. ALLERGIES: No known drug allergies. SOCIAL HISTORY: No smoking, alcohol, or drugs. Lives with her . FAMILY HISTORY: Noncontributory. REVIEW OF SYSTEMS: Mostly as above. Denies any dysuria, frequency, or hematuria. Denies any hemoptysis or hematochezia. Complained about productive cough with yellowish sputum and runny nose. Denies any loss of consciousness. Denies any fall or head trauma. Denies any seizure activity. PHYSICAL EXAMINATION: VITAL SIGNS: On admission, temperature 97.5, pulse of 81, respirations 14, and blood pressure 138/68. GENERAL: The patient opens her eyes. Responds to the family members commands. Alert and oriented. HEENT: Pupils correct, equal, and reactive to light. Anicteric. NECK: Supple. No JVD. LUNGS: Good air entry. Decreased air entry in the bases. No wheezes or rhonchi. HEART: S1 and S2. Distant heart sounds. No murmur or gallops. ABDOMEN: Soft, nondistended, and nontender. Mildly obese. EXTREMITIES: No cyanosis, clubbing, or edema. NEUROLOGIC: Cranial nerves II through XII grossly intact. The patient is moving all the extremities, left side weaker than right side. Gait was not assessed due to the patient's status. RECTAL: Refused and deferred. GENITOURINARY: Refused and deferred. PSYCHIATRIC: Mood and affect is unable to obtain because of baseline dementia. LABORATORY DATA: On admission from the ER, WBC of 7.9, hemoglobin 13, hematocrit 43, and platelets is 273,000. Sodium 137, potassium 4.8, chloride 101, bicarbonate 28, BUN 12, and creatinine 1.0. Lactic acid is 1.4. Calcium is 9.4. Total bilirubin of 0.3, AST of 23, ALT of 11, alkaline phosphatase 103, and total protein is 8.1. UA is a +3 leukocytes and 15 to 20 WBC. Chest x-ray was done. No acute cardiopulmonary disease. ASSESSMENT: 1. Upper respiratory symptoms, possible due to the early pneumonia versus bronchitis. 2. Acute encephalopathy possible due to infection versus recurrent cerebrovascular accident. 3. History of cerebrovascular accident with left-sided hemiparesis. 4. Dehydration. 5. Diabetes, type 2. 6. Gastroesophageal reflux disease. 7. Alzheimer dementia. 8. Borderline hypertension. 9. Prior history of left lower extremity deep venous thrombosis in 2017 after left hip fracture and open reduction and internal fixation. PLAN: Admit the patient to Med/Surg. We will follow up laboratory IV hydration. Bedside swallow study in the morning. Consider to get MRI of the brain. Discussed with the family member and daughters at the bedside extensively. Code status is Full Code. DVT prophylaxis, heparin subcutaneously. We will monitor laboratory in the morning as well as culture. Broad-spectrum antibiotic with Rocephin. Abdirahman Griffin M.D. DR: VERO JOB#: [id number] CC:
[2018-11-20 04:00] VITALS: BP 122/93
[2018-11-20] MEDS: NovoLOG Insulin Flexpen SUBQ SCH ×4 (06:09→21:58)
[2018-11-20] MEDS: Heparin 5000 units/ml inj SUBQ SCH ×3 (06:11→21:57)
[2018-11-20 07:04] LABS: BASOPHILS % (AUTO) 1.2 % (0.0-2.0); EOSINOPHILS % (AUTO) 3.1 % (0.0-3.0); HEMATOCRIT 39.5 % (37.0-47.0); HEMOGLOBIN 12.2 G/DL (12.0-16.0); LYMPHOCYTES % (AUTO) 29.2 % (20.0-45.0); MEAN CORPUSCULAR VOLUME 89 FL (80-99); MONOCYTES % (AUTO) 10.1 % (1.0-10.0); NEUTROPHILS % (AUTO) 56.5 % (45.0-75.0); PLATELET COUNT 248 K/UL (150-450); RED BLOOD COUNT 4.44 M/UL (4.20-5.40)
[2018-11-20 07:19] LABS: ALANINE AMINOTRANSFERASE 10 U/L (12-78); ALBUMIN/GLOBULIN RATIO 0.7 (1.0-2.7); ALKALINE PHOSPHATASE 89 U/L (46-116); ANION GAP 6 mmol/L (5-15); ASPARTATE AMINO TRANSFERASE 17 U/L (15-37); BILIRUBIN,TOTAL 0.4 MG/DL (0.2-1.0); BLOOD UREA NITROGEN 10 mg/dL (7-18); CALCIUM 9.1 MG/DL (8.5-10.1); CARBON DIOXIDE 28 MMOL/L (21-32); CHLORIDE 101 MMOL/L (98-107); CHOLESTEROL 218 MG/DL (< 200); CREATININE 1.1 MG/DL (0.55-1.30); HDL CHOLESTEROL 38 MG/DL (40-60); POTASSIUM 4.2 MMOL/L (3.5-5.1); SODIUM 135 MMOL/L (136-145); TRIGLYCERIDES 167 MG/DL (30-150)
--- NOTE | 2018-11-20 07:22 | NUR ---
HAND-OFF: Report given to Jesusita MORENO/ Adiel MORENO.
[2018-11-20 07:24] LABS: PHOSPHORUS 3.6 MG/DL (2.5-4.9)
--- NOTE | 2018-11-20 07:25 | NUR ---
Received patient from JOSH Nam in bed. Pt is sleeping. Room air. No s/s distress/pain. Daughter is at bedside. Iv running 1/2 NS at 50ml/hr. Bed in the lowest, and locked. Alarm on. Call light within reach. Will continue to monitor Addendum: 11/20/18 at 0902 by EZIO MARMOLEJO RN Nursing note missing
--- NOTE | 2018-11-20 07:25 | NUR ---
NURSE NOTES: Received patient from JOSH Nam in bed. Pt is sleeping. Room air. No s/s distress/pain. Daughter is at bedside. Iv running D5NS at 50ml/hr. Bed in the lowest, and locked. Alarm on. Call light within reach. Will continue to monitor Addendum: 11/20/18 at 0900 by EZIO MARMOLEJO RN Wrong IV fluid
--- NOTE | 2018-11-20 07:25 | NUR ---
NURSE NOTES: Received patient from JOSH Nam in bed. Pt is sleeping. Room air. No s/s distress/pain. Daughter is at bedside. Iv running 1/2 NS at 50ml/hr. Bed in the lowest, and locked. Alarm on. Call light within reach. Will continue to monitor
[2018-11-20 08:00] VITALS: BP 153/81
[2018-11-20] MEDS: Sertraline 50mg tab ORAL SCH (08:31)
[2018-11-20] MEDS: Donepezil 5mg Tab ORAL SCH (08:31)
--- NOTE | 2018-11-20 08:55 | NUR ---
PT EVALUATION NOTE Patient seen for initial evaluation, see complete evaluation for details. Patient presents with generalized weakness and decreased safety awareness which affects patient's ability to perform transfers and ambulate safely. Patient will benefit from skilled inpatient PT intervention to increase strength, balance and safety awareness for improved functional mobility. Recommend discharge to SNF for further rehab vs home with home PT once medically cleared by MD. Addendum: 11/20/18 at 0947 by CHRISTOFER HENAO PT Amended: Links added.
--- NOTE | 2018-11-20 09:56 | NUR ---
MRI BRAIN COMPLETED
--- NOTE | 2018-11-20 10:26 | NUR ---
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
--- NOTE | 2018-11-20 10:45 | Diagnostic Imaging Report ---
Indication: Altered mental status Technique: sagittal T1 fast spin echo, axial T1 FLAIR, axial T2 FLAIR, axial T2 FS PROPELLER, axial T2* GRE, axial diffusion weighted images. ADC and exponential ADC maps generated Comparison: none Findings: There is an area restricted diffusion in the left basal ganglia, extending from harris radiata into the lentiform nucleus. This demonstrates only minimal if any increased T2 signal. No other foci of restricted diffusion are demonstrated. No evidence of acute hemorrhage. No mass effect nor midline shift. There are one or more old lacunar infarcts in the right basal ganglia, resulting in some ex vacuo dilatation of the anterior body of the right lateral ventricle. There is generalized age-related enlargement of the ventricles and extra axial CSF spaces. No mass effect nor midline shift. There is periventricular deep white matter high T2 signal, consistent with chronic microvascular ischemic changes. Old lacunar infarct is also seen in the midbrain to the right of midline. There is evidence of prior bilateral cataract surgery. The vascular flow voids are preserved. Impression: Positive for acute left basal ganglia lacunar infarct Multiple old infarcts, as described Other chronic and age-related changes, as described Negative for acute intracranial bleed or mass effect Critical value findings phoned to Dr. Griffin at the time of interpretation
--- NOTE | 2018-11-20 11:37 | NUR ---
NURSE NOTES: Informed Dr. Hayes for MRI brain result (positive for acute infart). per Md, he will come to the unit soon and see the patient. NNO at this time.
[2018-11-20 12:00] VITALS: BP 153/79
--- NOTE | 2018-11-20 12:52 | Consultation ---
History of Present Illness General Date patient seen: Nov 20, 2018 Chief Complaint: Flu Like Symptoms Present Illness HPI 78-year-old female with hx of HTN, CVA/TIA, dementia presents ED for evaluation of coughing and weakness for the last few days. Cough is productive with yellowish phlegm. Pt is nonverbal at baseline. Unable to provide any additional history at this time. Meanwhile a MRI of brain showed acute Lacunar infarct. pt is admitted to telemetry for further management. Allergies: Coded Allergies: No Known Allergies (Unverified , 01/27/17) Medication History Scheduled Apixaban (Eliquis), 5 MG PO BID, (Reported) Ciprofloxacin* (Cipro*), 500 MG PO BID Donepezil Hcl* (Aricept*), 5 MG ORAL DAILY, (Reported) Glipizide (Glipizide), 10 MG PO BID, (Reported) Insulin Glargine (Lantus), 20 UNITS SUBQ BID, (Reported) Insulin Regular, Human* (Novolin R*), 0 SUBQ SLIDING SCALE, (Reported) Omeprazole (Omeprazole), 40 MG ORAL DAILY, (Reported) Sertraline Hcl* (Zoloft*), 50 MG ORAL DAILY, (Reported) Scheduled PRN Dextran 70/Hypromellose (Artificial Tears Eye Drops*), 2 DROP BOTH EYES Q2 PRN for EYE DRYNESS, (Reported) Miscellaneous Medications Benzalkonium Chloride (Neosporin), 68 ML TP, (Reported) Patient History Healthcare decision maker Katia Robertson, Patient daughters Resuscitation status Advanced Directive on File Past Medical/Surgical History Past Medical/Surgical History: (1) Cerebral vascular disease (2) Diabetes mellitus, type II (3) Alzheimer's dementia (4) History of CVA (cerebrovascular accident) Review of Systems All Other Systems: negative except mentioned in HPI Physical Exam General Appearance: WD/WN Lines, tubes and drains: peripheral HEENT: normocephalic, atraumatic Neck: non-tender, normal alignment Respiratory/Chest: chest wall non-tender, lungs clear Cardiovascular/Chest: normal peripheral pulses, normal rate Abdomen: normal bowel sounds Genitourinary/Rectal: normal genital exam Last 24 Hour Vital Signs Date Time Temp Pulse Resp B/P (MAP) Pulse Ox O2 Delivery O2 Flow Rate FiO2 11/20/18 12:00 97.7 78 16 153/79 (103) 96 11/20/18 09:00 Room Air 11/20/18 08:00 97.7 84 18 153/81 (105) 97 11/20/18 04:00 98.9 98 19 122/93 (103) 11/20/18 00:35 97.9 93 20 119/65 (83) 11/19/18 21:32 Room Air 11/19/18 20:00 97.9 93 20 119/73 (88) 11/19/18 16:07 Room Air 11/19/18 16:00 98.3 70 19 119/60 (79) 94 11/19/18 16:00 98.3 70 19 119/60 (79) 94 11/19/18 15:53 Room Air Intake and Output 11/19/18 11/20/18 18:59 06:59 Intake Total 500 ml 300 ml Balance 500 ml 300 ml Intake IV Total 500 ml 300 ml # Voids 1 1 # Bowel Movements 1 2 Laboratory Tests Test 11/20/18 05:22 White Blood Count 8.0 K/UL (4.8-10.8) Red Blood Count 4.44 M/UL (4.20-5.40) Hemoglobin 12.2 G/DL (12.0-16.0) Hematocrit 39.5 % (37.0-47.0) Mean Corpuscular Volume 89 FL (80-99) Mean Corpuscular Hemoglobin 27.5 PG (27.0-31.0) Mean Corpuscular Hemoglobin Concent 30.9 G/DL (32.0-36.0) L Red Cell Distribution Width 13.0 % (11.6-14.8) Platelet Count 248 K/UL (150-450) Mean Platelet Volume 6.4 FL (6.5-10.1) L Neutrophils (%) (Auto) 56.5 % (45.0-75.0) Lymphocytes (%) (Auto) 29.2 % (20.0-45.0) Monocytes (%) (Auto) 10.1 % (1.0-10.0) H Eosinophils (%) (Auto) 3.1 % (0.0-3.0) H Basophils (%) (Auto) 1.2 % (0.0-2.0) Sodium Level 135 MMOL/L (136-145) L Potassium Level 4.2 MMOL/L (3.5-5.1) Chloride Level 101 MMOL/L (98-107) Carbon Dioxide Level 28 MMOL/L (21-32) Anion Gap 6 mmol/L (5-15) Blood Urea Nitrogen 10 mg/dL (7-18) Creatinine 1.1 MG/DL (0.55-1.30) Estimat Glomerular Filtration Rate mL/min (>60) Glucose Level 145 MG/DL (74-106) H Calcium Level 9.1 MG/DL (8.5-10.1) Phosphorus Level 3.6 MG/DL (2.5-4.9) Magnesium Level 1.6 MG/DL (1.8-2.4) L Total Bilirubin 0.4 MG/DL (0.2-1.0) Aspartate Amino Transf (AST/SGOT) 17 U/L (15-37) Alanine Aminotransferase (ALT/SGPT) 10 U/L (12-78) L Alkaline Phosphatase 89 U/L (46-116) Troponin I 0.034 ng/mL (0.000-0.056) Total Protein 7.2 G/DL (6.4-8.2) Albumin 3.0 G/DL (3.4-5.0) L Globulin 4.2 g/dL Albumin/Globulin Ratio 0.7 (1.0-2.7) L Triglycerides Level 167 MG/DL (30-150) H Cholesterol Level 218 MG/DL (< 200) H LDL Cholesterol 155 mg/dL (<100) H HDL Cholesterol 38 MG/DL (40-60) L Cholesterol/HDL Ratio 5.7 (3.3-4.4) H Height (Feet): 5 Height (Inches): 0.00 Weight (Pounds): 120 Medications Current Medications Medications (Trade) Dose Ordered Sig/Jayme Route PRN Reason Start Time Stop Time Status Last Admin Dose Admin Acetaminophen (Tylenol) 650 mg Q4H PRN ORAL fever 11/19/18 11:30 12/19/18 11:29 Ceftriaxone Sodium 1 gm/ Dextrose 50 ml @ 100 mls/hr Q24H IVPB 11/19/18 22:00 11/26/18 21:59 11/19/18 22:30 Dextrose (Dextrose 50%) 25 ml Q30M PRN IV Hypoglycemia 11/19/18 11:30 12/19/18 11:29 Dextrose (Dextrose 50%) 50 ml Q30M PRN IV Hypoglycemia 11/19/18 11:30 12/19/18 11:29 Donepezil HCl (Aricept) 5 mg DAILY ORAL 11/20/18 09:00 12/20/18 08:59 Heparin Sodium (Porcine) (Heparin 5000 units/ml) 5,000 units EVERY 8 HOURS SUBQ 11/19/18 22:00 12/19/18 21:59 11/20/18 06:11 Insulin Aspart (NovoLOG) BEFORE MEALS AND HS SUBQ 11/19/18 16:30 12/19/18 16:29 Lorazepam (Ativan 2mg/ml 1ml) 0.5 mg Q4H PRN IV For Anxiety 11/19/18 11:30 11/26/18 11:29 Morphine Sulfate (Morphine Sulfate) 1 mg Q4H PRN IVP For Pain 11/19/18 11:30 11/26/18 11:29 Ondansetron HCl (Zofran) 4 mg Q6H PRN IVP Nausea & Vomiting 11/19/18 11:30 12/19/18 11:29 Polyethylene Glycol (Miralax) 17 gm HSPRN PRN ORAL Constipation 11/19/18 11:30 12/19/18 11:29 Sertraline HCl (Zoloft) 50 mg DAILY ORAL 11/20/18 09:00 12/20/18 08:59 Sodium Chloride 1,000 ml @ 50 mls/hr Q20H IV 11/19/18 20:00 12/19/18 19:59 11/19/18 20:45 Zolpidem Tartrate (Ambien) 5 mg HSPRN PRN ORAL Insomnia 11/19/18 11:30 11/26/18 11:29 Assessment/Plan Problem List: (1) Cerebral vascular disease ICD Codes: I67.9 - Cerebrovascular disease, unspecified SNOMED: 66034374 (2) Alzheimer's dementia ICD Codes: G30.9 - Alzheimer's disease, unspecified SNOMED: 93323632 Qualifiers: Qualified Codes: G30.9 - Alzheimer's disease, unspecified; F02.80 - Dementia in other diseases classified elsewhere without behavioral disturbance (3) Diabetes mellitus, type II ICD Codes: E11.9 - Type 2 diabetes mellitus without complications SNOMED: 07526597 (4) History of CVA (cerebrovascular accident) ICD Codes: Z86.73 - Personal history of transient ischemic attack (TIA), and cerebral infarction without residual deficits SNOMED: 886999495 Assessment/Plan: NPO IV fluids swallow study sliding scale diabetic diet dvt prophylaxis. Genesis Hayes MD Nov 20, 2018 12:52
--- NOTE | 2018-11-20 13:22 | NUR ---
NURSE NOTES: noted with new consult with Dr. price(neurologist). Dr. price was paged and left a msg with friction saw operator. awaiting for call back. will follow up accordingly.
--- NOTE | 2018-11-20 14:15 | NUR ---
NURSE NOTES: NG tube was placed and Chest x-ray was ordered for placement confirmation
--- NOTE | 2018-11-20 14:29 | NUR ---
ST NOTES: REFERRED BY TAMANNA ASHBY AND ANUM FOR SWALLOW EVAL, SEE FULL REPORT TO FOLLOW IN CARE ACTIVITY SECTION. DYSPHAGIA RISK FACTORS FOR THIS 78 Y.O. 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 YELLOW PHLEGM, CONGESTION R/O PNA BUT CXR CLEAR, DEHYDRATED H/O OBESITY PER RD, OLD CVAS AND TIA, ?ALZHEIMER'S DZ DEMENTIA VS VASCULAR CHECK WITH NEUROLOGIST DR KINDRA GONSALES, GERD, DM2, GIB, HTN. DEPRESSION, POLST NO IN CHART BUT FAMILY OK WITH TF NGT FOR NOW PRIOR TO ADMIT ON REG TEXTURE DIET [facility] ADMIT FOR L HIP SURGERY PER FAMILY. CURRENTLY NPO. PER FAMILY, WAS COUGHING W/O PO (?SALIVA) GAVE HER WATER AND SHE COUGHED. IN ER PRIOR TO R/O CVA CHOKED ON CARROT IN SOUP. ALERT ONLY WITH STIM AND GETS SLEEPY WHEN NOT STIMULATED, SLEPT WELL LAST NIGHT. MOSTLY NONVERBAL BUT WILL IMITATE VOWEL AND FOLLOW SOME ORAL COMMANDS. (BASELINE WAS CONVERSANT IN BELARUSIAN AND NO DYSPHAGIA) INITIAL IMPRESSIONS S/S OF OROPHARYNGEAL DYSPHAGIA WITH SALIVA (AND REPORTEDLY THIN LIQUIDS WITH AND SOLIDS GIVEN PREVIOUSLY) BILATERAL MILD MOD LABIAL WEAKNESS (LEFT SIDE FROM BEFORE NOW RIGHT SIDE) REDUCED TONGUE SPEED AND STRENGTH (MILD-MOD) AND FAIR ROM WEAK COUGH EDENTULOUS (REMOVED UPPER/LOWER DENTURES) NEEDS ORAL SUCTION FOR MILD AMOUNTS OF SALIVA (BILAT AND BACK OF THROAT) REDUCED AND INCONSISTENT ALERTNESS MIN TO NO PO FOR AT LEAST A WEEK RECOMMENDATIONS: KEEP NPO FOR NOW INITIATE NONORAL FEEDINGS (SEE RD REPORT FOR FORMULA) COMPLETE MODIFIED BARIUM SWALLOW STUDY WHEN READY ORAL CARE/SUCTION PRN EDUCATED/TRAINED STAFF/FAMILY IN ORAL CARE/SUCTION SKILLED DYSPHAGIA MANAGEMENT AND TX COG-COM EVAL/TX D/W DR ASHBY AND NILSON CENTENO WHO AGREED WITH RECOMMENDATIONS
--- NOTE | 2018-11-20 14:56 | NUR ---
RD ASSESSMENT & RECOMMENDATIONS SEE CARE ACTIVITY FOR COMPLETE ASSESSMENT DAILY ESTIMATED NEEDS: Needs based on DM, 57kg abw 25-30 kcals/kg 5749-8998 total kcals 1-1.5 g protein/kg 57-86 g total protein 25-30 mL/kg 6493-4261 total fluid mLs NUTRITION DIAGNOSIS: * Swallowing difficulty R/T dysphagia, h/o CVA + lacunar infarct per MRI of brain as evidenced by INSTRUMENT TECH recommends NPO, nonoral feedings, s/p NGT insertion. * Altered nutrition related lab values R/T DM as evidenced by elev POC glu ([phone]) CURRENT DIET:NPO PO DIET RECOMMENDATIONS: DIET PER INSTRUMENT TECH WHEN SAFE FOR PO ENTERAL NUTRITION RECOMMENDATIONS: Glucerna 1.2 @ 55ml/hr x 24 hrs to provide 1320ml, 1584kcal, 79g prot, 1063ml free water * Initiate Glucerna 1.2 @ 25ml/hr x 6 hrs * Advance 10ml q 4-6 hrs as tolerated to goal rate * HOB over 30 degrees/ water flush per MD ADDITIONAL RECOMMENDATIONS: * Calibrated bedscale wt for accurate CBW : family states AMV=152eaz (vs EMR wt of 120lbs) * Monitor lytes daily w/ TF, replete as needed - replete mag prior to TF initiation (low mag 1.6) * A1C for eval or glycemic control
[2018-11-20 16:00] VITALS: BP 143/82
--- NOTE | 2018-11-20 19:12 | NUR ---
HAND-OFF: Report given to JOSH Amaya.
--- NOTE | 2018-11-20 19:39 | Consultation ---
Consult Note Consult Note NEUROLOGY CONSULTATION: Full note dictated #[id number] 78-year-old, right-handed, lady, with past history of diabetes mellitus, hypertension, questionable dyslipidemia, dementia for the last 10 years or so, stroke associated with left-sided weakness approximately 10 years ago, left hip fracture approximately 2 years ago, thrombophlebitis involving the left lower extremity following hip fracture surgery, and gastroesophageal reflux disease. She was functioning relatively well until 11/19/2018 when her daughter noticed that she was generally weaker, had a change in her facial expression, and in addition was unable to communicate. Normally the patient is able to communicate with minimal words and in addition is able to recognize family members by name. She has not walked for a prolonged period of time. Since she has been in the hospital her ability to express herself has improved minimally. She however continues to be generally weak. ON EXAM: Awake and alert Oriented to self only Unable to recall 3 words after 1 minute and 3 minutes Unable to remember presidents Unable to do simple mathematics Unable to do simple visual-spatial problems Speech moderately dysarthric Language anomic Cranial nerves with right greater than left seventh central facial paresis Motor exam with G 4/5 in left finger extensors and iliopsoas, and G 4+/5 in right finger extensors and iliopsoas. Sensory intact to light touch Reflexes: Trace+ and bilaterally symmetrical at the biceps, triceps, brachioradialis, knees. 0 at both ankles. Plantar responses flexor. Coordination: [id number] normal on right and with pass pointing on left. Stance and gait could not be tested. IMPRESSION: New left basal ganglion and coronary radiata stroke. Old right basal ganglion and right pontine strokes. Strokes due to hypertensive, diabetic, dyslipidemic, small blood vessel disease. Recommendations: The patient and her family were given an explanation of the above-mentioned findings. Plavix 75 mg daily. Strict blood sugar control. Strict blood pressure control. Treatment of dyslipidemia with statin. PT OT and speech and language therapy. Geoffrey Duncan M.D., M.S.P.H. Geoffrey Duncan MD Nov 20, 2018 19:39
[2018-11-20 20:00] VITALS: BP 160/90
--- NOTE | 2018-11-20 20:04 | NUR ---
NURSE NOTES: Received report from Lupe Murdock RN. Patient A&Ox1, Vincentian speaking. On room air. NG tube left nare placed, awaiting x-ray confirmation. IV intact, patent, and running IV fluids. Family at bedside. Be din lowest position. Will continue with plan of care.
[2018-11-20] MEDS: cefTRIAXone 1 GM in D5W 50 ML IVPB SCH (21:59)
--- NOTE | 2018-11-20 23:45 | Internal Med Progress Note ---
Subjective Physician Name Abdirahman Griffin Attending Physician Abdirahman Griffin MD Current Medications Medications (Trade) Dose Ordered Sig/Jayme Route PRN Reason Start Time Stop Time Status Last Admin Dose Admin Acetaminophen (Tylenol) 650 mg Q4H PRN ORAL fever 11/19/18 11:30 12/19/18 11:29 Ceftriaxone Sodium 1 gm/ Dextrose 50 ml @ 100 mls/hr Q24H IVPB 11/19/18 22:00 11/26/18 21:59 11/20/18 21:59 Clopidogrel Bisulfate (Plavix) 75 mg DAILY ORAL 11/20/18 19:45 12/20/18 19:44 11/20/18 21:59 Dextrose (Dextrose 50%) 25 ml Q30M PRN IV Hypoglycemia 11/19/18 11:30 12/19/18 11:29 Dextrose (Dextrose 50%) 50 ml Q30M PRN IV Hypoglycemia 11/19/18 11:30 12/19/18 11:29 Donepezil HCl (Aricept) 5 mg DAILY ORAL 11/20/18 09:00 12/20/18 08:59 Heparin Sodium (Porcine) (Heparin 5000 units/ml) 5,000 units EVERY 8 HOURS SUBQ 11/19/18 22:00 12/19/18 21:59 11/20/18 21:57 Insulin Aspart (NovoLOG) BEFORE MEALS AND HS SUBQ 11/19/18 16:30 12/19/18 16:29 11/20/18 21:58 Lorazepam (Ativan 2mg/ml 1ml) 0.5 mg Q4H PRN IV For Anxiety 11/19/18 11:30 11/26/18 11:29 Morphine Sulfate (Morphine Sulfate) 1 mg Q4H PRN IVP For Pain 11/19/18 11:30 11/26/18 11:29 Ondansetron HCl (Zofran) 4 mg Q6H PRN IVP Nausea & Vomiting 11/19/18 11:30 12/19/18 11:29 Polyethylene Glycol (Miralax) 17 gm HSPRN PRN ORAL Constipation 11/19/18 11:30 12/19/18 11:29 Sertraline HCl (Zoloft) 50 mg DAILY ORAL 11/20/18 09:00 12/20/18 08:59 Sodium Chloride 1,000 ml @ 50 mls/hr Q20H IV 11/19/18 20:00 12/19/18 19:59 11/20/18 16:18 Zolpidem Tartrate (Ambien) 5 mg HSPRN PRN ORAL Insomnia 11/19/18 11:30 11/26/18 11:29 Allergies: Coded Allergies: No Known Allergies (Unverified , 01/27/17) Subjective awake, more responsive, NAD, son at bedside. Objective Last Vital Signs Date Time Temp Pulse Resp B/P (MAP) Pulse Ox O2 Delivery O2 Flow Rate FiO2 11/20/18 16:00 98.6 97 18 143/82 (102) 93 11/20/18 09:00 Room Air Laboratory Tests Test 11/20/18 05:22 White Blood Count 8.0 K/UL (4.8-10.8) Red Blood Count 4.44 M/UL (4.20-5.40) Hemoglobin 12.2 G/DL (12.0-16.0) Hematocrit 39.5 % (37.0-47.0) Mean Corpuscular Volume 89 FL (80-99) Mean Corpuscular Hemoglobin 27.5 PG (27.0-31.0) Mean Corpuscular Hemoglobin Concent 30.9 G/DL (32.0-36.0) L Red Cell Distribution Width 13.0 % (11.6-14.8) Platelet Count 248 K/UL (150-450) Mean Platelet Volume 6.4 FL (6.5-10.1) L Neutrophils (%) (Auto) 56.5 % (45.0-75.0) Lymphocytes (%) (Auto) 29.2 % (20.0-45.0) Monocytes (%) (Auto) 10.1 % (1.0-10.0) H Eosinophils (%) (Auto) 3.1 % (0.0-3.0) H Basophils (%) (Auto) 1.2 % (0.0-2.0) Erythrocyte Sedimentation Rate 17 MM/HR (0-30) Sodium Level 135 MMOL/L (136-145) L Potassium Level 4.2 MMOL/L (3.5-5.1) Chloride Level 101 MMOL/L (98-107) Carbon Dioxide Level 28 MMOL/L (21-32) Anion Gap 6 mmol/L (5-15) Blood Urea Nitrogen 10 mg/dL (7-18) Creatinine 1.1 MG/DL (0.55-1.30) Estimat Glomerular Filtration Rate mL/min (>60) Glucose Level 145 MG/DL (74-106) H Hemoglobin A1c 8.2 % (4.3-6.0) H Calcium Level 9.1 MG/DL (8.5-10.1) Phosphorus Level 3.6 MG/DL (2.5-4.9) Magnesium Level 1.6 MG/DL (1.8-2.4) L Total Bilirubin 0.4 MG/DL (0.2-1.0) Aspartate Amino Transf (AST/SGOT) 17 U/L (15-37) Alanine Aminotransferase (ALT/SGPT) 10 U/L (12-78) L Alkaline Phosphatase 89 U/L (46-116) Troponin I 0.034 ng/mL (0.000-0.056) Total Protein 7.2 G/DL (6.4-8.2) Albumin 3.0 G/DL (3.4-5.0) L Globulin 4.2 g/dL Albumin/Globulin Ratio 0.7 (1.0-2.7) L Triglycerides Level 167 MG/DL (30-150) H Cholesterol Level 218 MG/DL (< 200) H LDL Cholesterol 155 mg/dL (<100) H HDL Cholesterol 38 MG/DL (40-60) L Cholesterol/HDL Ratio 5.7 (3.3-4.4) H Thyroid Stimulating Hormone (TSH) 3.914 uiU/mL (0.358-3.740) Rapid Plasma Reagin Pending Intake and Output 11/19/18 11/20/18 19:00 07:00 Intake Total 500 ml 300 ml Balance 500 ml 300 ml Intake IV Total 500 ml 300 ml # Voids 1 1 # Bowel Movements 1 2 Objective GENERAL: The patient opens her eyes. more responsive, HEENT: Pupils correct, equal, and reactive to light. Anicteric. NG tube. NECK: Supple. No JVD. LUNGS: Fair air entry. Decreased air entry in the bases. No wheezes or rhonchi. HEART: S1 and S2. Distant heart sounds. No murmur or gallops. ABDOMEN: Soft, nondistended, and nontender. Mildly obese. EXTREMITIES: No cyanosis, clubbing, or edema. NEUROLOGIC: Cranial nerves II through XII grossly intact. The patient is moving all the extremities, left side weaker than right side. . RECTAL: Refused and deferred. Assessment/Plan Assessment/Plan ASSESSMENT: 1. Upper respiratory symptoms, possible due to the early pneumonia versus bronchitis. 2. Acute left basal ganglia lacunar infarct. 3. History of cerebrovascular accident with left-sided hemiparesis. 4. Dehydration. 5. Diabetes, type 2. 6. Gastroesophageal reflux disease. 7. Alzheimer dementia. 8. Borderline hypertension. 9. Prior history of left lower extremity deep venous thrombosis in 2017 after left hip fracture and open reduction and internal fixation. PLAN: In Med/Surg. monitor cultures and laboratory Discussed with the son at the bedside Code status is Full Code. DVT prophylaxis, heparin subcutaneously. Broad-spectrum antibiotic with Rocephin. Tube feeding @ 35 cc/hr MRI Brain: Impression: Positive for acute left basal ganglia lacunar infarct Multiple old infarcts, as described Other chronic and age-related changes, as described Negative for acute intracranial bleed or mass effect Abdirahman Griffin MD Nov 20, 2018 23:45
[2018-11-21] VITALS (7 sets, daily range): BP systolic 128–160; BP diastolic 68–85
--- NOTE | 2018-11-21 01:45 | Consultation ---
DATE OF CONSULTATION: 11/20/2018 NEUROLOGY CONSULTATION CONSULTING PHYSICIAN: Geoffrey Duncan M.D. REQUESTING PHYSICIANS: Abdirahman Griffin M.D. & Genesis Hayes M.D. HISTORY: Ms. Mery Membreno is a 78-year-old, right-handed, lady, who does have a past history of diabetes mellitus, hypertension, questionable dyslipidemia, dementia for the last 10 years or so, stroke associated with left-sided weakness approximately 10 years ago, left hip fracture approximately two years ago, followed by thrombophlebitis involving the left lower extremity due to which she was on anticoagulation for approximately 6 months and gastroesophageal reflux disease. She was functioning relatively well until the morning of 11/19/2018 when the daughter noticed that she was generally weaker, had a change in her facial expression, and in addition, was unable to communicate. Normally, the patient is able to communicate with minimal words and in addition, is able to recognize family members by name. She has not walked for a prolonged period of time. Since she has been in the hospital, her ability to express herself has improved minimally and she is now able to recognize family members by name. She, however, continues to be generally weaker than her baseline. PAST MEDICAL HISTORY: Significant for hypertension, diabetes mellitus, questionable dyslipidemia, dementia for the last 10 years, stroke associated with left-sided weakness approximately 10 years ago, left hip fracture 2 years ago, thrombophlebitis involving the left lower extremity following the hip fracture, and gastroesophageal reflux disease. FAMILY HISTORY: Nothing significant as per the patient's daughter. PERSONAL HISTORY: Home: She lives with her . 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 Habits: She smoked for about 10 years numerous years ago. There is no history of alcohol or illicit drug use. PRESENT MEDICATIONS: Aricept 5 mg daily, Zoloft 50 mg daily, ceftriaxone, heparin for DVT prophylaxis, insulin, Tylenol p.r.n., morphine p.r.n., MiraLAX p.r.n., Zofran p.r.n., Ambien p.r.n., and Ativan p.r.n. PHYSICAL EXAMINATION: GENERAL: She is a well-developed, well-nourished, pleasant lady, lying in bed, in no acute distress. VITAL SIGNS: Pulse 97/minute, blood pressure 143/82 mmHg, respirations 18/minute, and temperature 98.6 degrees Fahrenheit, HEAD: Normocephalic and atraumatic. EENT: Examination was benign. NECK: No neck rigidity was observed. NEUROLOGICAL EXAMINATION: MENTAL STATUS EXAMINATION: She was awake and alert. She was oriented to self and hospital, but did not know the name of the hospital and had no idea what the date was. She was able to recall 3/3 words immediately, but was unable to remember them in 1 minute and 3 minutes. She was unable to tell me who the present President was and who the prior presidents were. Her mathematical skills were impaired. Her visuospatial function was also impaired. SPEECH: She had a moderate dysarthria. LANGUAGE: She had an anomic aphasia. CRANIAL NERVE EXAMINATION: II: The visual de guzman were intact on confrontation testing. III, IV & : The external ocular movements were full and the pupils 3 mm in diameter, equal, round, regular, and reactive to light. V: She had normal facial sensations, and the temporales, masseters, and pterygoids function normally. VII: She had right greater than left seventh central facial paresis. VIII: She was able to hear and had no nystagmus. IX: The palate moved symmetrically on phonation. X: She had no hoarseness of voice. XI: The sternocleidomastoids and trapezii function normally. XII: The tongue was in the midline without any fasciculations or atrophy. MOTOR SYSTEM: The tone was normal in all four extremities. Examination of muscle mass revealed no focal wasting. Examination of power revealed G 5/5 power except for G 4/5 power in the left finger extensors and iliopsoas and G 4+/5 power in the right finger extensors and iliopsoas. SENSORY EXAMINATION: She was able to discern light touch all over her body and localized to touch well. REFLEXES: Trace+ and bilaterally symmetrical at the biceps, triceps, brachioradialis, knees, 0 at both ankles. The plantar responses were flexor bilaterally. COORDINATION: She performed well on [id number] testing on the right side, however on the left side, she pass pointed. STANCE & GAIT: Could not be tested. DIAGNOSTIC IMPRESSION: 1. Ms. Mery Membreno is a 78-year-old, right-handed, lady, who does have a past history of diabetes mellitus, hypertension, questionable dyslipidemia, dementia, cerebrovascular disease with prior strokes with left-sided weakness, a left hip fracture approximately two years ago followed by thrombophlebitis, and gastroesophageal reflux disease, who was noted to have a sudden change in her level of consciousness associated with generalized weakness, a change in facial expression, and inability to communicate on 11/19/2018. Since then, she has improved. 2. On neurological examination, at this time, she is disoriented to the name of the hospital, date, month, and year. Has significant problems with recent and remote memory, visuospatial function, higher cognitive function, and language. She also has a definite dysarthria, left greater than right seventh central facial paresis, left greater than right finger extensors and iliopsoas weakness, globally diminished deep tendon reflexes with loss of ankle jerks, and pass pointing on the left side on [id number] testing. In addition, she is unable to stand and walk. 3. Laboratory data revealed a relatively normal CBC. The chemistry panel revealed a minimally low sodium at 135, elevated blood glucose at 145, and low albumin at 3.0. The urinalysis revealed 3+ leukocyte esterase, 0-2 red blood cells, and 15-20 white blood cells per high-power field. 4. The MRI scan of the brain revealed an acute left basal ganglion and harris radiata infarct, and chronic right basal ganglion and right pontine infarcts. 5. The patient's history, neurological examination, laboratory data, and imaging studies are most consistent with an acute left basal ganglion and harris radiata infarct causing the sudden change in her level of arousal and in addition, the new right-sided weakness in addition to the old left-sided weakness related to prior strokes. 6. The most likely etiology for the patient's strokes would be hypertensive, diabetic, and dyslipidemic small-vessel disease. RECOMMENDATIONS: 1. The patient and her family were given an explanation of the above-mentioned findings. 2. She should be started on Plavix 75 mg daily for secondary stroke prevention. 3. Blood sugar should be controlled in a strict manner. 4. Blood pressure should be brought down into the physiological range. 5. Dyslipidemia should be treated appropriately with a statin. 6. She should be started on a course of physical, occupational, speech, and language therapy to rehabilitate her, Thank you for entrusting me with the care of Ms Haseeb. I shall follow her with you. Geoffrey Duncan M.D., M.S.P.H. DR: NATASHA JOB#: [id number] RAMEZ
[2018-11-21] MEDS: NovoLOG Insulin Flexpen SUBQ SCH ×4 (06:52→20:47)
[2018-11-21] MEDS: Heparin 5000 units/ml inj SUBQ SCH ×3 (06:52→21:49)
--- NOTE | 2018-11-21 07:34 | NUR ---
NURSE NOTES: Received pt with stable condition. pt is asleep with no sob nor in any form of distress noted. breathing regular and unlabored. denies pain at this time. NG tube intact and patent. Tolerating well on feeding with no residue. HOB elevated for aspiration precaution. kept clean and comfortable. call light within reach at all time. will continue to monitor
--- NOTE | 2018-11-21 07:47 | NUR ---
HAND-OFF: Report given to Lupe Gross rn.
[2018-11-21] MEDS: Donepezil 5mg Tab ORAL SCH (09:30)
[2018-11-21] MEDS: Sertraline 50mg tab ORAL SCH (09:30)
--- NOTE | 2018-11-21 10:50 | NUR ---
PT NOTE Attempted x2 to see patient for PT treatment. Patient sleeping, daughter states patient did not sleep well last night. Per MRI done 11/20 patient with acute L basal ganglia lacunar infarct. Will follow up tomorrow, Jesusita MORENO notified.
--- NOTE | 2018-11-21 11:15 | Diagnostic Imaging Report ---
Indication: Post nasogastric tube placement Technique: Supine view of the upper abdomen Comparison: none Findings: There is a nasogastric tube in place, tip which projects at the level of the gastric antrum. The bowel gas pattern is unremarkable. There is evidence of T12 and possibly of T10 and L1 compression fracture deformities Impression: Satisfactory nasogastric intubation Other findings as noted This agrees with the preliminary interpretation provided overnight by [facility].
--- NOTE | 2018-11-21 12:36 | Diagnostic Imaging Report ---
Indication: Post nasogastric tube placement Technique: Supine view of the abdomen Comparison: 11/20/2018 Findings: Again demonstrated is a nasogastric tube, advanced further and now deep within the stomach, coiled within the gastric fundus, body, and antrum. Unremarkable bowel gas pattern. Left hip prosthesis currently noted. Impression: Satisfactory nasogastric tube placement. This agrees with the preliminary interpretation provided overnight by [facility].
--- NOTE | 2018-11-21 16:23 | Neurology Progress Note ---
Interim History Interim History Interim History Ms. Membreno feels better. Numerous family members are visiting her now. She continues to be cognitively impoverished. She continues to be generally weak. She is still being fed via her NGT. She denies any new neurologic symptoms. Review of Systems Neuro Review of Systems Unable to obtain. Objective Physical Exam Last Vital Signs Date Time Temp Pulse Resp B/P (MAP) Pulse Ox O2 Delivery O2 Flow Rate FiO2 11/21/18 12:00 98.4 91 20 143/71 (95) 95 11/21/18 09:00 Room Air Neurologic Exam Objective PHYSICAL EXAMINATION: GENERAL: She is a well-developed, well-nourished, pleasant lady, lying in bed, in no acute distress. HEAD: Normocephalic and atraumatic. EENT: Examination was benign. NECK: No neck rigidity was observed. NEUROLOGICAL EXAMINATION: MENTAL STATUS EXAMINATION: She was awake and alert. She was oriented to self and hospital, but did not know the name of the hospital and had no idea what the date was. She was able to recall 3/3 words immediately, but was unable to remember them in 1 minute and 3 minutes. She was unable to tell me who the present President was and who the prior presidents were. Her mathematical skills were impaired. Her visuospatial function was also impaired. SPEECH: She had a moderate dysarthria. LANGUAGE: She had an anomic aphasia. CRANIAL NERVE EXAMINATION: II: The visual de guzman were intact on confrontation testing. III, IV & : The external ocular movements were full and the pupils 3 mm in diameter, equal, round, regular, and reactive to light. V: She had normal facial sensations, and the temporales, masseters, and pterygoids functioned normally. VII: She had right greater than left seventh central facial paresis. VIII: She was able to hear and had no nystagmus. IX: The palate moved symmetrically on phonation. X: She had no hoarseness of voice. XI: The sternocleidomastoids and trapezii function normally. XII: The tongue was in the midline without any fasciculations or atrophy. MOTOR SYSTEM: The tone was normal in all four extremities. Examination of muscle mass revealed no focal wasting. Examination of power revealed G 5/5 power except for G 4/5 power in the left finger extensors and iliopsoas and G 4+/5 power in the right finger extensors and iliopsoas. SENSORY EXAMINATION: She was able to discern light touch all over her body and localized to touch well. REFLEXES: Trace+ and bilaterally symmetrical at the biceps, triceps, brachioradialis, knees, 0 at both ankles. The plantar responses were flexor bilaterally. COORDINATION: She performed well on [id number] testing on the right side, however on the left side, she pass pointed. STANCE & GAIT: Could not be tested. Impression/Recommendations Diagnostic Impression 1. Ms. Mery Membreno is a 78-year-old, right-handed, lady, who does have a past history of diabetes mellitus, hypertension, questionable dyslipidemia, dementia, cerebrovascular disease with prior strokes with left- sided weakness, a left hip fracture approximately two years ago followed by thrombophlebitis, and gastroesophageal reflux disease, who was noted to have a sudden change in her level of consciousness associated with generalized weakness , a change in facial expression, and inability to communicate on 11/19/2018. 2. She feels better. Numerous family members are visiting her now. She continues to be cognitively impoverished. She continues to be generally weak. She is still being fed via her NGT. She denies any new neurologic symptoms. 3. On neurological examination, at this time, she is disoriented to the name of the hospital, date, month, and year. Has significant problems with recent and remote memory, visuospatial function, higher cognitive function, and language. She also has a definite dysarthria, left greater than right seventh central facial paresis, left greater than right finger extensors and iliopsoas weakness , globally diminished deep tendon reflexes with loss of ankle jerks, and pass pointing on the left side on [id number] testing. In addition, she is unable to stand and walk. 4. Laboratory data revealed a relatively normal CBC. The chemistry panel revealed a minimally low sodium at 135, elevated blood glucose at 145, and low albumin at 3.0. The urinalysis revealed 3+ leukocyte esterase, 0-2 red blood cells, and 15-20 white blood cells per high-power field. 5. The MRI scan of the brain revealed an acute left basal ganglion and harris radiata infarct, and chronic right basal ganglion and right pontine infarcts. 6. The Carotid duplex done on 11/21/18 revealed 30% right and 20% left ICA stenosis 7. The patient's history, neurological examination, laboratory data, and imaging studies are most consistent with an acute left basal ganglion and harris radiata infarct causing the sudden change in her level of arousal and in addition, the new right-sided weakness in addition to the old left-sided weakness related to prior strokes. 8. The most likely etiology for the patient's strokes would be hypertensive, diabetic, and dyslipidemic small-vessel disease. Recommendations 1. The patient and her family were given an explanation of the above-mentioned findings. 2. Plavix 75 mg daily for secondary stroke prevention. 3. Blood sugar control in a strict manner. 4. Blood pressure control - aim for <120/80. 5. Her dyslipidemia should be treated appropriately with a statin. 6. Physical, occupational, and speech and language therapy, to rehabilitate her, Geoffrey Duncan M.D., M.S.P.H. Geoffrey Duncan MD Nov 21, 2018 16:23
[2018-11-21] MEDS ORDERED: Sterile Water Irrig 1000ml IRRIG ONE (17:18)
[2018-11-21] MEDS: SYSTANE EYE BOTH EYES SCH (17:36)
--- NOTE | 2018-11-21 18:07 | Internal Med Progress Note ---
Subjective Date of Service: Nov 21, 2018 Physician Name Magan More Attending Physician Abdirahman Griffin MD Current Medications Medications (Trade) Dose Ordered Sig/Jayme Route PRN Reason Start Time Stop Time Status Last Admin Dose Admin Acetaminophen (Tylenol) 650 mg Q4H PRN ORAL fever 11/19/18 11:30 12/19/18 11:29 Ceftriaxone Sodium 1 gm/ Dextrose 50 ml @ 100 mls/hr Q24H IVPB 11/19/18 22:00 11/26/18 21:59 11/20/18 21:59 Clopidogrel Bisulfate (Plavix) 75 mg DAILY ORAL 11/20/18 19:45 12/20/18 19:44 11/21/18 09:30 Dextrose (Dextrose 50%) 25 ml Q30M PRN IV Hypoglycemia 11/19/18 11:30 12/19/18 11:29 Dextrose (Dextrose 50%) 50 ml Q30M PRN IV Hypoglycemia 11/19/18 11:30 12/19/18 11:29 Donepezil HCl (Aricept) 5 mg DAILY ORAL 11/20/18 09:00 12/20/18 08:59 11/21/18 09:30 Heparin Sodium (Porcine) (Heparin 5000 units/ml) 5,000 units EVERY 8 HOURS SUBQ 11/19/18 22:00 12/19/18 21:59 11/21/18 13:18 Insulin Aspart (NovoLOG) BEFORE MEALS AND HS SUBQ 11/19/18 16:30 12/19/18 16:29 11/21/18 17:37 Lorazepam (Ativan 2mg/ml 1ml) 0.5 mg Q4H PRN IV For Anxiety 11/19/18 11:30 11/26/18 11:29 Morphine Sulfate (Morphine Sulfate) 1 mg Q4H PRN IVP For Pain 11/19/18 11:30 11/26/18 11:29 Ondansetron HCl (Zofran) 4 mg Q6H PRN IVP Nausea & Vomiting 11/19/18 11:30 12/19/18 11:29 Patient Own Medication (Patient's Own Med) 1 ea BID BOTH EYES 11/21/18 18:00 12/21/18 17:59 11/21/18 17:36 Polyethylene Glycol (Miralax) 17 gm HSPRN PRN ORAL Constipation 11/19/18 11:30 8/13/19 11:29 Sertraline HCl (Zoloft) 50 mg DAILY ORAL 11/20/18 09:00 12/20/18 08:59 11/21/18 09:30 Sodium Chloride 1,000 ml @ 50 mls/hr Q20H IV 11/19/18 20:00 12/19/18 19:59 11/21/18 13:14 Zolpidem Tartrate (Ambien) 5 mg HSPRN PRN ORAL Insomnia 11/19/18 11:30 11/26/18 11:29 Allergies: Coded Allergies: No Known Allergies (Unverified , 01/27/17) ROS Limited/Unobtainable: Yes Subjective 78 YO F admitted with dehydration. Now acute left cerebral vascular accident. Cover for [facility] Griffin Objective Last Vital Signs Date Time Temp Pulse Resp B/P (MAP) Pulse Ox O2 Delivery O2 Flow Rate FiO2 11/21/18 16:00 98.4 83 20 128/74 (92) 100 11/21/18 09:00 Room Air Microbiology Date/Time Source Procedure Growth Status 11/19/18 10:50 Blood Blood Culture - Preliminary NO GROWTH AFTER 24 HOURS Resulted 11/19/18 10:35 Blood Blood Culture - Preliminary NO GROWTH AFTER 24 HOURS Resulted 11/19/18 11:00 Urine,Clean Catch Urine Culture - Preliminary Gram Negative Bacillus 1 Resulted Intake and Output 11/20/18 11/21/18 18:59 06:59 Intake Total 450 ml 970 ml Balance 450 ml 970 ml Intake Free Water 60 ml IV Total 450 ml 500 ml Tube Feeding 410 ml Objective Objective GENERAL: The patient opens her eyes. more responsive, HEENT: Pupils correct, equal, and reactive to light. Anicteric. NG tube. NECK: Supple. No JVD. LUNGS: Fair air entry. Decreased air entry in the bases. No wheezes or rhonchi. HEART: S1 and S2. Distant heart sounds. No murmur or gallops. ABDOMEN: Soft, nondistended, and nontender. Mildly obese. EXTREMITIES: No cyanosis, clubbing, or edema. NEUROLOGIC: Cranial nerves II through XII grossly intact. The patient is moving all the extremities, left side weaker than right side. . RECTAL: Refused and deferred. Assessment/Plan Assessment/Plan Assessment/Plan Assessment/Plan ASSESSMENT: 1. Upper respiratory symptoms, possible due to the early pneumonia versus bronchitis. 2. Acute left basal ganglia lacunar infarct. 3. History of cerebrovascular accident with left-sided hemiparesis. 4. Dehydration. 5. Diabetes, type 2. 6. Gastroesophageal reflux disease. 7. Alzheimer dementia. 8. Borderline hypertension. 9. Prior history of left lower extremity deep venous thrombosis in 2017 after left hip fracture and open reduction and internal fixation. PLAN: In Med/Surg. monitor cultures and laboratory Discussed with the son at the bedside Code status is Full Code. DVT prophylaxis, heparin subcutaneously. Broad-spectrum antibiotic with Rocephin. Tube feeding @ 35 cc/hr MRI Brain: Impression: Positive for acute left basal ganglia lacunar infarct Multiple old infarcts, as described Other chronic and age-related changes, as described Negative for acute intracranial bleed or mass effect Magan More MD Nov 21, 2018 18:07
--- NOTE | 2018-11-21 19:13 | NUR ---
HAND-OFF: Report given to JOSH Amaya.
--- NOTE | 2018-11-21 19:40 | NUR ---
NURSE NOTES: Received report from Lupe Murdock RN. Patient alert x2-3. On room air, no signs of distress or labored breathing. IV intact, patent, and infusing IV fluids. NG tube intact, patent, and infusing feeding. Bed in lowest position with call light in reach. Will continue with plan of care.
[2018-11-21] MEDS: cefTRIAXone 1 GM in D5W 50 ML IVPB SCH (21:49)
--- NOTE | 2018-11-21 23:37 | CDS Physician Query ---
Clarification is required for compliance, coding accuracy, and to reflect severity of illness for this patient Dear Dr. Griffin Date: 11/21/18 CDS Name: Jacquelyn Benson Patient is admitted with Acute CVA and upper respiratory symptoms. H&P and PNs assessment includes Pneumonia VS Bronchitis Rx: IV Ceftriaxone Please clarify if patient has: [ ] Pneumonia [ x ] Bronchitis [ ] Pneumonia and Bronchitis [ ] Clinically undetermined Present on Admission: [ x ] Yes [ ] No [ ] Clinically Undetermined Physician signature Date Please also document in your Progress Notes and/or Discharge Summary and indicate if the condition was present on admission. RAMEZ
[2018-11-22] VITALS: BP 156/89
[2018-11-22 04:00] VITALS: BP 144/84
[2018-11-22 06:47] LABS: ANION GAP 9 mmol/L (5-15); BLOOD UREA NITROGEN 14 mg/dL (7-18); CALCIUM 9.3 MG/DL (8.5-10.1); CARBON DIOXIDE 28 MMOL/L (21-32); CHLORIDE 98 MMOL/L (98-107); CREATININE 1.1 MG/DL (0.55-1.30); POTASSIUM 4.2 MMOL/L (3.5-5.1); SODIUM 134 MMOL/L (136-145)
[2018-11-22 06:53] LABS: BASOPHILS % (AUTO) 1.2 % (0.0-2.0); EOSINOPHILS % (AUTO) 3.5 % (0.0-3.0); HEMATOCRIT 38.9 % (37.0-47.0); HEMOGLOBIN 12.5 G/DL (12.0-16.0); LYMPHOCYTES % (AUTO) 22.5 % (20.0-45.0); MEAN CORPUSCULAR VOLUME 88 FL (80-99); MONOCYTES % (AUTO) 9.1 % (1.0-10.0); NEUTROPHILS % (AUTO) 63.7 % (45.0-75.0); PLATELET COUNT 246 K/UL (150-450); RED BLOOD COUNT 4.41 M/UL (4.20-5.40); RED CELL DISTRIBUTION WIDTH 12.7 % (11.6-14.8); WHITE BLOOD COUNT 9.7 K/UL (4.8-10.8)
[2018-11-22] MEDS: NovoLOG Insulin Flexpen SUBQ SCH ×4 (06:54→22:18)
[2018-11-22] MEDS: Heparin 5000 units/ml inj SUBQ SCH ×3 (06:54→22:16)
--- NOTE | 2018-11-22 07:30 | NUR ---
NURSE NOTES: Received pt from JOSH AMAYA AT 0730. Pt is confused x2. pt's daughter is on bed side. pt is in RA, No SOB or acute respiratory distress noted. pt has intact iv access RH 22G is running well. pt doesn't have NG tube, JOSH DOMÍNGUEZ will Addendum: 11/22/18 at 1003 by Rita Rosa RN insert for her. medications are in hold till the result ob abd xr
[2018-11-22 08:00] VITALS: BP 159/86
--- NOTE | 2018-11-22 08:00 | NUR ---
NURSE NOTES: Received ESBL URIN, Dr ASHBY notified, no new order to RN. will continue to monitor.
--- NOTE | 2018-11-22 08:22 | NUR ---
HAND-OFF: Report given to JOSH Salinas.
[2018-11-22] MEDS: Sertraline 50mg tab ORAL SCH (09:00)
[2018-11-22] MEDS: SYSTANE EYE BOTH EYES SCH ×2 (09:00→17:00)
[2018-11-22] MEDS: Donepezil 5mg Tab ORAL SCH (09:00)
--- NOTE | 2018-11-22 09:47 | NUR ---
RADIOLOGY: PKUB XRAY IS COMPLETE 0915AM -NF
--- NOTE | 2018-11-22 10:14 | NUR ---
NURSE NOTES: the ABD X RAY result hasn't come yet. meds are hold till the result. will continue to monitor.
[2018-11-22 11:54] VITALS: BP 136/80
--- NOTE | 2018-11-22 12:00 | NUR ---
NURSE NOTES: abd x ray result isn't in the system yet. RN called x ray and got the result that NG is in place. NG is checked by RN and is in place. ng feeding started and running well and pt tolerate well. will continue to monitor.
--- NOTE | 2018-11-22 12:02 | Internal Med Progress Note ---
Subjective Date of Service: Nov 22, 2018 Physician Name Magan More Attending Physician Abdirahman Griffin MD Current Medications Medications (Trade) Dose Ordered Sig/Jayme Route PRN Reason Start Time Stop Time Status Last Admin Dose Admin Acetaminophen (Tylenol) 650 mg Q4H PRN ORAL fever 11/19/18 11:30 12/19/18 11:29 Ceftriaxone Sodium 1 gm/ Dextrose 50 ml @ 100 mls/hr Q24H IVPB 11/19/18 22:00 11/26/18 21:59 11/21/18 21:49 Clopidogrel Bisulfate (Plavix) 75 mg DAILY ORAL 11/20/18 19:45 12/20/18 19:44 11/21/18 09:30 Dextrose (Dextrose 50%) 25 ml Q30M PRN IV Hypoglycemia 11/19/18 11:30 12/19/18 11:29 Dextrose (Dextrose 50%) 50 ml Q30M PRN IV Hypoglycemia 11/19/18 11:30 12/19/18 11:29 Donepezil HCl (Aricept) 5 mg DAILY ORAL 11/20/18 09:00 12/20/18 08:59 11/21/18 09:30 Heparin Sodium (Porcine) (Heparin 5000 units/ml) 5,000 units EVERY 8 HOURS SUBQ 11/19/18 22:00 12/19/18 21:59 11/22/18 06:54 Insulin Aspart (NovoLOG) BEFORE MEALS AND HS SUBQ 11/19/18 16:30 12/19/18 16:29 11/22/18 06:54 Lorazepam (Ativan 2mg/ml 1ml) 0.5 mg Q4H PRN IV For Anxiety 11/19/18 11:30 11/26/18 11:29 Morphine Sulfate (Morphine Sulfate) 1 mg Q4H PRN IVP For Pain 11/19/18 11:30 11/26/18 11:29 Ondansetron HCl (Zofran) 4 mg Q6H PRN IVP Nausea & Vomiting 11/19/18 11:30 12/19/18 11:29 Patient Own Medication (Patient's Own Med) 1 ea BID BOTH EYES 11/21/18 18:00 12/21/18 17:59 11/22/18 09:00 Polyethylene Glycol (Miralax) 17 gm HSPRN PRN ORAL Constipation 11/19/18 11:30 8/13/19 11:29 Sertraline HCl (Zoloft) 50 mg DAILY ORAL 11/20/18 09:00 12/20/18 08:59 11/21/18 09:30 Sodium Chloride 1,000 ml @ 50 mls/hr Q20H IV 11/19/18 20:00 12/19/18 19:59 11/22/18 08:44 Zolpidem Tartrate (Ambien) 5 mg HSPRN PRN ORAL Insomnia 11/19/18 11:30 11/26/18 11:29 Allergies: Coded Allergies: No Known Allergies (Unverified , 01/27/17) ROS Limited/Unobtainable: No Constitutional: Reports: no symptoms HEENT: Reports: no symptoms Cardiovascular: Reports: no symptoms Respiratory: Reports: no symptoms Genitourinary: Reports: no symptoms Neurologic/Psychiatric: Reports: no symptoms Subjective 78 YO F admitted with dehydration. Now acute left cerebral vascular accident. Cover for [facility] Griffin Objective Last Vital Signs Date Time Temp Pulse Resp B/P (MAP) Pulse Ox O2 Delivery O2 Flow Rate FiO2 11/22/18 11:54 98.2 89 17 136/80 (98) 94 11/22/18 09:00 Room Air Laboratory Tests Test 11/22/18 05:35 White Blood Count 9.7 K/UL (4.8-10.8) Red Blood Count 4.41 M/UL (4.20-5.40) Hemoglobin 12.5 G/DL (12.0-16.0) Hematocrit 38.9 % (37.0-47.0) Mean Corpuscular Volume 88 FL (80-99) Mean Corpuscular Hemoglobin 28.3 PG (27.0-31.0) Mean Corpuscular Hemoglobin Concent 32.0 G/DL (32.0-36.0) Red Cell Distribution Width 12.7 % (11.6-14.8) Platelet Count 246 K/UL (150-450) Mean Platelet Volume 6.4 FL (6.5-10.1) L Neutrophils (%) (Auto) 63.7 % (45.0-75.0) Lymphocytes (%) (Auto) 22.5 % (20.0-45.0) Monocytes (%) (Auto) 9.1 % (1.0-10.0) Eosinophils (%) (Auto) 3.5 % (0.0-3.0) H Basophils (%) (Auto) 1.2 % (0.0-2.0) Sodium Level 134 MMOL/L (136-145) L Potassium Level 4.2 MMOL/L (3.5-5.1) Chloride Level 98 MMOL/L (98-107) Carbon Dioxide Level 28 MMOL/L (21-32) Anion Gap 9 mmol/L (5-15) Blood Urea Nitrogen 14 mg/dL (7-18) Creatinine 1.1 MG/DL (0.55-1.30) Estimat Glomerular Filtration Rate mL/min (>60) Glucose Level 280 MG/DL (74-106) H Calcium Level 9.3 MG/DL (8.5-10.1) Intake and Output 11/21/18 11/22/18 19:00 07:00 Intake Total 1295 ml 410 ml Output Total 300 ml 600 ml Balance 995 ml -190 ml Intake Free Water 90 ml IV Total 600 ml 300 ml Tube Feeding 605 ml 110 ml Output Urine Total 300 ml 600 ml # Voids 6 # Bowel Movements 2 Objective Objective GENERAL: The patient opens her eyes. more responsive, HEENT: Pupils correct, equal, and reactive to light. Anicteric. NG tube. NECK: Supple. No JVD. LUNGS: Fair air entry. Decreased air entry in the bases. No wheezes or rhonchi. HEART: S1 and S2. Distant heart sounds. No murmur or gallops. ABDOMEN: Soft, nondistended, and nontender. Mildly obese. EXTREMITIES: No cyanosis, clubbing, or edema. NEUROLOGIC: Cranial nerves II through XII grossly intact. The patient is moving all the extremities, left side weaker than right side. . RECTAL: Refused and deferred. Assessment/Plan Assessment/Plan Assessment/Plan Assessment/Plan ASSESSMENT: 1. Upper respiratory symptoms, possible due to the early pneumonia versus bronchitis. 2. Acute left basal ganglia lacunar infarct. 3. History of cerebrovascular accident with left-sided hemiparesis. 4. Dehydration. 5. Diabetes, type 2. 6. Gastroesophageal reflux disease. 7. Alzheimer dementia. 8. Borderline hypertension. 9. Prior history of left lower extremity deep venous thrombosis in 2017 after left hip fracture and open reduction and internal fixation. PLAN: In Med/Surg. monitor cultures and laboratory Discussed with the son at the bedside Code status is Full Code. DVT prophylaxis, heparin subcutaneously. Broad-spectrum antibiotic with Rocephin. Tube feeding @ 35 cc/hr Discharge planning: SNF vs [facility] MRI Brain: Impression: Positive for acute left basal ganglia lacunar infarct Multiple old infarcts, as described Other chronic and age-related changes, as described Negative for acute intracranial bleed or mass effect Magan More MD Nov 22, 2018 12:02
--- NOTE | 2018-11-22 12:16 | Pulmonology Progress Note ---
Assessment/Plan Problems: (1) Cerebral vascular disease (2) Alzheimer's dementia (3) Diabetes mellitus, type II (4) History of CVA (cerebrovascular accident) Assessment/Plan NG tube in sliding scale check electrolytes neuro consult appreciated aspiration precaution Subjective ROS Limited/Unobtainable: Yes Constitutional: Reports: no symptoms HEENT: Repors: no symptoms Respiratory: Reports: no symptoms Allergies: Coded Allergies: No Known Allergies (Unverified , 01/27/17) Objective Last 24 Hour Vital Signs Date Time Temp Pulse Resp B/P (MAP) Pulse Ox O2 Delivery O2 Flow Rate FiO2 11/22/18 11:54 98.2 89 17 136/80 (98) 94 11/22/18 09:00 Room Air 11/22/18 08:00 98.3 97 19 159/86 (110) 98 11/22/18 04:00 98.6 93 24 144/84 (104) 94 11/22/18 00:00 98.6 91 24 156/89 (111) 94 11/21/18 21:00 Room Air 11/21/18 20:00 98.9 94 20 160/81 (107) 94 11/21/18 16:00 98.4 83 20 128/74 (92) 100 Intake and Output 11/21/18 11/22/18 19:00 07:00 Intake Total 1295 ml 410 ml Output Total 300 ml 600 ml Balance 995 ml -190 ml Intake Free Water 90 ml IV Total 600 ml 300 ml Tube Feeding 605 ml 110 ml Output Urine Total 300 ml 600 ml # Voids 6 # Bowel Movements 2 General Appearance: WD/WN HEENT: normocephalic, atraumatic Respiratory/Chest: chest wall non-tender, lungs clear Cardiovascular: normal peripheral pulses, regular rhythm Abdomen: normal bowel sounds, soft, non tender, no scars Extremities: no cyanosis Skin: no rash Laboratory Tests 11/22/18 05:35: White Blood Count 9.7, Red Blood Count 4.41, Hemoglobin 12.5, Hematocrit 38.9, Mean Corpuscular Volume 88, Mean Corpuscular Hemoglobin 28.3, Mean Corpuscular Hemoglobin Concent 32.0, Red Cell Distribution Width 12.7, Platelet Count 246, Mean Platelet Volume 6.4L, Neutrophils (%) (Auto) 63.7, Lymphocytes (%) (Auto) 22.5, Monocytes (%) (Auto) 9.1, Eosinophils (%) (Auto) 3.5H, Basophils (%) (Auto ) 1.2, Sodium Level 134L, Potassium Level 4.2, Chloride Level 98, Carbon Dioxide Level 28, Anion Gap 9, Blood Urea Nitrogen 14, Creatinine 1.1, Estimat Glomerular Filtration Rate , Glucose Level 280H, Calcium Level 9.3 Current Medications Medications (Trade) Dose Ordered Sig/Jayme Route PRN Reason Start Time Stop Time Status Last Admin Dose Admin Acetaminophen (Tylenol) 650 mg Q4H PRN ORAL fever 11/19/18 11:30 12/19/18 11:29 Ceftriaxone Sodium 1 gm/ Dextrose 50 ml @ 100 mls/hr Q24H IVPB 11/19/18 22:00 11/26/18 21:59 11/21/18 21:49 Clopidogrel Bisulfate (Plavix) 75 mg DAILY ORAL 11/20/18 19:45 12/20/18 19:44 11/21/18 09:30 Dextrose (Dextrose 50%) 25 ml Q30M PRN IV Hypoglycemia 11/19/18 11:30 12/19/18 11:29 Dextrose (Dextrose 50%) 50 ml Q30M PRN IV Hypoglycemia 11/19/18 11:30 12/19/18 11:29 Donepezil HCl (Aricept) 5 mg DAILY ORAL 11/20/18 09:00 12/20/18 08:59 11/21/18 09:30 Heparin Sodium (Porcine) (Heparin 5000 units/ml) 5,000 units EVERY 8 HOURS SUBQ 11/19/18 22:00 12/19/18 21:59 11/22/18 06:54 Insulin Aspart (NovoLOG) BEFORE MEALS AND HS SUBQ 11/19/18 16:30 12/19/18 16:29 11/22/18 06:54 Lorazepam (Ativan 2mg/ml 1ml) 0.5 mg Q4H PRN IV For Anxiety 11/19/18 11:30 11/26/18 11:29 Morphine Sulfate (Morphine Sulfate) 1 mg Q4H PRN IVP For Pain 11/19/18 11:30 11/26/18 11:29 Ondansetron HCl (Zofran) 4 mg Q6H PRN IVP Nausea & Vomiting 11/19/18 11:30 12/19/18 11:29 Patient Own Medication (Patient's Own Med) 1 ea BID BOTH EYES 11/21/18 18:00 12/21/18 17:59 11/22/18 09:00 Polyethylene Glycol (Miralax) 17 gm HSPRN PRN ORAL Constipation 11/19/18 11:30 12/19/18 11:29 Sertraline HCl (Zoloft) 50 mg DAILY ORAL 11/20/18 09:00 12/20/18 08:59 11/21/18 09:30 Sodium Chloride 1,000 ml @ 50 mls/hr Q20H IV 11/19/18 20:00 12/19/18 19:59 11/22/18 08:44 Zolpidem Tartrate (Ambien) 5 mg HSPRN PRN ORAL Insomnia 11/19/18 11:30 11/26/18 11:29 Genesis Hayes MD Nov 22, 2018 12:16
--- NOTE | 2018-11-22 13:00 | NUR ---
NURSE NOTES: Dr ASHBY visited Addendum: 11/22/18 at 1347 by Rita Rosa RN pt and ordered cosult with Dr PENA, Dr YEUNG notified and asked to call Dr LY. Dr LY notified. will continue to monitor.
--- NOTE | 2018-11-22 13:59 | Consultation ---
History of Present Illness General Date patient seen: Nov 22, 2018 Chief Complaint: Flu Like Symptoms Present Illness HPI 78 y/o F with hx of Dm2, HTN, HLD, non-verbal, Dementia, CVA s/p L side weakness , L hip fracture s/p L hip hemiarthroplasty 01/2017, LE DVT, GERD presented to ED on 11/19 with facial droop and speech problems. She also had productive cough with yellow sputum and weakness for the last few days Denied f/c ID consulted for ESBL in urine Allergies: Coded Allergies: No Known Allergies (Unverified , 01/27/17) Medication History Scheduled Apixaban (Eliquis), 5 MG PO BID, (Reported) Ciprofloxacin* (Cipro*), 500 MG PO BID Donepezil Hcl* (Aricept*), 5 MG ORAL DAILY, (Reported) Glipizide (Glipizide), 10 MG PO BID, (Reported) Insulin Glargine (Lantus), 20 UNITS SUBQ BID, (Reported) Insulin Regular, Human* (Novolin R*), 0 SUBQ SLIDING SCALE, (Reported) Omeprazole (Omeprazole), 40 MG ORAL DAILY, (Reported) Sertraline Hcl* (Zoloft*), 50 MG ORAL DAILY, (Reported) Scheduled PRN Dextran 70/Hypromellose (Artificial Tears Eye Drops*), 2 DROP BOTH EYES Q2 PRN for EYE DRYNESS, (Reported) Miscellaneous Medications Benzalkonium Chloride (Neosporin), 68 ML TP, (Reported) Patient History Healthcare decision maker Oriana Membreno,Katia Gong, Patient daughters Resuscitation status Advanced Directive on File Patient History Narrative Pmhx: as above Shx: She lives with her . 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 She smoked for about 10 years numerous years ago. There is no history of alcohol or illicit drug use. Fhx: non contributory Physical Exam Physical Exam Narrative GENERAL: The patient opens her eyes. Responds to the family members commands. Alert and oriented. HEENT: Pupils correct, equal, and reactive to light. Anicteric. NECK: Supple. No JVD. LUNGS: Good air entry. Decreased air entry in the bases. No wheezes or rhonchi. HEART: S1 and S2. Distant heart sounds. No murmur or gallops. ABDOMEN: Soft, nondistended, and nontender. Mildly obese. EXTREMITIES: No cyanosis, clubbing, or edema. NEUROLOGIC: Cranial nerves II through XII grossly intact. The patient is moving all the extremities, left side weaker than right side. Gait was not assessed due to the patient's status. GENITOURINARY: Refused and deferred. PSYCHIATRIC: Mood and affect is unable to obtain because of baseline dementia. Last 24 Hour Vital Signs Date Time Temp Pulse Resp B/P (MAP) Pulse Ox O2 Delivery O2 Flow Rate FiO2 11/22/18 11:54 98.2 89 17 136/80 (98) 94 11/22/18 09:00 Room Air 11/22/18 08:00 98.3 97 19 159/86 (110) 98 11/22/18 04:00 98.6 93 24 144/84 (104) 94 11/22/18 00:00 98.6 91 24 156/89 (111) 94 11/21/18 21:00 Room Air 11/21/18 20:00 98.9 94 20 160/81 (107) 94 11/21/18 16:00 98.4 83 20 128/74 (92) 100 Intake and Output 11/21/18 11/22/18 19:00 07:00 Intake Total 1295 ml 410 ml Output Total 300 ml 600 ml Balance 995 ml -190 ml Intake Free Water 90 ml IV Total 600 ml 300 ml Tube Feeding 605 ml 110 ml Output Urine Total 300 ml 600 ml # Voids 6 # Bowel Movements 2 Laboratory Tests Test 11/22/18 05:35 White Blood Count 9.7 K/UL (4.8-10.8) Red Blood Count 4.41 M/UL (4.20-5.40) Hemoglobin 12.5 G/DL (12.0-16.0) Hematocrit 38.9 % (37.0-47.0) Mean Corpuscular Volume 88 FL (80-99) Mean Corpuscular Hemoglobin 28.3 PG (27.0-31.0) Mean Corpuscular Hemoglobin Concent 32.0 G/DL (32.0-36.0) Red Cell Distribution Width 12.7 % (11.6-14.8) Platelet Count 246 K/UL (150-450) Mean Platelet Volume 6.4 FL (6.5-10.1) L Neutrophils (%) (Auto) 63.7 % (45.0-75.0) Lymphocytes (%) (Auto) 22.5 % (20.0-45.0) Monocytes (%) (Auto) 9.1 % (1.0-10.0) Eosinophils (%) (Auto) 3.5 % (0.0-3.0) H Basophils (%) (Auto) 1.2 % (0.0-2.0) Sodium Level 134 MMOL/L (136-145) L Potassium Level 4.2 MMOL/L (3.5-5.1) Chloride Level 98 MMOL/L (98-107) Carbon Dioxide Level 28 MMOL/L (21-32) Anion Gap 9 mmol/L (5-15) Blood Urea Nitrogen 14 mg/dL (7-18) Creatinine 1.1 MG/DL (0.55-1.30) Estimat Glomerular Filtration Rate mL/min (>60) Glucose Level 280 MG/DL (74-106) H Calcium Level 9.3 MG/DL (8.5-10.1) Height (Feet): 5 Height (Inches): 0.00 Weight (Pounds): 182 Medications Current Medications Medications (Trade) Dose Ordered Sig/Jayme Route PRN Reason Start Time Stop Time Status Last Admin Dose Admin Acetaminophen (Tylenol) 650 mg Q4H PRN ORAL fever 11/19/18 11:30 12/19/18 11:29 Ceftriaxone Sodium 1 gm/ Dextrose 50 ml @ 100 mls/hr Q24H IVPB 11/19/18 22:00 11/26/18 21:59 11/21/18 21:49 Clopidogrel Bisulfate (Plavix) 75 mg DAILY ORAL 11/20/18 19:45 12/20/18 19:44 11/21/18 09:30 Dextrose (Dextrose 50%) 25 ml Q30M PRN IV Hypoglycemia 11/19/18 11:30 12/19/18 11:29 Dextrose (Dextrose 50%) 50 ml Q30M PRN IV Hypoglycemia 11/19/18 11:30 12/19/18 11:29 Donepezil HCl (Aricept) 5 mg DAILY ORAL 11/20/18 09:00 12/20/18 08:59 11/21/18 09:30 Heparin Sodium (Porcine) (Heparin 5000 units/ml) 5,000 units EVERY 8 HOURS SUBQ 11/19/18 22:00 12/19/18 21:59 11/22/18 06:54 Insulin Aspart (NovoLOG) BEFORE MEALS AND HS SUBQ 11/19/18 16:30 12/19/18 16:29 11/22/18 12:27 Lorazepam (Ativan 2mg/ml 1ml) 0.5 mg Q4H PRN IV For Anxiety 11/19/18 11:30 11/26/18 11:29 Morphine Sulfate (Morphine Sulfate) 1 mg Q4H PRN IVP For Pain 11/19/18 11:30 11/26/18 11:29 Ondansetron HCl (Zofran) 4 mg Q6H PRN IVP Nausea & Vomiting 11/19/18 11:30 12/19/18 11:29 Patient Own Medication (Patient's Own Med) 1 ea BID BOTH EYES 11/21/18 18:00 12/21/18 17:59 11/22/18 09:00 Polyethylene Glycol (Miralax) 17 gm HSPRN PRN ORAL Constipation 11/19/18 11:30 12/19/18 11:29 Sertraline HCl (Zoloft) 50 mg DAILY ORAL 11/20/18 09:00 12/20/18 08:59 11/21/18 09:30 Sodium Chloride 1,000 ml @ 50 mls/hr Q20H IV 11/19/18 20:00 12/19/18 19:59 11/22/18 08:44 Zolpidem Tartrate (Ambien) 5 mg HSPRN PRN ORAL Insomnia 11/19/18 11:30 11/26/18 11:29 Assessment/Plan Assessment/Plan: Abx: Ceftriaxone 11/19- Assessment: Afebrile No Leukocytosis -CXR: Denies: smoking, alcohol use, drug use Pyuria/bacteriuria- Probable UTI -u/a wbc 15-20, nit neg, leuk +3; ucx ESBL E.coli (S nitrofurantoin, bactrim, cipro/levo, zosyn, ertapenem) Acute bronchitis Acute CVA -Brain MRI: Positive for acute left basal ganglia lacunar infarct. Multiple old infarcts, as described. Other chronic and age-related changes, as described. Negative for acute intracranial bleed or mass effect Dm2 HTN HLD non-verbal Dementia CVA s/p L side weakness L hip fracture s/p L hip hemiarthroplasty 01/2017 LE DVT GERD Plan: -Switch Ceftriaxone #4 to PO bactrim #1/3-5 -f/u cx -Monitor CBC/CMP, temperatures -aspiration precautions Thank you for this consultation. Will continue to follow along with you. Discussed with JOSH. [place] M.D. Nov 22, 2018 13:59
--- NOTE | 2018-11-22 14:00 | Diagnostic Imaging Report ---
Indication: NG tube placement Comparison: 11/20/2018 Single view of the abdomen obtained Findings: NG tube is present in good position. Both the proximal port and tip are within the stomach. Bowel gas pattern is nonspecific. No mass, ectopic calcifications, or abnormal gas collections are identified. The bones are unremarkable. Impression: No acute findings
--- NOTE | 2018-11-22 14:26 | NUR ---
RD ASSESSMENT & RECOMMENDATIONS SEE CARE ACTIVITY FOR COMPLETE ASSESSMENT DAILY ESTIMATED NEEDS: Needs based on DM, 57kg abw 25-30 kcals/kg 7658-8676 total kcals 1-1.5 g protein/kg 57-86 g total protein 25-30 mL/kg 6078-4898 total fluid mLs NUTRITION DIAGNOSIS: * Swallowing difficulty R/T dysphagia, h/o CVA + lacunar infarct per MRI of brain as evidenced by NEWSPAPER LIBRARY MANAGER recommends NPO, nonoral feedings, s/p NGT insertion. * Altered nutrition related lab values R/T DM, altered lipied metabolism as evidenced by elev POC glu ([phone]), elev triglyceride (167), elev cholesterol (218), elev LDL (155). CURRENT TF:Glucerna 1.2 @ 55ml/hr x 24 hrs PO DIET RECOMMENDATIONS: DIET PER NEWSPAPER LIBRARY MANAGER WHEN SAFE FOR PO ENTERAL NUTRITION RECOMMENDATIONS: Glucerna 1.2 @ 55ml/hr x 24 hrs to provide 1320ml, 1584kcal, 79g prot, 1063ml free water * Maintain current TF * HOB over 30 degrees/ water flush per MD ADDITIONAL RECOMMENDATIONS: * Calibrated bedscale wt for accurate CBW : family states CMI=500vqg (vs EMR wt of 120lbs) * Monitor lytes daily w/ TF, replete as needed : check follow up mag (low 1.6 on 11/20) * Long acting insulin for improved BG control * Consider lipid lowering agent (elev lipid panel + s/p acute CVA) * Consider changing 1/2NS to NS : Na level trend down (134)
--- NOTE | 2018-11-22 14:36 | NUR ---
SWALLOW/SPEECH THERAPY NOTE: SWALLOW STATUS: PATIENT ALERT BUT FALL ASLEEP IF NOT STIMULATED. NOT SEEN YESTERDAY SINCE SHE WAS SLEEPY AND UP THE NIGHT BEFORE. BETTER ABILITY TO TOLERATE HER SALIVA (ONLY MIN SALIVA SUCTIONED BY ST ON RIGHT LATERAL SULCUS). VOICE IS SOFT BUT CLEAR NOT WET. PATIENT PULLED OUT HER NGT AND NOW HAS A NEW ONE. EDUCATED/TRAINED NEW ELECTRONIC WARFARE OPERATORJOSH VAZQUEZ AND FAMILY IN POSTED ASP PREC WITH SALIVA AND ORAL CARE/SUCTION. FAMILY IS CLEANING HER DENTURES. PLAN: MODIFIED BARIUM SWALLOW STUDY TOMORROW TO SEE IF SHE IS READY FOR PO INTAKE CONTINUE WITH ORAL CARE AND SUCTION IF NEEDS
[2018-11-22 16:00] VITALS: BP 157/93
[2018-11-22] MEDS ORDERED: Zoysn 3.37gm in NS 100ML IVPB SCH (16:00)
--- NOTE | 2018-11-22 16:15 | Neurology Progress Note ---
Interim History Interim History Interim History Ms. Membreno feels better. Numerous family members are visiting her. She looks and feels brighter. She continues to be cognitively impoverished. She continues to be generally weak - but is getting stronger. She is still being fed via her NGT. She is able to swallow her saliva well. Her voice is also a little stronger. She denies any new neurologic symptoms. Review of Systems Neuro Review of Systems Unable to obtain. Objective Physical Exam Last Vital Signs Date Time Temp Pulse Resp B/P (MAP) Pulse Ox O2 Delivery O2 Flow Rate FiO2 11/22/18 11:54 98.2 89 17 136/80 (98) 94 11/22/18 09:00 Room Air Laboratory Tests Test 11/22/18 05:35 White Blood Count 9.7 K/UL (4.8-10.8) Red Blood Count 4.41 M/UL (4.20-5.40) Hemoglobin 12.5 G/DL (12.0-16.0) Hematocrit 38.9 % (37.0-47.0) Mean Corpuscular Volume 88 FL (80-99) Mean Corpuscular Hemoglobin 28.3 PG (27.0-31.0) Mean Corpuscular Hemoglobin Concent 32.0 G/DL (32.0-36.0) Red Cell Distribution Width 12.7 % (11.6-14.8) Platelet Count 246 K/UL (150-450) Mean Platelet Volume 6.4 FL (6.5-10.1) L Neutrophils (%) (Auto) 63.7 % (45.0-75.0) Lymphocytes (%) (Auto) 22.5 % (20.0-45.0) Monocytes (%) (Auto) 9.1 % (1.0-10.0) Eosinophils (%) (Auto) 3.5 % (0.0-3.0) H Basophils (%) (Auto) 1.2 % (0.0-2.0) Sodium Level 134 MMOL/L (136-145) L Potassium Level 4.2 MMOL/L (3.5-5.1) Chloride Level 98 MMOL/L (98-107) Carbon Dioxide Level 28 MMOL/L (21-32) Anion Gap 9 mmol/L (5-15) Blood Urea Nitrogen 14 mg/dL (7-18) Creatinine 1.1 MG/DL (0.55-1.30) Estimat Glomerular Filtration Rate mL/min (>60) Glucose Level 280 MG/DL (74-106) H Calcium Level 9.3 MG/DL (8.5-10.1) Neurologic Exam Objective PHYSICAL EXAMINATION: GENERAL: She is a well-developed, well-nourished, pleasant lady, lying in bed, in no acute distress. HEAD: Normocephalic and atraumatic. EENT: Examination was benign. NECK: No neck rigidity was observed. NEUROLOGICAL EXAMINATION: MENTAL STATUS EXAMINATION: She was awake and alert. She was oriented to self and hospital, but did not know the name of the hospital and had no idea what the date was. She was able to recall 3/3 words immediately, but was unable to remember them in 1 minute and 3 minutes. She was unable to tell me who the present President was and who the prior presidents were. Her mathematical skills were impaired. Her visuospatial function was also impaired. SPEECH: She had a mild dysarthria. LANGUAGE: She had an anomic aphasia. CRANIAL NERVE EXAMINATION: II: The visual de guzman were intact on confrontation testing. III, IV & : The external ocular movements were full and the pupils 3 mm in diameter, equal, round, regular, and reactive to light. V: She had normal facial sensations, and the temporales, masseters, and pterygoids functioned normally. VII: She had right greater than left seventh central facial paresis. VIII: She was able to hear and had no nystagmus. IX: The palate moved symmetrically on phonation. The palatal movements were higher in amplitude. X: She had no hoarseness of voice. XI: The sternocleidomastoids and trapezii function normally. XII: The tongue was in the midline without any fasciculations or atrophy. MOTOR SYSTEM: The tone was normal in all four extremities. Examination of muscle mass revealed no focal wasting. Examination of power revealed G 5/5 power except for G 4+/5 power in the left finger extensors and iliopsoas and G 5-/5 power in the right finger extensors and iliopsoas. SENSORY EXAMINATION: She was able to discern light touch all over her body and localized touch well. REFLEXES: Trace+ and bilaterally symmetrical at the biceps, triceps, brachioradialis, knees, 0 at both ankles. The plantar responses were flexor bilaterally. COORDINATION: She performed well on [id number] testing on the right side, however on the left side, she pass pointed. STANCE & GAIT: Could not be tested. Impression/Recommendations Diagnostic Impression 1. Ms. Mery Membreno is a 78-year-old, right-handed, lady, who does have a past history of diabetes mellitus, hypertension, questionable dyslipidemia, dementia, cerebrovascular disease with prior strokes with left- sided weakness, a left hip fracture approximately two years ago followed by thrombophlebitis, and gastroesophageal reflux disease, who was noted to have a sudden change in her level of consciousness associated with generalized weakness , a change in facial expression, and inability to communicate on 11/19/2018. 2. She feels better. Numerous family members are visiting her. She looks and feels brighter. She continues to be cognitively impoverished. She continues to be generally weak - but is getting stronger. She is still being fed via her NGT. She is able to swallow her saliva well. Her voice is also a little stronger. She denies any new neurologic symptoms. 3. On neurological examination, at this time, she is disoriented to the name of the hospital, date, month, and year. Has significant problems with recent and remote memory, visuospatial function, higher cognitive function, and language. Her dysarthria is better/ She has a left greater than right seventh central facial paresis, left greater than right finger extensors and iliopsoas weakness , globally diminished deep tendon reflexes with loss of ankle jerks, and pass pointing on the left side on [id number] testing. In addition, she is unable to stand and walk. 4. Laboratory data revealed a relatively normal CBC. The chemistry panel revealed a minimally low sodium at 135, elevated blood glucose at 145, and low albumin at 3.0. The urinalysis revealed 3+ leukocyte esterase, 0-2 red blood cells, and 15-20 white blood cells per high-power field. 5. The MRI scan of the brain revealed an acute left basal ganglion and harris radiata infarct, and chronic right basal ganglion and right pontine infarcts. 6. The Carotid duplex done on 11/21/18 revealed 30% right and 20% left ICA stenosis 7. The patient's history, neurological examination, laboratory data, and imaging studies are most consistent with an acute left basal ganglion and harris radiata infarct causing the sudden change in her level of arousal and in addition, the new right-sided weakness in addition to the old left-sided weakness related to prior strokes. 8. The most likely etiology for the patient's strokes would be hypertensive, diabetic, and dyslipidemic small-vessel disease. 9. Her neurologic function is now improving, with increased alertness, increased power and improved pharyngeal function. Recommendations 1. The patient and her family were given an explanation of the above-mentioned findings. 2. Plavix 75 mg daily for secondary stroke prevention. 3. Blood sugar control in a strict manner. 4. Blood pressure control - aim for <120/80. 5. Her dyslipidemia should be treated appropriately with a statin. 6. Physical, occupational, and speech and language therapy, to rehabilitate her. 7. Repeat swallowing study. Geoffrey Duncan M.D., M.S.P.H. Geoffrey Duncan MD Nov 22, 2018 16:15
--- NOTE | 2018-11-22 18:19 | NUR ---
NURSE NOTES: pt started sneezing and ng tube came out at 1730. ng feeding is held. Dr ASHBY notified and ordered to put a new one. a new ng tube 18g inserted at number 55. ordered abd x ray to check ng tube in place. waiting for result. will continue to monitor.
--- NOTE | 2018-11-22 18:40 | Diagnostic Imaging Report ---
APPROVED REPORT CPT Code: 97644 Present Symptoms Shortness of breath BILATERAL: Imaging reveals a patent deep venous system bilaterally. There is no evidence of thrombus within the femoral, popliteal or tibial segments. The greater saphenous veins are also within normal limits. Doppler indicates normal spontaneous flow within these segments.
--- NOTE | 2018-11-22 18:40 | Diagnostic Imaging Report ---
APPROVED REPORT CPT Code: 27129 Vascular Symptoms CVA/TIA: Doppler Spectral Velocity Analysis RightLeft RIGHT SIDE: CCA - Imaging reveals no significant plaque in the common carotid artery. ICA arteries. The Doppler signal indicates the degree of stenosis is minimal (30%) in the internal carotid, and (10%) in the external carotid arteries. VERTEBRAL- The vertebral artery was not well visualized. artery. The Doppler spectral flow analysis indicates the degree of stenosis is minimal (10%) in the common carotid artery, minimal (20%) in the internal carotid artery, and (10%) in the external carotid artery. VERTEBRAL- The vertebral artery is patent, without evidence of stenosis or steal. Both subclavian arteries are within normal limits.
--- NOTE | 2018-11-22 19:32 | NUR ---
HAND-OFF: Report given to JOSH AMAYA. ENDORSED TO F/U FOR ABD X RAY RESULT.
[2018-11-22 20:00] VITALS: BP 147/82
--- NOTE | 2018-11-22 20:09 | NUR ---
NURSE NOTES: Received report from JOSH Salinas. Patient A&Ox1-2. On room air, no signs of distress or labored breathing. IV intact, patent, and saline locked. Awaiting confirmation of NG tube placement. Family at bedside. Bed in lowest position with call light in reach. Will continue with plan of care.
[2018-11-22] MEDS: Bactrim-DS 1 tab ORAL SCH (22:15)
[2018-11-23] VITALS: BP 145/75
[2018-11-23] MEDS: Morphine Sulfate 2mg/ml Inj(IV/IM USE ONLY) IVP PRN ×2 (02:22→08:35)
[2018-11-23 04:00] VITALS: BP 144/87
[2018-11-23] MEDS: Heparin 5000 units/ml inj SUBQ SCH ×3 (06:37→21:06)
[2018-11-23] MEDS: NovoLOG Insulin Flexpen SUBQ SCH ×4 (06:38→21:22)
[2018-11-23 07:03] LABS: ANION GAP 9 mmol/L (5-15); BLOOD UREA NITROGEN 17 mg/dL (7-18); CALCIUM 9.2 MG/DL (8.5-10.1); CARBON DIOXIDE 27 MMOL/L (21-32); CHLORIDE 94 MMOL/L (98-107); CREATININE 1.2 MG/DL (0.55-1.30); POTASSIUM 4.2 MMOL/L (3.5-5.1); SODIUM 130 MMOL/L (136-145)
[2018-11-23 07:07] LABS: EOSINOPHILS % (AUTO) 3.2 % (0.0-3.0); HEMATOCRIT 39.6 % (37.0-47.0); HEMOGLOBIN 12.8 G/DL (12.0-16.0); LYMPHOCYTES % (AUTO) 18.2 % (20.0-45.0); MEAN CORPUSCULAR VOLUME 88 FL (80-99); MONOCYTES % (AUTO) 9.9 % (1.0-10.0); NEUTROPHILS % (AUTO) 67.7 % (45.0-75.0); PLATELET COUNT 262 K/UL (150-450); RED BLOOD COUNT 4.53 M/UL (4.20-5.40); RED CELL DISTRIBUTION WIDTH 12.8 % (11.6-14.8)
[2018-11-23 08:00] VITALS: BP 138/63
--- NOTE | 2018-11-23 08:06 | NUR ---
NURSE NOTES: Received patient in bed,awake, not in respiratory/cardiac distress. Breathing is even and unlabored. On NGT n right nostril, intact, no residual @ this time. Iv intact, no s/s of infiltration. HOB elevated. Re-position done. Pure wick in place.Family @ bedside. Skin intact. Patient does not try to pull out NGT. Bed is in lowest position and locked. Will continue plan of care.
[2018-11-23] MEDS: Sertraline 50mg tab ORAL SCH (08:16)
[2018-11-23] MEDS: Donepezil 5mg Tab ORAL SCH (08:16)
[2018-11-23] MEDS: Bactrim-DS 1 tab ORAL SCH ×2 (08:16→21:00)
[2018-11-23] MEDS: SYSTANE EYE BOTH EYES SCH ×2 (08:17→17:11)
--- NOTE | 2018-11-23 08:30 | NUR ---
NURSE NOTES: NGT is in place and auscultated. Secured well.
[2018-11-23 12:00] VITALS: BP 152/74
--- NOTE | 2018-11-23 13:03 | Diagnostic Imaging Report ---
Indication: NG tube placement Comparison: Earlier the same day Single view of the abdomen obtained Findings: NG tube is unchanged in position with the tip in the stomach. IMPRESSION: NG tube satisfactory in position
--- NOTE | 2018-11-23 13:25 | Infectious Diseases Prog Note ---
Assessment/Plan Assessment/Plan Assessment: Afebrile Mild Leukocytosis -CXR: Denies: smoking, alcohol use, drug use Pyuria/bacteriuria- Probable UTI -u/a wbc 15-20, nit neg, leuk +3; ucx ESBL E.coli (S nitrofurantoin, bactrim, cipro/levo, zosyn, ertapenem) Acute bronchitis Acute CVA -Brain MRI: Positive for acute left basal ganglia lacunar infarct. Multiple old infarcts, as described. Other chronic and age-related changes, as described. Negative for acute intracranial bleed or mass effect Dm2 HTN HLD non-verbal Dementia CVA s/p L side weakness L hip fracture s/p L hip hemiarthroplasty 01/2017 LE DVT GERD Plan: -Cont PO bactrim #2/3-5 -11/22 SP Ceftriaxone #4 -f/u cx -Monitor CBC/CMP, temperatures -aspiration precautions -CBC, CMP am Thank you for this consultation. Will continue to follow along with you. Discussed with RN. Subjective Allergies: Coded Allergies: No Known Allergies (Unverified , 01/27/17) Subjective afebrile mild leukocytosis Objective Vital Signs Last 24 Hour Vital Signs Date Time Temp Pulse Resp B/P (MAP) Pulse Ox O2 Delivery O2 Flow Rate FiO2 11/23/18 12:00 98.1 93 18 152/74 (100) 96 11/23/18 09:00 Room Air 11/23/18 08:00 98.5 104 19 138/63 (88) 96 11/23/18 04:00 96.7 80 20 144/87 (106) 96 11/23/18 00:00 99.0 108 20 145/75 (98) 95 11/22/18 21:00 Room Air 11/22/18 20:00 98.1 92 20 147/82 (103) 96 11/22/18 16:00 99.6 90 18 157/93 (114) 93 Height (Feet): 5 Height (Inches): 0.00 Weight (Pounds): 182 Objective GENERAL: The patient opens her eyes. Responds to the family members commands. Alert and oriented. HEENT: Pupils correct, equal, and reactive to light. Anicteric. NECK: Supple. No JVD. LUNGS: Good air entry. Decreased air entry in the bases. No wheezes or rhonchi. HEART: S1 and S2. Distant heart sounds. No murmur or gallops. ABDOMEN: Soft, nondistended, and nontender. Mildly obese. EXTREMITIES: No cyanosis, clubbing, or edema. NEUROLOGIC: Cranial nerves II through XII grossly intact. The patient is moving all the extremities, left side weaker than right side. Gait was not assessed due to the patient's status. GENITOURINARY: Refused and deferred. PSYCHIATRIC: Mood and affect is unable to obtain because of baseline dementia. Laboratory Tests Test 11/23/18 06:30 White Blood Count 11.0 K/UL (4.8-10.8) H Red Blood Count 4.53 M/UL (4.20-5.40) Hemoglobin 12.8 G/DL (12.0-16.0) Hematocrit 39.6 % (37.0-47.0) Mean Corpuscular Volume 88 FL (80-99) Mean Corpuscular Hemoglobin 28.3 PG (27.0-31.0) Mean Corpuscular Hemoglobin Concent 32.4 G/DL (32.0-36.0) Red Cell Distribution Width 12.8 % (11.6-14.8) Platelet Count 262 K/UL (150-450) Mean Platelet Volume 6.9 FL (6.5-10.1) Neutrophils (%) (Auto) 67.7 % (45.0-75.0) Lymphocytes (%) (Auto) 18.2 % (20.0-45.0) L Monocytes (%) (Auto) 9.9 % (1.0-10.0) Eosinophils (%) (Auto) 3.2 % (0.0-3.0) H Basophils (%) (Auto) 1.0 % (0.0-2.0) Sodium Level 130 MMOL/L (136-145) L Potassium Level 4.2 MMOL/L (3.5-5.1) Chloride Level 94 MMOL/L (98-107) L Carbon Dioxide Level 27 MMOL/L (21-32) Anion Gap 9 mmol/L (5-15) Blood Urea Nitrogen 17 mg/dL (7-18) Creatinine 1.2 MG/DL (0.55-1.30) Estimat Glomerular Filtration Rate mL/min (>60) Glucose Level 379 MG/DL (74-106) #H Calcium Level 9.2 MG/DL (8.5-10.1) Current Medications Medications (Trade) Dose Ordered Sig/Jayme Route PRN Reason Start Time Stop Time Status Last Admin Dose Admin Acetaminophen (Tylenol) 650 mg Q4H PRN ORAL fever 11/19/18 11:30 12/19/18 11:29 Clopidogrel Bisulfate (Plavix) 75 mg DAILY ORAL 11/20/18 19:45 12/20/18 19:44 11/23/18 08:16 Dextrose (Dextrose 50%) 25 ml Q30M PRN IV Hypoglycemia 11/19/18 11:30 12/19/18 11:29 Dextrose (Dextrose 50%) 50 ml Q30M PRN IV Hypoglycemia 11/19/18 11:30 12/19/18 11:29 Donepezil HCl (Aricept) 5 mg DAILY ORAL 11/20/18 09:00 12/20/18 08:59 11/23/18 08:16 Heparin Sodium (Porcine) (Heparin 5000 units/ml) 5,000 units EVERY 8 HOURS SUBQ 11/19/18 22:00 12/19/18 21:59 11/23/18 06:37 Insulin Aspart (NovoLOG) BEFORE MEALS AND HS SUBQ 11/19/18 16:30 12/19/18 16:29 11/23/18 11:43 Lorazepam (Ativan 2mg/ml 1ml) 0.5 mg Q4H PRN IV For Anxiety 11/19/18 11:30 11/26/18 11:29 Morphine Sulfate (Morphine Sulfate) 1 mg Q4H PRN IVP For Pain 11/19/18 11:30 11/26/18 11:29 11/23/18 08:35 Ondansetron HCl (Zofran) 4 mg Q6H PRN IVP Nausea & Vomiting 11/19/18 11:30 12/19/18 11:29 Patient Own Medication (Patient's Own Med) 1 ea BID BOTH EYES 11/21/18 18:00 12/21/18 17:59 11/23/18 08:17 Polyethylene Glycol (Miralax) 17 gm HSPRN PRN ORAL Constipation 11/19/18 11:30 12/19/18 11:29 Sertraline HCl (Zoloft) 50 mg DAILY ORAL 11/20/18 09:00 12/20/18 08:59 11/23/18 08:16 Sodium Chloride 1,000 ml @ 50 mls/hr Q20H IV 11/19/18 20:00 12/19/18 19:59 11/23/18 05:47 Trimethoprim/ Sulfamethoxazole (Bactrim-DS) 1 tab Q12HR ORAL 11/22/18 21:00 11/29/18 20:59 11/23/18 08:16 Zolpidem Tartrate (Ambien) 5 mg HSPRN PRN ORAL Insomnia 11/19/18 11:30 11/26/18 11:29 Princess River M.D. Nov 23, 2018 13:25
--- NOTE | 2018-11-23 13:49 | NUR ---
AMMONIA NITRATE OPERATOROIL WELL SERVICE OPERATOR HELPER SI:CVA VS: BP 152/74, P 108, T 96.7, RR 20, SpO2 95 WBC 11.0, Na 130, Glucose 379 IS:NOVOLOG SUBQ MORPHINE SULFATE 1mg IVP ARICEPT 5mg ZOLOFT 50mg PLAVIX 75mg HEPARIN SUBQ NS x1L IV MED/SURG STATUS
--- NOTE | 2018-11-23 14:11 | NUR ---
ST NOTE: PATIENT UNABLE TO HAVE MOD BARIUM SWALLOW STUDY DUE TO PAIN ISSUE (HAD MORPHINE FOR PAIN WHICH IS SEDATING). FAMILY ASKING FOR PAIN MED FOR NECK THAT IS NOT SEDATING. SPOKE WITH [employer]ANDSON ABOUT PATIENT NEEDING TO HAVE NONORAL FEEDINGS AND ORAL CARE FOR NOW. WILL TRY TO COMPLETE MODIFIED BARIUM SWALLOW STUDY TOMORROW OR TUESDAY. FAMILY ALREADY TRAINED IN TONGUE AND VOICE/SPEECH EXERCISES. PLAN: MOD BARIUM SWALLOW STUDY TOMORROW OR TUESDAY CONTINUE WITH ORAL CARE (SUCTION IF NEEDED)
[2018-11-23 16:00] VITALS: BP 137/69
--- NOTE | 2018-11-23 16:52 | Pulmonology Progress Note ---
Assessment/Plan Problems: (1) Cerebral vascular disease (2) Alzheimer's dementia (3) Diabetes mellitus, type II (4) History of CVA (cerebrovascular accident) Assessment/Plan repeat swallow study NG tube in sliding scale check electrolytes neuro consult appreciated aspiration precaution Subjective ROS Limited/Unobtainable: No Constitutional: Reports: no symptoms HEENT: Repors: no symptoms Allergies: Coded Allergies: No Known Allergies (Unverified , 01/27/17) Objective Last 24 Hour Vital Signs Date Time Temp Pulse Resp B/P (MAP) Pulse Ox O2 Delivery O2 Flow Rate FiO2 11/23/18 16:00 98.9 89 20 137/69 (91) 93 11/23/18 12:00 98.1 93 18 152/74 (100) 96 11/23/18 09:00 Room Air 11/23/18 08:00 98.5 104 19 138/63 (88) 96 11/23/18 04:00 96.7 80 20 144/87 (106) 96 11/23/18 00:00 99.0 108 20 145/75 (98) 95 11/22/18 21:00 Room Air 11/22/18 20:00 98.1 92 20 147/82 (103) 96 Intake and Output 11/22/18 11/23/18 19:00 07:00 Intake Total 845 ml 465 ml Output Total 100 ml Balance 845 ml 365 ml IV Total 600 ml Tube Feeding 245 ml 465 ml Output Urine Total 100 ml # Voids 4 Objective General Appearance: WD/WN HEENT: normocephalic, atraumatic Respiratory/Chest: chest wall non-tender, lungs clear, normal breath sounds Breasts: no masses Cardiovascular: normal peripheral pulses, normal rate Abdomen: normal bowel sounds, soft, non tender Genitourinary: normal external genitalia Extremities: no cyanosis Laboratory Tests 11/23/18 06:30: White Blood Count 11.0H, Red Blood Count 4.53, Hemoglobin 12.8, Hematocrit 39.6 , Mean Corpuscular Volume 88, Mean Corpuscular Hemoglobin 28.3, Mean Corpuscular Hemoglobin Concent 32.4, Red Cell Distribution Width 12.8, Platelet Count 262, Mean Platelet Volume 6.9, Neutrophils (%) (Auto) 67.7, Lymphocytes (% ) (Auto) 18.2L, Monocytes (%) (Auto) 9.9, Eosinophils (%) (Auto) 3.2H, Basophils (%) (Auto) 1.0, Sodium Level 130L, Potassium Level 4.2, Chloride Level 94L, Carbon Dioxide Level 27, Anion Gap 9, Blood Urea Nitrogen 17, Creatinine 1.2, Estimat Glomerular Filtration Rate , Glucose Level 379#H, Calcium Level 9.2 Current Medications Medications (Trade) Dose Ordered Sig/Jayme Route PRN Reason Start Time Stop Time Status Last Admin Dose Admin Acetaminophen (Tylenol) 650 mg Q4H PRN ORAL fever 11/19/18 11:30 12/19/18 11:29 Clopidogrel Bisulfate (Plavix) 75 mg DAILY ORAL 11/20/18 19:45 12/20/18 19:44 11/23/18 08:16 Dextrose (Dextrose 50%) 25 ml Q30M PRN IV Hypoglycemia 11/19/18 11:30 12/19/18 11:29 Dextrose (Dextrose 50%) 50 ml Q30M PRN IV Hypoglycemia 11/19/18 11:30 12/19/18 11:29 Donepezil HCl (Aricept) 5 mg DAILY ORAL 11/20/18 09:00 12/20/18 08:59 11/23/18 08:16 Heparin Sodium (Porcine) (Heparin 5000 units/ml) 5,000 units EVERY 8 HOURS SUBQ 11/19/18 22:00 12/19/18 21:59 11/23/18 15:02 Insulin Aspart (NovoLOG) BEFORE MEALS AND HS SUBQ 11/19/18 16:30 12/19/18 16:29 11/23/18 11:43 Lorazepam (Ativan 2mg/ml 1ml) 0.5 mg Q4H PRN IV For Anxiety 11/19/18 11:30 11/26/18 11:29 Morphine Sulfate (Morphine Sulfate) 1 mg Q4H PRN IVP For Pain 11/19/18 11:30 11/26/18 11:29 11/23/18 08:35 Ondansetron HCl (Zofran) 4 mg Q6H PRN IVP Nausea & Vomiting 11/19/18 11:30 12/19/18 11:29 Patient Own Medication (Patient's Own Med) 1 ea BID BOTH EYES 11/21/18 18:00 12/21/18 17:59 11/23/18 08:17 Polyethylene Glycol (Miralax) 17 gm HSPRN PRN ORAL Constipation 11/19/18 11:30 12/19/18 11:29 Sertraline HCl (Zoloft) 50 mg DAILY ORAL 11/20/18 09:00 12/20/18 08:59 11/23/18 08:16 Sodium Chloride 1,000 ml @ 50 mls/hr Q20H IV 11/19/18 20:00 12/19/18 19:59 11/23/18 05:47 Trimethoprim/ Sulfamethoxazole (Bactrim-DS) 1 tab Q12HR ORAL 11/22/18 21:00 11/29/18 20:59 11/23/18 08:16 Zolpidem Tartrate (Ambien) 5 mg HSPRN PRN ORAL Insomnia 11/19/18 11:30 11/26/18 11:29 Genesis Hayes MD Nov 23, 2018 16:52
--- NOTE | 2018-11-23 17:01 | Internal Med Progress Note ---
Subjective Date of Service: Nov 23, 2018 Physician Name Magan More Attending Physician Abdirahman Griffin MD Current Medications Medications (Trade) Dose Ordered Sig/Jayme Route PRN Reason Start Time Stop Time Status Last Admin Dose Admin Acetaminophen (Tylenol) 650 mg Q4H PRN ORAL fever 11/19/18 11:30 12/19/18 11:29 Clopidogrel Bisulfate (Plavix) 75 mg DAILY ORAL 11/20/18 19:45 12/20/18 19:44 11/23/18 08:16 Dextrose (Dextrose 50%) 25 ml Q30M PRN IV Hypoglycemia 11/19/18 11:30 12/19/18 11:29 Dextrose (Dextrose 50%) 50 ml Q30M PRN IV Hypoglycemia 11/19/18 11:30 12/19/18 11:29 Donepezil HCl (Aricept) 5 mg DAILY ORAL 11/20/18 09:00 12/20/18 08:59 11/23/18 08:16 Heparin Sodium (Porcine) (Heparin 5000 units/ml) 5,000 units EVERY 8 HOURS SUBQ 11/19/18 22:00 12/19/18 21:59 11/23/18 15:02 Insulin Aspart (NovoLOG) BEFORE MEALS AND HS SUBQ 11/19/18 16:30 12/19/18 16:29 11/23/18 11:43 Lorazepam (Ativan 2mg/ml 1ml) 0.5 mg Q4H PRN IV For Anxiety 11/19/18 11:30 11/26/18 11:29 Morphine Sulfate (Morphine Sulfate) 1 mg Q4H PRN IVP For Pain 11/19/18 11:30 11/26/18 11:29 11/23/18 08:35 Ondansetron HCl (Zofran) 4 mg Q6H PRN IVP Nausea & Vomiting 11/19/18 11:30 12/19/18 11:29 Patient Own Medication (Patient's Own Med) 1 ea BID BOTH EYES 11/21/18 18:00 12/21/18 17:59 11/23/18 08:17 Polyethylene Glycol (Miralax) 17 gm HSPRN PRN ORAL Constipation 11/19/18 11:30 12/19/18 11:29 Sertraline HCl (Zoloft) 50 mg DAILY ORAL 11/20/18 09:00 12/20/18 08:59 11/23/18 08:16 Sodium Chloride 1,000 ml @ 50 mls/hr Q20H IV 11/19/18 20:00 12/19/18 19:59 11/23/18 05:47 Trimethoprim/ Sulfamethoxazole (Bactrim-DS) 1 tab Q12HR ORAL 11/22/18 21:00 11/29/18 20:59 11/23/18 08:16 Zolpidem Tartrate (Ambien) 5 mg HSPRN PRN ORAL Insomnia 11/19/18 11:30 11/26/18 11:29 Allergies: Coded Allergies: No Known Allergies (Unverified , 01/27/17) ROS Limited/Unobtainable: Yes Subjective 78 YO F admitted with dehydration. Now acute left cerebral vascular accident. Cover for Int Med-Dr Griffin Objective Last Vital Signs Date Time Temp Pulse Resp B/P (MAP) Pulse Ox O2 Delivery O2 Flow Rate FiO2 11/23/18 16:00 98.9 89 20 137/69 (91) 93 11/23/18 09:00 Room Air Laboratory Tests Test 11/23/18 06:30 White Blood Count 11.0 K/UL (4.8-10.8) H Red Blood Count 4.53 M/UL (4.20-5.40) Hemoglobin 12.8 G/DL (12.0-16.0) Hematocrit 39.6 % (37.0-47.0) Mean Corpuscular Volume 88 FL (80-99) Mean Corpuscular Hemoglobin 28.3 PG (27.0-31.0) Mean Corpuscular Hemoglobin Concent 32.4 G/DL (32.0-36.0) Red Cell Distribution Width 12.8 % (11.6-14.8) Platelet Count 262 K/UL (150-450) Mean Platelet Volume 6.9 FL (6.5-10.1) Neutrophils (%) (Auto) 67.7 % (45.0-75.0) Lymphocytes (%) (Auto) 18.2 % (20.0-45.0) L Monocytes (%) (Auto) 9.9 % (1.0-10.0) Eosinophils (%) (Auto) 3.2 % (0.0-3.0) H Basophils (%) (Auto) 1.0 % (0.0-2.0) Sodium Level 130 MMOL/L (136-145) L Potassium Level 4.2 MMOL/L (3.5-5.1) Chloride Level 94 MMOL/L (98-107) L Carbon Dioxide Level 27 MMOL/L (21-32) Anion Gap 9 mmol/L (5-15) Blood Urea Nitrogen 17 mg/dL (7-18) Creatinine 1.2 MG/DL (0.55-1.30) Estimat Glomerular Filtration Rate mL/min (>60) Glucose Level 379 MG/DL (74-106) #H Calcium Level 9.2 MG/DL (8.5-10.1) Intake and Output 11/22/18 11/23/18 19:00 07:00 Intake Total 845 ml 465 ml Output Total 100 ml Balance 845 ml 365 ml IV Total 600 ml Tube Feeding 245 ml 465 ml Output Urine Total 100 ml # Voids 4 Objective Objective GENERAL: The patient opens her eyes. more responsive, HEENT: Pupils correct, equal, and reactive to light. Anicteric. NG tube. NECK: Supple. No JVD. LUNGS: Fair air entry. Decreased air entry in the bases. No wheezes or rhonchi. HEART: S1 and S2. Distant heart sounds. No murmur or gallops. ABDOMEN: Soft, nondistended, and nontender. Mildly obese. EXTREMITIES: No cyanosis, clubbing, or edema. NEUROLOGIC: Cranial nerves II through XII grossly intact. The patient is moving all the extremities, left side weaker than right side. . RECTAL: Refused and deferred. Assessment/Plan Assessment/Plan Assessment/Plan Assessment/Plan ASSESSMENT: 1. Upper respiratory symptoms, possible due to the early pneumonia versus bronchitis. 2. Acute left basal ganglia lacunar infarct. 3. History of cerebrovascular accident with left-sided hemiparesis. 4. Dehydration. 5. Diabetes, type 2. 6. Gastroesophageal reflux disease. 7. Alzheimer dementia. 8. Borderline hypertension. 9. Prior history of left lower extremity deep venous thrombosis in 2017 after left hip fracture and open reduction and internal fixation. 10. dysphagia PLAN: In Med/Surg. monitor cultures and laboratory Discussed with the son at the bedside Code status is Full Code. DVT prophylaxis, heparin subcutaneously. Broad-spectrum antibiotic with Rocephin. Tube feeding @ 35 cc/hr Discharge planning: SNF vs [facility] await modified barium swallow eval MRI Brain: Impression: Positive for acute left basal ganglia lacunar infarct Multiple old infarcts, as described Other chronic and age-related changes, as described Negative for acute intracranial bleed or mass effect Magan More MD Nov 23, 2018 17:01
--- NOTE | 2018-11-23 17:30 | NUR ---
NURSE NOTES: Patient noted with slight labored breathing, O2sat is 92-93% with o2 2l/min via NC, no congestion or wheezing but on and off rales. HOB elevated NGT in place. RN received order from Dr. Hayes to do chest x-ray STAT and RN also relayed to Dr. Hayes of elevated blood sugar today. MD aware with no new order. Insulin given per sliding scale.
--- NOTE | 2018-11-23 17:49 | Neurology Progress Note ---
Interim History Interim History Interim History Ms. Membreno feels better. Numerous family members are visiting her. She looks and feels brighter. She continues to be cognitively impoverished. She continues to be generally weak - but is getting stronger. She is still being fed via her NGT. She is able to swallow her saliva well. Her voice is also a little stronger. She denies any new neurologic symptoms. Plans were for a VSS today but it had to be aborted as she was sedated with morphine. Review of Systems Neuro Review of Systems Unable to obtain. Objective Physical Exam Last Vital Signs Date Time Temp Pulse Resp B/P (MAP) Pulse Ox O2 Delivery O2 Flow Rate FiO2 11/23/18 16:00 98.9 89 20 137/69 (91) 93 11/23/18 09:00 Room Air Laboratory Tests Test 11/23/18 06:30 White Blood Count 11.0 K/UL (4.8-10.8) H Red Blood Count 4.53 M/UL (4.20-5.40) Hemoglobin 12.8 G/DL (12.0-16.0) Hematocrit 39.6 % (37.0-47.0) Mean Corpuscular Volume 88 FL (80-99) Mean Corpuscular Hemoglobin 28.3 PG (27.0-31.0) Mean Corpuscular Hemoglobin Concent 32.4 G/DL (32.0-36.0) Red Cell Distribution Width 12.8 % (11.6-14.8) Platelet Count 262 K/UL (150-450) Mean Platelet Volume 6.9 FL (6.5-10.1) Neutrophils (%) (Auto) 67.7 % (45.0-75.0) Lymphocytes (%) (Auto) 18.2 % (20.0-45.0) L Monocytes (%) (Auto) 9.9 % (1.0-10.0) Eosinophils (%) (Auto) 3.2 % (0.0-3.0) H Basophils (%) (Auto) 1.0 % (0.0-2.0) Sodium Level 130 MMOL/L (136-145) L Potassium Level 4.2 MMOL/L (3.5-5.1) Chloride Level 94 MMOL/L (98-107) L Carbon Dioxide Level 27 MMOL/L (21-32) Anion Gap 9 mmol/L (5-15) Blood Urea Nitrogen 17 mg/dL (7-18) Creatinine 1.2 MG/DL (0.55-1.30) Estimat Glomerular Filtration Rate mL/min (>60) Glucose Level 379 MG/DL (74-106) #H Calcium Level 9.2 MG/DL (8.5-10.1) Neurologic Exam Objective PHYSICAL EXAMINATION: GENERAL: She is a well-developed, well-nourished, pleasant lady, lying in bed, in no acute distress. HEAD: Normocephalic and atraumatic. EENT: Examination was benign. NECK: No neck rigidity was observed. NEUROLOGICAL EXAMINATION: MENTAL STATUS EXAMINATION: She was awake and alert. She was oriented to self and hospital, but did not know the name of the hospital and had no idea what the date was. She was able to recall 3/3 words immediately, but was unable to remember them in 1 minute and 3 minutes. She was unable to tell me who the present President was and who the prior presidents were. Her mathematical skills were impaired. Her visuospatial function was also impaired. SPEECH: She had a mild dysarthria. LANGUAGE: She had an anomic aphasia. CRANIAL NERVE EXAMINATION: II: The visual de guzman were intact on confrontation testing. III, IV & : The external ocular movements were full and the pupils 3 mm in diameter, equal, round, regular, and reactive to light. V: She had normal facial sensations, and the temporales, masseters, and pterygoids functioned normally. VII: She had right greater than left seventh central facial paresis. VIII: She was able to hear and had no nystagmus. IX: The palate moved symmetrically on phonation. The palatal movements were higher in amplitude. X: She had no hoarseness of voice. XI: The sternocleidomastoids and trapezii function normally. XII: The tongue was in the midline without any fasciculations or atrophy. MOTOR SYSTEM: The tone was normal in all four extremities. Examination of muscle mass revealed no focal wasting. Examination of power revealed G 5/5 power except for G 4+/5 power in the left finger extensors and iliopsoas and G 5-/5 power in the right finger extensors and iliopsoas. SENSORY EXAMINATION: She was able to discern light touch all over her body and localized touch well. REFLEXES: Trace+ and bilaterally symmetrical at the biceps, triceps, brachioradialis, knees, 0 at both ankles. The plantar responses were flexor bilaterally. COORDINATION: She performed well on [id number]-[id number] testing on the right side, however on the left side, she pass pointed. STANCE & GAIT: Could not be tested. Impression/Recommendations Diagnostic Impression 1. Ms. Mery Membreno is a 78-year-old, right-handed, lady, who does have a past history of diabetes mellitus, hypertension, questionable dyslipidemia, dementia, cerebrovascular disease with prior strokes with left- sided weakness, a left hip fracture approximately two years ago followed by thrombophlebitis, and gastroesophageal reflux disease, who was noted to have a sudden change in her level of consciousness associated with generalized weakness , a change in facial expression, and inability to communicate on 11/19/2018. 2. She feels better. Numerous family members are visiting her. She looks and feels brighter. She continues to be cognitively impoverished. She continues to be generally weak - but is getting stronger. She is still being fed via her NGT. She is able to swallow her saliva well. Her voice is also a little stronger. She denies any new neurologic symptoms. Her VSS was cancelled today due to sedation. 3. On neurological examination, at this time, she is disoriented to the name of the hospital, date, month, and year. Has significant problems with recent and remote memory, visuospatial function, higher cognitive function, and language. Her dysarthria is better/ She has a left greater than right seventh central facial paresis, left greater than right finger extensors and iliopsoas weakness , globally diminished deep tendon reflexes with loss of ankle jerks, and pass pointing on the left side on [id number] testing. In addition, she is unable to stand and walk. 4. Laboratory data revealed a relatively normal CBC. The chemistry panel revealed a minimally low sodium at 135, elevated blood glucose at 145, and low albumin at 3.0. The urinalysis revealed 3+ leukocyte esterase, 0-2 red blood cells, and 15-20 white blood cells per high-power field. 5. The MRI scan of the brain revealed an acute left basal ganglion and harris radiata infarct, and chronic right basal ganglion and right pontine infarcts. 6. The Carotid duplex done on 11/21/18 revealed 30% right and 20% left ICA stenosis 7. The patient's history, neurological examination, laboratory data, and imaging studies are most consistent with an acute left basal ganglion and harris radiata infarct causing the sudden change in her level of arousal and in addition, the new right-sided weakness in addition to the old left-sided weakness related to prior strokes. 8. The most likely etiology for the patient's strokes would be hypertensive, diabetic, and dyslipidemic small-vessel disease. 9. Her neurologic function is now improving, with increased alertness, increased power and improved pharyngeal function. Recommendations 1. The patient and her family were given an explanation of the above-mentioned findings. 2. Plavix 75 mg daily for secondary stroke prevention. 3. Blood sugar control in a strict manner. 4. Blood pressure control - aim for <120/80. 5. Her dyslipidemia should be treated appropriately with a statin. 6. Physical, occupational, and speech and language therapy, to rehabilitate her. 7. Repeat swallowing study - make sure no mind altering drugs are given. Geoffrey Duncan M.D., M.S.P.H. Geoffrey Duncan MD Nov 23, 2018 17:49
--- NOTE | 2018-11-23 19:00 | NUR ---
NURSE NOTES: NGT is in place and auscultated. Secured well.
--- NOTE | 2018-11-23 19:35 | NUR ---
NURSE NOTES: RN received order from Dr. Hayes to transfer patient to [facility] and give duoneb PRN.
--- NOTE | 2018-11-23 19:42 | NUR ---
HAND-OFF: Report given to Dior and endorsed to transfer patient to [facility].
--- NOTE | 2018-11-23 19:43 | NUR ---
NURSE NOTES: Received patient in bed. A&OX1 with confusion. IV site patent and intact. NGT feeding on, running Glucerna 1.2 55cc/hr, elevated HOB. Family member at bedside. Bed in lowest position. Call light within reach. Will continue to monitor.
[2018-11-23] MEDS ORDERED: Albuterol/Ipratropium 3ml neb HHN PRN ×2 (19:45→20:30)
[2018-11-23 20:00] VITALS: BP 136/71
--- NOTE | 2018-11-23 20:10 | NUR ---
NURSE NOTES: Received report from Dior MORENO, pt. transferred from - pt. is awake in bed and alert to name, pt. able to make needs known, daughter at bedside, cardiac rehabilitation program director on, side rails up x's 3 and safety brakes engaged, call light within easy reach and bed in lowest position, NC at 2L - sating at 2L- no distress noted, bed bath given and comfort measures provided, NGT RT. Nare Glucerna 1.2 running at 55cc/hr- no residual noted, Pure wick intact and set to suction, LFA 22G IV intact and patent, full body assessment done, pt. teaching done and pt. oriented to room, safety measures continued, will continue with plan of care. Addendum: 11/23/18 at 2203 by KELLY MITCHELL RN RN Full body assessment done- skin intact.
--- NOTE | 2018-11-23 20:20 | NUR ---
NURSE NOTES: Patient transferred to [facility] room 243 due to labored breathing. Report given to Stefanie MORENO. Family member at bedside.
[2018-11-23] MEDS ORDERED: LORazepam Inj 2mg/ml 1ml IV PRN (20:30)
[2018-11-23] MEDS ORDERED: Zolpidem 5mg tab ORAL PRN (20:30)
[2018-11-23] MEDS ORDERED: Miralax 17gm pkt ORAL PRN (20:30)
[2018-11-23] MEDS ORDERED: Morphine Sulfate 2mg/ml Inj(IV/IM USE ONLY) IVP PRN (20:30)
[2018-11-24] VITALS: BP 142/72
[2018-11-24 04:00] VITALS: BP 112/52
[2018-11-24 04:42] LABS: BASOPHILS % (AUTO) 0.6 % (0.0-2.0); EOSINOPHILS % (AUTO) 4.1 % (0.0-3.0); HEMATOCRIT 37.7 % (37.0-47.0); LYMPHOCYTES % (AUTO) 18.7 % (20.0-45.0); MEAN CORPUSCULAR VOLUME 89 FL (80-99); MONOCYTES % (AUTO) 10.9 % (1.0-10.0); NEUTROPHILS % (AUTO) 65.7 % (45.0-75.0); PLATELET COUNT 245 K/UL (150-450); RED BLOOD COUNT 4.23 M/UL (4.20-5.40); RED CELL DISTRIBUTION WIDTH 12.9 % (11.6-14.8); WHITE BLOOD COUNT 11.8 K/UL (4.8-10.8)
[2018-11-24 04:57] LABS: ALANINE AMINOTRANSFERASE 11 U/L (12-78); ALBUMIN 3.2 G/DL (3.4-5.0); ALBUMIN/GLOBULIN RATIO 0.9 (1.0-2.7); ALKALINE PHOSPHATASE 123 U/L (46-116); ANION GAP 9 mmol/L (5-15); ASPARTATE AMINO TRANSFERASE 14 U/L (15-37); BILIRUBIN,TOTAL 0.2 MG/DL (0.2-1.0); BLOOD UREA NITROGEN 18 mg/dL (7-18); CALCIUM 9.3 MG/DL (8.5-10.1); CARBON DIOXIDE 28 MMOL/L (21-32); CHLORIDE 95 MMOL/L (98-107); CREATININE 1.2 MG/DL (0.55-1.30); POTASSIUM 4.5 MMOL/L (3.5-5.1); SODIUM 132 MMOL/L (136-145)
[2018-11-24] MEDS: NovoLOG Insulin Flexpen SUBQ SCH ×3 (05:42→17:13)
[2018-11-24] MEDS: Heparin 5000 units/ml inj SUBQ SCH ×3 (05:43→21:16)
--- NOTE | 2018-11-24 07:01 | NUR ---
HAND-OFF: Report given to Pooja RN, pt. remains stable and no signs of distress noted.
--- NOTE | 2018-11-24 07:02 | NUR ---
NURSE NOTES: Patient in bed. On nasal cannula at 2LPM. With right NGT. Family at bedside. Contact isolation observed. Will continue plan of care.
[2018-11-24 08:00] VITALS: BP 128/95
[2018-11-24] MEDS: Bactrim-DS 1 tab ORAL SCH ×2 (09:53→21:12)
[2018-11-24] MEDS: Sertraline 50mg tab ORAL SCH (09:53)
[2018-11-24] MEDS: Donepezil 5mg Tab ORAL SCH (09:54)
[2018-11-24] MEDS: SYSTANE LUBRICANT EYE BOTH EYES SCH ×2 (10:00→17:12)
--- NOTE | 2018-11-24 10:05 | NUR ---
SWALLOW/SPEECH THERAPY NOTE: SWALLOW STATUS: 5 DAYS S/P CVA AND TRANSFERRED FROM MED SURG TO [facility] DUE TO BREATHING ISSUES. PATIENT NOT ALERT BUT WILL WAKE UP WHEN ORALLY SUCTIONED. PATIENT SEEN WITH AND HER DAUGHTER PRESENT. EDUCATED/TRAINED FAMILY AND STAFF (JOSH SNOW) IN ORAL CARE AND ORAL SUCTION. PATIENT STILL COUGHING ON HER OWN SECRETIONS AND NEEDED ORAL SUCTION (MILD AMOUNTS OF CLEAR SALIVA) BOTH SIDES OF MOUTH MORE ON THE RIGHT AND MORE IN THE BACK OF THE THROAT. SPENT TIME WITH FAMILY TO LET THEM KNOW THAT SHE IS AT HIGH RISK FOR ASP EVEN WITH HER SALIVA AND THUS UNABLE TO EAT BY MOUTH AT THIS TIME. DISCUSSED NEED FOR NONORAL FEEDINGS AT THIS TIME. FAMILY WILL HAVE HER GO HOME UPON D/C. PATIENT NOT READY FOR MODIFIED BARIUM SWALLOW STUDY TODAY. PER RT UPDATES: Date: 11/19/18 10:03 Type: Respiratory Pulse Rate 80 beats per min (60-100) Respiratory Rate 13 breaths per minute (12-24) Respiratory Effort Normal Non-labored Respiratory Depth Normal Respiratory Pattern Regular Level of Consciousness Appropriate Follows Commands Lung Assessment Label Bilateral Middle Lobe Respiratory Phase Inspiratory & Expiratory Breath Sounds Clear Oxygen Delivery Method Room Air Cough Description Dry Cough Frequency Occassional Respiratory Symptoms Weak Cough Date: 11/22/18 14:17 Type: Nutrition Reassessment Medical Diagnosis and History (1) Cerebral vascular disease ICD Codes: I67.9 - Cerebrovascular disease, unspecified SNOMED: 88809123 (2) Alzheimer's dementia ICD Codes: G30.9 - Alzheimer's disease, unspecified SNOMED: 38869260 Qualifiers: Qualified Codes: G30.9 - Alzheimer's disease, unspecified; F02.80 - Dementia in other diseases classified elsewhere without behavioral disturbance (3) Diabetes mellitus, type II ICD Codes: E11.9 - Type 2 diabetes mellitus without complications SNOMED: 62465606 (4) History of CVA (cerebrovascular accident) ICD Codes: Z86.73 - Personal history of transient ischemic attack (TIA), and cerebral infarction without residual deficits Current Status (11/20/18) Med surg. Verbal referal from [facility] [employer] regarding TF rec. acute lacunar infarct per MRI of brain. (11/22) Med Surg. Tolerating NGT feeding @ goal. Patient Gender Female Patient Age 78 years Current Height (feet) 5 Ft Current Height (inches) 2.0 inches Current Weight (pounds) 170.0 lbs Body Mass Index 31.2 Latty Body Weight (IBW) 110.00 lbs Adjusted Body Weight (ABW) 125.00 lbs Percent Latty Body Weight (%IBW) 155.00 Weight Adjustments Ht and wt per family Nutrition Classification Obesity, Class I Loss of Subcutaneous Fat None Loss of Muscle Mass None Intake and Output 1705/900 Edema none GI Function 11/21 BM Wound(s) None Current Medications Aricept Zoloft abx 1/2NS @ 50 novolog Labs Na 134 BG 280 145 POC 230 289 259 268 282 mag 1.6 (11/20) triglyceride 167 cholestrol 218 LDL 155 BP 136/80 Discussion (11/20) Verbal referal from [facility] regarding NGT feeding rec. S/p acute CVA per MRI of brain, w/ rec for NPO, s/p NGT insertion. Pt seen in room, lethargic. Family members at bedside. Ht and wt obtained from family. Pt visually looks obese, c/w BMI. EMR wt of 120lbs appears way off. Per spouse, pt was eating well until Tuesday, but barely at since Tuesday, pt now c/o being hungry. NGT in place. H/o DM noted. No wound noted. Elev lipid panel noted. Mag low-> rec to replete prior to TF initiation. (11/22) Pt is now on NGT feeding, tolerated @ goal. BGs mostly in the 200's. On NISS only at this time. Na slowly trending down. Pt on 1/2NS. May benefit from NS instead. No updated mag. Statin not yet added for elev lipid panel. Needs based on DM, 57kg abw kcals/kg 25-30 Total kcals 8970-1656 g/kg 1-1.5 Total Protein g 57-86 mL/kg 25-30 Total Fluid mLs 7859-7822 Current Diet PO Intake Comment Tube Feeding Formula Glucerna 1.2 @ 55ml/hr x 24 hrs Enteral Provision 1320ml, 1584kcal, 79g prot, 1063ml free water Percent of estimated nutrition needs 100% est kcal/prot needs Diagnosis * Swallowing difficulty R/T dysphagia, h/o CVA + lacunar infarct per MRI of brain as evidenced by [facility] recommends NPO, nonoral feedings, s/p NGT insertion. * Altered nutrition related lab values R/T DM, altered lipied metabolism as evidenced by elev POC glu (230 289 259 268 282), elev triglyceride (167), elev cholesterol (218), elev LDL (155). Diet DIET PER P[facility]ER WHEN SAFE FOR PO Enteral Nutrition Glucerna 1.2 @ 55ml/hr x 24 hrs To provide 1320ml, 1584kcal, 79g prot, 1063ml free water Enteral Nutrition Comment * Maintain current TF * HOB over 30 degrees/ water flush per MD Recommendation #1 * Calibrated bedscale wt for accurate CBW Recommendation #2 : family states [id number] (vs EMR wt of 120lbs) Recommendation #3 * Monitor lytes daily w/ TF, replete as needed Recommendation #4 : check follow up mag (low 1.6 on 11/20) Recommendation #5 * Long acting insulin for improved BG control Recommendation #6 * Consider lipid lowering agent (elev lipid panel + s/p acute CVA) Recommendation #7 * Consider changing 1/2NS to NS : Na level trend down (134) Topics Tube Feeding Teaching Recipient Family Teaching Methods Discussion Response to Teaching Verbalize understanding Education Comment Discussed w/ family @ bedside Nutrition Monitoring & Evaluation Wt stable/gain/loss Wound Healing TF adequacy Tolerate intake/delivery Blood Glucose Control Na/Fluid status Phos,Magnesium,K+ Nutrition Risk High Reassessment Due 11/25/18 SPEECH SCREEN FAMILY TRAINED AND EDUCATED IN VOICE AND SPEAKING ACTIVIES TO COMPLETE WITH PATIENT WHEN SHE IS AWAKE. PATIENT WAS ABLE TO SING FOR FAMILY. PLAN: SEE ON TUESDAY TO CHECK FOR MOD BARIUM SWALLOW STUDY READINESS. CONTINUE WITH PLAN OF CARE IN SWALLOW EVAL REPORT NEW ST GOALS TO FOLLOW AFTER MBSS NEXT WEEK.
--- NOTE | 2018-11-24 10:08 | Diagnostic Imaging Report ---
Indication: Cough Technique: One view of the chest Comparison: 11/19/2018 Findings: Interim placement of nasogastric tube, tip projected beyond the edge of image, apparently well within the stomach. Chronic appearing bilateral perihilar interstitial opacities are noted. Patchy right suprahilar opacity may reflect some airspace consolidation. No effusions. Impression: Satisfactory nasogastric intubation Possible developing patchy airspace disease in the right suprahilar region This agrees with the preliminary interpretation provided overnight by [facility] teleradiology service.
--- NOTE | 2018-11-24 11:12 | Pulmonology Progress Note ---
Assessment/Plan Problems: (1) Acute respiratory failure (2) Pneumonia (3) Alzheimer's dementia (4) Diabetes mellitus, type II (5) History of CVA (cerebrovascular accident) (6) Cerebral vascular disease Assessment/Plan titrate fio2 to sat of 92% repeat swallow study NG tube in, tolerating feeding sliding scale check electrolytes neuro consult appreciated aspiration precaution I had an extensive discussion with one of the daughters, about plan of care and different options available. Subjective Interval Events: was transferred to [facility] because of episode of dyspnea Allergies: Coded Allergies: No Known Allergies (Unverified , 01/27/17) Objective Last 24 Hour Vital Signs Date Time Temp Pulse Resp B/P (MAP) Pulse Ox O2 Delivery O2 Flow Rate FiO2 11/24/18 08:00 Nasal Cannula 2.0 11/24/18 08:00 97.0 96 20 128/95 (106) 100 11/24/18 07:40 84 11/24/18 04:00 98.6 87 20 112/52 (72) 98 11/24/18 04:00 84 11/24/18 00:00 87 11/24/18 00:00 98.7 91 24 142/72 (95) 97 11/24/18 00:00 Nasal Cannula 2.0 11/23/18 20:22 90 11/23/18 20:00 Nasal Cannula 2.0 11/23/18 20:00 98.2 94 24 136/71 (92) 98 11/23/18 16:00 98.9 89 20 137/69 (91) 93 11/23/18 12:00 98.1 93 18 152/74 (100) 96 Intake and Output 11/23/18 11/24/18 19:00 07:00 Intake Total 1350 ml 765 ml Output Total 500 ml 300 ml Balance 850 ml 465 ml Intake Free Water 90 ml 50 ml IV Total 600 ml Tube Feeding 660 ml 715 ml Output Urine Total 500 ml 300 ml Objective General Appearance: WD/WN HEENT: normocephalic, atraumatic Respiratory/Chest: chest wall non-tender, lungs clear, normal breath sounds Breasts: no masses Cardiovascular: normal peripheral pulses, normal rate Abdomen: normal bowel sounds, soft, non tender Genitourinary: normal external genitalia Extremities: no cyanosis Laboratory Tests 11/24/18 03:00: White Blood Count 11.8H, Red Blood Count 4.23, Hemoglobin 12.0, Hematocrit 37.7 , Mean Corpuscular Volume 89, Mean Corpuscular Hemoglobin 28.3, Mean Corpuscular Hemoglobin Concent 31.8L, Red Cell Distribution Width 12.9, Platelet Count 245, Mean Platelet Volume 6.8, Neutrophils (%) (Auto) 65.7, Lymphocytes (%) (Auto) 18.7L, Monocytes (%) (Auto) 10.9H, Eosinophils (%) (Auto ) 4.1H, Basophils (%) (Auto) 0.6, Sodium Level 132L, Potassium Level 4.5, Chloride Level 95L, Carbon Dioxide Level 28, Anion Gap 9, Blood Urea Nitrogen 18 , Creatinine 1.2, Estimat Glomerular Filtration Rate , Glucose Level 324H, Calcium Level 9.3, Total Bilirubin 0.2, Aspartate Amino Transf (AST/SGOT) 14L, Alanine Aminotransferase (ALT/SGPT) 11L, Alkaline Phosphatase 123H, Total Protein 6.9, Albumin 3.2L, Globulin 3.7, Albumin/Globulin Ratio 0.9L Current Medications Medications (Trade) Dose Ordered Sig/Jayme Route PRN Reason Start Time Stop Time Status Last Admin Dose Admin Acetaminophen (Tylenol) 650 mg Q4H PRN ORAL fever 11/23/18 20:30 12/19/18 20:29 Albuterol/ Ipratropium (Albuterol/ Ipratropium) 3 ml Q4H PRN HHN Shortness of Breath 11/23/18 20:30 11/28/18 20:29 Clopidogrel Bisulfate (Plavix) 75 mg DAILY ORAL 11/24/18 09:00 12/20/18 19:44 11/24/18 09:54 Dextrose (Dextrose 50%) 25 ml Q30M PRN IV Hypoglycemia 11/23/18 20:30 12/19/18 11:29 Dextrose (Dextrose 50%) 50 ml Q30M PRN IV Hypoglycemia 11/23/18 20:30 12/19/18 11:29 Donepezil HCl (Aricept) 5 mg DAILY ORAL 11/24/18 09:00 12/20/18 08:59 11/24/18 09:54 Heparin Sodium (Porcine) (Heparin 5000 units/ml) 5,000 units EVERY 8 HOURS SUBQ 11/23/18 22:00 12/19/18 21:59 11/24/18 05:43 Insulin Aspart (NovoLOG) EVERY 6 HOURS SUBQ 11/24/18 12:00 12/19/18 16:29 Lorazepam (Ativan 2mg/ml 1ml) 0.5 mg Q4H PRN IV For Anxiety 11/23/18 20:30 11/26/18 20:29 Morphine Sulfate (Morphine Sulfate) 1 mg Q4H PRN IVP For Pain 11/23/18 20:30 11/26/18 20:29 Ondansetron HCl (Zofran) 4 mg Q6H PRN IVP Nausea & Vomiting 11/23/18 20:30 12/19/18 20:29 Patient Own Medication (Patient's Own Med) 1 ea BID BOTH EYES 11/24/18 09:00 12/21/18 17:59 11/24/18 10:00 Polyethylene Glycol (Miralax) 17 gm HSPRN PRN ORAL Constipation 11/23/18 20:30 12/23/18 20:29 Sertraline HCl (Zoloft) 50 mg DAILY ORAL 11/24/18 09:00 12/20/18 08:59 11/24/18 09:53 Trimethoprim/ Sulfamethoxazole (Bactrim-DS) 1 tab Q12HR ORAL 11/23/18 21:00 11/29/18 20:59 11/24/18 09:53 Zolpidem Tartrate (Ambien) 5 mg HSPRN PRN ORAL Insomnia 11/23/18 20:30 11/30/18 20:29 Genesis Hayes MD Nov 24, 2018 11:12
[2018-11-24 12:00] VITALS: BP 132/68
--- NOTE | 2018-11-24 13:25 | Neurology Progress Note ---
Interim History Interim History Interim History Ms. Membreno feels "well.". She looks and feels brighter. She continues to be cognitively impoverished. She continues to be generally weak. She is still being fed via her NGT. She is able to swallow her saliva well. Her voice is a little stronger. She denies any new neurologic symptoms. Her VSS has been postponed as she was having some wheezing earlier. Review of Systems Neuro Review of Systems Unable to obtain. Objective Physical Exam Last Vital Signs Date Time Temp Pulse Resp B/P (MAP) Pulse Ox O2 Delivery O2 Flow Rate FiO2 11/24/18 13:00 92 18 100 Nasal Cannula 2.0 28 11/24/18 08:00 97.0 128/95 (106) Laboratory Tests Test 11/24/18 03:00 White Blood Count 11.8 K/UL (4.8-10.8) H Red Blood Count 4.23 M/UL (4.20-5.40) Hemoglobin 12.0 G/DL (12.0-16.0) Hematocrit 37.7 % (37.0-47.0) Mean Corpuscular Volume 89 FL (80-99) Mean Corpuscular Hemoglobin 28.3 PG (27.0-31.0) Mean Corpuscular Hemoglobin Concent 31.8 G/DL (32.0-36.0) L Red Cell Distribution Width 12.9 % (11.6-14.8) Platelet Count 245 K/UL (150-450) Mean Platelet Volume 6.8 FL (6.5-10.1) Neutrophils (%) (Auto) 65.7 % (45.0-75.0) Lymphocytes (%) (Auto) 18.7 % (20.0-45.0) L Monocytes (%) (Auto) 10.9 % (1.0-10.0) H Eosinophils (%) (Auto) 4.1 % (0.0-3.0) H Basophils (%) (Auto) 0.6 % (0.0-2.0) Sodium Level 132 MMOL/L (136-145) L Potassium Level 4.5 MMOL/L (3.5-5.1) Chloride Level 95 MMOL/L (98-107) L Carbon Dioxide Level 28 MMOL/L (21-32) Anion Gap 9 mmol/L (5-15) Blood Urea Nitrogen 18 mg/dL (7-18) Creatinine 1.2 MG/DL (0.55-1.30) Estimat Glomerular Filtration Rate mL/min (>60) Glucose Level 324 MG/DL (74-106) H Calcium Level 9.3 MG/DL (8.5-10.1) Total Bilirubin 0.2 MG/DL (0.2-1.0) Aspartate Amino Transf (AST/SGOT) 14 U/L (15-37) L Alanine Aminotransferase (ALT/SGPT) 11 U/L (12-78) L Alkaline Phosphatase 123 U/L (46-116) H Total Protein 6.9 G/DL (6.4-8.2) Albumin 3.2 G/DL (3.4-5.0) L Globulin 3.7 g/dL Albumin/Globulin Ratio 0.9 (1.0-2.7) L Neurologic Exam Objective PHYSICAL EXAMINATION: GENERAL: She is a well-developed, well-nourished, pleasant lady, lying in bed, in no acute distress. HEAD: Normocephalic and atraumatic. EENT: Examination was benign. NECK: No neck rigidity was observed. NEUROLOGICAL EXAMINATION: MENTAL STATUS EXAMINATION: She was awake and alert. She was oriented to self and hospital, but did not know the name of the hospital and had no idea what the date was. She was able to recall 3/3 words immediately, but was unable to remember them in 1 minute and 3 minutes. She was unable to tell me who the present President was and who the prior presidents were. Her mathematical skills were impaired. Her visuospatial function was also impaired. SPEECH: She had a mild dysarthria. LANGUAGE: She had an anomic aphasia. CRANIAL NERVE EXAMINATION: II: The visual de guzman were intact on confrontation testing. III, IV & : The external ocular movements were full and the pupils 3 mm in diameter, equal, round, regular, and reactive to light. V: She had normal facial sensations, and the temporales, masseters, and pterygoids functioned normally. VII: She had right greater than left seventh central facial paresis. VIII: She was able to hear and had no nystagmus. IX: The palate moved symmetrically on phonation. The palatal movements were higher in amplitude. X: She had no hoarseness of voice. XI: The sternocleidomastoids and trapezii function normally. XII: The tongue was in the midline without any fasciculations or atrophy. MOTOR SYSTEM: The tone was normal in all four extremities. Examination of muscle mass revealed no focal wasting. Examination of power revealed G 5/5 power except for G 4+/5 power in the left finger extensors and iliopsoas and G 5-/5 power in the right finger extensors and iliopsoas. SENSORY EXAMINATION: She was able to discern light touch all over her body and localized touch well. REFLEXES: Trace+ and bilaterally symmetrical at the biceps, triceps, brachioradialis, knees, 0 at both ankles. The plantar responses were flexor bilaterally. COORDINATION: She performed well on [id number] testing on the right side, however on the left side, she pass pointed. STANCE & GAIT: Could not be tested. Impression/Recommendations Diagnostic Impression 1. Ms. Mery Membreno is a 78-year-old, right-handed, lady, who does have a past history of diabetes mellitus, hypertension, questionable dyslipidemia, dementia, cerebrovascular disease with prior strokes with left- sided weakness, a left hip fracture approximately two years ago followed by thrombophlebitis, and gastroesophageal reflux disease, who was noted to have a sudden change in her level of consciousness associated with generalized weakness , a change in facial expression, and inability to communicate on 11/19/2018. 2. She feels "well." She looks and feels brighter. She continues to be cognitively impoverished. She continues to be generally weak. She is still being fed via her NGT. She is able to swallow her saliva well. Her voice is a little stronger. She denies any new neurologic symptoms. Her VSS has been postponed as she was having some wheezing earlier. 3. On neurological examination, at this time, she is disoriented to the name of the hospital, date, month, and year. Has significant problems with recent and remote memory, visuospatial function, higher cognitive function, and language. Her dysarthria is better. She has a left greater than right seventh central facial paresis, left greater than right finger extensors and iliopsoas weakness , globally diminished deep tendon reflexes with loss of ankle jerks, and pass pointing on the left side on [id number] testing. In addition, she is unable to stand and walk. 4. Laboratory data revealed a relatively normal CBC. The chemistry panel revealed a minimally low sodium at 135, elevated blood glucose at 145, and low albumin at 3.0. The urinalysis revealed 3+ leukocyte esterase, 0-2 red blood cells, and 15-20 white blood cells per high-power field. 5. The MRI scan of the brain revealed an acute left basal ganglion and harris radiata infarct, and chronic right basal ganglion and right pontine infarcts. 6. The Carotid duplex done on 11/21/18 revealed 30% right and 20% left ICA stenosis 7. The patient's history, neurological examination, laboratory data, and imaging studies are most consistent with an acute left basal ganglion and harris radiata infarct causing the sudden change in her level of arousal and in addition, the new right-sided weakness in addition to the old left-sided weakness related to prior strokes. 8. The most likely etiology for the patient's strokes would be hypertensive, diabetic, and dyslipidemic small-vessel disease. 9. Her neurologic function is now improving, with increased alertness, increased power and improved pharyngeal function. Recommendations 1. The patient and her family were given an explanation of the above-mentioned findings. 2. Plavix 75 mg daily for secondary stroke prevention. 3. Blood sugar control in a strict manner. 4. Blood pressure control - aim for <120/80. 5. Her dyslipidemia should be treated appropriately with a statin. 6. Physical, occupational, and speech and language therapy, to rehabilitate her. 7. Repeat swallowing study - when appropriate. Geoffrey Duncan M.D., M.S.P.H. Geoffrey Duncan MD Nov 24, 2018 13:24
--- NOTE | 2018-11-24 13:31 | NUR ---
RD ASSESSMENT & RECOMMENDATIONS SEE CARE ACTIVITY FOR COMPLETE ASSESSMENT DAILY ESTIMATED NEEDS: Needs based on DM, 57kg abw 25-30 kcals/kg 9291-2267 total kcals 1-1.5 g protein/kg 57-86 g total protein 25-30 mL/kg 3459-6762 total fluid mLs NUTRITION DIAGNOSIS: * Swallowing difficulty R/T dysphagia, h/o CVA + lacunar infarct per MRI of brain as evidenced by GEOSPATIAL INFORMATION SCIENTIST recommends NPO, nonoral feedings, s/p NGT insertion, on NGT feeding. * Altered nutrition related lab values R/T DM, altered lipied metabolism as evidenced by elev POC glu ([phone] 312 332), elev triglyceride (167), elev cholesterol (218), elev LDL (155). CURRENT TF:Glucerna 1.2 @ 55ml/hr x 24 hrs PO DIET RECOMMENDATIONS: DIET PER GEOSPATIAL INFORMATION SCIENTIST WHEN SAFE FOR PO ENTERAL NUTRITION RECOMMENDATIONS: Glucerna 1.2 @ 50ml/hr x 24 hrs to provide 1200ml, 1440kcal, 72g prot, 966ml free water * LOWER goal rate to 50ml/hr for improved BG control -> will provide 13.7g less CHO per day than current TF * HOB over 30 degrees/ water flush per MD ADDITIONAL RECOMMENDATIONS: * Calibrated bedscale wt for accurate CBW : family states [id number] (vs EMR wt of 120lbs) * Monitor lytes daily w/ TF, replete as needed : check follow up mag (low 1.6 on 11/20) * Long acting insulin for improved BG control (BGs mostly in the 300's) -> Rec to lower TF rate as above for improved BG control * Consider lipid lowering agent (elev lipid panel + s/p acute CVA)
--- NOTE | 2018-11-24 15:43 | Infectious Diseases Prog Note ---
Assessment/Plan Assessment/Plan Assessment: Afebrile Mild Leukocytosis -11/23 CXR: Satisfactory nasogastric intubation. Possible developing patchy airspace disease in the right suprahilar region Pyuria/bacteriuria- Probable UTI -u/a wbc 15-20, nit neg, leuk +3; ucx ESBL E.coli (S nitrofurantoin, bactrim, cipro/levo, zosyn, ertapenem) Acute bronchitis Acute CVA -Brain MRI: Positive for acute left basal ganglia lacunar infarct. Multiple old infarcts, as described. Other chronic and age-related changes, as described. Negative for acute intracranial bleed or mass effect Dm2 HTN HLD non-verbal Dementia CVA s/p L side weakness L hip fracture s/p L hip hemiarthroplasty 01/2017 LE DVT GERD Plan: -Cont PO bactrim #3/3-5 -11/22 SP Ceftriaxone #4 -f/u cx -Monitor CBC/CMP, temperatures -aspiration precautions Thank you for this consultation. Will continue to follow along with you. Discussed with RN. Subjective Allergies: Coded Allergies: No Known Allergies (Unverified , 01/27/17) Subjective afebrile mild leukocytosis Objective Vital Signs Last 24 Hour Vital Signs Date Time Temp Pulse Resp B/P (MAP) Pulse Ox O2 Delivery O2 Flow Rate FiO2 11/24/18 13:00 92 18 100 Nasal Cannula 2.0 28 11/24/18 12:51 94 16 97 Nasal Cannula 2.0 28 11/24/18 12:51 94 16 97 Nasal Cannula 2.0 28 11/24/18 12:51 28 11/24/18 12:00 Nasal Cannula 2.0 11/24/18 12:00 97.5 86 20 132/68 (89) 100 11/24/18 11:27 83 11/24/18 08:00 Nasal Cannula 2.0 11/24/18 08:00 97.0 96 20 128/95 (106) 100 11/24/18 07:40 84 11/24/18 04:00 98.6 87 20 112/52 (72) 98 11/24/18 04:00 84 11/24/18 00:00 87 11/24/18 00:00 98.7 91 24 142/72 (95) 97 11/24/18 00:00 Nasal Cannula 2.0 11/23/18 20:22 90 11/23/18 20:00 Nasal Cannula 2.0 11/23/18 20:00 98.2 94 24 136/71 (92) 98 11/23/18 16:00 98.9 89 20 137/69 (91) 93 Height (Feet): 5 Height (Inches): 0.00 Weight (Pounds): 182 Objective GENERAL: The patient opens her eyes. Responds to the family members commands. Alert and oriented. HEENT: Pupils correct, equal, and reactive to light. Anicteric. NECK: Supple. No JVD. LUNGS: Good air entry. Decreased air entry in the bases. No wheezes or rhonchi. HEART: S1 and S2. Distant heart sounds. No murmur or gallops. ABDOMEN: Soft, nondistended, and nontender. Mildly obese. EXTREMITIES: No cyanosis, clubbing, or edema. NEUROLOGIC: Cranial nerves II through XII grossly intact. The patient is moving all the extremities, left side weaker than right side. Gait was not assessed due to the patient's status. GENITOURINARY: Refused and deferred. PSYCHIATRIC: Mood and affect is unable to obtain because of baseline dementia. Laboratory Tests Test 11/24/18 03:00 White Blood Count 11.8 K/UL (4.8-10.8) H Red Blood Count 4.23 M/UL (4.20-5.40) Hemoglobin 12.0 G/DL (12.0-16.0) Hematocrit 37.7 % (37.0-47.0) Mean Corpuscular Volume 89 FL (80-99) Mean Corpuscular Hemoglobin 28.3 PG (27.0-31.0) Mean Corpuscular Hemoglobin Concent 31.8 G/DL (32.0-36.0) L Red Cell Distribution Width 12.9 % (11.6-14.8) Platelet Count 245 K/UL (150-450) Mean Platelet Volume 6.8 FL (6.5-10.1) Neutrophils (%) (Auto) 65.7 % (45.0-75.0) Lymphocytes (%) (Auto) 18.7 % (20.0-45.0) L Monocytes (%) (Auto) 10.9 % (1.0-10.0) H Eosinophils (%) (Auto) 4.1 % (0.0-3.0) H Basophils (%) (Auto) 0.6 % (0.0-2.0) Sodium Level 132 MMOL/L (136-145) L Potassium Level 4.5 MMOL/L (3.5-5.1) Chloride Level 95 MMOL/L (98-107) L Carbon Dioxide Level 28 MMOL/L (21-32) Anion Gap 9 mmol/L (5-15) Blood Urea Nitrogen 18 mg/dL (7-18) Creatinine 1.2 MG/DL (0.55-1.30) Estimat Glomerular Filtration Rate mL/min (>60) Glucose Level 324 MG/DL (74-106) H Calcium Level 9.3 MG/DL (8.5-10.1) Total Bilirubin 0.2 MG/DL (0.2-1.0) Aspartate Amino Transf (AST/SGOT) 14 U/L (15-37) L Alanine Aminotransferase (ALT/SGPT) 11 U/L (12-78) L Alkaline Phosphatase 123 U/L (46-116) H Total Protein 6.9 G/DL (6.4-8.2) Albumin 3.2 G/DL (3.4-5.0) L Globulin 3.7 g/dL Albumin/Globulin Ratio 0.9 (1.0-2.7) L Current Medications Medications (Trade) Dose Ordered Sig/Jayme Route PRN Reason Start Time Stop Time Status Last Admin Dose Admin Acetaminophen (Tylenol) 650 mg Q4H PRN ORAL fever 11/23/18 20:30 12/19/18 20:29 Albuterol/ Ipratropium (Albuterol/ Ipratropium) 3 ml Q4H PRN HHN Shortness of Breath 11/23/18 20:30 11/28/18 20:29 11/24/18 12:51 Clopidogrel Bisulfate (Plavix) 75 mg DAILY ORAL 11/24/18 09:00 12/20/18 19:44 11/24/18 09:54 Dextrose (Dextrose 50%) 25 ml Q30M PRN IV Hypoglycemia 11/23/18 20:30 12/19/18 11:29 Dextrose (Dextrose 50%) 50 ml Q30M PRN IV Hypoglycemia 11/23/18 20:30 12/19/18 11:29 Donepezil HCl (Aricept) 5 mg DAILY ORAL 11/24/18 09:00 12/20/18 08:59 11/24/18 09:54 Heparin Sodium (Porcine) (Heparin 5000 units/ml) 5,000 units EVERY 8 HOURS SUBQ 11/23/18 22:00 12/19/18 21:59 11/24/18 14:01 Insulin Aspart (NovoLOG) EVERY 6 HOURS SUBQ 11/24/18 12:00 12/19/18 16:29 11/24/18 12:48 Lorazepam (Ativan 2mg/ml 1ml) 0.5 mg Q4H PRN IV For Anxiety 11/23/18 20:30 11/26/18 20:29 Morphine Sulfate (Morphine Sulfate) 1 mg Q4H PRN IVP For Pain 11/23/18 20:30 11/26/18 20:29 Ondansetron HCl (Zofran) 4 mg Q6H PRN IVP Nausea & Vomiting 11/23/18 20:30 12/19/18 20:29 11/24/18 12:14 Patient Own Medication (Patient's Own Med) 1 ea BID BOTH EYES 11/24/18 09:00 12/21/18 17:59 11/24/18 10:00 Polyethylene Glycol (Miralax) 17 gm HSPRN PRN ORAL Constipation 11/23/18 20:30 12/23/18 20:29 Sertraline HCl (Zoloft) 50 mg DAILY ORAL 11/24/18 09:00 12/20/18 08:59 11/24/18 09:53 Trimethoprim/ Sulfamethoxazole (Bactrim-DS) 1 tab Q12HR ORAL 11/23/18 21:00 11/29/18 20:59 11/24/18 09:53 Zolpidem Tartrate (Ambien) 5 mg HSPRN PRN ORAL Insomnia 11/23/18 20:30 11/30/18 20:29 [place] M.D. Nov 24, 2018 15:43
[2018-11-24 16:00] VITALS: BP 134/71
--- NOTE | 2018-11-24 18:30 | Internal Med Progress Note ---
Subjective Date of Service: Nov 24, 2018 Physician Name Magan More Attending Physician Abdirahman Griffin MD Current Medications Medications (Trade) Dose Ordered Sig/Jayme Route PRN Reason Start Time Stop Time Status Last Admin Dose Admin Acetaminophen (Tylenol) 650 mg Q4H PRN ORAL fever 11/23/18 20:30 12/19/18 20:29 Albuterol/ Ipratropium (Albuterol/ Ipratropium) 3 ml Q4H PRN HHN Shortness of Breath 11/23/18 20:30 11/28/18 20:29 11/24/18 12:51 Clopidogrel Bisulfate (Plavix) 75 mg DAILY ORAL 11/24/18 09:00 12/20/18 19:44 11/24/18 09:54 Dextrose (Dextrose 50%) 25 ml Q30M PRN IV Hypoglycemia 11/23/18 20:30 12/19/18 11:29 Dextrose (Dextrose 50%) 50 ml Q30M PRN IV Hypoglycemia 11/23/18 20:30 12/19/18 11:29 Donepezil HCl (Aricept) 5 mg DAILY ORAL 11/24/18 09:00 12/20/18 08:59 11/24/18 09:54 Heparin Sodium (Porcine) (Heparin 5000 units/ml) 5,000 units EVERY 8 HOURS SUBQ 11/23/18 22:00 12/19/18 21:59 11/24/18 14:01 Insulin Aspart (NovoLOG) EVERY 6 HOURS SUBQ 11/24/18 12:00 12/19/18 16:29 11/24/18 17:13 Lorazepam (Ativan 2mg/ml 1ml) 0.5 mg Q4H PRN IV For Anxiety 11/23/18 20:30 11/26/18 20:29 Morphine Sulfate (Morphine Sulfate) 1 mg Q4H PRN IVP For Pain 11/23/18 20:30 11/26/18 20:29 Ondansetron HCl (Zofran) 4 mg Q6H PRN IVP Nausea & Vomiting 11/23/18 20:30 12/19/18 20:29 11/24/18 12:14 Patient Own Medication (Patient's Own Med) 1 ea BID BOTH EYES 11/24/18 09:00 12/21/18 17:59 11/24/18 17:12 Polyethylene Glycol (Miralax) 17 gm HSPRN PRN ORAL Constipation 11/23/18 20:30 12/23/18 20:29 Sertraline HCl (Zoloft) 50 mg DAILY ORAL 11/24/18 09:00 12/20/18 08:59 11/24/18 09:53 Trimethoprim/ Sulfamethoxazole (Bactrim-DS) 1 tab Q12HR ORAL 11/23/18 21:00 11/29/18 20:59 11/24/18 09:53 Zolpidem Tartrate (Ambien) 5 mg HSPRN PRN ORAL Insomnia 11/23/18 20:30 11/30/18 20:29 Allergies: Coded Allergies: No Known Allergies (Unverified , 01/27/17) ROS Limited/Unobtainable: Yes Subjective 78 YO F admitted with dehydration. Now acute left cerebral vascular accident. Cover for Int Med-Dr Griffin. LIAT Objective Last Vital Signs Date Time Temp Pulse Resp B/P (MAP) Pulse Ox O2 Delivery O2 Flow Rate FiO2 11/24/18 16:00 97.2 84 20 134/71 (92) 97 11/24/18 16:00 Nasal Cannula 2.0 11/24/18 13:00 28 Laboratory Tests Test 11/24/18 03:00 White Blood Count 11.8 K/UL (4.8-10.8) H Red Blood Count 4.23 M/UL (4.20-5.40) Hemoglobin 12.0 G/DL (12.0-16.0) Hematocrit 37.7 % (37.0-47.0) Mean Corpuscular Volume 89 FL (80-99) Mean Corpuscular Hemoglobin 28.3 PG (27.0-31.0) Mean Corpuscular Hemoglobin Concent 31.8 G/DL (32.0-36.0) L Red Cell Distribution Width 12.9 % (11.6-14.8) Platelet Count 245 K/UL (150-450) Mean Platelet Volume 6.8 FL (6.5-10.1) Neutrophils (%) (Auto) 65.7 % (45.0-75.0) Lymphocytes (%) (Auto) 18.7 % (20.0-45.0) L Monocytes (%) (Auto) 10.9 % (1.0-10.0) H Eosinophils (%) (Auto) 4.1 % (0.0-3.0) H Basophils (%) (Auto) 0.6 % (0.0-2.0) Sodium Level 132 MMOL/L (136-145) L Potassium Level 4.5 MMOL/L (3.5-5.1) Chloride Level 95 MMOL/L (98-107) L Carbon Dioxide Level 28 MMOL/L (21-32) Anion Gap 9 mmol/L (5-15) Blood Urea Nitrogen 18 mg/dL (7-18) Creatinine 1.2 MG/DL (0.55-1.30) Estimat Glomerular Filtration Rate mL/min (>60) Glucose Level 324 MG/DL (74-106) H Calcium Level 9.3 MG/DL (8.5-10.1) Total Bilirubin 0.2 MG/DL (0.2-1.0) Aspartate Amino Transf (AST/SGOT) 14 U/L (15-37) L Alanine Aminotransferase (ALT/SGPT) 11 U/L (12-78) L Alkaline Phosphatase 123 U/L (46-116) H Total Protein 6.9 G/DL (6.4-8.2) Albumin 3.2 G/DL (3.4-5.0) L Globulin 3.7 g/dL Albumin/Globulin Ratio 0.9 (1.0-2.7) L Intake and Output 11/23/18 11/24/18 19:00 07:00 Intake Total 1350 ml 765 ml Output Total 500 ml 300 ml Balance 850 ml 465 ml Intake Free Water 90 ml 50 ml IV Total 600 ml Tube Feeding 660 ml 715 ml Output Urine Total 500 ml 300 ml Objective Objective GENERAL: The patient opens her eyes. more responsive, HEENT: Pupils correct, equal, and reactive to light. Anicteric. NG tube. NECK: Supple. No JVD. LUNGS: Fair air entry. Decreased air entry in the bases. No wheezes or rhonchi. HEART: S1 and S2. Distant heart sounds. No murmur or gallops. ABDOMEN: Soft, nondistended, and nontender. Mildly obese. EXTREMITIES: No cyanosis, clubbing, or edema. NEUROLOGIC: Cranial nerves II through XII grossly intact. The patient is moving all the extremities, left side weaker than right side. . RECTAL: Refused and deferred. Assessment/Plan Assessment/Plan Assessment/Plan Assessment/Plan ASSESSMENT: 1. Upper respiratory symptoms, possible due to the early pneumonia versus bronchitis. 2. Acute left basal ganglia lacunar infarct. 3. History of cerebrovascular accident with left-sided hemiparesis. 4. Dehydration. 5. Diabetes, type 2. 6. Gastroesophageal reflux disease. 7. Alzheimer dementia. 8. Borderline hypertension. 9. Prior history of left lower extremity deep venous thrombosis in 2017 after left hip fracture and open reduction and internal fixation. 10. dysphagia PLAN: In Med/Surg. monitor cultures and laboratory Discussed with the son at the bedside Code status is Full Code. DVT prophylaxis, heparin subcutaneously. Broad-spectrum antibiotic with Rocephin. Tube feeding @ 35 cc/hr Discharge planning: SN[facility] vs [facility] acute rehab await modified barium swallow eval MRI Brain: Impression: Positive for acute left basal ganglia lacunar infarct Multiple old infarcts, as described Other chronic and age-related changes, as described Negative for acute intracranial bleed or mass effect Magan More MD Nov 24, 2018 18:30
--- NOTE | 2018-11-24 19:30 | NUR ---
NURSE NOTES: Received patient from Jessica MORENO. Patient is awake and oriented x3, family in the room. She is receiving oxygen via Nasal Cannula at 2L/min. NGT is patent and receiving Glucerna 1.2 at 55cc/hr. IV site is Left Forearm 22g patent and asymptomatic. Patient has a purewick that is in place and draining. Bed is locked, placed in lowest position, side rails up x2, bed alarm on, call light within reach. Will continue to monitor.
--- NOTE | 2018-11-24 19:40 | NUR ---
HAND-OFF: Report given to JOSH Antony.
[2018-11-24 20:00] VITALS: BP 133/57
--- NOTE | 2018-11-24 20:45 | NUR ---
CASE MANAGEMENT: REVIEW SI: ACUTE BRONCHITIS . ACUTE CVA T 97.5 HR 85 RR 20 BP 132/68 SAT 97% NC/2L WBC 11.8 NA 132 GLUCOSE 324 AST 14 AST 11 IS: PLAVIX PO QD BACTRIM DS PO Q12HR ALBUTEROL HHN Q4HR PRN STEP DOWN UNIT STATUS DCP: PATIENT IS FROM HOME
--- NOTE | 2018-11-24 23:27 | NUR ---
NURSE NOTES: Upon entering patient's room, NGT was displaced and found on the side of the bed. Made an attempt to insert a new NGT, but the patient was unable to tolerate NGT insertion. Will attempt another NGT insertion when patient feels prepared. Will continue to monitor.
[2018-11-25] VITALS: BP 140/76
[2018-11-25] MEDS: NovoLOG Insulin Flexpen SUBQ SCH ×5 (00:14→23:35)
--- NOTE | 2018-11-25 00:42 | NUR ---
NURSE NOTES: New NGT was inserted in patients left nostril. Awaiting x-ray to confirm placement.
--- NOTE | 2018-11-25 01:41 | Diagnostic Imaging Report ---
Indication: NG tube Comparison: 11/22/2018 Single view of the abdomen obtained Findings: NG tube remains in the stomach in good position. IMPRESSION: NG tube in good position
[2018-11-25 04:00] VITALS: BP 150/78
[2018-11-25] MEDS: Heparin 5000 units/ml inj SUBQ SCH ×3 (06:06→22:01)
[2018-11-25 07:01] LABS: ANION GAP 8 mmol/L (5-15); BLOOD UREA NITROGEN 22 mg/dL (7-18); CALCIUM 9.9 MG/DL (8.5-10.1); CARBON DIOXIDE 30 MMOL/L (21-32); CHLORIDE 96 MMOL/L (98-107); CREATININE 1.3 MG/DL (0.55-1.30); SODIUM 134 MMOL/L (136-145)
[2018-11-25 07:07] LABS: BASOPHILS % (AUTO) 1.3 % (0.0-2.0); EOSINOPHILS % (AUTO) 3.2 % (0.0-3.0); HEMATOCRIT 38.5 % (37.0-47.0); HEMOGLOBIN 12.2 G/DL (12.0-16.0); MEAN CORPUSCULAR VOLUME 89 FL (80-99); MONOCYTES % (AUTO) 10.8 % (1.0-10.0); NEUTROPHILS % (AUTO) 63.6 % (45.0-75.0); PLATELET COUNT 253 K/UL (150-450); RED BLOOD COUNT 4.34 M/UL (4.20-5.40); RED CELL DISTRIBUTION WIDTH 12.8 % (11.6-14.8); WHITE BLOOD COUNT 11.6 K/UL (4.8-10.8)
--- NOTE | 2018-11-25 07:28 | NUR ---
HAND-OFF: Report given to Jessica MORENO. Patient in stable condition.
--- NOTE | 2018-11-25 07:29 | NUR ---
NURSE NOTES: Received patient in bed. Awake, with left NGT. On continuous tube feeding. No facial grimace. Contact isolation observed. Will continue plan of care.
[2018-11-25 08:00] VITALS: BP 137/68
[2018-11-25] MEDS: Donepezil 5mg Tab ORAL SCH (09:36)
[2018-11-25] MEDS: Bactrim-DS 1 tab ORAL SCH ×2 (09:36→20:59)
[2018-11-25] MEDS: SYSTANE LUBRICANT EYE BOTH EYES SCH ×2 (09:37→18:06)
[2018-11-25] MEDS: Sertraline 50mg tab ORAL SCH (09:37)
--- NOTE | 2018-11-25 10:14 | Pulmonology Progress Note ---
Assessment/Plan Assessment/Plan ASSESSMENT Acute left basal ganglia lacunar infarct with R sided weakness ( new) Extensive cerebrovascular disease with prior history of CVA with left side weakness ( old) Bronchitis Possibly PNA UTI with E. coli ESBL History of DVT left lower extremity after left hip ORIF Acute encephalopathy Dysphagia with high aspiration risk Mixed hyperlipidemia Hypertension Diabetes mellitus type 2 Alzheimer's dementia PLAN OF CARE LIAT status a/PLT Rx with Plavix, add statin ( lipid panel with elevated TG, TC and LDL) neuro follows O2 titrate to keep sat above 92%, HHN prn abx per ID BCx negative, UCx +Ecoli ESBL BP management BS management with SSI Venous Duplex BLE negative failed swallow eval NGT feeding, strict aspiration precaution KUB noted repeat swallow eval when more awake DVT prophylaxis PT eval and rx Bowel regimen Minimally elevated TSH, check free T4, T3 case discussed and evaluated by supervising physician Subjective Allergies: Coded Allergies: No Known Allergies (Unverified , 01/27/17) Subjective no signs of resp distress, afebrile, mild leukocytosis, pulse ox stable on O2 via NC Objective Last 24 Hour Vital Signs Date Time Temp Pulse Resp B/P (MAP) Pulse Ox O2 Delivery O2 Flow Rate FiO2 11/25/18 08:00 97.8 84 16 137/68 (91) 99 11/25/18 07:53 87 18 99 Nasal Cannula 2.0 28 11/25/18 04:00 97.9 86 24 150/78 (102) 97 11/25/18 04:00 Nasal Cannula 2.0 11/25/18 03:41 84 11/25/18 00:00 Nasal Cannula 2.0 11/25/18 00:00 98.1 89 20 140/76 (97) 97 11/24/18 23:35 92 11/24/18 20:30 85 20 97 Nasal Cannula 2.0 28 11/24/18 20:00 99.2 86 24 133/57 (82) 96 11/24/18 20:00 Nasal Cannula 2.0 11/24/18 19:29 88 11/24/18 16:00 97.2 84 20 134/71 (92) 97 11/24/18 16:00 85 11/24/18 16:00 Nasal Cannula 2.0 11/24/18 13:00 92 18 100 Nasal Cannula 2.0 28 11/24/18 12:51 94 16 97 Nasal Cannula 2.0 28 11/24/18 12:51 94 16 97 Nasal Cannula 2.0 28 11/24/18 12:51 28 11/24/18 12:00 Nasal Cannula 2.0 11/24/18 12:00 97.5 86 20 132/68 (89) 100 11/24/18 11:27 83 Intake and Output 11/24/18 11/25/18 19:00 07:00 Intake Total 110 ml 280 ml Output Total 300 ml Balance 110 ml -20 ml Tube Feeding 110 ml 280 ml Output Urine Total 300 ml General Appearance: no acute distress, other - bedridden, obese confused female HEENT: normocephalic, atraumatic, anicteric, other - NG tube Respiratory/Chest: lungs clear, no accessory muscle use Cardiovascular: normal rate, regular rhythm - SR on tele Abdomen: normal bowel sounds, soft, non tender Extremities: no edema Neurologic/Psychiatric: abnormal gait - bedridden , other - A/A/O x1, l side weakness ( old) and R side weakness ( new) Musculoskeletal: atrophy - BLE Laboratory Tests 11/25/18 04:32: White Blood Count 11.6H, Red Blood Count 4.34, Hemoglobin 12.2, Hematocrit 38.5 , Mean Corpuscular Volume 89, Mean Corpuscular Hemoglobin 28.2, Mean Corpuscular Hemoglobin Concent 31.7L, Red Cell Distribution Width 12.8, Platelet Count 253, Mean Platelet Volume 6.9, Neutrophils (%) (Auto) 63.6, Lymphocytes (%) (Auto) 21.0, Monocytes (%) (Auto) 10.8H, Eosinophils (%) (Auto) 3.2H, Basophils (%) (Auto) 1.3, Sodium Level 134L, Potassium Level 5.0, Chloride Level 96L, Carbon Dioxide Level 30, Anion Gap 8, Blood Urea Nitrogen 22H, Creatinine 1.3, Estimat Glomerular Filtration Rate , Glucose Level 245H, Calcium Level 9.9 Current Medications Medications (Trade) Dose Ordered Sig/Jayme Route PRN Reason Start Time Stop Time Status Last Admin Dose Admin Acetaminophen (Tylenol) 650 mg Q4H PRN ORAL fever 11/23/18 20:30 12/19/18 20:29 Albuterol/ Ipratropium (Albuterol/ Ipratropium) 3 ml Q4H PRN HHN Shortness of Breath 11/23/18 20:30 11/28/18 20:29 11/24/18 12:51 Clopidogrel Bisulfate (Plavix) 75 mg DAILY ORAL 11/24/18 09:00 12/20/18 19:44 11/25/18 09:36 Dextrose (Dextrose 50%) 25 ml Q30M PRN IV Hypoglycemia 11/23/18 20:30 12/19/18 11:29 Dextrose (Dextrose 50%) 50 ml Q30M PRN IV Hypoglycemia 11/23/18 20:30 12/19/18 11:29 Donepezil HCl (Aricept) 5 mg DAILY ORAL 11/24/18 09:00 12/20/18 08:59 11/25/18 09:36 Heparin Sodium (Porcine) (Heparin 5000 units/ml) 5,000 units EVERY 8 HOURS SUBQ 11/23/18 22:00 12/19/18 21:59 11/25/18 06:06 Insulin Aspart (NovoLOG) EVERY 6 HOURS SUBQ 11/24/18 12:00 12/19/18 16:29 11/25/18 06:07 Lorazepam (Ativan 2mg/ml 1ml) 0.5 mg Q4H PRN IV For Anxiety 11/23/18 20:30 11/26/18 20:29 Morphine Sulfate (Morphine Sulfate) 1 mg Q4H PRN IVP For Pain 11/23/18 20:30 11/26/18 20:29 Ondansetron HCl (Zofran) 4 mg Q6H PRN IVP Nausea & Vomiting 11/23/18 20:30 12/19/18 20:29 11/24/18 12:14 Patient Own Medication (Patient's Own Med) 1 ea BID BOTH EYES 11/24/18 09:00 12/21/18 17:59 11/25/18 09:37 Polyethylene Glycol (Miralax) 17 gm HSPRN PRN ORAL Constipation 11/23/18 20:30 12/23/18 20:29 Sertraline HCl (Zoloft) 50 mg DAILY ORAL 11/24/18 09:00 12/20/18 08:59 11/24/18 09:53 Trimethoprim/ Sulfamethoxazole (Bactrim-DS) 1 tab Q12HR ORAL 11/23/18 21:00 11/29/18 20:59 11/25/18 09:36 Zolpidem Tartrate (Ambien) 5 mg HSPRN PRN ORAL Insomnia 11/23/18 20:30 11/30/18 20:29 Fernanda Rodriguez NP Nov 25, 2018 10:14
[2018-11-25 12:00] VITALS: BP 119/62
[2018-11-25] MEDS ORDERED: LORazepam Inj 2mg/ml 1ml IV PRN (12:30)
[2018-11-25] MEDS ORDERED: Morphine Sulfate 2mg/ml Inj(IV/IM USE ONLY) IVP PRN (12:30)
--- NOTE | 2018-11-25 14:03 | Internal Med Progress Note ---
Subjective Date of Service: Nov 25, 2018 Physician Name Magan More Attending Physician Abdirahman Griffin MD Current Medications Medications (Trade) Dose Ordered Sig/Jayme Route PRN Reason Start Time Stop Time Status Last Admin Dose Admin Acetaminophen (Tylenol) 650 mg Q4H PRN ORAL fever 11/23/18 20:30 12/19/18 20:29 Albuterol/ Ipratropium (Albuterol/ Ipratropium) 3 ml Q4H PRN HHN Shortness of Breath 11/23/18 20:30 11/28/18 20:29 11/24/18 12:51 Atorvastatin Calcium (Lipitor) 20 mg BEDTIME ORAL 11/25/18 21:00 12/25/18 20:59 Clopidogrel Bisulfate (Plavix) 75 mg DAILY ORAL 11/24/18 09:00 12/20/18 19:44 11/25/18 09:36 Dextrose (Dextrose 50%) 25 ml Q30M PRN IV Hypoglycemia 11/23/18 20:30 12/19/18 11:29 Dextrose (Dextrose 50%) 50 ml Q30M PRN IV Hypoglycemia 11/23/18 20:30 12/19/18 11:29 Donepezil HCl (Aricept) 5 mg DAILY ORAL 11/24/18 09:00 12/20/18 08:59 11/25/18 09:36 Heparin Sodium (Porcine) (Heparin 5000 units/ml) 5,000 units EVERY 8 HOURS SUBQ 11/23/18 22:00 12/19/18 21:59 11/25/18 13:09 Insulin Aspart (NovoLOG) EVERY 6 HOURS SUBQ 11/24/18 12:00 12/19/18 16:29 11/25/18 13:09 Lorazepam (Ativan 2mg/ml 1ml) 0.5 mg Q4H PRN IV For Anxiety 11/25/18 12:30 11/28/18 12:29 Morphine Sulfate (Morphine Sulfate) 1 mg Q4H PRN IVP For Pain 11/25/18 12:30 11/28/18 12:29 Ondansetron HCl (Zofran) 4 mg Q6H PRN IVP Nausea & Vomiting 11/23/18 20:30 12/19/18 20:29 11/24/18 12:14 Patient Own Medication (Patient's Own Med) 1 ea BID BOTH EYES 11/24/18 09:00 12/21/18 17:59 11/25/18 09:37 Polyethylene Glycol (Miralax) 17 gm HSPRN PRN ORAL Constipation 11/23/18 20:30 12/23/18 20:29 Sertraline HCl (Zoloft) 50 mg DAILY ORAL 11/24/18 09:00 12/20/18 08:59 11/24/18 09:53 Trimethoprim/ Sulfamethoxazole (Bactrim-DS) 1 tab Q12HR ORAL 11/23/18 21:00 11/29/18 20:59 11/25/18 09:36 Zolpidem Tartrate (Ambien) 5 mg HSPRN PRN ORAL Insomnia 11/23/18 20:30 11/30/18 20:29 Allergies: Coded Allergies: No Known Allergies (Unverified , 01/27/17) ROS Limited/Unobtainable: No Constitutional: Reports: no symptoms HEENT: Reports: no symptoms Cardiovascular: Reports: no symptoms Respiratory: Reports: no symptoms Gastrointestinal/Abdominal: Reports: no symptoms Genitourinary: Reports: no symptoms Neurologic/Psychiatric: Reports: no symptoms Subjective 78 YO F admitted with dehydration. Now acute left cerebral vascular accident. Cover for Int Med-Dr Griffin. LIAT Objective Last Vital Signs Date Time Temp Pulse Resp B/P (MAP) Pulse Ox O2 Delivery O2 Flow Rate FiO2 11/25/18 12:00 Nasal Cannula 2.0 11/25/18 12:00 97.7 77 19 119/62 (81) 98 11/25/18 07:53 28 Laboratory Tests Test 11/25/18 04:32 White Blood Count 11.6 K/UL (4.8-10.8) H Red Blood Count 4.34 M/UL (4.20-5.40) Hemoglobin 12.2 G/DL (12.0-16.0) Hematocrit 38.5 % (37.0-47.0) Mean Corpuscular Volume 89 FL (80-99) Mean Corpuscular Hemoglobin 28.2 PG (27.0-31.0) Mean Corpuscular Hemoglobin Concent 31.7 G/DL (32.0-36.0) L Red Cell Distribution Width 12.8 % (11.6-14.8) Platelet Count 253 K/UL (150-450) Mean Platelet Volume 6.9 FL (6.5-10.1) Neutrophils (%) (Auto) 63.6 % (45.0-75.0) Lymphocytes (%) (Auto) 21.0 % (20.0-45.0) Monocytes (%) (Auto) 10.8 % (1.0-10.0) H Eosinophils (%) (Auto) 3.2 % (0.0-3.0) H Basophils (%) (Auto) 1.3 % (0.0-2.0) Sodium Level 134 MMOL/L (136-145) L Potassium Level 5.0 MMOL/L (3.5-5.1) Chloride Level 96 MMOL/L (98-107) L Carbon Dioxide Level 30 MMOL/L (21-32) Anion Gap 8 mmol/L (5-15) Blood Urea Nitrogen 22 mg/dL (7-18) H Creatinine 1.3 MG/DL (0.55-1.30) Estimat Glomerular Filtration Rate mL/min (>60) Glucose Level 245 MG/DL (74-106) H Calcium Level 9.9 MG/DL (8.5-10.1) Intake and Output 11/24/18 11/25/18 19:00 07:00 Intake Total 110 ml 280 ml Output Total 300 ml Balance 110 ml -20 ml Tube Feeding 110 ml 280 ml Output Urine Total 300 ml Objective Objective GENERAL: The patient opens her eyes. more responsive, HEENT: Pupils correct, equal, and reactive to light. Anicteric. NG tube. NECK: Supple. No JVD. LUNGS: Fair air entry. Decreased air entry in the bases. No wheezes or rhonchi. HEART: S1 and S2. Distant heart sounds. No murmur or gallops. ABDOMEN: Soft, nondistended, and nontender. Mildly obese. EXTREMITIES: No cyanosis, clubbing, or edema. NEUROLOGIC: Cranial nerves II through XII grossly intact. The patient is moving all the extremities, left side weaker than right side. . RECTAL: Refused and deferred. Assessment/Plan Assessment/Plan Assessment/Plan Assessment/Plan ASSESSMENT: 1. Upper respiratory symptoms, possible due to the early pneumonia versus bronchitis. 2. Acute left basal ganglia lacunar infarct. 3. History of cerebrovascular accident with left-sided hemiparesis. 4. Dehydration. 5. Diabetes, type 2. 6. Gastroesophageal reflux disease. 7. Alzheimer dementia. 8. Borderline hypertension. 9. Prior history of left lower extremity deep venous thrombosis in 2017 after left hip fracture and open reduction and internal fixation. 10. dysphagia PLAN: In Med/Surg. monitor cultures and laboratory Discussed with the son at the bedside Code status is Full Code. DVT prophylaxis, heparin subcutaneously. Broad-spectrum antibiotic with Rocephin. Tube feeding @ 35 cc/hr Discharge planning: SNF vs . [facility] acute rehab await modified barium swallow eval 11/27/18 MRI Brain: Impression: Positive for acute left basal ganglia lacunar infarct Multiple old infarcts, as described Other chronic and age-related changes, as described Negative for acute intracranial bleed or mass effect Magan More MD Nov 25, 2018 14:03
--- NOTE | 2018-11-25 15:26 | Neurology Progress Note ---
Interim History Interim History Interim History Ms. Membreno feels "a little better." She looks and feels brighter. She continues to be cognitively impoverished. She continues to be generally weak. She is still being fed via her NGT. She is able to swallow her saliva well. Her voice is a little stronger. She denies any new neurologic symptoms. Her VSS has been postponed till Tuesday. Review of Systems Neuro Review of Systems Unable to obtain. Objective Physical Exam Last Vital Signs Date Time Temp Pulse Resp B/P (MAP) Pulse Ox O2 Delivery O2 Flow Rate FiO2 11/25/18 12:00 Nasal Cannula 2.0 11/25/18 12:00 97.7 77 19 119/62 (81) 98 11/25/18 07:53 28 Laboratory Tests Test 11/25/18 04:32 White Blood Count 11.6 K/UL (4.8-10.8) H Red Blood Count 4.34 M/UL (4.20-5.40) Hemoglobin 12.2 G/DL (12.0-16.0) Hematocrit 38.5 % (37.0-47.0) Mean Corpuscular Volume 89 FL (80-99) Mean Corpuscular Hemoglobin 28.2 PG (27.0-31.0) Mean Corpuscular Hemoglobin Concent 31.7 G/DL (32.0-36.0) L Red Cell Distribution Width 12.8 % (11.6-14.8) Platelet Count 253 K/UL (150-450) Mean Platelet Volume 6.9 FL (6.5-10.1) Neutrophils (%) (Auto) 63.6 % (45.0-75.0) Lymphocytes (%) (Auto) 21.0 % (20.0-45.0) Monocytes (%) (Auto) 10.8 % (1.0-10.0) H Eosinophils (%) (Auto) 3.2 % (0.0-3.0) H Basophils (%) (Auto) 1.3 % (0.0-2.0) Sodium Level 134 MMOL/L (136-145) L Potassium Level 5.0 MMOL/L (3.5-5.1) Chloride Level 96 MMOL/L (98-107) L Carbon Dioxide Level 30 MMOL/L (21-32) Anion Gap 8 mmol/L (5-15) Blood Urea Nitrogen 22 mg/dL (7-18) H Creatinine 1.3 MG/DL (0.55-1.30) Estimat Glomerular Filtration Rate mL/min (>60) Glucose Level 245 MG/DL (74-106) H Calcium Level 9.9 MG/DL (8.5-10.1) Neurologic Exam Objective PHYSICAL EXAMINATION: GENERAL: She is a well-developed, well-nourished, pleasant lady, lying in bed, in no acute distress. HEAD: Normocephalic and atraumatic. EENT: Examination was benign. NECK: No neck rigidity was observed. NEUROLOGICAL EXAMINATION: MENTAL STATUS EXAMINATION: She was awake and alert. She was oriented to self and hospital, but did not know the name of the hospital and had no idea what the date was. She was able to recall 3/3 words immediately, but was unable to remember them in 1 minute and 3 minutes. She was unable to tell me who the present President was and who the prior presidents were. Her mathematical skills were impaired. Her visuospatial function was also impaired. SPEECH: She had a mild dysarthria. LANGUAGE: She had an anomic aphasia. CRANIAL NERVE EXAMINATION: II: The visual de guzman were intact on confrontation testing. III, IV & : The external ocular movements were full and the pupils 3 mm in diameter, equal, round, regular, and reactive to light. V: She had normal facial sensations, and the temporales, masseters, and pterygoids functioned normally. VII: She had right greater than left seventh central facial paresis. VIII: She was able to hear and had no nystagmus. IX: The palate moved symmetrically on phonation. The palatal movements were higher in amplitude. X: She had no hoarseness of voice. XI: The sternocleidomastoids and trapezii function normally. XII: The tongue was in the midline without any fasciculations or atrophy. MOTOR SYSTEM: The tone was normal in all four extremities. Examination of muscle mass revealed no focal wasting. Examination of power revealed G 5/5 power except for G 4+/5 power in the left finger extensors and iliopsoas and G 5-/5 power in the right finger extensors and iliopsoas. SENSORY EXAMINATION: She was able to discern light touch all over her body and localized touch well. REFLEXES: Trace+ and bilaterally symmetrical at the biceps, triceps, brachioradialis, knees, 0 at both ankles. The plantar responses were flexor bilaterally. COORDINATION: She performed well on [id number] testing on the right side, however on the left side, she pass pointed. STANCE & GAIT: Could not be tested. Impression/Recommendations Diagnostic Impression 1. Ms. Mery Membreno is a 78-year-old, right-handed, lady, who does have a past history of diabetes mellitus, hypertension, questionable dyslipidemia, dementia, cerebrovascular disease with prior strokes with left- sided weakness, a left hip fracture approximately two years ago followed by thrombophlebitis, and gastroesophageal reflux disease, who was noted to have a sudden change in her level of consciousness associated with generalized weakness , a change in facial expression, and inability to communicate on 11/19/2018. 2. She feels "a little better." She looks and feels brighter. She continues to be cognitively impoverished. She continues to be generally weak. She is still being fed via her NGT. She is able to swallow her saliva well. Her voice is a little stronger. She denies any new neurologic symptoms. Her VSS has been postponed till Tuesday. 3. On neurological examination, at this time, she is disoriented to the name of the hospital, date, month, and year. Has significant problems with recent and remote memory, visuospatial function, higher cognitive function, and language. Her dysarthria is better. She has a left greater than right seventh central facial paresis, left greater than right finger extensors and iliopsoas weakness , globally diminished deep tendon reflexes with loss of ankle jerks, and pass pointing on the left side on [id number] testing. In addition, she is unable to stand and walk. 4. Laboratory data revealed a relatively normal CBC. The chemistry panel revealed a minimally low sodium at 135, elevated blood glucose at 145, and low albumin at 3.0. The urinalysis revealed 3+ leukocyte esterase, 0-2 red blood cells, and 15-20 white blood cells per high-power field. 5. The MRI scan of the brain revealed an acute left basal ganglion and harris radiata infarct, and chronic right basal ganglion and right pontine infarcts. 6. The Carotid duplex done on 7/16/19 revealed 30% right and 20% left ICA stenosis 7. The patient's history, neurological examination, laboratory data, and imaging studies are most consistent with an acute left basal ganglion and harris radiata infarct causing the sudden change in her level of arousal and in addition, the new right-sided weakness in addition to the old left-sided weakness related to prior strokes. 8. The most likely etiology for the patient's strokes would be hypertensive, diabetic, and dyslipidemic small-vessel disease. 9. Her neurologic function is now improving, with increased alertness, increased power and improved pharyngeal function. Recommendations 1. The patient and her family were given an explanation of the above-mentioned findings. 2. Plavix 75 mg daily for secondary stroke prevention. 3. Blood sugar control in a strict manner. 4. Blood pressure control - aim for <120/80. 5. Her dyslipidemia should be treated appropriately with a statin. 6. Physical, occupational, and speech and language therapy, to rehabilitate her. 7. Repeat swallowing study - when appropriate. Geoffrey Duncan M.D., M.S.P.H. Geoffrey Duncan MD Nov 25, 2018 15:26
--- NOTE | 2018-11-25 15:40 | NUR ---
PT Note New order received to continue physical therapy. PT POC continued. Patient was able to ambulate with modA x 2 persons x 10 ft. She was left sitting UIC per family's request. RN was made aware.
[2018-11-25 16:00] VITALS: BP 128/67
[2018-11-25] MEDS ORDERED: Milk of Magnesia 30ml Ud NG SCH (18:00)
--- NOTE | 2018-11-25 19:20 | NUR ---
HAND-OFF: Report given to Sidney Gutierrez RN.
--- NOTE | 2018-11-25 19:55 | NUR ---
NURSE NOTES: PT'S FAMILY STAYED AT BEDSIDE, NOTED CONTACT ISOLATION AND PROVIDED PPE. PATIENT AWOKE, DENIED PAIN OR SOB, RESPIRATION REGULAR, ON O2 2LPM VIA NC, O2 SATURATION 100% NOTED, ABDOMEN SOFT ROUND, NON TENDER, NGT TO LEFT NARES, INTACT AND PATENT, ONGOING GLUCERNA 1.2 AT 50ML/HR, NO RESIDUE NOTED, KEPT HOB 30 DEGREE, PERIPHERAL LINE TO LEFT FA, INTACT AND PATENT, ON PURE WICK STATUS, LEFT 3RD TOE AMPUTATED, MADE LOWER BED POSITION, PROVIDED CALL LIGHT WITHIN REACH, WILL CONTINUE TO MONITOR.
[2018-11-25 20:00] VITALS: BP 130/82
[2018-11-25] MEDS: Atorvastatin 20mg tab ORAL SCH (20:59)
--- NOTE | 2018-11-25 22:05 | NUR ---
NURSE NOTES: ORAL CARE WAS DONE, REPOSITIONED, WILL CONTINUE PLAN OF CARE.
--- NOTE | 2018-11-25 22:30 | Infectious Diseases Prog Note ---
Assessment/Plan Assessment/Plan Assessment: Afebrile Mild Leukocytosis -11/23 CXR: Satisfactory nasogastric intubation. Possible developing patchy airspace disease in the right suprahilar region Pyuria/bacteriuria- Probable UTI -u/a wbc 15-20, nit neg, leuk +3; ucx ESBL E.coli (S nitrofurantoin, bactrim, cipro/levo, zosyn, ertapenem) Acute bronchitis Acute CVA -Brain MRI: Positive for acute left basal ganglia lacunar infarct. Multiple old infarcts, as described. Other chronic and age-related changes, as described. Negative for acute intracranial bleed or mass effect Dm2 HTN HLD non-verbal Dementia CVA s/p L side weakness L hip fracture s/p L hip hemiarthroplasty 01/2017 LE DVT GERD Plan: -Cont PO bactrim #4/5 -11/22 SP Ceftriaxone #4 -f/u cx -Monitor CBC/CMP, temperatures -aspiration precautions Thank you for this consultation. Will continue to follow along with you. Discussed with RN. Subjective Allergies: Coded Allergies: No Known Allergies (Unverified , 01/27/17) Subjective afebrile mild leukocytosis Objective Vital Signs Last 24 Hour Vital Signs Date Time Temp Pulse Resp B/P (MAP) Pulse Ox O2 Delivery O2 Flow Rate FiO2 11/25/18 20:00 84 11/25/18 19:30 79 18 97 Nasal Cannula 2.0 28 11/25/18 16:00 98.7 77 18 128/67 (87) 98 11/25/18 16:00 Nasal Cannula 2.0 11/25/18 15:28 80 11/25/18 12:00 Nasal Cannula 2.0 11/25/18 12:00 97.7 77 19 119/62 (81) 98 11/25/18 11:38 77 11/25/18 08:00 97.8 84 16 137/68 (91) 99 11/25/18 08:00 Nasal Cannula 2.0 11/25/18 07:58 90 11/25/18 07:53 87 18 99 Nasal Cannula 2.0 28 11/25/18 04:00 97.9 86 24 150/78 (102) 97 11/25/18 04:00 Nasal Cannula 2.0 11/25/18 03:41 84 11/25/18 00:00 Nasal Cannula 2.0 11/25/18 00:00 98.1 89 20 140/76 (97) 97 11/24/18 23:35 92 Height (Feet): 5 Height (Inches): 0.00 Weight (Pounds): 182 Objective GENERAL: The patient opens her eyes. Responds to the family members commands. Alert and oriented. HEENT: Pupils correct, equal, and reactive to light. Anicteric. NECK: Supple. No JVD. LUNGS: Good air entry. Decreased air entry in the bases. No wheezes or rhonchi. HEART: S1 and S2. Distant heart sounds. No murmur or gallops. ABDOMEN: Soft, nondistended, and nontender. Mildly obese. EXTREMITIES: No cyanosis, clubbing, or edema. NEUROLOGIC: Cranial nerves II through XII grossly intact. The patient is moving all the extremities, left side weaker than right side. Gait was not assessed due to the patient's status. GENITOURINARY: Refused and deferred. PSYCHIATRIC: Mood and affect is unable to obtain because of baseline dementia. Laboratory Tests Test 11/25/18 04:32 White Blood Count 11.6 K/UL (4.8-10.8) H Red Blood Count 4.34 M/UL (4.20-5.40) Hemoglobin 12.2 G/DL (12.0-16.0) Hematocrit 38.5 % (37.0-47.0) Mean Corpuscular Volume 89 FL (80-99) Mean Corpuscular Hemoglobin 28.2 PG (27.0-31.0) Mean Corpuscular Hemoglobin Concent 31.7 G/DL (32.0-36.0) L Red Cell Distribution Width 12.8 % (11.6-14.8) Platelet Count 253 K/UL (150-450) Mean Platelet Volume 6.9 FL (6.5-10.1) Neutrophils (%) (Auto) 63.6 % (45.0-75.0) Lymphocytes (%) (Auto) 21.0 % (20.0-45.0) Monocytes (%) (Auto) 10.8 % (1.0-10.0) H Eosinophils (%) (Auto) 3.2 % (0.0-3.0) H Basophils (%) (Auto) 1.3 % (0.0-2.0) Sodium Level 134 MMOL/L (136-145) L Potassium Level 5.0 MMOL/L (3.5-5.1) Chloride Level 96 MMOL/L (98-107) L Carbon Dioxide Level 30 MMOL/L (21-32) Anion Gap 8 mmol/L (5-15) Blood Urea Nitrogen 22 mg/dL (7-18) H Creatinine 1.3 MG/DL (0.55-1.30) Estimat Glomerular Filtration Rate mL/min (>60) Glucose Level 245 MG/DL (74-106) H Calcium Level 9.9 MG/DL (8.5-10.1) Current Medications Medications (Trade) Dose Ordered Sig/Jayme Route PRN Reason Start Time Stop Time Status Last Admin Dose Admin Acetaminophen (Tylenol) 650 mg Q4H PRN ORAL fever 11/23/18 20:30 12/19/18 20:29 Albuterol/ Ipratropium (Albuterol/ Ipratropium) 3 ml Q4H PRN HHN Shortness of Breath 11/23/18 20:30 11/28/18 20:29 11/24/18 12:51 Atorvastatin Calcium (Lipitor) 20 mg BEDTIME ORAL 11/25/18 21:00 12/25/18 20:59 11/25/18 20:59 Clopidogrel Bisulfate (Plavix) 75 mg DAILY ORAL 11/24/18 09:00 12/20/18 19:44 11/25/18 09:36 Dextrose (Dextrose 50%) 25 ml Q30M PRN IV Hypoglycemia 11/23/18 20:30 12/19/18 11:29 Dextrose (Dextrose 50%) 50 ml Q30M PRN IV Hypoglycemia 11/23/18 20:30 12/19/18 11:29 Donepezil HCl (Aricept) 5 mg DAILY ORAL 11/24/18 09:00 12/20/18 08:59 11/25/18 09:36 Heparin Sodium (Porcine) (Heparin 5000 units/ml) 5,000 units EVERY 8 HOURS SUBQ 11/23/18 22:00 12/19/18 21:59 11/25/18 22:01 Insulin Aspart (NovoLOG) EVERY 6 HOURS SUBQ 11/24/18 12:00 12/19/18 16:29 11/25/18 18:07 Lorazepam (Ativan 2mg/ml 1ml) 0.5 mg Q4H PRN IV For Anxiety 11/25/18 12:30 11/28/18 12:29 Morphine Sulfate (Morphine Sulfate) 1 mg Q4H PRN IVP For Pain 11/25/18 12:30 11/28/18 12:29 Ondansetron HCl (Zofran) 4 mg Q6H PRN IVP Nausea & Vomiting 11/23/18 20:30 12/19/18 20:29 11/24/18 12:14 Patient Own Medication (Patient's Own Med) 1 ea BID BOTH EYES 11/24/18 09:00 12/21/18 17:59 11/25/18 18:06 Polyethylene Glycol (Miralax) 17 gm HSPRN PRN ORAL Constipation 11/23/18 20:30 12/23/18 20:29 Sertraline HCl (Zoloft) 50 mg DAILY ORAL 11/24/18 09:00 12/20/18 08:59 11/24/18 09:53 Trimethoprim/ Sulfamethoxazole (Bactrim-DS) 1 tab Q12HR ORAL 11/23/18 21:00 11/29/18 20:59 11/25/18 20:59 Zolpidem Tartrate (Ambien) 5 mg HSPRN PRN ORAL Insomnia 11/23/18 20:30 11/30/18 20:29 Princess River M.D. Nov 25, 2018 22:30
[2018-11-26] VITALS: BP 126/80
--- NOTE | 2018-11-26 00:22 | NUR ---
NURSE NOTES: PATIENT ASLEEP STATUS, NO PAIN OR DISTRESS NOTED AT THIS TIME.
--- NOTE | 2018-11-26 02:25 | NUR ---
NURSE NOTES: PT'S SON STAYED AT BEDSIDE. PATIENT ASLEEP STATUS, NO DISTRESS NOTED AT THIS TIME.
[2018-11-26 04:00] VITALS: BP 125/66
--- NOTE | 2018-11-26 05:10 | NUR ---
NURSE NOTES: MORNING CARE WAS DONE, NO ACUTE DISTRESS NOTED AT THIS SHIFT.
[2018-11-26] MEDS: NovoLOG Insulin Flexpen SUBQ SCH ×4 (05:34→23:28)
[2018-11-26] MEDS: Heparin 5000 units/ml inj SUBQ SCH ×3 (05:34→21:15)
[2018-11-26 06:11] LABS: BASOPHILS % (AUTO) 1.3 % (0.0-2.0); EOSINOPHILS % (AUTO) 4.4 % (0.0-3.0); HEMATOCRIT 37.5 % (37.0-47.0); HEMOGLOBIN 11.8 G/DL (12.0-16.0); LYMPHOCYTES % (AUTO) 21.3 % (20.0-45.0); MEAN CORPUSCULAR VOLUME 90 FL (80-99); MONOCYTES % (AUTO) 10.2 % (1.0-10.0); NEUTROPHILS % (AUTO) 62.8 % (45.0-75.0); PLATELET COUNT 246 K/UL (150-450); RED BLOOD COUNT 4.18 M/UL (4.20-5.40); RED CELL DISTRIBUTION WIDTH 13.3 % (11.6-14.8); WHITE BLOOD COUNT 9.8 K/UL (4.8-10.8)
[2018-11-26 06:37] LABS: ANION GAP 3 mmol/L (5-15); BLOOD UREA NITROGEN 27 mg/dL (7-18); CALCIUM 9.7 MG/DL (8.5-10.1); CARBON DIOXIDE 33 MMOL/L (21-32); CHLORIDE 97 MMOL/L (98-107); CREATININE 1.4 MG/DL (0.55-1.30); POTASSIUM 5.3 MMOL/L (3.5-5.1); SODIUM 133 MMOL/L (136-145)
--- NOTE | 2018-11-26 07:14 | NUR ---
HAND-OFF: Report given to Arturo WHITE RN.
--- NOTE | 2018-11-26 07:15 | NUR ---
NURSE NOTES: Report received from Sidney Almaraz RN.Pt resting in bed asleep,noted no resp distress,on 2 l NC,no signs of pain or discomfort SR on the monitor,NGTF Glucerna 1.2 at 50 ml hr no residual noted,HOB elevated, incontinent with Purewick in placed ,IV site to LFA intact ,skin warm and dry,SR up x2 ,bed lock in lowest position,bed alarm on,will continue with plans of care.
[2018-11-26 08:00] VITALS: BP 133/61
--- NOTE | 2018-11-26 08:00 | Pulmonology Progress Note ---
Assessment/Plan Assessment/Plan ASSESSMENT Acute left basal ganglia lacunar infarct with R sided weakness ( new) Extensive cerebrovascular disease with prior history of CVA with left side weakness ( old) Bronchitis Possibly PNA UTI with E. coli ESBL History of DVT left lower extremity after left hip ORIF Acute encephalopathy Dysphagia with high aspiration risk Mixed hyperlipidemia Hypertension Diabetes mellitus type 2 Alzheimer's dementia BARB Hyperkalemia Hypothyroidism , mild - newly diagnosed PLAN OF CARE LIAT status a/PLT Rx with Plavix, added statin ( lipid panel with elevated TG, TC and LDL) neuro follows O2 titrate to keep sat above 92%, HHN prn abx per ID BCx negative, UCx +Ecoli ESBL BP management BS management with SSI Venous Duplex BLE negative failed swallow eval NGT feeding, strict aspiration precaution KUB noted repeat swallow eval when more awake bolus 500 ml NS for BARB, and Na 133 treat hyperkalemia TSH with mild elevation , T3 down start on low dose of Synthroid, repeat TFT in 1 month DVT prophylaxis PT eval and rx Bowel regimen case discussed and evaluated by supervising physician Subjective Allergies: Coded Allergies: No Known Allergies (Unverified , 01/27/17) Subjective no signs of resp distress, afebrile, mild leukocytosis resolved pulse ox stable on O2 via NC K-5.3, creat up to 1.4 Objective Last 24 Hour Vital Signs Date Time Temp Pulse Resp B/P (MAP) Pulse Ox O2 Delivery O2 Flow Rate FiO2 11/26/18 04:00 Nasal Cannula 2.0 11/26/18 04:00 97.5 80 18 125/66 (85) 98 11/26/18 03:41 78 11/26/18 00:00 97.8 80 18 126/80 (95) 96 11/26/18 00:00 Nasal Cannula 2.0 11/25/18 23:35 82 11/25/18 20:00 84 11/25/18 20:00 98.1 85 20 130/82 (98) 100 11/25/18 20:00 Nasal Cannula 2.0 11/25/18 19:30 79 18 97 Nasal Cannula 2.0 28 11/25/18 16:00 98.7 77 18 128/67 (87) 98 11/25/18 16:00 Nasal Cannula 2.0 11/25/18 15:28 80 11/25/18 12:00 Nasal Cannula 2.0 11/25/18 12:00 97.7 77 19 119/62 (81) 98 11/25/18 11:38 77 Intake and Output 11/25/18 11/26/18 18:59 06:59 Intake Total 490 ml 700 ml Output Total 600 ml 350 ml Balance -110 ml 350 ml Tube Feeding 370 ml 650 ml Other 120 ml 50 ml Output Urine Total 600 ml 350 ml # Voids 1 Objective General Appearance: no acute distress, bedridden, obese , confused female HEENT: normocephalic, atraumatic, anicteric, other - NG tube Respiratory/Chest: lungs clear, no accessory muscle use Cardiovascular: normal rate, regular rhythm - SR on tele Abdomen: normal bowel sounds, soft, non tender Extremities: no edema Neurologic/Psychiatric: bedridden , A/A/O x1, L side weakness ( old) and R side weakness ( new) Musculoskeletal: atrophy - BLE Laboratory Tests 11/26/18 04:56: White Blood Count 9.8, Red Blood Count 4.18L, Hemoglobin 11.8L, Hematocrit 37.5 , Mean Corpuscular Volume 90, Mean Corpuscular Hemoglobin 28.2, Mean Corpuscular Hemoglobin Concent 31.5L, Red Cell Distribution Width 13.3, Platelet Count 246, Mean Platelet Volume 6.7, Neutrophils (%) (Auto) 62.8, Lymphocytes (%) (Auto) 21.3, Monocytes (%) (Auto) 10.2H, Eosinophils (%) (Auto) 4.4H, Basophils (%) (Auto) 1.3, Sodium Level 133L, Potassium Level 5.3H, Chloride Level 97L, Carbon Dioxide Level 33H, Anion Gap 3L, Blood Urea Nitrogen 27H, Creatinine 1.4H, Estimat Glomerular Filtration Rate , Glucose Level 299H, Calcium Level 9.7, Free Thyroxine 0.97, Free Triiodothyronine 1.4L Current Medications Medications (Trade) Dose Ordered Sig/Jayme Route PRN Reason Start Time Stop Time Status Last Admin Dose Admin Acetaminophen (Tylenol) 650 mg Q4H PRN ORAL fever 11/23/18 20:30 12/19/18 20:29 Albuterol/ Ipratropium (Albuterol/ Ipratropium) 3 ml Q4H PRN HHN Shortness of Breath 11/23/18 20:30 11/28/18 20:29 11/24/18 12:51 Atorvastatin Calcium (Lipitor) 20 mg BEDTIME ORAL 11/25/18 21:00 12/25/18 20:59 11/25/18 20:59 Clopidogrel Bisulfate (Plavix) 75 mg DAILY ORAL 11/24/18 09:00 12/20/18 19:44 11/25/18 09:36 Dextrose (Dextrose 50%) 25 ml Q30M PRN IV Hypoglycemia 11/23/18 20:30 12/19/18 11:29 Dextrose (Dextrose 50%) 50 ml Q30M PRN IV Hypoglycemia 11/23/18 20:30 12/19/18 11:29 Donepezil HCl (Aricept) 5 mg DAILY ORAL 11/24/18 09:00 12/20/18 08:59 11/25/18 09:36 Heparin Sodium (Porcine) (Heparin 5000 units/ml) 5,000 units EVERY 8 HOURS SUBQ 11/23/18 22:00 12/19/18 21:59 11/26/18 05:34 Insulin Aspart (NovoLOG) EVERY 6 HOURS SUBQ 11/24/18 12:00 12/19/18 16:29 11/26/18 05:34 Lorazepam (Ativan 2mg/ml 1ml) 0.5 mg Q4H PRN IV For Anxiety 11/25/18 12:30 11/28/18 12:29 Morphine Sulfate (Morphine Sulfate) 1 mg Q4H PRN IVP For Pain 11/25/18 12:30 11/28/18 12:29 Ondansetron HCl (Zofran) 4 mg Q6H PRN IVP Nausea & Vomiting 11/23/18 20:30 12/19/18 20:29 11/24/18 12:14 Patient Own Medication (Patient's Own Med) 1 ea BID BOTH EYES 11/24/18 09:00 12/21/18 17:59 11/25/18 18:06 Polyethylene Glycol (Miralax) 17 gm HSPRN PRN ORAL Constipation 11/23/18 20:30 12/23/18 20:29 Sertraline HCl (Zoloft) 50 mg DAILY ORAL 11/24/18 09:00 12/20/18 08:59 11/24/18 09:53 Trimethoprim/ Sulfamethoxazole (Bactrim-DS) 1 tab Q12HR ORAL 11/23/18 21:00 11/29/18 20:59 11/25/18 20:59 Zolpidem Tartrate (Ambien) 5 mg HSPRN PRN ORAL Insomnia 11/23/18 20:30 11/30/18 20:29 Fernanda Rodriguez NP Nov 26, 2018 08:00
[2018-11-26] MEDS: Sertraline 50mg tab ORAL SCH (09:00)
[2018-11-26] MEDS ORDERED: Sodium Polystyrene Sulfonate Enema RECTAL SCH (09:00)
[2018-11-26] MEDS: Donepezil 5mg Tab ORAL SCH (09:36)
[2018-11-26] MEDS: Bactrim-DS 1 tab ORAL SCH ×2 (09:37→21:14)
[2018-11-26] MEDS: SYSTANE LUBRICANT EYE BOTH EYES SCH ×2 (09:54→18:03)
--- NOTE | 2018-11-26 10:30 | NUR ---
NURSE NOTES: PLetty. working with pt,assisted up to sit on the chair,activity tolerated well,will sit on the chair for 3 hrs,family members at bedside.
[2018-11-26 12:00] VITALS: BP 135/57
--- NOTE | 2018-11-26 12:29 | NUR ---
NURSE NOTES: Pt unable to tolerate much longer sitting on chair c/o feeling nauseated,placed back to bed and given kayexelate enema.Unable to give it earlier because PT put pt on chair.
[2018-11-26] MEDS ORDERED: Albuterol/Ipratropium 3ml neb HHN PRN (12:30)
--- NOTE | 2018-11-26 14:35 | Neurology Progress Note ---
Interim History Interim History Interim History Ms. Membreno feels "better." She looks and feels brighter. She continues to be cognitively impoverished. She continues to be generally weak. She is still being fed via her NGT. She is able to swallow her saliva well. Her voice is a little stronger. She denies any new neurologic symptoms. Her VSS is planned for tomorrow. Review of Systems Neuro Review of Systems Unable to obtain. Objective Physical Exam Last Vital Signs Date Time Temp Pulse Resp B/P (MAP) Pulse Ox O2 Delivery O2 Flow Rate FiO2 11/26/18 12:00 Nasal Cannula 2.0 11/26/18 12:00 98.0 76 22 135/57 (83) 100 11/25/18 19:30 28 Laboratory Tests Test 11/26/18 04:56 White Blood Count 9.8 K/UL (4.8-10.8) Red Blood Count 4.18 M/UL (4.20-5.40) L Hemoglobin 11.8 G/DL (12.0-16.0) L Hematocrit 37.5 % (37.0-47.0) Mean Corpuscular Volume 90 FL (80-99) Mean Corpuscular Hemoglobin 28.2 PG (27.0-31.0) Mean Corpuscular Hemoglobin Concent 31.5 G/DL (32.0-36.0) L Red Cell Distribution Width 13.3 % (11.6-14.8) Platelet Count 246 K/UL (150-450) Mean Platelet Volume 6.7 FL (6.5-10.1) Neutrophils (%) (Auto) 62.8 % (45.0-75.0) Lymphocytes (%) (Auto) 21.3 % (20.0-45.0) Monocytes (%) (Auto) 10.2 % (1.0-10.0) H Eosinophils (%) (Auto) 4.4 % (0.0-3.0) H Basophils (%) (Auto) 1.3 % (0.0-2.0) Sodium Level 133 MMOL/L (136-145) L Potassium Level 5.3 MMOL/L (3.5-5.1) H Chloride Level 97 MMOL/L (98-107) L Carbon Dioxide Level 33 MMOL/L (21-32) H Anion Gap 3 mmol/L (5-15) L Blood Urea Nitrogen 27 mg/dL (7-18) H Creatinine 1.4 MG/DL (0.55-1.30) H Estimat Glomerular Filtration Rate mL/min (>60) Glucose Level 299 MG/DL (74-106) H Calcium Level 9.7 MG/DL (8.5-10.1) Free Thyroxine 0.97 NG/DL (0.76-1.46) Free Triiodothyronine 1.4 pg/mL (2.3-4.2) L Neurologic Exam Objective PHYSICAL EXAMINATION: GENERAL: She is a well-developed, well-nourished, pleasant lady, lying in bed, in no acute distress. HEAD: Normocephalic and atraumatic. EENT: Examination was benign. NECK: No neck rigidity was observed. NEUROLOGICAL EXAMINATION: MENTAL STATUS EXAMINATION: She was awake and alert. She was oriented to self and hospital, but did not know the name of the hospital and had no idea what the date was. She was able to recall 3/3 words immediately, but was unable to remember them in 1 minute and 3 minutes. She was unable to tell me who the present President was and who the prior presidents were. Her mathematical skills were impaired. Her visuospatial function was also impaired. SPEECH: She had a mild dysarthria. LANGUAGE: She had an anomic aphasia. CRANIAL NERVE EXAMINATION: II: The visual de guzman were intact on confrontation testing. III, IV & : The external ocular movements were full and the pupils 3 mm in diameter, equal, round, regular, and reactive to light. V: She had normal facial sensations, and the temporales, masseters, and pterygoids functioned normally. VII: She had right greater than left seventh central facial paresis. VIII: She was able to hear and had no nystagmus. IX: The palate moved symmetrically on phonation. The palatal movements were higher in amplitude. X: She had no hoarseness of voice. XI: The sternocleidomastoids and trapezii function normally. XII: The tongue was in the midline without any fasciculations or atrophy. MOTOR SYSTEM: The tone was normal in all four extremities. Examination of muscle mass revealed no focal wasting. Examination of power revealed G 5/5 power except for G 4+/5 power in the left finger extensors and iliopsoas and G 5-/5 power in the right finger extensors and iliopsoas. SENSORY EXAMINATION: She was able to discern light touch all over her body and localized touch well. REFLEXES: Trace+ and bilaterally symmetrical at the biceps, triceps, brachioradialis, knees, 0 at both ankles. The plantar responses were flexor bilaterally. COORDINATION: She performed well on [id number] testing on the right side, however on the left side, she pass pointed. STANCE & GAIT: Could not be tested. Impression/Recommendations Diagnostic Impression 1. Ms. Mery Membreno is a 78-year-old, right-handed, lady, who does have a past history of diabetes mellitus, hypertension, questionable dyslipidemia, dementia, cerebrovascular disease with prior strokes with left- sided weakness, a left hip fracture approximately two years ago followed by thrombophlebitis, and gastroesophageal reflux disease, who was noted to have a sudden change in her level of consciousness associated with generalized weakness , a change in facial expression, and inability to communicate on 11/19/2018. 2. She feels "better." She looks and feels brighter. She continues to be cognitively impoverished. She continues to be generally weak. She is still being fed via her NGT. She is able to swallow her saliva well. Her voice is a little stronger. She denies any new neurologic symptoms. Her VSS is planned for tomorrow. 3. On neurological examination, at this time, she is disoriented to the name of the hospital, date, month, and year. Has significant problems with recent and remote memory, visuospatial function, higher cognitive function, and language. Her dysarthria is better. She has a left greater than right seventh central facial paresis, left greater than right finger extensors and iliopsoas weakness , globally diminished deep tendon reflexes with loss of ankle jerks, and pass pointing on the left side on [id number] testing. In addition, she is unable to stand and walk. 4. Laboratory data revealed a relatively normal CBC. The chemistry panel revealed a minimally low sodium at 135, elevated blood glucose at 145, and low albumin at 3.0. The urinalysis revealed 3+ leukocyte esterase, 0-2 red blood cells, and 15-20 white blood cells per high-power field. 5. The MRI scan of the brain revealed an acute left basal ganglion and harris radiata infarct, and chronic right basal ganglion and right pontine infarcts. 6. The Carotid duplex done on 11/21/18 revealed 30% right and 20% left ICA stenosis 7. The patient's history, neurological examination, laboratory data, and imaging studies are most consistent with an acute left basal ganglion and harris radiata infarct causing the sudden change in her level of arousal and in addition, the new right-sided weakness in addition to the old left-sided weakness related to prior strokes. 8. The most likely etiology for the patient's strokes would be hypertensive, diabetic, and dyslipidemic small-vessel disease. 9. Her neurologic function is now improving, with increased alertness, increased power and improved pharyngeal function. Recommendations 1. The patient and her family were given an explanation of the above-mentioned findings. 2. Plavix 75 mg daily for secondary stroke prevention. 3. Blood sugar control in a strict manner. 4. Blood pressure control - aim for <120/80. 5. Her dyslipidemia should be treated appropriately with a statin. 6. Physical, occupational, and speech and language therapy, to rehabilitate her. 7. Repeat swallowing study - tomorrow. Geoffrey Duncan M.D., M.S.[facility]. Geoffrey Duncan MD Nov 26, 2018 14:35
--- NOTE | 2018-11-26 14:42 | Internal Med Progress Note ---
Subjective Date of Service: Nov 26, 2018 Physician Name Magan More Attending Physician Abdirahman Griffin MD Current Medications Medications (Trade) Dose Ordered Sig/Jayme Route PRN Reason Start Time Stop Time Status Last Admin Dose Admin Acetaminophen (Tylenol) 650 mg Q4H PRN ORAL fever 11/23/18 20:30 12/19/18 20:29 Albuterol/ Ipratropium (Albuterol/ Ipratropium) 3 ml Q4H PRN HHN Shortness of Breath 11/26/18 12:30 12/01/18 12:29 Atorvastatin Calcium (Lipitor) 20 mg BEDTIME ORAL 11/25/18 21:00 12/25/18 20:59 11/25/18 20:59 Clopidogrel Bisulfate (Plavix) 75 mg DAILY ORAL 11/24/18 09:00 12/20/18 19:44 11/26/18 09:36 Dextrose (Dextrose 50%) 25 ml Q30M PRN IV Hypoglycemia 11/23/18 20:30 12/19/18 11:29 Dextrose (Dextrose 50%) 50 ml Q30M PRN IV Hypoglycemia 11/23/18 20:30 12/19/18 11:29 Donepezil HCl (Aricept) 5 mg DAILY ORAL 11/24/18 09:00 12/20/18 08:59 11/26/18 09:36 Heparin Sodium (Porcine) (Heparin 5000 units/ml) 5,000 units EVERY 8 HOURS SUBQ 11/23/18 22:00 12/19/18 21:59 11/26/18 05:34 Insulin Aspart (NovoLOG) EVERY 6 HOURS SUBQ 11/24/18 12:00 12/19/18 16:29 11/26/18 11:41 Levothyroxine Sodium (Synthroid) 25 mcg DAILY@0630 ORAL 11/27/18 06:30 12/27/18 06:29 Lorazepam (Ativan 2mg/ml 1ml) 0.5 mg Q4H PRN IV For Anxiety 11/25/18 12:30 11/28/18 12:29 Morphine Sulfate (Morphine Sulfate) 1 mg Q4H PRN IVP For Pain 11/25/18 12:30 11/28/18 12:29 Ondansetron HCl (Zofran) 4 mg Q6H PRN IVP Nausea & Vomiting 11/23/18 20:30 12/19/18 20:29 11/24/18 12:14 Patient Own Medication (Patient's Own Med) 1 ea BID BOTH EYES 11/24/18 09:00 12/21/18 17:59 11/26/18 09:54 Polyethylene Glycol (Miralax) 17 gm HSPRN PRN ORAL Constipation 11/23/18 20:30 12/23/18 20:29 Sertraline HCl (Zoloft) 50 mg DAILY ORAL 11/24/18 09:00 12/20/18 08:59 11/24/18 09:53 Trimethoprim/ Sulfamethoxazole (Bactrim-DS) 1 tab Q12HR ORAL 11/23/18 21:00 11/26/18 23:59 11/26/18 09:37 Zolpidem Tartrate (Ambien) 5 mg HSPRN PRN ORAL Insomnia 11/23/18 20:30 11/30/18 20:29 Allergies: Coded Allergies: No Known Allergies (Unverified , 01/27/17) ROS Limited/Unobtainable: No Constitutional: Reports: no symptoms HEENT: Reports: no symptoms Cardiovascular: Reports: no symptoms Respiratory: Reports: no symptoms Gastrointestinal/Abdominal: Reports: no symptoms Genitourinary: Reports: no symptoms Neurologic/Psychiatric: Reports: no symptoms Subjective 78 YO F admitted with dehydration. Now acute left cerebral vascular accident. Cover for Int Med-Dr Griffin. LIAT Objective Last Vital Signs Date Time Temp Pulse Resp B/P (MAP) Pulse Ox O2 Delivery O2 Flow Rate FiO2 11/26/18 12:00 Nasal Cannula 2.0 11/26/18 12:00 98.0 76 22 135/57 (83) 100 11/25/18 19:30 28 Laboratory Tests Test 11/26/18 04:56 White Blood Count 9.8 K/UL (4.8-10.8) Red Blood Count 4.18 M/UL (4.20-5.40) L Hemoglobin 11.8 G/DL (12.0-16.0) L Hematocrit 37.5 % (37.0-47.0) Mean Corpuscular Volume 90 FL (80-99) Mean Corpuscular Hemoglobin 28.2 PG (27.0-31.0) Mean Corpuscular Hemoglobin Concent 31.5 G/DL (32.0-36.0) L Red Cell Distribution Width 13.3 % (11.6-14.8) Platelet Count 246 K/UL (150-450) Mean Platelet Volume 6.7 FL (6.5-10.1) Neutrophils (%) (Auto) 62.8 % (45.0-75.0) Lymphocytes (%) (Auto) 21.3 % (20.0-45.0) Monocytes (%) (Auto) 10.2 % (1.0-10.0) H Eosinophils (%) (Auto) 4.4 % (0.0-3.0) H Basophils (%) (Auto) 1.3 % (0.0-2.0) Sodium Level 133 MMOL/L (136-145) L Potassium Level 5.3 MMOL/L (3.5-5.1) H Chloride Level 97 MMOL/L (98-107) L Carbon Dioxide Level 33 MMOL/L (21-32) H Anion Gap 3 mmol/L (5-15) L Blood Urea Nitrogen 27 mg/dL (7-18) H Creatinine 1.4 MG/DL (0.55-1.30) H Estimat Glomerular Filtration Rate mL/min (>60) Glucose Level 299 MG/DL (74-106) H Calcium Level 9.7 MG/DL (8.5-10.1) Free Thyroxine 0.97 NG/DL (0.76-1.46) Free Triiodothyronine 1.4 pg/mL (2.3-4.2) L Intake and Output 11/25/18 11/26/18 19:00 07:00 Intake Total 525 ml 650 ml Output Total 600 ml 350 ml Balance -75 ml 300 ml Tube Feeding 405 ml 600 ml Other 120 ml 50 ml Output Urine Total 600 ml 350 ml # Voids 1 Objective Objective GENERAL: The patient opens her eyes. more responsive, HEENT: Pupils correct, equal, and reactive to light. Anicteric. NG tube. NECK: Supple. No JVD. LUNGS: Fair air entry. Decreased air entry in the bases. No wheezes or rhonchi. HEART: S1 and S2. Distant heart sounds. No murmur or gallops. ABDOMEN: Soft, nondistended, and nontender. Mildly obese. EXTREMITIES: No cyanosis, clubbing, or edema. NEUROLOGIC: Cranial nerves II through XII grossly intact. The patient is moving all the extremities, left side weaker than right side. . RECTAL: Refused and deferred. Assessment/Plan Assessment/Plan Assessment/Plan Assessment/Plan ASSESSMENT: 1. Upper respiratory symptoms, possible due to the early pneumonia versus bronchitis. 2. Acute left basal ganglia lacunar infarct. 3. History of cerebrovascular accident with left-sided hemiparesis. 4. Dehydration. 5. Diabetes, type 2. 6. Gastroesophageal reflux disease. 7. Alzheimer dementia. 8. Borderline hypertension. 9. Prior history of left lower extremity deep venous thrombosis in 2017 after left hip fracture and open reduction and internal fixation. 10. dysphagia PLAN: In Med/Surg. monitor cultures and laboratory Discussed with the son at the bedside Code status is Full Code. DVT prophylaxis, heparin subcutaneously. Broad-spectrum antibiotic with Rocephin. Tube feeding @ 35 cc/hr Discharge planning: SNF vs [facility] acute rehab await modified barium swallow eval 11/27/18 MRI Brain: Impression: Positive for acute left basal ganglia lacunar infarct Multiple old infarcts, as described Other chronic and age-related changes, as described Negative for acute intracranial bleed or mass effect Magan More MD Nov 26, 2018 14:42
[2018-11-26 16:00] VITALS: BP 121/83
--- NOTE | 2018-11-26 16:00 | NUR ---
HAND-OFF: Report given to Addison Ribeiro,pt resting in bed no resp distress presented,pt stable,family members at bedside..
--- NOTE | 2018-11-26 19:10 | NUR ---
HAND-OFF: Report given to .SCOTT MORENO.
--- NOTE | 2018-11-26 19:15 | NUR ---
NURSE NOTES: Received patient from JOSH SULTANA. Patient is stable, will continue plan of care. Family at bedside.
[2018-11-26 20:00] VITALS: BP 136/66
[2018-11-26] MEDS: Atorvastatin 20mg tab ORAL SCH (21:14)
[2018-11-27] VITALS: BP 132/69
--- NOTE | 2018-11-27 00:21 | NUR ---
NURSE NOTES: Patient pulled out NGT. Explained to daughter about the procedure to re-insert NGT and to get approval to use; daughter is aware that patient has a video swallow in the AM. She would like to keep NGT out for now. Went through morning medications with daughter and she is aware that the medication may not be able to be given.
[2018-11-27 04:00] VITALS: BP 129/93
[2018-11-27 04:57] LABS: ANION GAP 5 mmol/L (5-15); BLOOD UREA NITROGEN 26 mg/dL (7-18); CALCIUM 10.1 MG/DL (8.5-10.1); CARBON DIOXIDE 32 MMOL/L (21-32); CHLORIDE 96 MMOL/L (98-107); CREATININE 1.4 MG/DL (0.55-1.30); POTASSIUM 5.5 MMOL/L (3.5-5.1); SODIUM 133 MMOL/L (136-145)
[2018-11-27 05:13] LABS: BASOPHILS % (AUTO) 1.6 % (0.0-2.0); EOSINOPHILS % (AUTO) 2.7 % (0.0-3.0); HEMATOCRIT 38.9 % (37.0-47.0); HEMOGLOBIN 12.1 G/DL (12.0-16.0); LYMPHOCYTES % (AUTO) 19.7 % (20.0-45.0); MEAN CORPUSCULAR VOLUME 90 FL (80-99); MONOCYTES % (AUTO) 11.4 % (1.0-10.0); NEUTROPHILS % (AUTO) 64.5 % (45.0-75.0); PLATELET COUNT 231 K/UL (150-450); RED BLOOD COUNT 4.31 M/UL (4.20-5.40); RED CELL DISTRIBUTION WIDTH 13.6 % (11.6-14.8); WHITE BLOOD COUNT 10.8 K/UL (4.8-10.8)
--- NOTE | 2018-11-27 05:27 | NUR ---
NURSE NOTES: Received bedside report from JOSH Moran.Patient stable,A&Ox 2,SR on teletypesetter monitor,N/C 2L/min ,NGT is out,pt has an order for swal. eval.early in a morning,BS active in all quadrants,IV asymptomatic,intact on R f/arm 22G SL,bed secured in a low safety position call light within a reach,will continue to monitor and follow POC
[2018-11-27] MEDS ORDERED: Levothyroxine 25mcg tab ORAL SCH (06:30)
[2018-11-27] MEDS: Heparin 5000 units/ml inj SUBQ SCH (06:33)
[2018-11-27] MEDS: NovoLOG Insulin Flexpen SUBQ SCH ×2 (06:34→12:09)
--- NOTE | 2018-11-27 07:26 | NUR ---
HAND-OFF: Report given to JOSH Rios.Patient stable,sleeping.
--- NOTE | 2018-11-27 07:30 | NUR ---
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
--- NOTE | 2018-11-27 07:47 | NUR ---
RADIOLOGY DEPT., CHEST X-RAY DONE.-P.DYE
[2018-11-27 08:00] VITALS: BP 124/74
[2018-11-27] MEDS: SYSTANE LUBRICANT EYE BOTH EYES SCH (08:45)
[2018-11-27] MEDS: Donepezil 5mg Tab ORAL SCH (08:47)
[2018-11-27] MEDS: Sertraline 50mg tab ORAL SCH (08:47)
--- NOTE | 2018-11-27 10:05 | NUR ---
NURSE NOTES: Pt brought downstairs per bed for Video swallow awake,alert follows simple command accompanied by transporter and daughter as manager ed since pt speaks Estonian only.
--- NOTE | 2018-11-27 10:29 | Neurology Progress Note ---
Interim History Interim History Interim History Ms. Membreno feels "better." She looks and feels brighter. She pulled her NGT out last night. Her VSS is planned for the near future. She continues to be cognitively impoverished. She continues to be generally weak. She is able to swallow her saliva well. Her voice is a little stronger. She denies any new neurologic symptoms. Review of Systems Neuro Review of Systems Unable to obtain. Objective Physical Exam Last Vital Signs Date Time Temp Pulse Resp B/P (MAP) Pulse Ox O2 Delivery O2 Flow Rate FiO2 11/27/18 08:05 81 20 99 Nasal Cannula 2.0 28 11/27/18 08:00 97.3 124/74 (91) Laboratory Tests Test 11/27/18 03:30 White Blood Count 10.8 K/UL (4.8-10.8) Red Blood Count 4.31 M/UL (4.20-5.40) Hemoglobin 12.1 G/DL (12.0-16.0) Hematocrit 38.9 % (37.0-47.0) Mean Corpuscular Volume 90 FL (80-99) Mean Corpuscular Hemoglobin 28.1 PG (27.0-31.0) Mean Corpuscular Hemoglobin Concent 31.2 G/DL (32.0-36.0) L Red Cell Distribution Width 13.6 % (11.6-14.8) Platelet Count 231 K/UL (150-450) Mean Platelet Volume 7.5 FL (6.5-10.1) Neutrophils (%) (Auto) 64.5 % (45.0-75.0) Lymphocytes (%) (Auto) 19.7 % (20.0-45.0) L Monocytes (%) (Auto) 11.4 % (1.0-10.0) H Eosinophils (%) (Auto) 2.7 % (0.0-3.0) Basophils (%) (Auto) 1.6 % (0.0-2.0) Sodium Level 133 MMOL/L (136-145) L Potassium Level 5.5 MMOL/L (3.5-5.1) H Chloride Level 96 MMOL/L (98-107) L Carbon Dioxide Level 32 MMOL/L (21-32) Anion Gap 5 mmol/L (5-15) Blood Urea Nitrogen 26 mg/dL (7-18) H Creatinine 1.4 MG/DL (0.55-1.30) H Estimat Glomerular Filtration Rate mL/min (>60) Glucose Level 281 MG/DL (74-106) H Calcium Level 10.1 MG/DL (8.5-10.1) Neurologic Exam Objective PHYSICAL EXAMINATION: GENERAL: She is a well-developed, well-nourished, pleasant lady, lying in bed, in no acute distress. HEAD: Normocephalic and atraumatic. EENT: Examination was benign. NECK: No neck rigidity was observed. NEUROLOGICAL EXAMINATION: MENTAL STATUS EXAMINATION: She was awake and alert. She was oriented to self and hospital, but did not know the name of the hospital and had no idea what the date was. She was able to recall 3/3 words immediately, but was unable to remember them in 1 minute and 3 minutes. She was unable to tell me who the present President was and who the prior presidents were. Her mathematical skills were impaired. Her visuospatial function was also impaired. SPEECH: She had a mild dysarthria. LANGUAGE: She had an anomic aphasia. CRANIAL NERVE EXAMINATION: II: The visual de guzman were intact on confrontation testing. III, IV & : The external ocular movements were full and the pupils 3 mm in diameter, equal, round, regular, and reactive to light. V: She had normal facial sensations, and the temporales, masseters, and pterygoids functioned normally. VII: She had right greater than left seventh central facial paresis. VIII: She was able to hear and had no nystagmus. IX: The palate moved symmetrically on phonation. The palatal movements were higher in amplitude. X: She had no hoarseness of voice. XI: The sternocleidomastoids and trapezii function normally. XII: The tongue was in the midline without any fasciculations or atrophy. MOTOR SYSTEM: The tone was normal in all four extremities. Examination of muscle mass revealed no focal wasting. Examination of power revealed G 5/5 power except for G 4+/5 power in the left finger extensors and iliopsoas and G 5-/5 power in the right finger extensors and iliopsoas. SENSORY EXAMINATION: She was able to discern light touch all over her body and localized touch well. REFLEXES: Trace+ and bilaterally symmetrical at the biceps, triceps, brachioradialis, knees, 0 at both ankles. The plantar responses were flexor bilaterally. COORDINATION: She performed well on [id number] testing on the right side, however on the left side, she pass pointed. STANCE & GAIT: Could not be tested. Impression/Recommendations Diagnostic Impression 1. Ms. Mery Membreno is a 78-year-old, right-handed, lady, who does have a past history of diabetes mellitus, hypertension, questionable dyslipidemia, dementia, cerebrovascular disease with prior strokes with left- sided weakness, a left hip fracture approximately two years ago followed by thrombophlebitis, and gastroesophageal reflux disease, who was noted to have a sudden change in her level of consciousness associated with generalized weakness , a change in facial expression, and inability to communicate on 11/19/2018. 2. She feels "better." She looks and feels brighter. She pulled her NGT out last night. Her VSS is planned for the near future. She continues to be cognitively impoverished. She continues to be generally weak. She is able to swallow her saliva well. Her voice is a little stronger. She denies any new neurologic symptoms. 3. On neurological examination, at this time, she is disoriented to the name of the hospital, date, month, and year. Has significant problems with recent and remote memory, visuospatial function, higher cognitive function, and language. Her dysarthria is better. She has a left greater than right seventh central facial paresis, left greater than right finger extensors and iliopsoas weakness , globally diminished deep tendon reflexes with loss of ankle jerks, and pass pointing on the left side on [id number] testing. In addition, she is unable to stand and walk. 4. Laboratory data revealed a relatively normal CBC. The chemistry panel revealed a minimally low sodium at 135, elevated blood glucose at 145, and low albumin at 3.0. The urinalysis revealed 3+ leukocyte esterase, 0-2 red blood cells, and 15-20 white blood cells per high-power field. 5. The MRI scan of the brain revealed an acute left basal ganglion and harris radiata infarct, and chronic right basal ganglion and right pontine infarcts. 6. The Carotid duplex done on 11/21/18 revealed 30% right and 20% left ICA stenosis 7. The patient's history, neurological examination, laboratory data, and imaging studies are most consistent with an acute left basal ganglion and harris radiata infarct causing the sudden change in her level of arousal and in addition, the new right-sided weakness in addition to the old left-sided weakness related to prior strokes. 8. The most likely etiology for the patient's strokes would be hypertensive, diabetic, and dyslipidemic small-vessel disease. 9. Her neurologic function is now improving, with increased alertness, increased power and improved pharyngeal function. 10. She is going to be evaluated for the integrity of her swallowing today. Recommendations 1. The patient and her family were given an explanation of the above-mentioned findings. 2. Plavix 75 mg daily for secondary stroke prevention. 3. Blood sugar control in a strict manner. 4. Blood pressure control - aim for <120/80. 5. Dyslipidemia management with LDL goal of <70. 6. Physical, occupational, and speech and language therapy, to rehabilitate her. 7. Repeat swallowing study today. Geoffrey Duncan M.D., M.S.P.[facility]. Geoffrey Duncan MD Nov 27, 2018 10:29
--- NOTE | 2018-11-27 10:53 | Infectious Diseases Prog Note ---
Assessment/Plan Assessment/Plan Assessment: Afebrile Mild Leukocytosis, SP -11/23 CXR: Satisfactory nasogastric intubation. Possible developing patchy airspace disease in the right suprahilar region Pyuria/bacteriuria- Probable UTI, sp Rx -u/a wbc 15-20, nit neg, leuk +3; ucx ESBL E.coli (S nitrofurantoin, bactrim, cipro/levo, zosyn, ertapenem) Acute bronchitis Acute CVA -Brain MRI: Positive for acute left basal ganglia lacunar infarct. Multiple old infarcts, as described. Other chronic and age-related changes, as described. Negative for acute intracranial bleed or mass effect Dm2 HTN HLD non-verbal Dementia CVA s/p L side weakness L hip fracture s/p L hip hemiarthroplasty 01/2017 LE DVT GERD Plan: -Cont to monitor off abx -11/26 SP Bactrim #5 -11/22 SP Ceftriaxone #4 -f/u cx -Monitor CBC/CMP, temperatures -aspiration precautions Thank you for this consultation. Will continue to follow along with you. Discussed with RN. Subjective Allergies: Coded Allergies: No Known Allergies (Unverified , 01/27/17) Subjective afebrile mild leukocytosis resolved Objective Vital Signs Last 24 Hour Vital Signs Date Time Temp Pulse Resp B/P (MAP) Pulse Ox O2 Delivery O2 Flow Rate FiO2 11/27/18 08:05 81 20 99 Nasal Cannula 2.0 28 11/27/18 08:05 99 Nasal Cannula 2.0 28 11/27/18 08:00 97.3 77 20 124/74 (91) 98 11/27/18 08:00 Nasal Cannula 2.0 11/27/18 04:00 97.3 75 20 129/93 (105) 100 11/27/18 04:00 Nasal Cannula 2.0 11/27/18 03:49 78 11/27/18 00:00 97.5 91 20 132/69 (90) 99 11/27/18 00:00 Nasal Cannula 2.0 11/26/18 23:24 92 11/26/18 21:10 91 16 97 Nasal Cannula 2.0 28 11/26/18 20:00 97.2 99 20 136/66 (89) 96 11/26/18 20:00 Nasal Cannula 2.0 7/21/19 19:24 100 11/26/18 16:00 Nasal Cannula 2.0 11/26/18 16:00 77 11/26/18 16:00 99.0 90 21 121/83 (96) 98 11/26/18 12:00 Nasal Cannula 2.0 11/26/18 12:00 98.0 76 22 135/57 (83) 100 11/26/18 12:00 74 Height (Feet): 5 Height (Inches): 0.00 Weight (Pounds): 182 Objective GENERAL: The patient opens her eyes. Responds to the family members commands. Alert and oriented. HEENT: Pupils correct, equal, and reactive to light. Anicteric. NECK: Supple. No JVD. LUNGS: Good air entry. Decreased air entry in the bases. No wheezes or rhonchi. HEART: S1 and S2. Distant heart sounds. No murmur or gallops. ABDOMEN: Soft, nondistended, and nontender. Mildly obese. EXTREMITIES: No cyanosis, clubbing, or edema. NEUROLOGIC: Cranial nerves II through XII grossly intact. The patient is moving all the extremities, left side weaker than right side. Gait was not assessed due to the patient's status. GENITOURINARY: Refused and deferred. PSYCHIATRIC: Mood and affect is unable to obtain because of baseline dementia. Laboratory Tests Test 11/27/18 03:30 White Blood Count 10.8 K/UL (4.8-10.8) Red Blood Count 4.31 M/UL (4.20-5.40) Hemoglobin 12.1 G/DL (12.0-16.0) Hematocrit 38.9 % (37.0-47.0) Mean Corpuscular Volume 90 FL (80-99) Mean Corpuscular Hemoglobin 28.1 PG (27.0-31.0) Mean Corpuscular Hemoglobin Concent 31.2 G/DL (32.0-36.0) L Red Cell Distribution Width 13.6 % (11.6-14.8) Platelet Count 231 K/UL (150-450) Mean Platelet Volume 7.5 FL (6.5-10.1) Neutrophils (%) (Auto) 64.5 % (45.0-75.0) Lymphocytes (%) (Auto) 19.7 % (20.0-45.0) L Monocytes (%) (Auto) 11.4 % (1.0-10.0) H Eosinophils (%) (Auto) 2.7 % (0.0-3.0) Basophils (%) (Auto) 1.6 % (0.0-2.0) Sodium Level 133 MMOL/L (136-145) L Potassium Level 5.5 MMOL/L (3.5-5.1) H Chloride Level 96 MMOL/L (98-107) L Carbon Dioxide Level 32 MMOL/L (21-32) Anion Gap 5 mmol/L (5-15) Blood Urea Nitrogen 26 mg/dL (7-18) H Creatinine 1.4 MG/DL (0.55-1.30) H Estimat Glomerular Filtration Rate mL/min (>60) Glucose Level 281 MG/DL (74-106) H Calcium Level 10.1 MG/DL (8.5-10.1) Current Medications Medications (Trade) Dose Ordered Sig/Jayme Route PRN Reason Start Time Stop Time Status Last Admin Dose Admin Acetaminophen (Tylenol) 650 mg Q4H PRN ORAL fever 11/23/18 20:30 12/19/18 20:29 Albuterol/ Ipratropium (Albuterol/ Ipratropium) 3 ml Q4H PRN HHN Shortness of Breath 11/26/18 12:30 12/01/18 12:29 Atorvastatin Calcium (Lipitor) 20 mg BEDTIME ORAL 11/25/18 21:00 12/25/18 20:59 11/26/18 21:14 Clopidogrel Bisulfate (Plavix) 75 mg DAILY ORAL 11/24/18 09:00 12/20/18 19:44 11/26/18 09:36 Dextrose (Dextrose 50%) 25 ml Q30M PRN IV Hypoglycemia 11/23/18 20:30 12/19/18 11:29 Dextrose (Dextrose 50%) 50 ml Q30M PRN IV Hypoglycemia 11/23/18 20:30 12/19/18 11:29 Donepezil HCl (Aricept) 5 mg DAILY ORAL 11/24/18 09:00 12/20/18 08:59 11/26/18 09:36 Heparin Sodium (Porcine) (Heparin 5000 units/ml) 5,000 units EVERY 8 HOURS SUBQ 11/23/18 22:00 12/19/18 21:59 11/27/18 06:33 Insulin Aspart (NovoLOG) EVERY 6 HOURS SUBQ 11/24/18 12:00 12/19/18 16:29 11/27/18 06:34 Levothyroxine Sodium (Synthroid) 25 mcg DAILY@0630 ORAL 11/27/18 06:30 12/27/18 06:29 Lorazepam (Ativan 2mg/ml 1ml) 0.5 mg Q4H PRN IV For Anxiety 11/25/18 12:30 11/28/18 12:29 Morphine Sulfate (Morphine Sulfate) 1 mg Q4H PRN IVP For Pain 11/25/18 12:30 11/28/18 12:29 Ondansetron HCl (Zofran) 4 mg Q6H PRN IVP Nausea & Vomiting 11/23/18 20:30 12/19/18 20:29 11/24/18 12:14 Patient Own Medication (Patient's Own Med) 1 ea BID BOTH EYES 11/24/18 09:00 12/21/18 17:59 11/27/18 08:45 Polyethylene Glycol (Miralax) 17 gm HSPRN PRN ORAL Constipation 11/23/18 20:30 12/23/18 20:29 Sertraline HCl (Zoloft) 50 mg DAILY ORAL 11/24/18 09:00 12/20/18 08:59 11/24/18 09:53 Zolpidem Tartrate (Ambien) 5 mg HSPRN PRN ORAL Insomnia 11/23/18 20:30 11/30/18 20:29 Princess River M.D. Nov 27, 2018 10:53
--- NOTE | 2018-11-27 11:35 | NUR ---
NURSE NOTES: Pt back from Video Swallow awake,alert ,nauseated,spouse at bedside.
--- NOTE | 2018-11-27 11:45 | Pulmonology Progress Note ---
Assessment/Plan Problems: (1) Acute respiratory failure (2) Pneumonia (3) Alzheimer's dementia (4) Diabetes mellitus, type II (5) History of CVA (cerebrovascular accident) (6) Cerebral vascular disease Assessment/Plan titrate fio2 to sat of 92% NG tube discontinued sliding scale check electrolytes neuro consult appreciated aspiration precaution video swallow done, results pending Subjective ROS Limited/Unobtainable: No Constitutional: Reports: no symptoms HEENT: Repors: no symptoms Allergies: Coded Allergies: No Known Allergies (Unverified , 01/27/17) Objective Last 24 Hour Vital Signs Date Time Temp Pulse Resp B/P (MAP) Pulse Ox O2 Delivery O2 Flow Rate FiO2 11/27/18 08:05 81 20 99 Nasal Cannula 2.0 28 11/27/18 08:05 99 Nasal Cannula 2.0 28 11/27/18 08:00 81 11/27/18 08:00 97.3 77 20 124/74 (91) 98 11/27/18 08:00 Nasal Cannula 2.0 11/27/18 04:00 97.3 75 20 129/93 (105) 100 11/27/18 04:00 Nasal Cannula 2.0 11/27/18 03:49 78 11/27/18 00:00 97.5 91 20 132/69 (90) 99 11/27/18 00:00 Nasal Cannula 2.0 11/26/18 23:24 92 11/26/18 21:10 91 16 97 Nasal Cannula 2.0 28 11/26/18 20:00 97.2 99 20 136/66 (89) 96 11/26/18 20:00 Nasal Cannula 2.0 11/26/18 19:24 100 11/26/18 16:00 Nasal Cannula 2.0 11/26/18 16:00 77 11/26/18 16:00 99.0 90 21 121/83 (96) 98 11/26/18 12:00 Nasal Cannula 2.0 11/26/18 12:00 98.0 76 22 135/57 (83) 100 11/26/18 12:00 74 Intake and Output 11/26/18 11/27/18 19:00 07:00 Intake Total 1410 ml 350 ml Output Total 151 ml Balance 1259 ml 350 ml Intake Free Water 250 ml IV Total 500 ml Tube Feeding 600 ml 250 ml Other 60 ml 100 ml Output Urine Total 151 ml # Bowel Movements 1 2 Objective General Appearance: WD/WN HEENT: normocephalic, atraumatic Respiratory/Chest: chest wall non-tender, lungs clear, normal breath sounds Breasts: no masses Cardiovascular: normal peripheral pulses, normal rate Abdomen: normal bowel sounds, soft, non tender Genitourinary: normal external genitalia Extremities: no cyanosis Laboratory Tests 11/27/18 03:30: White Blood Count 10.8, Red Blood Count 4.31, Hemoglobin 12.1, Hematocrit 38.9, Mean Corpuscular Volume 90, Mean Corpuscular Hemoglobin 28.1, Mean Corpuscular Hemoglobin Concent 31.2L, Red Cell Distribution Width 13.6, Platelet Count 231, Mean Platelet Volume 7.5, Neutrophils (%) (Auto) 64.5, Lymphocytes (%) (Auto) 19.7L, Monocytes (%) (Auto) 11.4H, Eosinophils (%) (Auto) 2.7, Basophils (%) ( Auto) 1.6, Sodium Level 133L, Potassium Level 5.5H, Chloride Level 96L, Carbon Dioxide Level 32, Anion Gap 5, Blood Urea Nitrogen 26H, Creatinine 1.4H, Estimat Glomerular Filtration Rate , Glucose Level 281H, Calcium Level 10.1 Current Medications Medications (Trade) Dose Ordered Sig/Jayme Route PRN Reason Start Time Stop Time Status Last Admin Dose Admin Acetaminophen (Tylenol) 650 mg Q4H PRN ORAL fever 11/23/18 20:30 12/19/18 20:29 Albuterol/ Ipratropium (Albuterol/ Ipratropium) 3 ml Q4H PRN HHN Shortness of Breath 11/26/18 12:30 12/01/18 12:29 Atorvastatin Calcium (Lipitor) 20 mg BEDTIME ORAL 11/25/18 21:00 12/25/18 20:59 11/26/18 21:14 Clopidogrel Bisulfate (Plavix) 75 mg DAILY ORAL 11/24/18 09:00 12/20/18 19:44 11/26/18 09:36 Dextrose (Dextrose 50%) 25 ml Q30M PRN IV Hypoglycemia 11/23/18 20:30 12/19/18 11:29 Dextrose (Dextrose 50%) 50 ml Q30M PRN IV Hypoglycemia 11/23/18 20:30 12/19/18 11:29 Donepezil HCl (Aricept) 5 mg DAILY ORAL 11/24/18 09:00 12/20/18 08:59 11/26/18 09:36 Heparin Sodium (Porcine) (Heparin 5000 units/ml) 5,000 units EVERY 8 HOURS SUBQ 11/23/18 22:00 12/19/18 21:59 11/27/18 06:33 Insulin Aspart (NovoLOG) EVERY 6 HOURS SUBQ 11/24/18 12:00 12/19/18 16:29 11/27/18 06:34 Levothyroxine Sodium (Synthroid) 25 mcg DAILY@0630 ORAL 11/27/18 06:30 12/27/18 06:29 Lorazepam (Ativan 2mg/ml 1ml) 0.5 mg Q4H PRN IV For Anxiety 11/25/18 12:30 11/28/18 12:29 Morphine Sulfate (Morphine Sulfate) 1 mg Q4H PRN IVP For Pain 11/25/18 12:30 11/28/18 12:29 Ondansetron HCl (Zofran) 4 mg Q6H PRN IVP Nausea & Vomiting 11/23/18 20:30 12/19/18 20:29 11/24/18 12:14 Patient Own Medication (Patient's Own Med) 1 ea BID BOTH EYES 11/24/18 09:00 12/21/18 17:59 11/27/18 08:45 Polyethylene Glycol (Miralax) 17 gm HSPRN PRN ORAL Constipation 11/23/18 20:30 12/23/18 20:29 Sertraline HCl (Zoloft) 50 mg DAILY ORAL 11/24/18 09:00 12/20/18 08:59 11/24/18 09:53 Zolpidem Tartrate (Ambien) 5 mg HSPRN PRN ORAL Insomnia 11/23/18 20:30 11/30/18 20:29 Genesis Hayes MD Nov 27, 2018 11:45
[2018-11-27] MEDS ORDERED: ARICEPT5 MG ORAL (11:55)
[2018-11-27] MEDS ORDERED: PLAVIX75 MG ORAL (11:55)
[2018-11-27] MEDS ORDERED: SYNTHROID25 MCG ORAL (11:55)
[2018-11-27] MEDS ORDERED: ZOLOFT50 MG ORAL (11:55)
--- NOTE | 2018-11-27 11:59 | NUR ---
RD ASSESSMENT & RECOMMENDATIONS SEE CARE ACTIVITY FOR COMPLETE ASSESSMENT DAILY ESTIMATED NEEDS: Needs based on DM, 57kg abw 25-30 kcals/kg 7473-4055 total kcals 1-1.5 g protein/kg 57-86 g total protein 25-30 mL/kg 7255-2777 total fluid mLs NUTRITION DIAGNOSIS: * Swallowing difficulty R/T dysphagia, h/o CVA + lacunar infarct per MRI of brain as evidenced by updated TYPO MACHINE OPERATOR eval w/ VSS, pt now cleared for liquify puree w/ NTL, NGT d/c'd. (UPDATED) * Altered nutrition related lab values R/T DM, altered lipied metabolism as evidenced by elev POC glu (200-300's),A1C 8.2, elev triglyceride (167), elev cholesterol (218), elev LDL (155). CURRENT DIET: Now passed for CCHO MED liquify puree/ NTL PO DIET RECOMMENDATIONS: CCHO LOW (texture per TYPO MACHINE OPERATOR) + Glucerna TID w/ soup like texture ADDITIONAL RECOMMENDATIONS: * Calibrated bedscale wt for accurate CBW -> family states AYZ=695gfr (vs EMR wt of 120lbs) * Monitor lytes daily w/ TF, replete as needed -> TREND K (now 5.5), need for dietary restriction * Long acting insulin for improved BG control (BGs mostly in the 300's) * Consider lipid lowering agent (elev lipid panel + s/p acute CVA) -
[2018-11-27 12:00] VITALS: BP 136/67
--- NOTE | 2018-11-27 12:00 | NUR ---
NURSE NOTES: P.T.workingwith pt,up to chair ,activity tolerated by pt.
--- NOTE | 2018-11-27 12:12 | NUR ---
DISCHARGE SWALLOW/SPEECH THERAPY SUMMARY: PATIENT SEEN FOR DYSPHAGIA, SEE SWALLOW EVAL AND MOD BARIUM SWALLOW STUDY REPORTS, FULL REPORTS TO FOLLOW. PT PULLED OUT NGT AT 1 AM THIS MORNING. PATIENT HAS A MILD-MOD OROPHARYNGEAL DYSPHAGIA WITH INCREASED TRANSIT TIMES (MORE FOR ORAL) DUE TO SENORIMOTOR DEFICITS. NO ASPIRATION BUT DID HAVE RISK IF PRECAUTIONS NOT USED. WILL START ON CCHO-MED LIQUIFIED PUREED LIKE NECTAR THICK SOUP DIET AND CLEARED FOR THIN LIQUIDS TSP/SMALL SIPS ONLY WITH POSTED ASPIRATION AND REFLUX PRECAUTIONS. DEZ ONE CAN TID GOALS MET FOR STAFF EDUCATED/TRAINED IN POSTED ASP/REFLUX PREC GOALS NOT MET FOR INTAKE SINCE PT GOING HOME PLAN: [facility] ASSISTANT SUPERINTENDENT FOR SKILLED SWALLOWING MANAGEMENT AND TX D/W STAFF, FAMILY, AND PATIENT
--- NOTE | 2018-11-27 12:37 | NUR ---
D/C SWALLOW/SPEECH THERAPY NOTE (SEE D/C SUMMARY ABOVE) COMPLETED MOD BARIUM SWALLOW STUDY SEE FULL REPORT TO FOLLOW. FAMILY MEMBER PRESENT FOR STUDY. GIVEN: THIN LIQUIDS TSP TSP CUP STRAW SEQUENTIAL NECTAR THICK LIQUIDS TSP CUP (NO TIME FOR STRAW SEQUENTIAL) HONEY THICK LIQUIDS AND PUREED TSP NO TIME FOR MASTICATED SOLIDS AND LOWER DENTURES TOO LOOSE (DISLIKES ADHESIVE) UPPERS OK STUDY HAD BOTH IN UNTIL LIQUID WASH AFTER PUREED TSP(WATER CUP NO COUGH) INITIAL IMPRESSIONS MILD-MODERATE OROPHARYNGEAL DYSPHAGIA WITH MILD/MOD INCREASE IN ORAL MORE THAN PHARYNGEAL TRANSIT TIMES DUE TO SENSORIMOTOR DEFICITS. NO ASPIRATION BUT HAS RISK AND SOME PENETRATION MOSTLY WITH THIN AND NECTAR THICK LIQUIDS (SEE BODY OF REPORT) AND DUE TO DELAYED SWALLOW AND LATE CLOSURE OF LARYNGEAL VESTIBULE (LVC). DEFICITS/COMPONENTS INCLUDE: Oral Impairment Tongue Control Bolus vigil/lingual motion Oral residue Init. pharyngeal swallow Pharyngeal Impairment Laryngeal elevation (LE) Ant. hyoid excursion Late laryngeal vestibule closure (lvc) Pharyngoesophageal segment Opening Tongue base retraction Pharyngeal residue Decrease pharyngeal sensation Component 2-Tongue Control during bolus hold 1-Esc to lat buccal cavit Component 4-Bolus Transport/Lingual Motion 3-Repetitiv/disorg tongue Component 5-Oral Residue 2-Residue collection Location of Oral Residue A-Floor of Mouth B-Palate C-Tongue D-Lateral sulci Component 6-Initiation of Pharyngeal Swallow 3-Bolus head in pyriforms Component 7-Soft Palate Elevation 0-No bolus SP/PW Component 8-Laryngeal Elevation 1-Part sup movemt thyroid Component 9-Anterior Hyoid Excursion 1-Partial ant movement Component 10-Epiglottic Movement 0-Complete inversion Component 11-Laryngeal Vestibular closure-Height of Swallow 1-Incmplete;narrow column Component 12-Pharyngeal Stripping Wave 8-Amduocw-poilpvtq Component 14-Pharyngoesophageal Segment Opening 1-Part distens/duration Component 16-Pharyngeal Residue 1-Trace w/in pharyn struc Location of Pharyngeal Residue A-Tongue Base B-Valleculae E-Pyriform Sinuses Esophageal PHASE: LIMITED VIEW DUE TO SHOULDER BUT GROSSLY FUNCTIONAL THREW UP SOME SALIVA POST STUDY FELT NAUSEATED SINCE TOOK BARIUM ON EMPTY STOMACH HAS GASTRITIS AND HAS GERD PER FAMILY ON NEXIUM A LONG TIME ? ON NOW BENEFITS FROM MORE TIME, EXTRA HARD SWALLOW (WHICH IS DELAYED AND FOR ORAL RESIDUE MOSTLY), MORE EFFICIENT WITH NECTAR THICK (COMPARED TO HONEY TAKES 6 SECONDS AND PUREED TAKES 12 SECONDS ORAL TRANSIT). RECOMMENDATIONS: INITIATE PO INTAKE OF CCHO-MED LIQUIFIED PUREED LIKE NECTAR THICK SOUP CONSISTENCY, OK TO HAVE THIN LIQUIDS WITH TSP/SMALL SIP VIA CUP AND OTHER POSTED ASPIRATION AND REFLUX PRECAUTIONS. SKILLED DYSPHAGIA MANAGEMENT AND TX WITH [facility] EP SPECIALIST EDUCATED/TRAINED STAFF/FAMILY/PT IN POSTED ASP/REFLUX PREC SINCE D/C TODAY LEFT MESSAGE WITH DR ASHBY WHO AGREED WITH ABOVE.
--- NOTE | 2018-11-27 12:51 | Diagnostic Imaging Report ---
Indication: Shortness of breath Technique: One view of the chest Comparison: 11/23/2018 Findings: Interim removal of nasogastric tube. Mild interstitial prominence persists, unchanged. Right suprahilar opacity persists, unchanged. Pleural spaces remain clear. The heart remains borderline enlarged Impression: Interim nasogastric tube removal. Otherwise unchanged as described over 4 days
--- NOTE | 2018-11-27 13:00 | NUR ---
NURSE NOTES: Pt for discharge with home health [facility].Family members and spouse notified,verbalized understanding.
--- NOTE | 2018-11-27 13:13 | NUR ---
*-* DISCHARGE PLANNING *-* PATIENT HAS BEEN REFERRED TO: [facility] F:[phone] P:[phone]
--- NOTE | 2018-11-27 13:20 | NUR ---
NURSE NOTES: Pt discharge and out of the unit accompanied by ambulance personnel awake,alert in no resp distress,IV to RFA removed , skin to IV site intact.
--- NOTE | 2018-11-27 18:02 | NUR ---
P.T Weekly Progress Notes: late entry 1400 Pt demonstrate slow however steady progress during the course of P.T. Pt currently require MIN/MOD A x 1 for bed mobility and transfer mobilities. Pt able to ambulate and tolerate average distance of 25 ft using the FWW with MOD A X1 1. Pt continue to require extended amount of time and verbal cues for proper hand placement and sequencing of mobility tasks to facilitate ease of mobility and safety especially during transfer mobility tasks as patient tends to price on to the chair losing control in standing to sitting transition. Overall Fair tolerance to activities. Anticipated DC to home today with home health set up and home P.T. follow up.
--- NOTE | 2018-11-27 20:57 | Cardiology Report ---
APPROVED REPORT EKG Measurement Heart [id number] Normal sinus rhythm Normal ECG
--- NOTE | 2018-11-28 13:54 | Discharge Summary ---
Discharge Summary Discharge Summary _ DATE OF ADMISSION: 11/19/2018 DATE OF DISCHARGE: 11/27/2018 DISCHARGED BY: Dr. Griffin REASON FOR ADMISSION: 78 years old female with past medical history significant for history of DVT of the left lower extremity in 2017 , after she had left hip surgery, history of CVA with left hemiparesis, Alzheimer's dementia, diabetes mellitus type 2, GERD , presented to emergency department accompanied by the family member with altered mental status and decreased oral intake. Patient apparently woke up at night and was coughing. gave her some warm water. Patient fell asleep , but then in the morning patient noted runny nose , productive cough with yellow sputum and reduced appetite. No fever or chills were reported. No wheezing, no hemoptysis. No chest pain. Upon evaluation vital signs were stable. Laboratory work-up revealed no leukocytosis, stable hemoglobin and hematocrit. Stable electrolytes and renal parameters. Lactic acid 1.4. Urinalysis revealed pyuria and few bacteria. Chest x-ray revealed no acute cardiopulmonary pathology. Shortly after initial evaluation , patient was admitted for further evaluation and management. CONSULTANTS: neurologist Dr. Duncan pulmonary/critical care Dr. Hayes ID specialist Dr. River [facility] COURSE: Patient admitted to stepdown unit. Patient started on the IV hydration. Neurologist and banking services officer followed. DVT prophylaxis provided. Venous duplex bilateral lower extremity revealed no evidence of acute DVT. Supplemental oxygen provided as needed to keep pulse oximetry above 92%. Pulmonary toilet via handheld nebulizing therapy with bronchodilator provided. Antitussive provided as needed. Patient started on empiric antibiotics as per ID specialist recommendation. Blood culture were negative. Urine culture revealed E. coli ESBL. Patient completed antibiotic while in the hospital. MRI of the brain revealed acute left basal ganglia lacunar infarct. Multiple old infarcts noted. Other chronic and age-related changes noted. No acute intracranial bleeding or mass-effect. Neurologist followed. Per neurologist , patient history , physical examination and imaging were most consistent with acute left basal ganglia and harris radiata infarct , causing her the sudden change in level of arousal. Patient had new onset of right-sided weakness in addition to old left-sided weakness, related to prior stroke. Per neurologist , most likely etiology of her stroke included hypertension , diabetes and dyslipidemia. Neurological function was closely monitored, and was slowly improving with increased alertness , increased power and improved pharyngeal function. Antiplatelet therapy with Plavix started for secondary stroke prevention. Lipid panel revealed elevated triglyceride , total cholesterol and LDL. Patient started on statin. Family was educated on low-fat, low-cholesterol, diabetic diet Carotid duplex revealed minimal degree of stenosis 30% in the internal carotid on the right side and 20% of stenosis in the internal carotid artery on the left side. Patient initially failed bedside swallow evaluation. Patient started on NG tube feeding with strict aspiration precaution. Patient undergone video swallow evaluation on 11/27 which revealed high silent aspiration risk. Speech therapist recommended diet for quality of life. Diet texture provided as per speech therapist recommendation with strict aspiration/ reflux precaution and one-to-one feeding. Speech therapist recommended skilled dysphagia management, that will be done by home health services. Blood sugar was managed with sliding scale of insulin. Hemoglobin A1c not at goal 8.2. Patient will need further optimization of anti-glycemic regimen. Hyperkalemia was treated. Noted elevated TSH and T3 down. Patient started on low-dose of Synthroid. Repeat TFT in 1 month. Patient was working with physical therapist. Pain management was addressed as needed. Bowel regimen instituted. Supportive care provided. NG tube was discontinued. Patient noted to have acute kidney injury with BUN 27 creatinine 1.4 and sodium 133 Bolus of 500 cc of normal saline provided. Recommended to avoid nephrotoxic's. Follow-up with renal function as outpatient. Patient clinically stabilized and was ready for discharge home with home health services. FINAL DIAGNOSES: Acute left basal ganglia lacunar infarct with right-sided weakness Extensive cerebrovascular disease with prior history of CVA with left-sided weakness Bronchitis Possible pneumonia UTI with a E. coli ESBL History of DVT left lower extremity after left hip ORIF Acute encephalopathy Dysphagia with high aspiration risk Mixed hyperlipidemia Hypertension Diabetes mellitus type 2 Alzheimer's dementia Acute kidney injury /BARB Hyperkalemia Hypothyroidism, mild, newly diagnosed DISCHARGE MEDICATIONS: See Medication Reconciliation list. DISCHARGE INSTRUCTIONS: Patient was discharged home with home health services. Follow up with primary care provider in one week. Fernanda Rodriguez NP Nov 28, 2018 13:54
--- NOTE | 2018-11-28 14:47 | Diagnostic Imaging Report ---
Indications: Dysphagia Technique: Patient ingested multiple substances under the supervision of speech pathology. Video fluoroscopic recording performed. Total fluoroscopy time to 58.2 seconds. Total dose area product [id number] mGycm2 Total number of images-8 Comparison: none Findings: Initial swallows of thin liquid barium demonstrated laryngeal penetration. No roman aspiration. There is some early pooling in the vallecula and piriform sinuses. No significant residual. Early pooling and occasional penetration also noted with nectar thick liquid barium. No penetration or aspiration of honey thick barium or barium puree Impression: Positive for penetration of thin and nectar thick liquid barium Please refer to speech pathology report for more detailed analysis
== END 2018-11-27 15:20 | disposition home or self-care (01) | DRG 64 ==
LOC: EDBD 10:00 → EMR 10:29 → 4E 10:32 → EDBEDREQ 11:58 → 4E 23:37 → 2W 11-23 20:04
DX: I63.81 Other cerebral infarction due to occlusion or stenosis of small artery (principal); J18.9 Pneumonia, unspecified organism; I69.352 Hemiplegia and hemiparesis following cerebral infarction affecting left dominant side; G93.40 Encephalopathy, unspecified; N39.0 Urinary tract infection, site not specified; G81.91 Hemiplegia, unspecified affecting right dominant side; N17.9 Acute kidney failure, unspecified; J40 Bronchitis, not specified as acute or chronic; I10 Essential (primary) hypertension; F03.90 Unspecified dementia, unspecified severity, without behavioral disturbance, psychotic disturbance, mood disturbance, and anxiety; E11.9 Type 2 diabetes mellitus without complications; Z86.718 Personal history of other venous thrombosis and embolism; K21.9 Gastro-esophageal reflux disease without esophagitis; G30.9 Alzheimer's disease, unspecified; F02.80 Dementia in other diseases classified elsewhere, unspecified severity, without behavioral disturbance, psychotic disturbance, mood disturbance, and anxiety; B96.20 Unspecified Escherichia coli [E. coli] as the cause of diseases classified elsewhere; Z16.12 Extended spectrum beta lactamase (ESBL) resistance; E78.5 Hyperlipidemia, unspecified; R13.10 Dysphagia, unspecified; E87.5 Hyperkalemia; E03.9 Hypothyroidism, unspecified; Z79.4 Long term (current) use of insulin; Z87.891 Personal history of nicotine dependence; E86.0 Dehydration
CPT/HCPCS: 36415; 70551; 71045; 74018; 74230; 80048; 80053; 80061; 81003; 82962; 83036; 83605; 83735; 84100; 84439; 84443; 84481; 84484; 85025; 85651; 86592; 87040; 87086; 87181; 93005; 93880; 93970; 94640; 94664; 96360; 99285; J1815; J2405; J7620